=== PATIENT | female | born 1970 | race American Indian/Alaskan Native ===

== ENCOUNTER 2016-10-10 21:59 | Inpatient (IN) | payer MEDICAID, OTHER ==
[2016-10-10 22:00] VITALS: BMI 25.0
--- NOTE | 2016-10-10 23:23 | ED PDOC ---
Arrival/HPI - General Historian: Patient <Yamini Freire - Last Filed: 10/11/16 00:04> <Deepak Leary - Last Filed: 10/11/16 03:29> - General Chief Complaint: Psychiatric Evaluation Time Seen by Provider: 10/10/16 22:25 - History of Present Illness Narrative History of Present Illness (Text): 10/10/16 23:17 46-year-old female presents today with depression and intermittent thoughts of hurting himself. Patient states she's been under a lot of stress lately and is taking her medications but feels more depressed than ever. Patient states she's been feeling hopeless. Patient states intermittently she has thoughts of hurting herself but does not think that she will act on them. She denies chest pain or shortness of breath. No nausea or vomiting. Patient admits to using heroin yesterday. Patient states she was clean and recently relapsed. Patient also admits to drinking alcohol in the past few days. No other complaints (Yamini Freire) Past Medical History - Provider Review Nursing Documentation Reviewed: Yes - Travel History Have you recently traveled outside [place] w/in the past 3 mons?: No - Infectious Disease Hx of Infectious Diseases: None - Tetanus Immunization Tetanus Immunization: Unknown - Cardiac Hx Cardiac Disorders: No Hx Hypertension: Yes - Pulmonary Hx Respiratory Disorders: No Hx Tuberculosis: No - Neurological Hx Neurological Disorder: No HX Cerebrovascular Accident: No Hx Seizures: No - HEENT Hx HEENT Disorder: No - Renal Hx Renal Disorder: No - Endocrine/Metabolic Hx Endocrine Disorders: No - Hematological/Oncological Hx Anemia: Yes Hx Cancer: No - Integumentary Hx Dermatological Disorder: No - Musculoskeletal/Rheumatological Hx Musculoskeletal Disorders: No - Gastrointestinal Hx Gastrointestinal Disorders: No - Genitourinary/Gynecological Hx Genitourinary Disorders: No Hx Sexually Transmitted Diseases: No - Psychiatric Hx Anxiety: Yes Hx Bipolar Disorder: Yes Hx Depression: Yes Hx Schizophrenia: Yes Hx Substance Use: Yes - Past Surgical History Past Surgical History: No Previous - Surgical History Hx Cholecystectomy: Yes Other/Comment: Ectopic preg - Anesthesia Hx Anesthesia: Yes Hx Anesthesia Reactions: No Hx Malignant Hyperthermia: No - Suicidal Assessment Feels Threatened In Home Enviroment: No <Yamini Freire - Last Filed: 10/11/16 00:04> Family/Social History - Physician Review Nursing Documentation Reviewed: Yes Family/Social History: Unknown Family HX Smoking Status: Light Smoker < 10 Cigarettes Daily Hx Alcohol Use: No Hx Substance Use: Yes Substance used: last used on wednesday; October 072016 Hx Substance Use Treatment: Yes <MounaYamini T - Last Filed: 10/11/16 00:04> Allergies/Home Meds <JadachaddYamini T - Last Filed: 10/11/16 00:04> <Deepak Leary - Last Filed: 10/11/16 03:29> Allergies/Adverse Reactions: Allergies Penicillins Adverse Reaction (Verified 11/05/15 23:52) RASH Home Medications: Home Meds Medication Instructions Recorded Confirmed QUEtiapine [SEROquel] 300 mg PO BID 12/20/14 12/20/14 Zolpidem Tartrate [Ambien] 10 mg PO HS 12/20/14 12/20/14 Escitalopram [Lexapro] 10 mg PO DAILY 11/05/15 11/05/15 clonazePAM [clonAZEPAM] 1 mg PO TID 11/05/15 11/05/15 traZODone [Desyrel] 100 mg PO BID 11/05/15 11/05/15 Review of Systems - Review of Systems Constitutional: absent: Fatigue, Fevers Respiratory: absent: SOB, Cough Cardiovascular: absent: Chest Pain, Palpitations Gastrointestinal: absent: Abdominal Pain, Constipation, Diarrhea, Nausea, Vomiting Skin: absent: Pruritis Neurological: absent: Headache Psychiatric: Depression, Suicidal Ideation. absent: Anxiety <Yamini Freire - Last Filed: 10/11/16 00:04> Physical Exam Vital Signs Reviewed: Yes Temperature: Afebrile Blood Pressure: Normal Pulse: Regular Respiratory Rate: Normal Appearance: Positive for: Well-Appearing, Non-Toxic, Comfortable Pain Distress: None Mental Status: Positive for: Alert and Oriented X 3 Finger Stick Blood Glucose: 105 - Systems Exam Head: Present: Atraumatic Mouth: Present: Moist Mucous Membranes Respiratory/Chest: Present: Clear to Auscultation, Good Air Exchange. No: Respiratory Distress, Accessory Muscle Use Cardiovascular: Present: Regular Rate and Rhythm, Normal S1, S2. No: Murmurs Abdomen: No: Tenderness, Distention, Normal Bowel Sounds, Peritoneal Signs, Rebound, Guarding Upper Extremity: Present: Normal ROM Lower Extremity: Present: Normal ROM Neurological: Present: GCS=15 Skin: Present: Warm, Dry, Normal Color. No: Rashes Psychiatric: Present: Alert, Oriented x 3, Depressed Mood <Yamini Freire - Last Filed: 10/11/16 00:04> Vital Signs Temp Pulse Resp BP Pulse Ox 10/11/16 02:41 72 16 98 10/10/16 22:19 98.7 F 90 18 128/82 100 Medical Decision Making <Yamini Freire - Last Filed: 10/11/16 00:04> <Deepak Leary - Last Filed: 10/11/16 03:29> ED Course and Treatment: 10/10/16 23:23 Patient is nontoxic well-appearing in no distress vital signs are stable. pt c/ o depression. CBC WNL CMP WNL Tylenol WNL Salicylate WNL Alcohol level WNL Urine drug screen + cocaine, + opiates UA; small leukocytes, + epithealials; contaminated sample; no URinary symptoms. cxr: wnl ekg NSR at 80b/m no st elevations, normal axis. pt is medically cleared for PES evaluation (Yamini Freire) 10/11/16 03:08 Pt seen and evaluated by PES screener Minnie. Pt to be admitted to [facility] for depression and suicidal ideation under Dr. Gamboa's service. Pt agreeable with plan. (Deepak Leary) - Lab Interpretations Lab Results: 10/10/16 22:40 10/10/16 22:40 Lab Results 10/10/16 23:15: Urine Color Yellow, Urine Appearance Clear, Urine pH 6.0, Ur Specific [place] 1.025, Urine Protein Negative, Urine Glucose (UA) Negative, Urine Ketones Negative, Urine Blood Negative, Urine Nitrate Negative, Urine Bilirubin Negative, Urine Urobilinogen 0.2, Ur Leukocyte Esterase Small H, Urine RBC TEST NOT PERFORMED, Urine WBC 10 - 15, Ur Epithelial Cells 10 - 12, Urine HCG, Qual Negative, Urine Opiates Screen Positive H, Urine Methadone Screen Negative, Ur Barbiturates Screen Negative, Ur Phencyclidine Scrn Negative , Ur Amphetamines Screen Negative, U Benzodiazepines Scrn Negative, U Oth Cocaine Metabols Positive H, U Cannabinoids Screen Negative 10/10/16 22:40: WBC 8.3, RBC 4.33, Hgb 13.2, Hct 38.7, MCV 89.4, MCH 30.5, MCHC 34.1, RDW 15.5 H, Plt Count 236, MPV 10.8, Gran % 44.4 L, Lymph % (Auto) 45.8 H , [place] % (Auto) 7.3 H, Eos % (Auto) 2.4, Baso % (Auto) 0.1, Gran # 3.67, Lymph # 3.8 H, [place] # 0.6, Eos # 0.2, Baso # 0.01, Sodium 139, Potassium 4.1, Chloride 103, Carbon Dioxide 27, Anion Gap 13, BUN 10, Creatinine 0.7, Est GFR ( Amer) > 60, Est GFR (Non-Af Amer) > 60, Random Glucose 96, Calcium 9.0, Total Bilirubin 0.5, AST 35, ALT 41, Alkaline Phosphatase 93, Total Protein 8.1 , Albumin 4.2, Globulin 3.8, Albumin/Globulin Ratio 1.1, Salicylates < 1 L, Acetaminophen < 10.0 L, Alcohol, Quantitative < 10 - RAD Interpretation Radiology Orders: 10/10/16 22:26 CHEST PORTABLE [RAD] Stat - PA / CONCRETE FENCE BUILDER / Resident Statement KEVEN has reviewed & agrees with the documentation as recorded. KEVEN has examined the patient and agrees with the treatment plan. <Deepak Leary - Last Filed: 10/11/16 03:29> Disposition/Present on Arrival - Present on Arrival Any Indicators Present on Arrival: No History of DVT/PE: No History of Uncontrolled Diabetes: No Urinary Catheter: No History of Decub. Ulcer: No History Surgical Site Infection Following: None <Yamini Freire - Last Filed: 10/11/16 00:04> - Present on Arrival Any Indicators Present on Arrival: No History of DVT/PE: No History of Uncontrolled Diabetes: No Urinary Catheter: No History of Decub. Ulcer: No History Surgical Site Infection Following: None - Disposition Have Diagnosis and Disposition been Completed?: Yes Disposition Time: 03:29 Patient Plan: Admission <Deepak Leary - Last Filed: 10/11/16 03:29> - Disposition Diagnosis: Depression Disposition: HOSPITALIZED Condition: STABLE Referrals: PCP,NO [Primary Care Provider] - Follow up with primary
[2016-10-10 23:30] LABS: ADD MANUAL DIFF? NO
[2016-10-10 23:35] LABS: URINE BILIRUBIN NEGATIVE (NEGATIVE); URINE BLOOD NEGATIVE (NEGATIVE); URINE GLUCOSE (UA) NEGATIVE (NEGATIVE); URINE KETONE NEGATIVE (NEGATIVE); URINE LEUKOCYTE ESTERASE SMALL Leu/uL (NEGATIVE); URINE PROTEIN NEGATIVE mg/dL (<30 mg/dL); URINE UROBILINOGEN 0.2 E.U./dL (<1 E.U./dL)
[2016-10-10 23:36] LABS: BASO # 0.01 K/mm3 (0.0-2.0); BASO % 0.1 % (0.0-3.0); EOS # 0.2 (0.0-0.7); EOS % 2.4 % (1.5-5.0); GRAN # 3.67 (1.4-6.5); GRAN % 44.4 % (50.0-68.0); HEMATOCRIT 38.7 % (36.0-48.0); LYMPH # 3.8 (1.2-3.4); LYMPH % 45.8 % (22.0-35.0); MEAN CELL VOLUME 89.4 fL (80.0-105.0); MEAN CORPUSCULAR HEMOGLOBIN 30.5 pg (25.0-35.0); MEAN CORPUSCULAR HGB CONC 34.1 g/dl (31.0-37.0); MEAN PLATELET VOLUME 10.8 fl (7.0-11.0); MONO # 0.6 (0.1-0.6); MONO % 7.3 % (1.0-6.0); PLATELET COUNT 236 10^3/uL (120.0-450.0); RED CELL DISTRIBUTION WIDTH 15.5 % (11.5-14.5); WHITE BLOOD COUNT 8.3 10^3/ul (4.5-11.0)
[2016-10-10 23:39] LABS: URINE APPEARANCE CLEAR (CLEAR); URINE COLOR YELLOW (YELLOW)
[2016-10-10 23:43] LABS: ALB/GLOB RATIO 1.1 (1.1-1.8); ALKALINE PHOSPHATASE 93 U/L (38-133); ALT/SGPT 41 U/L (7-56); AST/SGOT 35 U/L (15-39); BILIRUBIN,TOTAL 0.5 mg/dL (0.2-1.3); BLOOD UREA NITROGEN 10 mg/dL (7-21); CARBON DIOXIDE 27 mmol/L (21-33); CHLORIDE 103 mmol/L (98-107); GFR AFRICAN-AMERICAN > 60; GLUCOSE,RANDOM 96 mg/dL (70-110); POTASSIUM 4.1 mmol/L (3.6-5.0); SODIUM 139 mmol/L (132-148); TOTAL PROTEIN 8.1 g/dL (5.8-8.3)
--- NOTE | 2016-10-11 08:45 | RAD ---
HISTORY: pes eval COMPARISON: 10/03/2015 FINDINGS: LUNGS: No active pulmonary disease. PLEURA: No significant pleural effusion identified, no pneumothorax apparent. CARDIOVASCULAR: Normal. OSSEOUS STRUCTURES: No significant abnormalities. VISUALIZED UPPER ABDOMEN: Normal. OTHER FINDINGS: None. IMPRESSION: No active disease.
[2016-10-11] MEDS ORDERED: Magnesium Hydroxide Susp 30 ml UD PO PRN (10:54)
[2016-10-11] MEDS ORDERED: Alum-Mag Hydrox-Simethicone Susp (30 mL) PO PRN (10:54)
--- NOTE | 2016-10-11 12:15 | CARD ---
APPROVED REPORT EKG Measurement Heart [id number] <Conclusion> Normal sinus rhythm Normal ECG
[2016-10-11] MEDS ORDERED: Albuterol-Ipratrop 3 mg / 0.5 (3 ml) UD IH PRN (14:29)
--- NOTE | 2016-10-11 14:34 | CP.PCM.CON ---
History of Present Illness - History of Present Illness History of Present Illness: Routine medical evaluation. Patient is a 46-year-old female admitted to the psychiatric floor for depression nad severe insomnia. Patient seen and examined in psychiatric floor. Patient is alert, awake and oriented. Currently denies any chest pain, shortness of breath. Denies any cough or wheezing. Denies any fevers, chills. Denies any urinary symptoms. Denies any nausea, vomiting. Tolerating diet well and denies any abdominal pain. ambulating without difficulty. Past medical history; Depression Schizoaffective disorder Asthma Insomnia Multiple drug abuse heroin/cocaine Medications at home; Inhaler Klonopin Seroquel Ambien Allergies; Penicillin Social history; Smokes 6 cigeretts per day more than 20 years Denies history of alcohol abuse history of heroin abuse anorting 2 days ago Currently denies IVDA Smokes heroin and cocaine. Patient lives in [place]. Review of Systems - Constitutional Constitutional: absent: Chills - EENT Eyes: absent: Blurred Vision Nose/Mouth/Throat: absent: Nasal Congestion - Cardiovascular Cardiovascular: absent: Chest Pain, Chest Pain at Rest - Respiratory Respiratory: absent: Cough, Dyspnea, Dyspnea on Exertion - Gastrointestinal Gastrointestinal: absent: Abdominal Pain, Vomiting - Musculoskeletal Musculoskeletal: absent: Abnormal Gait - Neurological Neurological: absent: Abnormal Gait, Abnormal Movements, Headaches Additional comments: insomnia - Psychiatric Psychiatric: Depression - Hematologic/Lymphatic Hematologic: absent: Easy Bleeding, Easy Bruising Past Patient History - Infectious Disease Hx of Infectious Diseases: None - Tetanus Immunizations Tetanus Immunization: Unknown - Past Social History Smoking Status: Light Smoker < 10 Cigarettes Daily Alcohol: < 2 Drinks/Day Drugs: Cocaine, Opiates - CARDIAC Hx Cardiac Disorders: Yes Hx Hypertension: Yes - PULMONARY Hx Respiratory Disorders: No Hx Tuberculosis: No - NEUROLOGICAL Hx Neurological Disorder: No Hx Alzheimer's Disease: No HX Cerebrovascular Accident: No Hx Seizures: No - HEENT Hx HEENT Problems: No - RENAL Hx Chronic Kidney Disease: No - ENDOCRINE/METABOLIC Hx Endocrine Disorders: No - HEMATOLOGICAL/ONCOLOGICAL Hx Anemia: Yes Hx Cancer: No - INTEGUMENTARY Hx Dermatological Problems: No - MUSCULOSKELETAL/RHEUMATOLOGICAL Hx Musculoskeletal Disorders: No - GASTROINTESTINAL Hx Gastrointestinal Disorders: No - GENITOURINARY/GYNECOLOGICAL Hx Genitourinary Disorders: No Hx Sexually Transmitted Disorders: No - PSYCHIATRIC Hx Anxiety: Yes Hx Depression: Yes Hx Emotional Abuse: No Hx Physical Abuse: No Hx Schizophrenia: No Hx Sexual Abuse: No Hx Substance Use: Yes (heroin) - SURGICAL HISTORY Hx Surgeries: Yes Hx Cholecystectomy: Yes Other/Comment: Ectopic preg - ANESTHESIA Hx Anesthesia: Yes Hx Anesthesia Reactions: No Hx Malignant Hyperthermia: No Meds Allergies/Adverse Reactions: Allergies Allergy/AdvReac Type Severity Reaction Status Date / Time Penicillins AdvReac RASH Verified 11/05/15 23:52 - Medications Medications: Current Medications Acetaminophen (Tylenol 325mg Tab) 650 mg PO Q6H PRN PRN Reason: Pain, Mild (1-3) Al Hydrox/Mg Hydrox/Simethicone (Maalox Plus 30 Ml) 30 ml PO DAILY PRN PRN Reason: Upset Stomach Clonazepam (Klonopin) 1 mg PO AMHS ANTONIO PRN Reason: Protocol Clonidine HCl (Catapres) 0.1 mg PO Q12H PRN PRN Reason: withdrawal Escitalopram Oxalate (Lexapro) 10 mg PO DAILY [facility] Last Admin: 10/11/16 13:03 Dose: 10 mg Magnesium Hydroxide (Milk Of Magnesia) 30 ml PO DAILY PRN PRN Reason: Constipation Quetiapine Fumarate (Seroquel) 100 mg PO HS ANTONIO PRN Reason: Protocol Trazodone HCl (Desyrel) 50 mg PO HS ANTONIO Zolpidem Tartrate (Ambien) 5 mg PO HS PRN; Protocol PRN Reason: Insomnia Physical Exam - Constitutional Appears: Well, Non-toxic - Head Exam Head Exam: NORMAL INSPECTION - Eye Exam Eye Exam: Normal appearance - ENT Exam ENT Exam: Mucous Membranes Moist - Respiratory Exam Respiratory Exam: Clear to Auscultation Bilateral - Cardiovascular Exam Cardiovascular Exam: REGULAR RHYTHM - GI/Abdominal Exam GI & Abdominal Exam: Normal Bowel Sounds, Soft. absent: Rebound, Rigid, Tenderness - Extremities Exam Extremities exam: Negative for: pedal edema - Back Exam Back exam: absent: CVA tenderness (L), CVA tenderness (R) - Neurological Exam Neurological exam: Alert, Oriented x3 - Psychiatric Exam Psychiatric exam: Depressed - Skin Skin Exam: Normal Color Results - Vital Signs Recent Vital Signs: Last Vital Signs Temp 98 F 10/11/16 10:31 Pulse 66 10/11/16 10:31 Resp 17 10/11/16 10:40 BP 98/65 L 10/11/16 10:31 Pulse Ox 100 10/11/16 10:31 - Labs Result Diagrams: 10/10/16 22:40 10/10/16 22:40 Assessment & Plan - Assessment and Plan (Free Text) Assessment: 1. Patient is a 46-year-old female admitted to the psychiatric floor for depression. Patient is currently on Lexapro, Seroquel and clonazepam. Follow-up with psychiatrist closely. 2. History of asthma; duonebs when necessary ordered. Currently with stable respiratory status. 3. Active smoking; smoking cessation is strongly advised. started on NicoDerm patch. 4. Insomnia:continue Ambien and trazodone. 5. History of heroin abuse; urine drug screen is positive for opiates and cocaine . Drug abuse cessation is strongly advised. Needs outpatient drug rehabilitation evaluation. 6. GI prophylaxis with Pepcid. 7.positive UA; no urinary symptoms. Urine culture sent from the ER. Follow up results. Labs reviewed. Upon discharge patient will follow up with PMD . Patient needs close outpatient psychiatric follow-up. patient is medically stable. Thank you for the courtesy of this consultation. Please reconsult as needed.
[2016-10-12 07:34] LABS: CHOLESTEROL 171 mg/dL (130-200); GLUCOSE,FASTING 106 mg/dL (65-110)
[2016-10-12 07:40] LABS: FREE T4 0.86 ng/dL (0.78-2.19)
[2016-10-12 07:54] LABS: THYROID STIMULATING HORMONE 0.13 mIU/mL (0.46-4.68)
--- NOTE | 2016-10-12 15:33 | PCM.PSYCH ---
Initial Psychiatric Evaluation - Initial Psychiatric Evaluation Type of Admission: Voluntary Legal Status: Capacity (patient has capacity to sign consent for treatment) Chief Complaint (in patient's own words): "I was depressed for the past two months..." Patient's Reaction to Hospitalization: pt was admitted for evaluation and stabilization of depressive symptoms, inability to function, suicidal ideation, no plan. History of Present Illness and Precipitating Events: Shortly pt is 46yo AAF with self reported h/o schizoaffective disorder, h/o heroin abuse and dependence, multiple admissions in the past, most recent was last year October to this facility, pt reported being noncompliant with medications, was relapsed on drugs for the past three days, was admitted for worsening of depression, suicidal ideation, no plan, pt needs further evaluation and stabilization and constant observation. Pt was seen and examined at the the treatment team, pt presented with poor personal hygiene, was disheveled, strong body odor, fair ADLs. Pt said that she was using drugs, pt said that she staid sober for eight months but she relapsed on Heroin three days prior to come to the hospital. Pt said that she was feeling depressed and hopeless and that is why she relapsed on drugs, pt said she had poor appetite and sleep. Pt said that she did not have any hallucinations, reported no symptoms of paranoia, pt has h/o auditory hallucinations, command type, but not now. Pt also reported worsening of her anxiety symptoms. past psych h/o: multiple admissions in the past, "about 10", h/o suicidal attempts. Medical h/o: ? COPD or asthma Social h/o: pt is on ssi, not working Pt reported smoking 6 pack a day Smoking Cessation Counseling: The patient was counseled as to the multiple risks to his/her health from continued use of tobacco products. 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 He/she states he/she understands these risks, and also understands the options and resources available to him/her to help him/her stop smoking. Nicotine replacement therapy, local hotlines, and local resources were discussed as viable options for helping him/her stop his/her tobacco use. The total time spent counseling the patient regarding tobacco cessation was 3 minutes Pt's pharmacy was called: by RN, reviewed. family h/o: denied 10/10/16 22:40 10/10/16 22:40 Lab Results 10/12/16 06:30: Fasting Glucose 106, Triglycerides 122, Cholesterol 171, LDL Cholesterol Direct 38, HDL Cholesterol 74 H, Free T4 0.86, TSH 3rd Generation 0.13 L 10/10/16 23:15: Urine Color Yellow, Urine Appearance Clear, Urine pH 6.0, Ur Specific [place] 1.025, Urine Protein Negative, Urine Glucose (UA) Negative, Urine Ketones Negative, Urine Blood Negative, Urine Nitrate Negative, Urine Bilirubin Negative, Urine Urobilinogen 0.2, Ur Leukocyte Esterase Small H, Urine RBC TEST NOT PERFORMED, Urine WBC 10 - 15, Ur Epithelial Cells 10 - 12, Urine HCG, Qual Negative, Urine Opiates Screen Positive H, Urine Methadone Screen Negative, Ur Barbiturates Screen Negative, Ur Phencyclidine Scrn Negative , Ur Amphetamines Screen Negative, U Benzodiazepines Scrn Negative, U Oth Cocaine Metabols Positive H, U Cannabinoids Screen Negative 10/10/16 22:40: WBC 8.3, RBC 4.33, Hgb 13.2, Hct 38.7, MCV 89.4, MCH 30.5, MCHC 34.1, RDW 15.5 H, Plt Count 236, MPV 10.8, Gran % 44.4 L, Lymph % (Auto) 45.8 H , [place] % (Auto) 7.3 H, Eos % (Auto) 2.4, Baso % (Auto) 0.1, Gran # 3.67, Lymph # 3.8 H, [place] # 0.6, Eos # 0.2, Baso # 0.01, Sodium 139, Potassium 4.1, Chloride 103, Carbon Dioxide 27, Anion Gap 13, BUN 10, Creatinine 0.7, Est GFR ( Amer) > 60, Est GFR (Non-Af Amer) > 60, Random Glucose 96, Calcium 9.0, Total Bilirubin 0.5, AST 35, ALT 41, Alkaline Phosphatase 93, Total Protein 8.1 , Albumin 4.2, Globulin 3.8, Albumin/Globulin Ratio 1.1, Salicylates < 1 L, Acetaminophen < 10.0 L, Alcohol, Quantitative < 10 Vital Signs Temp Pulse Resp BP Pulse Ox 10/12/16 07:00 98.8 F 62 20 105/64 10/11/16 10:40 17 10/11/16 10:31 98 F 66 16 98/65 L 100 10/11/16 09:00 68 16 92/54 L 99 10/11/16 07:13 62 16 99 10/11/16 05:47 97/56 L 10/11/16 05:20 69 16 97 10/11/16 02:41 72 16 98 10/10/16 22:19 98.7 F 90 18 128/82 100 Current Medications: Active Medications Generic Name Dose Route Start Last Admin Trade Name Freq PRN Reason Stop Dose Admin Acetaminophen 650 mg 10/11/16 10:54 Tylenol 325mg Tab PO Q6H PRN Pain, Mild (1-3) Al Hydrox/Mg Hydrox/Simethicone 30 ml 10/11/16 10:54 Maalox Plus 30 Ml PO DAILY PRN Upset Stomach Albuterol/Ipratropium 3 ml 10/11/16 14:29 Duoneb 3 Mg/0.5 Mg (3 Ml) Ud IH [id number] PRN Shortness of Breath Clonazepam 1 mg 10/11/16 22:00 10/12/16 09:07 Klonopin PO 1 mg AMHS ANTONIO Administration Protocol Clonidine HCl 0.1 mg 10/11/16 12:30 Catapres PO Q12H PRN withdrawal Escitalopram Oxalate 10 mg 10/11/16 12:30 10/12/16 09:07 Lexapro PO 10 mg DAILY ANTONIO Administration Famotidine 40 mg 10/11/16 22:00 10/11/16 21:55 Pepcid PO 40 mg HS ANTONIO Administration Magnesium Hydroxide 30 ml 10/11/16 10:54 Milk Of Magnesia PO DAILY PRN Constipation Nicotine 1 patch 10/11/16 14:30 10/12/16 09:09 Nicoderm Cq TD Not Given DAILY ANTONIO Quetiapine Fumarate 100 mg 10/11/16 22:00 10/11/16 21:55 Seroquel PO 100 mg HS ANTONIO Administration Protocol Trazodone HCl 50 mg 10/11/16 22:00 10/11/16 21:55 Desyrel PO 50 mg HS ANTONIO Administration Zolpidem Tartrate 5 mg 10/11/16 12:30 Ambien PO HS PRN Insomnia Protocol patient was educated about the risk, benefits, mental sciences all of the meds Past Psychiatric History - Past Psychiatric History Previous Treatment History: Inpatient Prior Professional Help: see HPI Prior Psychiatric Treatment: see HPI At what hospital: see HPI Duration: see HPI Nature of Treatment: see HPI Explanation of prior treatment: see HPI History of Abuse: see HPI, denied History of ETOH/Drug Use: see HPI cocaine and opioids History of Family Illness: see HPI Pertinent Medical Hx (Current Medical&Sleep Prob, Allergies): Allergies Allergy/AdvReac Type Severity Reaction Status Date / Time Penicillins AdvReac RASH Verified 11/05/15 23:52 QUEtiapine [SEROquel] 300 mg PO BID 12/20/14 Zolpidem Tartrate [Ambien] 10 mg PO HS 12/20/14 Escitalopram [Lexapro] 10 mg PO DAILY #0 tab 12/24/14 QUEtiapine [Seroquel] 100 mg PO DAILY #0 tab 12/24/14 QUEtiapine [Seroquel] 300 mg PO HS #0 tab 12/24/14 traZODone [Desyrel] 100 mg PO HS #0 tab 12/24/14 QUEtiapine [Seroquel] 100 mg PO HS #30 tab 10/07/15 Escitalopram [Lexapro] 10 mg PO DAILY 11/05/15 clonazePAM [clonAZEPAM] 1 mg PO TID 11/05/15 traZODone [Desyrel] 100 mg PO BID 11/05/15 Docusate [Colace] 100 mg PO BID PRN #20 cap 11/06/15 Polyethylene Glycol 3350 [Miralax] 17 gm PO DAILY PRN #1 bottle 11/06/15 Review of Systems - Review of Systems Systems not reviewed;Unavailable: Acuity of Condition - EENT Eyes: As Per HPI Ears: As Per HPI Nose/Mouth/Throat: As Per HPI - Breasts Breasts: As Per HPI - Cardiovascular Cardiovascular: As Per HPI - Respiratory Respiratory: As Per HPI - Gastrointestinal Gastrointestinal: As Per HPI - Genitourinary Genitourinary: As Per HPI - Reproductive: Female Reproductive:Female: As Per HPI - Menstruation Menstruation: As Per HPI - Musculoskeletal Musculoskeletal: As Par HPI - Integumentary Integumentary: As Per HPI - Neurological Neurological: As Per HPI - Psychiatric Psychiatric: As Per HPI - Endocrine Endocrine: As Per HPI - Hematologic/Lymphatic Hematologic: As Per HPI Mental Status Examination - Personal Presentation Personal Presentation: Looks older than stated age - Affect Affect: Flat - Motor Activity Motor Activity: Psychomotor Retardation - Reliability in Providing Information Reliability in Providing Information: Fair - Speech Speech: Organized - Mood Mood: Depressed - Formal Thought Process Formal Thought Process: No Impairment - Obsessions/Compulsions Obsessions: None Compulsions: None - Cognitive Functions Orientation: Person, Place, Situation, Time Sensorium: Alert Attention/Concentration: Easily distracted Abstract Thinking: [place] Estimate of Intelligence: Average Judgement: Intact, as evidence by: Insight regarding need for hospitalization - Risk Risk: Suicidal, Withdrawal, Self-mutilation, Diminished functioning - Strength & Assets Inventory Strength & Assets Inventory: Family support, Skills, Cooperative - Limitations Limitations: Other (chronic noncompliance with meds and using drugs.) DSM 5 DX - DSM 5 DSM 5 Diagnosis: schizoaffective d/o as per h/o cocaine abuse opioid addiction - Recommended/Plan of Treatment Treatment Recommendations and Plan of Treatment: milieu/structure/supportive therapy SEROquel was resumed 100mg hs as a mood stabilizer trazodone 50mg hs for insomnia and depression Ambien 5mg PO HS for insomnia Lexapro 10 mg PO DAILY for depression and anxiety clonAZEPAM 1 mg PO amhs for anxiety pt was seen by medical team, consult appreciated SW evaluation will f/u on labs will monitor closely Projected ELOS: 7days Prognosis: guarded Discharge Plan and Discharge Criteria: Pt will be not depressed or manic, will be more hopeful, will be not psychotic or anxious, will be not having thoughts of harming self or others, will be tolerating medications well, will not have major side effects, will be able to function, will not pose threat to self or others. - Smoking Cessation Smoking Cessation Initiated: Yes
--- NOTE | 2016-10-13 16:28 | PCM.PYCHPN ---
Psychiatric Progress Note - Psychiatric Progress Note Patient seen today, length of contact: 30 min Patient Chief Complaint: "are you kidding me, why you want to give me such small doses of medications?" Problems Identified/Issues Discussed: Suicide/ homicide prevention, past psychiatric h/o, current psychiatric symptoms , medical problems, risk/benefits and alternatives of medications, medications compliance, coping strategies, substance abuse h/o, relapse prevention, importance of follow up with psychiatrist and therapist, discharge plan. Medical Problems: h/o COPD, asthma Diagnostic Results: 10/10/16 22:40 10/10/16 22:40 Lab Results 10/12/16 06:30: Fasting Glucose 106, Triglycerides 122, Cholesterol 171, LDL Cholesterol Direct 38, HDL Cholesterol 74 H, Free T4 0.86, TSH 3rd Generation 0.13 L, RPR Nonreactive 10/10/16 23:15: Urine Color Yellow, Urine Appearance Clear, Urine pH 6.0, Ur Specific [place] 1.025, Urine Protein Negative, Urine Glucose (UA) Negative, Urine Ketones Negative, Urine Blood Negative, Urine Nitrate Negative, Urine Bilirubin Negative, Urine Urobilinogen 0.2, Ur Leukocyte Esterase Small H, Urine RBC TEST NOT PERFORMED, Urine WBC 10 - 15, Ur Epithelial Cells 10 - 12, Urine HCG, Qual Negative, Urine Opiates Screen Positive H, Urine Methadone Screen Negative, Ur Barbiturates Screen Negative, Ur Phencyclidine Scrn Negative , Ur Amphetamines Screen Negative, U Benzodiazepines Scrn Negative, U Oth Cocaine Metabols Positive H, U Cannabinoids Screen Negative 10/10/16 22:44: POC Glucose (mg/dL) 105 10/10/16 22:40: WBC 8.3, RBC 4.33, Hgb 13.2, Hct 38.7, MCV 89.4, MCH 30.5, MCHC 34.1, RDW 15.5 H, Plt Count 236, MPV 10.8, Gran % 44.4 L, Lymph % (Auto) 45.8 H , [place] % (Auto) 7.3 H, Eos % (Auto) 2.4, Baso % (Auto) 0.1, Gran # 3.67, Lymph # 3.8 H, [place] # 0.6, Eos # 0.2, Baso # 0.01, Sodium 139, Potassium 4.1, Chloride 103, Carbon Dioxide 27, Anion Gap 13, BUN 10, Creatinine 0.7, Est GFR ( Amer) > 60, Est GFR (Non-Af Amer) > 60, Random Glucose 96, Calcium 9.0, Total Bilirubin 0.5, AST 35, ALT 41, Alkaline Phosphatase 93, Total Protein 8.1 , Albumin 4.2, Globulin 3.8, Albumin/Globulin Ratio 1.1, Salicylates < 1 L, Acetaminophen < 10.0 L, Alcohol, Quantitative < 10 Vital Signs Temp Pulse Resp BP Pulse Ox 10/13/16 08:30 98.8 F 56 L 18 121/69 10/12/16 18:21 55 L 151/88 H 10/12/16 17:54 55 L 151/88 H 10/12/16 16:57 97.5 F L 10/12/16 07:00 98.8 F 62 20 105/64 10/11/16 10:40 17 10/11/16 10:31 98 F 66 16 98/65 L 100 10/11/16 09:00 68 16 92/54 L 99 10/11/16 07:13 62 16 99 10/11/16 05:47 97/56 L 10/11/16 05:20 69 16 97 10/11/16 02:41 72 16 98 10/10/16 22:19 98.7 F 90 18 128/82 100 DSM 5 Symptoms Update: Shortly pt is 46yo AAF with self reported h/o schizoaffective disorder, h/o heroin abuse and dependence, multiple admissions in the past, most recent was last year October to this facility, pt reported being noncompliant with medications, was relapsed on drugs for the past three days, was admitted for worsening of depression, suicidal ideation, no plan, pt needs further evaluation and stabilization and constant observation. Pt was seen and examined in her room, pt presented with poor personal hygiene, was disheveled, strong body odor, fair ADLs, pt is irritable and angry, said that she needs to have higher doses of meds, pt was educated that it would be not safe to initiate higher doses if pt was noncompliant with meds for the past few months, pt verbalized understanding. pt said that she feels depressed and "on edge", pt was in agreement to increase klonopn and seroquel. pt reported to feel depressed and irritable. Pt said that she did not have any hallucinations, reported no symptoms of paranoia, pt has h/o auditory hallucinations, command type, but not now. Pt also reported worsening of her anxiety symptoms. as per staff pt is withdrawn, irritable, not participating in groups, poor hygiene, not agitation, compliance with meds. Impression: bipolar disorder as per h/o polysubstance abuse and dependence r/o substance induced mood disorder Medication Change: Yes (seroquel increased, tramadol prn, trazodone increasede) Medical Record Reviewed: Yes Consults ordered or reviewed: medical consult appreciated. Mental Status Examination - Cognitive Function Orientation: Person, Place, Situation, Time Memory: Intact Attention: Poor Concentration: Poor Association: WNL Fund of Knowledge: WNL - Mood Mood: Depressed - Affect Affect: Flat - Speech Speech: Appropriate (underproductive, low volume) - Formal Thought Process Formal Thought Process: No Impairment - Suicidal Ideation Suicidal Ideation: No - Homicidal Ideation Homicidal Ideation: No Goal/Treatment Plan - Goal/Treatment Plan Need for Continued Stay: Remain at risks for inpatient hospitalization, Severe depression anxiety, Discharge may exacerbated symptoms, Severe functional impairment Progress Toward Problem(s) and Goals/Treatment Plan: milieu/structure/supportive therapy SEROquel will be increased to 200mg amhs as a mood stabilizer increased 10/13/16 trazodone will be increased 150mg hs for insomnia and depression increased Ambien 5mg PO HS for insomnia Lexapro 10 mg PO DAILY for depression and anxiety clonAZEPAM 1 mg PO tid for anxiety increased 10/13/16 tramadol 50mg po tid for pain pt was seen by medical team, consult appreciated evaluation will f/u on labs will monitor closely Estimated Date of D/C: 10/19/16 (will monitor closely)
--- NOTE | 2016-10-14 11:52 | PCM.PYCHPN ---
Psychiatric Progress Note - Psychiatric Progress Note Patient seen today, length of contact: 25 min Patient Chief Complaint: "alright" Problems Identified/Issues Discussed: I reviewed recent notes and met with patient at bedside. Patient appears a little unkempt however she's fairly calm and cooperative. Oriented x3. Reports that she is feeling "alright" and feels a little improved since admission. She is still not sleeping well thus can feel restless and de anda during the day. Patient denies having any wishes or suicidal thoughts. She denies having any thoughts of harming others. Her thought process is generally coherent and responses are relevant to questioning. Affect is constricted and nursing notes indicate that she can be labile and irritable on the unit. There were no behavioral issues overnight. Diagnostic Results: Bipolar disorder as per h/o polysubstance abuse and dependence r/o substance induced mood disorder Medication Change: No (seroquel increased, ambien increased) Medical Record Reviewed: Yes (notes, reports, labs, vitals) Mental Status Examination - Cognitive Function Orientation: Person, Place, Situation, Time Memory: Intact Attention: WNL Concentration: Poor Association: WNL Fund of Knowledge: WNL - Mood Mood: Depressed ("alright, de anda") - Affect Affect: Flat, Other (labile, irritable at times, but in control) - Speech Speech: Appropriate (underproductive, low volume) - Formal Thought Process Formal Thought Process: No Impairment - Suicidal Ideation Suicidal Ideation: No - Homicidal Ideation Homicidal Ideation: No Goal/Treatment Plan - Goal/Treatment Plan Need for Continued Stay: Remain at risks for inpatient hospitalization, Severe depression anxiety, Discharge may exacerbated symptoms, Severe functional impairment Progress Toward Problem(s) and Goals/Treatment Plan: * c/w current tx and plan * Increase Seroquel from 200mg amhs to 200 mg AM + 250 mg HS as a mood stabilizer * c/w trazodone, increased 10/13/16 to 150mg hs for insomnia and depression * Increase Ambien 5mg PO HS to 10 mg po HS prn for insomnia * c/w Lexapro 10 mg PO DAILY for depression and anxiety * c/w klonopin, increased 10/13/16 to 1 mg PO tid for anxiety * c/w tramadol 50mg po tid for pain * Vitals reviewed and noted below: Selected Entries 10/14/16 06:27 Temperature 98.7 F Pulse Rate 64 Respiratory 18 Rate Blood Pressure 108/67 * No new labs overnight Estimated Date of D/C: 10/19/16 (will monitor closely)
[2016-10-15 07:35] LABS: FREE T4 0.63 ng/dL (0.78-2.19)
[2016-10-15 07:49] LABS: THYROID STIMULATING HORMONE 0.48 mIU/mL (0.46-4.68)
--- NOTE | 2016-10-15 10:26 | PCM.PYCHPN ---
Psychiatric Progress Note - Psychiatric Progress Note Patient seen today, length of contact: 25 min Patient Chief Complaint: "okay" Problems Identified/Issues Discussed: I reviewed recent notes and met with patient at bedside. Patient still appears a little unkempt however she is fairly calm and cooperative during our interview. Oriented x3. Reports that she is "okay" and feels that she is improving a little since admission though she still feels anxious on the unit. Patient requests switch to Xanax and she is not argumentative when this provider informs her that Xanax will not be prescribed due to associated risks of dependency and withdrawal. Sleep is still restless and patient requests an increase in trazodone. Patient denies having any wishes or suicidal thoughts. She denies having any thoughts of harming others. Her thought process is generally coherent and responses are relevant to questioning. Affect is constricted and tired. I agree with nursing notes indicating that she can be labile and irritable on the unit. There were no behavioral issues overnight. Diagnostic Results: Bipolar disorder as per h/o polysubstance abuse and dependence r/o substance induced mood disorder Medication Change: Yes (seroquel increased, ambien increased 10/14, trazodone increased 10/15) Medical Record Reviewed: Yes (notes, reports, labs, vitals) Mental Status Examination - Cognitive Function Orientation: Person, Place, Situation, Time Memory: Intact Attention: WNL Concentration: Poor Association: WNL Fund of Knowledge: WNL - Mood Mood: Depressed ("okay, anxious") - Affect Affect: Other (labile, irritable at times, but in control) - Speech Speech: Appropriate (underproductive, low volume) - Formal Thought Process Formal Thought Process: No Impairment - Suicidal Ideation Suicidal Ideation: No - Homicidal Ideation Homicidal Ideation: No Goal/Treatment Plan - Goal/Treatment Plan Need for Continued Stay: Remain at risks for inpatient hospitalization, Severe depression anxiety, Discharge may exacerbated symptoms, Severe functional impairment Progress Toward Problem(s) and Goals/Treatment Plan: * c/w current tx and plan * Increased Seroquel from 200mg amhs to 200 mg AM + 250 mg HS on 10/14/16 as a mood stabilizer * c/w trazodone, increased 10/13/16 to 150mg hs and then again on 10/15/16 to 200 mg HS for insomnia and depression * Increased Ambien 5mg PO HS to 10 mg po HS prn on 10/14/16 for insomnia * c/w Lexapro 10 mg PO DAILY for depression and anxiety * c/w klonopin, increased 10/13/16 to 1 mg PO tid for anxiety * c/w tramadol 50mg po tid for pain * Vitals reviewed and noted below: Selected Entries 10/15/16 06:24 Temperature 98.5 F Pulse Rate 63 Respiratory 18 Rate Blood Pressure 113/65 * New labs overnight 10/15/16 06:00 Free T4 0.63 L TSH 3rd Generation 0.48 Estimated Date of D/C: 10/19/16 (will monitor closely)
--- NOTE | 2016-10-16 11:03 | PCM.PYCHPN ---
Psychiatric Progress Note - Psychiatric Progress Note Patient seen today, length of contact: 25 min Patient Chief Complaint: "okay" Problems Identified/Issues Discussed: I reviewed recent notes and met with patient at bedside. Patient still appears a little unkempt however she is fairly calm and cooperative during our interview. Affect remains is flat but a little more reactive. She is also a little more communicative and engaged. Oriented x3. Reports that she feels "okay" and continues to improve on the unit though she still reports having a lot of anxiety. Patient had trouble falling asleep last night but quality of sleep is improved. Patient denies having any wishes or suicidal thoughts. She denies having any thoughts of harming others. Her thought process is generally coherent and responses are relevant to questioning. I agree with nursing notes indicating that she can be a little guarded on the unit. Nonetheless patient has been more visible and attending groups. There were no behavioral issues overnight. Diagnostic Results: Bipolar disorder as per h/o polysubstance abuse and dependence r/o substance induced mood disorder Medication Change: Yes (seroquel increased, ambien increased 10/14, trazodone increased 10/15) Medical Record Reviewed: Yes (notes, reports, labs, vitals) Mental Status Examination - Cognitive Function Orientation: Person, Place, Situation, Time Memory: Intact Attention: WNL Concentration: Poor Association: WNL Fund of Knowledge: WNL - Mood Mood: Depressed ("okay, anxious") - Affect Affect: Other (labile, irritable at times, but in control) - Speech Speech: Appropriate (underproductive, low volume) - Formal Thought Process Formal Thought Process: No Impairment - Suicidal Ideation Suicidal Ideation: No - Homicidal Ideation Homicidal Ideation: No Goal/Treatment Plan - Goal/Treatment Plan Need for Continued Stay: Remain at risks for inpatient hospitalization, Severe depression anxiety, Discharge may exacerbated symptoms, Severe functional impairment Progress Toward Problem(s) and Goals/Treatment Plan: * c/w current tx and plan * Increased Seroquel from 200mg amhs to 200 mg AM + 250 mg HS on 10/14/16 as a mood stabilizer * c/w trazodone, increased 10/13/16 to 150mg hs and then again on 10/15/16 to 200 mg HS for insomnia and depression * Increased Ambien 5mg PO HS to 10 mg po HS prn on 10/14/16 for insomnia * c/w Lexapro 10 mg PO DAILY for depression and anxiety * c/w klonopin, increased 10/13/16 to 1 mg PO tid for anxiety * c/w tramadol 50mg po tid for pain * Vitals reviewed and noted below: Selected Entries 10/16/16 08:28 Temperature 98.2 F Pulse Rate 78 Respiratory 18 Rate Blood Pressure 112/71 * Prior floor labs noted below: 10/15/16 06:00 Free T4 0.63 L TSH 3rd Generation 0.48 Estimated Date of D/C: 10/19/16 (will monitor closely)
--- NOTE | 2016-10-17 09:18 | PCM.PYCHPN ---
Psychiatric Progress Note - Psychiatric Progress Note Patient seen today, length of contact: 25 min Patient Chief Complaint: "okay" Problems Identified/Issues Discussed: I reviewed recent notes and met with patient at bedside. Patient still appears a little unkempt however she is fairly calm and cooperative during our interview. Affect remains is flat but a little more reactive. She is also a little more communicative and engaged during our interaction today. Oriented x3. Reports that she feels "okay" and continues to improve on the unit though she still reports having a lot of anxiety. Complains again that we aren't providing her with Xanax. Indicates that she slept very well last night. Patient denies having any wishes or suicidal thoughts. She denies having any thoughts of harming others. Her thought process is generally coherent and responses are relevant to questioning. I agree with nursing notes indicating that she can be a little guarded on the unit but she is improving slowly. She is aware that benzos must be tapered prior to rehab and she is agreeable. Patient has been more visible and attending groups. There were no behavioral issues overnight. Diagnostic Results: Bipolar disorder as per h/o polysubstance abuse and dependence r/o substance induced mood disorder Medication Change: Yes (seroquel increased, ambien increased 10/14, trazodone increased 10/15) Medical Record Reviewed: Yes (notes, reports, labs, vitals) Mental Status Examination - Cognitive Function Orientation: Person, Place, Situation, Time Memory: Intact Attention: WNL Concentration: Poor Association: WNL Fund of Knowledge: WNL - Mood Mood: Depressed ("okay, anxious") - Affect Affect: Other (labile, irritable at times, but in control) - Speech Speech: Appropriate (underproductive, low volume) - Formal Thought Process Formal Thought Process: No Impairment - Suicidal Ideation Suicidal Ideation: No - Homicidal Ideation Homicidal Ideation: No Goal/Treatment Plan - Goal/Treatment Plan Need for Continued Stay: Remain at risks for inpatient hospitalization, Severe depression anxiety, Discharge may exacerbated symptoms, Severe functional impairment Progress Toward Problem(s) and Goals/Treatment Plan: * c/w current tx and plan * Increased Seroquel from 200mg amhs to 200 mg AM + 250 mg HS on 10/14/16 as a mood stabilizer * c/w trazodone, increased 10/13/16 to 150mg hs and then again on 10/15/16 to 200 mg HS for insomnia and depression * Increased Ambien 5mg PO HS to 10 mg po HS prn on 10/14/16 for insomnia * c/w Lexapro 10 mg PO DAILY for depression and anxiety * c/w klonopin, increased 10/13/16 to 1 mg PO tid for anxiety * c/w tramadol 50mg po tid for pain * Vitals reviewed and noted below: Selected Entries 10/16/16 10/16/16 08:28 16:22 Temperature 98.2 F Pulse Rate 78 86 Respiratory 18 Rate Blood Pressure 112/71 105/69 * Prior floor labs noted below: 10/15/16 06:00 Free T4 0.63 L TSH 3rd Generation 0.48 Estimated Date of D/C: 10/19/16 (will monitor closely)
--- NOTE | 2016-10-18 08:53 | PCM.PYCHPN ---
Psychiatric Progress Note - Psychiatric Progress Note Patient seen today, length of contact: 25 min Patient Chief Complaint: "okay" Problems Identified/Issues Discussed: I reviewed recent notes and met with patient at bedside. Patient still appears a little unkempt however she is fairly calm and cooperative during our interview. Affect remains is flat but a little more reactive. She is also a little more communicative and engaged during our interaction today. Oriented x3. Reports that she feels "okay" and continues to improve on the unit though she still reports having a lot of anxiety. Complains again that we aren't providing her with Xanax. Indicates that she slept very well last night. Patient denies having any wishes or suicidal thoughts. She denies having any thoughts of harming others. Her thought process is generally coherent and responses are relevant to questioning. I agree with nursing notes indicating that she can be a little guarded on the unit but she is improving slowly. She is aware that benzos must be tapered prior to rehab and she is agreeable. Patient has been more visible and attending groups. There were no behavioral issues overnight. Diagnostic Results: Bipolar disorder as per h/o polysubstance abuse and dependence r/o substance induced mood disorder Medication Change: Yes ( klonopin decreased & seroquel increased on 10/18/16) Medical Record Reviewed: Yes (notes, reports, labs, vitals) Mental Status Examination - Cognitive Function Orientation: Person, Place, Situation, Time Memory: Intact Attention: WNL Concentration: Poor Association: WNL Fund of Knowledge: WNL - Mood Mood: Depressed ("okay, anxious") - Affect Affect: Other (labile, irritable at times, but in control) - Speech Speech: Appropriate (underproductive, low volume) - Formal Thought Process Formal Thought Process: No Impairment - Suicidal Ideation Suicidal Ideation: No - Homicidal Ideation Homicidal Ideation: No Goal/Treatment Plan - Goal/Treatment Plan Need for Continued Stay: Remain at risks for inpatient hospitalization, Severe depression anxiety, Discharge may exacerbated symptoms, Severe functional impairment Progress Toward Problem(s) and Goals/Treatment Plan: * c/w current tx and plan * Increased Seroquel from 200mg amhs to 200 mg AM + 250 mg HS on 10/14/16 as a mood stabilizer. This was further increased to 225 mg AM +250 mg HS to mitigate possible withdrawal lability associated with taper of klonopin this week * c/w trazodone, increased 10/13/16 to 150mg hs and then again on 10/15/16 to 200 mg HS for insomnia and depression * Increased Ambien 5mg PO HS to 10 mg po HS prn on 10/14/16 for insomnia * c/w Lexapro 10 mg PO DAILY for depression and anxiety * c/w klonopin, increased 10/13/16 to 1 mg PO tid for anxiety. Decreased to 1 mg AMHS on 10/18/16 to prepare for rehab later this week. Continue taper daily. * c/w tramadol 50mg po tid for pain * Vitals reviewed and noted below: Selected Entries 10/17/16 10/17/16 06:39 16:15 Temperature 98.8 F Pulse Rate 85 75 Respiratory 20 Rate Blood Pressure 100/59 L 103/65 * Prior floor labs noted below: 10/15/16 06:00 Free T4 0.63 L TSH 3rd Generation 0.48 Estimated Date of D/C: 10/19/16 (will monitor closely)
[2016-10-19 06:48] VITALS: O2SAT 99
--- NOTE | 2016-10-19 10:54 | PCM.PYCHPN ---
Psychiatric Progress Note - Psychiatric Progress Note Patient seen today, length of contact: 25 min Patient Chief Complaint: "okay" Problems Identified/Issues Discussed: I reviewed recent notes and met with patient at bedside and during treatment team building. Patient still appears a little unkempt however she is fairly calm and cooperative during our interview. Affect remains flat but more reactive since admission. She is becoming more communicative and engaged. Oriented x3. Reports that she feels "okay" and continues to steadily improve on the unit. Tolerating klonopin taper so far and continues to sleep relatively well. Patient denies having any wishes or suicidal thoughts. She denies having any thoughts of harming others. Her thought process is generally coherent and responses are relevant to questioning. I agree with nursing notes indicating that she can be a little guarded on the unit but she is improving. She has been been visible on the unit. Attending and participating in groups. There were no behavioral issues overnight. Diagnostic Results: Bipolar disorder as per h/o polysubstance abuse and dependence r/o substance induced mood disorder Medication Change: Yes ( klonopin decreased & seroquel increased on 10/18/16) Medical Record Reviewed: Yes (notes, reports, labs, vitals) Mental Status Examination - Cognitive Function Orientation: Person, Place, Situation, Time Memory: Intact Attention: WNL Concentration: Poor Association: WNL Fund of Knowledge: WNL - Mood Mood: Depressed ("okay, anxious") - Affect Affect: Other (labile, irritable at times, but in control) - Speech Speech: Appropriate (underproductive, low volume) - Formal Thought Process Formal Thought Process: No Impairment - Suicidal Ideation Suicidal Ideation: No - Homicidal Ideation Homicidal Ideation: No Goal/Treatment Plan - Goal/Treatment Plan Need for Continued Stay: Remain at risks for inpatient hospitalization, Severe depression anxiety, Discharge may exacerbated symptoms, Severe functional impairment Progress Toward Problem(s) and Goals/Treatment Plan: * c/w current tx and plan * Medicine contacted for complaints of patient's constipation today, she reports not having a BM for over a week. * Increased Seroquel from 200mg amhs to 200 mg AM + 250 mg HS on 10/14/16 as a mood stabilizer. This was further increased to 225 mg AM +250 mg HS to mitigate possible withdrawal lability associated with taper of klonopin this week * c/w trazodone, increased 10/13/16 to 150mg hs and then again on 10/15/16 to 200 mg HS for insomnia and depression * Increased Ambien 5mg PO HS to 10 mg po HS prn on 10/14/16 for insomnia * c/w Lexapro 10 mg PO DAILY for depression and anxiety * c/w klonopin, increased 10/13/16 to 1 mg PO tid for anxiety. Decreased to 1 mg AMHS on 10/18/16 to prepare for rehab later this week. Continue taper daily. * c/w tramadol 50mg po tid for pain * Vitals reviewed and noted below: Selected Entries 10/18/16 10/18/16 06:34 16:00 Temperature 99.1 F Pulse Rate 82 73 Respiratory 18 Rate Blood Pressure 102/64 111/66 * Prior floor labs noted below: 10/15/16 06:00 Free T4 0.63 L TSH 3rd Generation 0.48 Estimated Date of D/C: 10/19/16 (will monitor closely)
[2016-10-19] MEDS: POLYETHYLENE GLYCOL 3350 17 GM/Dose PACKET PO SCH ×2 (14:49→19:35)
[2016-10-19] MEDS ORDERED: Magnesium Citrate Oral SOL (300 ml) PO ONE (16:50)
[2016-10-20 06:34] VITALS: RESP 19
[2016-10-20] MEDS: POLYETHYLENE GLYCOL 3350 17 GM/Dose PACKET PO SCH ×2 (09:38→17:47)
--- NOTE | 2016-10-20 10:14 | PCM.PYCHPN ---
Psychiatric Progress Note - Psychiatric Progress Note Patient seen today, length of contact: 25 min Patient Chief Complaint: "okay" Problems Identified/Issues Discussed: I reviewed recent notes and met with patient at bedside. Patient still appears a little unkempt however she is fairly calm and cooperative during our interview. Affect remains flat but more reactive daily since admission. She still has bouts of irritability nonetheless she is more communicative and engaged than last week. Oriented x3. Reports that she feels "okay" and continues to steadily improve on the unit though complains about having stress about her discharge plans. She is tolerating klonopin taper and seroquel titration relatively well so far and continues to sleep well. Patient denies having any wishes or suicidal thoughts. She denies having any thoughts of harming others. Her thought process is generally coherent and responses are relevant to questioning. I agree with nursing notes indicating that she can be a little guarded on the unit but she is improving. She has been been visible on the unit. Attending and participating in groups. There were no behavioral issues overnight. Diagnostic Results: Bipolar disorder as per h/o polysubstance abuse and dependence r/o substance induced mood disorder Medication Change: Yes ( klonopin decreased & seroquel increased on 10/18 & 10/20) Medical Record Reviewed: Yes (notes, reports, labs, vitals) Mental Status Examination - Cognitive Function Orientation: Person, Place, Situation, Time Memory: Intact Attention: WNL Concentration: Poor Association: WNL Fund of Knowledge: WNL - Mood Mood: Depressed ("okay, anxious") - Affect Affect: Other (labile, irritable at times, but in control) - Speech Speech: Appropriate (underproductive, low volume) - Formal Thought Process Formal Thought Process: No Impairment - Suicidal Ideation Suicidal Ideation: No - Homicidal Ideation Homicidal Ideation: No Goal/Treatment Plan - Goal/Treatment Plan Need for Continued Stay: Remain at risks for inpatient hospitalization, Severe depression anxiety, Discharge may exacerbated symptoms, Severe functional impairment Progress Toward Problem(s) and Goals/Treatment Plan: * c/w current tx and plan * Medicine contacted for complaints of patient's constipation today, she reports not having a BM for over a week. * Increased Seroquel from 200mg amhs to 200 mg AM + 250 mg HS on 10/14/16 as a mood stabilizer. This was further increased to 250 mg AM +250 mg HS to mitigate possible withdrawal lability associated with taper of klonopin this week * c/w trazodone, increased 10/13/16 to 150mg hs and then again on 10/15/16 to 200 mg HS for insomnia and depression * Increased Ambien 5mg PO HS to 10 mg po HS prn on 10/14/16 for insomnia * c/w Lexapro 10 mg PO DAILY for depression and anxiety * c/w klonopin, increased 10/13/16 to 1 mg PO tid for anxiety. Decreased to 1 mg AMHS on 10/18/16 and then 0.5 mg AM and 1 mg HS on 10/20/16 to prepare for transfer to rehab this Wednesday. Continue taper daily. * c/w tramadol 50mg po tid for pain * Vitals reviewed and noted below: Selected Entries 10/19/16 10/19/16 06:48 15:32 Temperature 98.2 F Pulse Rate 72 85 Respiratory 18 Rate Blood Pressure 97/59 L 99/52 L * Prior floor labs noted below: 10/15/16 06:00 Free T4 0.63 L TSH 3rd Generation 0.48 Estimated Date of D/C: 10/19/16 (will monitor closely)
[2016-10-21] MEDS: POLYETHYLENE GLYCOL 3350 17 GM/Dose PACKET PO SCH ×2 (09:11→17:40)
--- NOTE | 2016-10-21 10:25 | PCM.PYCHPN ---
Psychiatric Progress Note - Psychiatric Progress Note Patient seen today, length of contact: 25 min Patient Chief Complaint: "okay" Problems Identified/Issues Discussed: I reviewed recent notes and met with patient at bedside. Patient still appears a little unkempt however she is fairly calm and cooperative during our interview. Affect remains flat but more reactive daily since admission. She still has bouts of irritability nonetheless she is more communicative and engaged than last week. Oriented x3. Reports that she feels "okay" and continues to steadily improve on the unit though complains being stressed about discharge plans. She is tolerating klonopin taper and seroquel titration relatively well so far and continues to sleep well. Patient denies having any wishes or suicidal thoughts. She denies having any thoughts of harming others. Her thought process is generally coherent and responses are relevant to questioning. I agree with nursing notes indicating that she can be a little de anda and guarded on the unit but she is improving. Has been visible and socializing with select peers. She is also attending and passively participating in groups. There were no behavioral issues overnight. Diagnostic Results: Bipolar disorder as per h/o polysubstance abuse and dependence r/o substance induced mood disorder Medication Change: Yes ( klonopin decreased & seroquel increased on 10/18 & 10/20) Medical Record Reviewed: Yes (notes, reports, labs, vitals) Mental Status Examination - Cognitive Function Orientation: Person, Place, Situation, Time Memory: Intact Attention: WNL Concentration: Poor Association: WNL Fund of Knowledge: WNL - Mood Mood: Depressed (better) - Affect Affect: Constricted (improved and more reactive and related) - Speech Speech: Appropriate (underproductive, low volume) - Formal Thought Process Formal Thought Process: No Impairment - Suicidal Ideation Suicidal Ideation: No - Homicidal Ideation Homicidal Ideation: No Goal/Treatment Plan - Goal/Treatment Plan Need for Continued Stay: Remain at risks for inpatient hospitalization, Severe depression anxiety, Discharge may exacerbated symptoms, Severe functional impairment Progress Toward Problem(s) and Goals/Treatment Plan: * c/w current tx and plan * Of note: medicine contacted for constipation x2 days ago, patient with BM yesterday. * Increased Seroquel from 200mg amhs to 200 mg AM + 250 mg HS on 10/14/16 as a mood stabilizer. This was further increased to 250 mg AM +250 mg HS to mitigate possible withdrawal lability associated with taper of klonopin this week * c/w trazodone, increased 10/13/16 to 150mg hs and then again on 10/15/16 to 200 mg HS for insomnia and depression * Increased Ambien 5mg PO HS to 10 mg po HS prn on 10/14/16 for insomnia * c/w Lexapro 10 mg PO DAILY for depression and anxiety * c/w klonopin, decreased to 0.5 mg AMHS on 10/21/16 * c/w tramadol 50mg po tid for pain * Vitals reviewed and noted below: Selected Entries 10/20/16 10/20/16 06:33 16:42 Temperature 98.4 F Pulse Rate 75 83 Respiratory 19 Rate Blood Pressure 106/66 109/66 * Prior floor labs noted below: 10/15/16 06:00 Free T4 0.63 L TSH 3rd Generation 0.48 * OF NOTE: PATIENT SIGNED A 48 HOUR LETTER ON 10/21/16 Estimated Date of D/C: 10/19/16 (will monitor closely)
[2016-10-22 06:49] VITALS: BP 100/61; PULSE 72; TEMP 98.3
[2016-10-22] MEDS: POLYETHYLENE GLYCOL 3350 17 GM/Dose PACKET PO SCH (08:29)
--- NOTE | 2016-10-22 10:31 | PCM.PYCHDC ---
Mental Status Examination - Mental Status Examination Orientation: Person, Place, Situation Memory: Intact Mood: Neutral Affect: Broad Speech: Appropriate Attention: WNL Concentration: WNL Association: WNL Fund of Knowledge: WNL Formal Thought Process: No Impairment Description of patient's judgement and insight: Improved and Fair I/J, much improved IC Psychotic Thoughts and Behaviors: No AVH, No PI. No delusions elicited. Suicidal Ideation: No Current Homicidal Ideation?: No Discharge Summary - Discharge Note Reason for Hospitalization: Pt is 46yo AAF with self reported h/o schizoaffective disorder, h/o heroin abuse and dependence, multiple admissions in the past, most recent was last year October to this facility, pt reported being noncompliant with medications, was relapsed on drugs for the past three days, was admitted for worsening of depression, suicidal ideation, no plan, pt needs further evaluation and stabilization and constant observation. Psychiatric History (includes Medical, Family, Personal Hx): see HPI Laboratory Data: Laboratory Tests 10/10/16 10/10/16 10/10/16 22:40 22:44 23:15 WBC 8.3 RBC 4.33 Hgb 13.2 Hct 38.7 MCV 89.4 MCH 30.5 MCHC 34.1 RDW 15.5 H Plt Count 236 MPV 10.8 Gran % 44.4 L Lymph % (Auto) 45.8 H Clinch % (Auto) 7.3 H Eos % (Auto) 2.4 Baso % (Auto) 0.1 Gran # 3.67 Lymph # 3.8 H Clinch # 0.6 Eos # 0.2 Baso # 0.01 Sodium 139 Potassium 4.1 Chloride 103 Carbon Dioxide 27 Anion Gap 13 BUN 10 Creatinine 0.7 Est GFR ( Amer) > 60 Est GFR (Non-Af Amer) > 60 POC Glucose (mg/dL) 105 Random Glucose 96 Fasting Glucose Calcium 9.0 Total Bilirubin 0.5 AST 35 ALT 41 Alkaline Phosphatase 93 Total Protein 8.1 Albumin 4.2 Globulin 3.8 Albumin/Globulin Ratio 1.1 Triglycerides Cholesterol LDL Cholesterol Direct HDL Cholesterol Free T4 TSH 3rd Generation Urine Color Yellow Urine Appearance Clear Urine pH 6.0 Ur Specific [place] 1.025 Urine Protein Negative Urine Glucose (UA) Negative Urine Ketones Negative Urine Blood Negative Urine Nitrate Negative Urine Bilirubin Negative Urine Urobilinogen 0.2 Ur Leukocyte Esterase Small H Urine RBC TEST NOT PERFORMED Urine WBC 10 - 15 Ur Epithelial Cells 10 - 12 Urine HCG, Qual Negative Salicylates < 1 L Urine Opiates Screen Positive H Urine Methadone Screen Negative Acetaminophen < 10.0 L Ur Barbiturates Screen Negative Ur Phencyclidine Scrn Negative Ur Amphetamines Screen Negative U Benzodiazepines Scrn Negative U Oth Cocaine Metabols Positive H U Cannabinoids Screen Negative Alcohol, Quantitative < 10 RPR 10/12/16 10/15/16 06:30 06:00 WBC RBC Hgb Hct MCV MCH MCHC RDW Plt Count MPV Gran % Lymph % (Auto) Clinch % (Auto) Eos % (Auto) Baso % (Auto) Gran # Lymph # Clinch # Eos # Baso # Sodium Potassium Chloride Carbon Dioxide Anion Gap BUN Creatinine Est GFR ( Amer) Est GFR (Non-Af Amer) POC Glucose (mg/dL) Random Glucose Fasting Glucose 106 Calcium Total Bilirubin AST ALT Alkaline Phosphatase Total Protein Albumin Globulin Albumin/Globulin Ratio Triglycerides 122 Cholesterol 171 LDL Cholesterol Direct 38 HDL Cholesterol 74 H Free T4 0.86 0.63 L TSH 3rd Generation 0.13 L 0.48 Urine Color Urine Appearance Urine pH Ur Specific [place] Urine Protein Urine Glucose (UA) Urine Ketones Urine Blood Urine Nitrate Urine Bilirubin Urine Urobilinogen Ur Leukocyte Esterase Urine RBC Urine WBC Ur Epithelial Cells Urine HCG, Qual Salicylates Urine Opiates Screen Urine Methadone Screen Acetaminophen Ur Barbiturates Screen Ur Phencyclidine Scrn Ur Amphetamines Screen U Benzodiazepines Scrn U Oth Cocaine Metabols U Cannabinoids Screen Alcohol, Quantitative RPR Nonreactive Consultations:: List each consultation separately and include: 1. Reason for request. 2. Findings. 3. Follow-up Consultations: Patient seen by Dr. Georges on 10/11/16 who signed off on that day. Summary of Hospital Course include:: 1. Description of specific treatment plan utilized for patients during their course of treatmen. 2. Summarize the time- course for resolution of acute symptoms and/or regressed behaviors. 3. Describe issues identified and worked on during hospitalization. 4. Describe medication utilized. 5. Describe medical problems identified and treated. 6. Reassessment of suicide risk Summary of Hospital Course: Pt is 46yo AAF with self reported h/o schizoaffective disorder, h/o heroin abuse and dependence, multiple admissions in the past, most recent was last year October to this facility, pt reported being noncompliant with medications, was relapsed on drugs for the past three days, was admitted for worsening of depression, suicidal ideation, no plan, pt needs further evaluation and stabilization and constant observation. ~~~~~ Patient agreeable to nicotine patch for smoking cessation at admission however deferred on a prescription upon discharge. Patient scheduled for discharge today and this provider meets with her to ensure stability for discharge on her 48 hour letter. Patient reports improvement since his admission and denies having any new concerns. Indicates mood is improved and that she is more hopeful. Denies having any wishes, suicidal thoughts or thoughts to harm others. Patient also denies having any perceptual disturbance and she is not responding internal stimuli. Delusions were not elicited during today's interview. Focus and eye contact are good. Patient is related and affect demonstrates moderate range with appropriate reactivity. Overall she feels very comfortable with today's discharge date and after care plans. - Final Diagnosis (DSM 5) Condition upon Discharge: STABLE DSM 5: Bipolar disorder as per h/o polysubstance abuse and dependence r/o substance induced mood disorder Disposition: HOME/ ROUTINE Follow-up Treatment Plan: per NOTE: 10/21/16 15:08 - by Veronica Hernandez Patient signed [address] Del Cid, pt to be d/c on 10/22/16. Pt reports she will follow up with outpatient treatment at [facility] in [place] and live in their 3/4 house program. 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 THE FOLLOWING MEDICATIONS WERE CALLED INTO [facility], [address] [facility], , 2 WEEKS + 1RF * Seroquel 250 mg AM +250 mg HS for mood control * trazodone 200 mg HS for insomnia and depression * Ambien 10 mg po HS prn for insomnia * Lexapro 10 mg PO DAILY for depression and anxiety - Smoking Cessation Smoking Cessation Medication prescribed: No Reason for not providing: Patient deferred - Antipsychotic Medications Pt discharged on 2 or more routine antipsychotic medications: No
== END 2016-10-22 10:07 | disposition home or self-care (01) | DRG 430 ==
LOC: ED 21:59 → ERH 10-11 03:26 → PSYC 10-11 10:42
PROVIDERS: ADMIT Psychiatry & Neurology Psychiatry; ATTEND Psychiatry & Neurology Psychiatry
DX: F31.9 Bipolar disorder, unspecified (principal); F11.20 Opioid dependence, uncomplicated; F14.20 Cocaine dependence, uncomplicated; J45.909 Unspecified asthma, uncomplicated; G47.00 Insomnia, unspecified; F17.210 Nicotine dependence, cigarettes, uncomplicated; Z88.0 Allergy status to penicillin

== ENCOUNTER 2016-12-25 01:25 | Inpatient (IN) | payer MEDICAID ==
[2016-12-25 01:26] VITALS: BMI 25.0
--- NOTE | 2016-12-25 02:01 | ED PDOC ---
Arrival/HPI - General Chief Complaint: Psychiatric Evaluation Time Seen by Provider: 12/25/16 01:44 Historian: Patient - History of Present Illness Narrative History of Present Illness (Text): 12/25/16 01:44 Linda Iraheta is a 46 year old female, whose past medical history includes schizoaffective disorder and heroin abuse and dependence, who presents to the emergency department complaining of depression for a few months. Patient confirms that she wants to hurt herself and has plans to jump but location was not planned. Denies HI. Patient confirms that she experiences auditory and visual hallucinations. Patient endorses that she took Heroin 3 days ago. Denies any other complaint at this time. Time/Duration: > month Symptom Onset: Gradual Symptom Course: Unchanged Severity Level: Moderate Activities at Onset: Rest Context: Home Past Medical History - Provider Review Nursing Documentation Reviewed: Yes - Infectious Disease Hx of Infectious Diseases: None - Tetanus Immunization Tetanus Immunization: Unknown - Cardiac Hx Cardiac Disorders: Yes Hx Hypertension: Yes - Pulmonary Hx Respiratory Disorders: No Hx Tuberculosis: No - Neurological Hx Neurological Disorder: No Hx Alzheimer's Disease: No HX Cerebrovascular Accident: No Hx Seizures: No - HEENT Hx HEENT Disorder: No - Renal Hx Renal Disorder: No - Endocrine/Metabolic Hx Endocrine Disorders: No - Hematological/Oncological Hx Anemia: Yes Hx Cancer: No - Integumentary Hx Dermatological Disorder: No - Musculoskeletal/Rheumatological Hx Musculoskeletal Disorders: No - Gastrointestinal Hx Gastrointestinal Disorders: No - Genitourinary/Gynecological Hx Genitourinary Disorders: No Hx Sexually Transmitted Diseases: No - Psychiatric Hx Anxiety: Yes Hx Depression: Yes Hx Emotional Abuse: No Hx Physical Abuse: No Hx Schizophrenia: No Hx Sexual Abuse: No Hx Substance Use: Yes (heroine) - Past Surgical History Past Surgical History: No Previous - Surgical History Hx Cholecystectomy: Yes Other/Comment: Ectopic preg - Anesthesia Hx Anesthesia: Yes Hx Anesthesia Reactions: No Hx Malignant Hyperthermia: No - Suicidal Assessment Feels Threatened In Home Enviroment: No Family/Social History - Physician Review Nursing Documentation Reviewed: Yes Family/Social History: No Known Family HX Smoking Status: Light Smoker < 10 Cigarettes Daily Hx Alcohol Use: Yes Frequency of alcohol use: Socially Hx Substance Use: Yes (heroine) Substance used: last used on wednesday; October 072016 Hx Substance Use Treatment: Yes Allergies/Home Meds Allergies/Adverse Reactions: Allergies Penicillins Adverse Reaction (Verified 10/15/16 07:49) RASH Home Medications: Home Meds Medication Instructions Recorded Confirmed QUEtiapine [SEROquel] 300 mg PO BID 12/20/14 12/20/14 Zolpidem Tartrate [Ambien] 10 mg PO HS 12/20/14 12/20/14 Escitalopram [Lexapro] 10 mg PO DAILY 11/05/15 11/05/15 clonazePAM [clonAZEPAM] 1 mg PO TID 11/05/15 11/05/15 traZODone [Desyrel] 100 mg PO BID 11/05/15 11/05/15 Physical Exam - Physical Exam Narrative Physical Exam (Text): - Review of Systems Constitutional: Normal. absent: Fatigue, Weight Change, Fevers Eyes: Normal ENT: Normal Respiratory: Normal absent: SOB, Cough, Sputum Cardiovascular: Normal absent: Chest pain, Palpitations, Syncope Gastrointestinal: Normal absent: Abdominal pain, Diarrhea, Nausea, Vomiting Genitourinary: Normal. absent: Dysuria, Frequency, Hematuria Musculoskeletal: Normal. absent: Arthralgias, Back Pain, Neck Pain Skin: Normal Neurological: Normal absent: Focal Weakness Endocrine: Normal Hemo/Lymphatic: Normal Psychiatric: Depression, Suicidal Ideation. No: Homicidal Ideation - Physical exam Patient appears age appropriate, speaking full sentences without difficulty. - Systems Exam Head: Present: Atraumatic, Normocephalic Pupils: Present: PERRL Extraocular Muscles: Present: EOMI Conjunctiva: Present: Normal Mouth: Present: Moist Mucous Membranes Neck: Present: Normal Range of Motion. No: MIDLINE TENDERNESS, Paraspinal Tenderness Respiratory/Chest: Present: Clear to Auscultation, Good Air Exchange. No: Respiratory Distress, Accessory Muscle Use, Tachypneic Cardiovascular: Present: Regular Rate and Rhythm, Normal S1, S2, Peripheral Pulses Present. No: Murmurs Abdomen: Present: Normal Bowel Sounds, No: Tenderness, Peritoneal Signs, Rebound, Guarding, Distention Back: Present: Normal Inspection. No: Midline Tenderness, Paraspinal Tenderness Upper Extremity: Present: Normal Inspection. No: Cyanosis, Edema Lower Extremity: Present: Normal Inspection. No: Edema Neurological: Present: GCS=15, Speech Normal, cranial nerves II through XII fully intact with no cerebellar abnormality, neuro-sensory fully intact. No focal neurological deficits. Skin: Present: Warm, Dry, Normal Color. No: Rashes Lymphatic: Present: OX3, NI, NC Psychiatric: Present: Alert, Oriented x 3, Normal Insight, Normal Concentration. Vital Signs Reviewed: Yes Vital Signs Temp Pulse Resp BP Pulse Ox 12/25/16 04:36 130/82 12/25/16 04:33 53 L 18 98 12/25/16 01:38 99.0 F 88 18 124/76 98 Temperature: Afebrile Blood Pressure: Normal Pulse: Regular Respiratory Rate: Normal Pain Distress: None Mental Status: Positive for: Alert and Oriented X 3 Medical Decision Making ED Course and Treatment: 12/25/16 01:44 Impression: 46 year old female complaining of depression with SI for a few months. Denies HI. Plan: -- Reassess and disposition Prior Visits: Notes and results from previous visits were reviewed. Patient last seen in ED on 10/22/16 after being teated for worsening depression and SI. Progress Notes: EKG shows NSR at [address]-segment elevations, normal intervals. with no prior for comparison. Interpreted by me. 12/25/16 05:42 seen by PES, accepted to behavioral health to Dr. Gamboa's service pt aware of and agrees with plan - Lab Interpretations Lab Results: 12/25/16 02:30 12/25/16 02:30 Lab Results 12/25/16 03:00: Urine Opiates Screen Positive H, Urine Methadone Screen Negative , Ur Barbiturates Screen Negative, Ur Phencyclidine Scrn Negative, Ur Amphetamines Screen Negative, U Benzodiazepines Scrn Negative, U Oth Cocaine Metabols Negative, U Cannabinoids Screen Negative 12/25/16 03:00: Urine Color Yellow, Urine Appearance Clear, Urine pH 6.0, Ur Specific [place] >= 1.030, Urine Protein Trace H, Urine Glucose (UA) Negative, Urine Ketones Negative, Urine Blood Trace-lysed H, Urine Nitrate Negative, Urine Bilirubin Negative, Urine Urobilinogen 0.2, Ur Leukocyte Esterase Negative , Urine RBC 1 - 3, Urine WBC 0 - 2, Ur Epithelial Cells 0 - 2, Urine Bacteria Few 12/25/16 02:30: Alcohol, Quantitative < 10 12/25/16 02:30: Salicylates < 1 L, Acetaminophen < 10.0 L 12/25/16 02:30: Sodium 138, Potassium 4.0, Chloride 104, Carbon Dioxide 24, Anion Gap 14, BUN 13, Creatinine 0.7, Est GFR ( Amer) > 60, Est GFR (Non- Af Amer) > 60, Random Glucose 95, Calcium 9.4, Total Bilirubin 0.7, AST 29, ALT 33, Alkaline Phosphatase 104, Total Creatine Kinase 252 H, CK-MB (CK-2) 2.8, CK- MB (CK-2) % Cancelled, Total Protein 8.2, Albumin 4.5, Globulin 3.7, Albumin/ Globulin Ratio 1.2 12/25/16 02:30: WBC 8.8, RBC 4.33, Hgb 13.2, Hct 38.7, MCV 89.4, MCH 30.5, MCHC 34.1, RDW 15.1 H, Plt Count 207, MPV 11.4 H, Gran % 44.5 L, Lymph % (Auto) 43.9 H, [place] % (Auto) 8.8 H, Eos % (Auto) 2.7, Baso % (Auto) 0.1, Gran # 3.93, Lymph # 3.9 H, [place] # 0.8 H, Eos # 0.2, Baso # 0.01 - Scribe Statement The provider has reviewed the documentation as recorded by the Idalmis Umaña Provider Scribe Attestation: All medical record entries made by the Scribe were at my direction and personally dictated by me. I have reviewed the chart and agree that the record accurately reflects my personal performance of the history, physical exam, medical decision making, and the department course for this patient. I have also personally directed, reviewed, and agree with the discharge instructions and disposition. Disposition/Present on Arrival - Present on Arrival Any Indicators Present on Arrival: No History of DVT/PE: No History of Uncontrolled Diabetes: No Urinary Catheter: No History of Decub. Ulcer: No History Surgical Site Infection Following: None - Disposition Have Diagnosis and Disposition been Completed?: Yes Diagnosis: Schizoaffective disorder Disposition: HOSPITALIZED Disposition Time: 05:43 Patient Plan: Admission Patient Problems: Current Active Problems Problem Status Onset Schizoaffective disorder Acute Condition: FAIR
[2016-12-25 02:40] LABS: ADD MANUAL DIFF? NO
[2016-12-25 02:52] LABS: ALB/GLOB RATIO 1.2 (1.1-1.8); ALKALINE PHOSPHATASE 104 U/L (38-133); ALT/SGPT 33 U/L (7-56); AST/SGOT 29 U/L (15-39); BILIRUBIN,TOTAL 0.7 mg/dL (0.2-1.3); BLOOD UREA NITROGEN 13 mg/dL (7-21); CALCIUM 9.4 mg/dL (8.4-10.5); CARBON DIOXIDE 24 mmol/L (21-33); CHLORIDE 104 mmol/L (98-107); GFR AFRICAN-AMERICAN > 60; GLUCOSE,RANDOM 95 mg/dL (70-110); SODIUM 138 mmol/L (132-148); TOTAL PROTEIN 8.2 g/dL (5.8-8.3)
[2016-12-25 03:20] LABS: URINE BILIRUBIN NEGATIVE (NEGATIVE); URINE BLOOD TRACE-LYSED (NEGATIVE); URINE GLUCOSE (UA) NEGATIVE (NEGATIVE); URINE KETONE NEGATIVE (NEGATIVE); URINE LEUKOCYTE ESTERASE NEGATIVE Leu/uL (NEGATIVE); URINE PROTEIN TRACE mg/dL (<30 mg/dL); URINE UROBILINOGEN 0.2 E.U./dL (<1 E.U./dL)
[2016-12-25 03:25] LABS: URINE APPEARANCE CLEAR (CLEAR); URINE COLOR YELLOW (YELLOW)
[2016-12-25 03:30] LABS: BASO # 0.01 K/mm3 (0.0-2.0); BASO % 0.1 % (0.0-3.0); EOS # 0.2 (0.0-0.7); EOS % 2.7 % (1.5-5.0); GRAN # 3.93 (1.4-6.5); GRAN % 44.5 % (50.0-68.0); HEMATOCRIT 38.7 % (36.0-48.0); LYMPH # 3.9 (1.2-3.4); LYMPH % 43.9 % (22.0-35.0); MEAN CELL VOLUME 89.4 fL (80.0-105.0); MEAN CORPUSCULAR HEMOGLOBIN 30.5 pg (25.0-35.0); MEAN CORPUSCULAR HGB CONC 34.1 g/dl (31.0-37.0); MEAN PLATELET VOLUME 11.4 fl (7.0-11.0); MONO # 0.8 (0.1-0.6); MONO % 8.8 % (1.0-6.0); PLATELET COUNT 207 10^3/uL (120.0-450.0); RED CELL DISTRIBUTION WIDTH 15.1 % (11.5-14.5); WHITE BLOOD COUNT 8.8 10^3/ul (4.5-11.0)
[2016-12-25 03:41] LABS: URINE EPITHELIAL CELLS 0 - 2 /hpf (0-5); URINE WBC 0 - 2 /hpf (0-6)
[2016-12-25 03:42] LABS: URINE BACTERIA FEW (NEG)
[2016-12-25 06:18] VITALS: O2SAT 99
--- NOTE | 2016-12-25 08:42 | PCM.BM ---
<Mony Mcdonald - Last Filed: 12/25/16 08:38> Treatment Plan Problems - Problems identified on initial assessmt depression Date Initiated: 12/25/16 Time Initiated: 08:40 Assessment reference: NA Status: Active Priority: 1 substance use Date Initiated: 12/25/16 Time Initiated: 08:43 Assessment reference: NA Status: Active Priority: 2 Comment: positive for opiates Treatment team patient informa Patient Assests: adapts well, ADL independent, negotiates basic needs, good interpersonal skills Patient Liabilities: relationship conflicts, substance abuse - Milieu Protocol Maintain good personal hygiene: daily Encourage regular showers, every shift Remind patient to perform daily oral care, every shift Assist patient to perform ADL's Conduct patient checks and document Observation sheet: Q15 minutes Maintain personal safety: every shift Educate patient to report safety concerns to staff, every shift Monitor environment for contraband/sharps Medication safety: Monitor for expected outcome, potential side effects: every shift, Assess barriers to learning: every shift, Assess readiness for medication education: every shift Discharge/Continuing Care - Education Needs Education Needs: Patient Medication, Patient Diagnosis/Disease Process, Patient Coping Skills, Patient Activities of Daily Living, Patient Personal Hygiene/ Grooming, Patient Aftercare Safety Plan - Discharge Discharge Criteria: Free of Suicidal thoughts, Normal sleep pattern, Ability to care for self <Carly Gamboa - Last Filed: 12/25/16 09:46> DSM5-Treatment Plan - Diagnosis (1) Schizoaffective disorder Status: Acute Interventions: 12/25/16 09:47 * Assess/adjust medications daily and /or as needed * See patient on an individual basis 7x/week to assess status of hallucinations and depressive/manic symptoms * Discuss risks, benefits, side effects and alternatives of medications * compliance with meds and f/u appt * supportive therapy * psychoeducation about substance abuse and worsening of mental illness * suicide/homicide prevention (2) Heroin abuse Status: Acute Interventions: 12/25/16 09:48 * Assess 7x/week regarding severity of withdrawal * Educate regarding risks, benefits, side effects and alternatives of medications * relapse prevention * [facility]DER[facility] meeting * education about substance induced psychosis and worsening of mental illness * Inpatient rehab discussion * SW evaluation * coping strategies (3) Substance induced mood disorder Status: Acute (4) Suicidal ideation Status: Acute Interventions: 12/25/16 09:49 * Assess/adjust medications daily and /or as needed * See patient on an individual basis 7x/week to assess level of manic behaviors and stability * Discuss risks, benefits, side effects and alternatives of medications * safety plan * relapse prevention * coping strategies * suicide/homicide prevention * education about suicide hot lines <Veronica Hernandez - Last Filed: 12/25/16 15:06> Family Contact Family involvement: Famliy/SO not involved - Goals for Treatment Patient goals for treatment: To get better.
--- NOTE | 2016-12-25 15:04 | PCM.BM ---
Treatment Plan Problems - Problems identified on initial assessmt depression Date Initiated: 12/25/16 Time Initiated: 08:40 Assessment reference: NA Status: Active Priority: 1 substance use Date Initiated: 12/25/16 Time Initiated: 08:43 Assessment reference: NA Status: Active Priority: 2 Comment: positive for opiates Treatment team patient informa Patient Assests: adapts well, ADL independent, negotiates basic needs, good interpersonal skills Patient Liabilities: relationship conflicts, substance abuse - Milieu Protocol Maintain good personal hygiene: daily Encourage regular showers, every shift Remind patient to perform daily oral care, every shift Assist patient to perform ADL's Conduct patient checks and document Observation sheet: Q15 minutes Maintain personal safety: every shift Educate patient to report safety concerns to staff, every shift Monitor environment for contraband/sharps Medication safety: Monitor for expected outcome, potential side effects: every shift, Assess barriers to learning: every shift, Assess readiness for medication education: every shift Milieu Narrative: milieu/structure/supportive therapy SEROquel will be resumed 100mg hs as a mood stabilizer trazodone 50mg hs for insomnia and depression Ambien 5mg PO HS for insomnia Lexapro 10 mg PO DAILY for depression and anxiety clonAZEPAM 1 mg PO amhs for anxiety pt will be seen by medical team, consult appreciated SW evaluation will f/u on labs will monitor closely QUEtiapine [SEROquel] 300 mg PO BID 12/20/14 Zolpidem Tartrate [Ambien] 10 mg PO HS 12/20/14 Escitalopram [Lexapro] 10 mg PO DAILY #0 tab 12/24/14 QUEtiapine [Seroquel] 100 mg PO DAILY #0 tab 12/24/14 QUEtiapine [Seroquel] 300 mg PO HS #0 tab 12/24/14 traZODone [Desyrel] 100 mg PO HS #0 tab 12/24/14 QUEtiapine [Seroquel] 100 mg PO HS #30 tab 10/07/15 Escitalopram [Lexapro] 10 mg PO DAILY 11/05/15 clonazePAM [clonAZEPAM] 1 mg PO TID 11/05/15 traZODone [Desyrel] 100 mg PO BID 11/05/15 Docusate [Colace] 100 mg PO BID PRN #20 cap 11/06/15 Polyethylene Glycol 3350 [Miralax] 17 gm PO DAILY PRN #1 bottle 11/06/15 Family Contact Family involvement: Famliy/SO not involved - Goals for Treatment Patient goals for treatment: To get better. Discharge/Continuing Care - Education Needs Education Needs: Patient Medication, Patient Diagnosis/Disease Process, Patient Coping Skills, Patient Activities of Daily Living, Patient Personal Hygiene/ Grooming, Patient Aftercare Safety Plan - Discharge Discharge Criteria: Tolerates medication w/o severe side effects, Free of Suicidal thoughts, Normal sleep pattern, Ability to care for self, No longer exhibiting s/s of withdrawal, Reduction of target symptoms Discharge to:: Home - Additional Comments milieu/structure/supportive therapy SEROquel will be resumed 100mg hs as a mood stabilizer trazodone 50mg hs for insomnia and depression Ambien 5mg PO HS for insomnia Lexapro 10 mg PO DAILY for depression and anxiety clonAZEPAM 1 mg PO amhs for anxiety pt will be seen by medical team, consult appreciated SW evaluation will f/u on labs will monitor closely QUEtiapine [SEROquel] 300 mg PO BID 12/20/14 Zolpidem Tartrate [Ambien] 10 mg PO HS 12/20/14 Escitalopram [Lexapro] 10 mg PO DAILY #0 tab 12/24/14 QUEtiapine [Seroquel] 100 mg PO DAILY #0 tab 12/24/14 QUEtiapine [Seroquel] 300 mg PO HS #0 tab 12/24/14 traZODone [Desyrel] 100 mg PO HS #0 tab 12/24/14 QUEtiapine [Seroquel] 100 mg PO HS #30 tab 10/07/15 Escitalopram [Lexapro] 10 mg PO DAILY 11/05/15 clonazePAM [clonAZEPAM] 1 mg PO TID 11/05/15 traZODone [Desyrel] 100 mg PO BID 11/05/15 Docusate [Colace] 100 mg PO BID PRN #20 cap 11/06/15 Polyethylene Glycol 3350 [Miralax] 17 gm PO DAILY PRN #1 bottle 11/06/15 - Treatment Team Participation Patient/Family/SO Statement: milieu/structure/supportive therapy SEROquel will be resumed 100mg hs as a mood stabilizer trazodone 50mg hs for insomnia and depression Ambien 5mg PO HS for insomnia Lexapro 10 mg PO DAILY for depression and anxiety clonAZEPAM 1 mg PO amhs for anxiety pt will be seen by medical team, consult appreciated SW evaluation will f/u on labs will monitor closely QUEtiapine [SEROquel] 300 mg PO BID 12/20/14 Zolpidem Tartrate [Ambien] 10 mg PO HS 12/20/14 Escitalopram [Lexapro] 10 mg PO DAILY #0 tab 12/24/14 QUEtiapine [Seroquel] 100 mg PO DAILY #0 tab 12/24/14 QUEtiapine [Seroquel] 300 mg PO HS #0 tab 12/24/14 traZODone [Desyrel] 100 mg PO HS #0 tab 12/24/14 QUEtiapine [Seroquel] 100 mg PO HS #30 tab 10/07/15 Escitalopram [Lexapro] 10 mg PO DAILY 11/05/15 clonazePAM [clonAZEPAM] 1 mg PO TID 11/05/15 traZODone [Desyrel] 100 mg PO BID 11/05/15 Docusate [Colace] 100 mg PO BID PRN #20 cap 11/06/15 Polyethylene Glycol 3350 [Miralax] 17 gm PO DAILY PRN #1 bottle 11/06/15
--- NOTE | 2016-12-25 15:50 | PCM.PSYCH ---
Initial Psychiatric Evaluation - Initial Psychiatric Evaluation Type of Admission: Voluntary Legal Status: Capacity (pt has capacity to sign consent for treatment) Chief Complaint (in patient's own words): "I wanted to jump off the bridge, my father , I was depressed for a while..." Patient's Reaction to Hospitalization: pt was admitted for evaluation of worsening depression, anxiety, suicidal thoughts with the plan to jump off the bridge, hearing voices. History of Present Illness and Precipitating Events: Shortly pt is 46yo AAF with reported h/o schizoaffective disorder, h/o heroin abuse and dependence, multiple admissions in the past, most recent was October 2016 to this facility, pt has h/o noncompliance with meds and f/u appt, pt brought herself to the hospital looking for help for her depressive symptoms, suicidal ideation with the plan to jump off the bridge, pt's father three weeks ago and pt's depression got worse, pt relapsed on heroin, reported being compliant with medications, was relapsed on opioids three days ago "I was using two bags a day, snorting", pt also reported that she was hearing voices "I have to join my father...". Pt needs further evaluation and stabilization and meds adjustment. Pt was seen and examined at the the treatment team, pt presented with poor personal hygiene, was disheveled, strong body odor, fair ADLs. Pt stated that she was complian with medication, pt said that her father and since that time pt is feeling progressively worse, pt said that she relapsed on drugs, pt said she hears voices "come and join your father...", pt said she was feeling more anxious, was not able to sleep. pt said prior to come to the hospital she has plans to jump off the bridge. Pt contracted for safety, denied homicidal ideation. Pt said that she was using drugs, pt said that she staid sober for four months but she relapsed on Heroin three days prior to come to the hospital. Pt said that she was feeling depressed and hopeless and that is why she relapsed on drugs. Pt also reported worsening of her anxiety symptoms. past psych h/o: multiple admissions in the past, "about 10", h/o suicidal attempts. Medical h/o: ? COPD or asthma, arthritis Social h/o: pt is on ssi, not working Pt reported smoking 6 pack a day Smoking Cessation Counseling: The patient was counseled as to the multiple risks to his/her health from continued use of tobacco products. It was explained that continuing to smoke may lead to multiple short and news editor negative health consequences, including but not limited to mouth/esophageal /lung cancer, COPD, and heart disease. He/she states he/she understands these risks, and also understands the options and resources available to him/her to help him/her stop smoking. Nicotine replacement therapy, local hotlines, and local resources were discussed as viable options for helping him/her stop his/her tobacco use. The total time spent counseling the patient regarding tobacco cessation was 3 minutes Pt's pharmacy was called: by RN, reviewed. family h/o: denied 12/25/16 02:30 12/25/16 02:30 Lab Results 12/25/16 03:00: Urine Opiates Screen Positive H, Urine Methadone Screen Negative , Ur Barbiturates Screen Negative, Ur Phencyclidine Scrn Negative, Ur Amphetamines Screen Negative, U Benzodiazepines Scrn Negative, U Oth Cocaine Metabols Negative, U Cannabinoids Screen Negative 12/25/16 03:00: Urine Color Yellow, Urine Appearance Clear, Urine pH 6.0, Ur Specific [place] >= 1.030, Urine Protein Trace H, Urine Glucose (UA) Negative, Urine Ketones Negative, Urine Blood Trace-lysed H, Urine Nitrate Negative, Urine Bilirubin Negative, Urine Urobilinogen 0.2, Ur Leukocyte Esterase Negative , Urine RBC 1 - 3, Urine WBC 0 - 2, Ur Epithelial Cells 0 - 2, Urine Bacteria Few 12/25/16 02:30: Alcohol, Quantitative < 10 12/25/16 02:30: Salicylates < 1 L, Acetaminophen < 10.0 L 12/25/16 02:30: Sodium 138, Potassium 4.0, Chloride 104, Carbon Dioxide 24, Anion Gap 14, BUN 13, Creatinine 0.7, Est GFR ( Amer) > 60, Est GFR (Non- Af Amer) > 60, Random Glucose 95, Calcium 9.4, Total Bilirubin 0.7, AST 29, ALT 33, Alkaline Phosphatase 104, Total Creatine Kinase 252 H, CK-MB (CK-2) 2.8, CK- MB (CK-2) % Cancelled, Total Protein 8.2, Albumin 4.5, Globulin 3.7, Albumin/ Globulin Ratio 1.2 12/25/16 02:30: WBC 8.8, RBC 4.33, Hgb 13.2, Hct 38.7, MCV 89.4, MCH 30.5, MCHC 34.1, RDW 15.1 H, Plt Count 207, MPV 11.4 H, Gran % 44.5 L, Lymph % (Auto) 43.9 H, [place] % (Auto) 8.8 H, Eos % (Auto) 2.7, Baso % (Auto) 0.1, Gran # 3.93, Lymph # 3.9 H, [place] # 0.8 H, Eos # 0.2, Baso # 0.01 Vital Signs Temp Pulse Resp BP Pulse Ox 12/25/16 06:17 67 18 100/68 99 12/25/16 04:36 130/82 12/25/16 04:33 53 L 18 98 12/25/16 01:38 99.0 F 88 18 124/76 98 pt denied abuse contracted for safety, pt said that she did not want to jump of the bridge "I need to tell something to be admitted..." pt denied any plan to jump off the bridge... Current Medications: pt was noncompliant with meds and f/u appts Past Psychiatric History - Past Psychiatric History Previous Treatment History: Inpatient Prior Professional Help: see HPI Prior Psychiatric Treatment: see HPI At what hospital: see HPI Duration: see HPI Nature of Treatment: see HPI Explanation of prior treatment: see HPI History of Abuse: see HPI denied History of ETOH/Drug Use: see HPI History of Family Illness: see HPI Pertinent Medical Hx (Current Medical&Sleep Prob, Allergies): Allergies Allergy/AdvReac Type Severity Reaction Status Date / Time Penicillins AdvReac RASH Verified 10/15/16 07:49 QUEtiapine [SEROquel] 300 mg PO BID 12/20/14 Zolpidem Tartrate [Ambien] 10 mg PO HS 12/20/14 Escitalopram [Lexapro] 10 mg PO DAILY #0 tab 12/24/14 QUEtiapine [Seroquel] 100 mg PO DAILY #0 tab 12/24/14 QUEtiapine [Seroquel] 300 mg PO HS #0 tab 12/24/14 traZODone [Desyrel] 100 mg PO HS #0 tab 12/24/14 QUEtiapine [Seroquel] 100 mg PO HS #30 tab 10/07/15 Escitalopram [Lexapro] 10 mg PO DAILY 11/05/15 clonazePAM [clonAZEPAM] 1 mg PO TID 11/05/15 traZODone [Desyrel] 100 mg PO BID 11/05/15 Docusate [Colace] 100 mg PO BID PRN #20 cap 11/06/15 Polyethylene Glycol 3350 [Miralax] 17 gm PO DAILY PRN #1 bottle 11/06/15 Review of Systems - Review of Systems Systems not reviewed;Unavailable: Acuity of Condition - EENT Eyes: As Per HPI Ears: As Per HPI Nose/Mouth/Throat: As Per HPI - Breasts Breasts: As Per HPI - Cardiovascular Cardiovascular: As Per HPI - Respiratory Respiratory: As Per HPI - Gastrointestinal Gastrointestinal: As Per HPI - Genitourinary Genitourinary: As Per HPI - Reproductive: Female Reproductive:Female: As Per HPI - Menstruation Menstruation: As Per HPI - Musculoskeletal Musculoskeletal: As Par HPI - Integumentary Integumentary: As Per HPI - Neurological Neurological: As Per HPI - Psychiatric Psychiatric: As Per HPI - Endocrine Endocrine: As Per HPI - Hematologic/Lymphatic Hematologic: As Per HPI Mental Status Examination - Personal Presentation Personal Presentation: Looks older than stated age - Affect Affect: Flat - Motor Activity Motor Activity: Psychomotor Retardation - Reliability in Providing Information Reliability in Providing Information: Poor, due to alteration in thoughts, Poor , due to altered mood - Speech Speech: Disorganized, Tangential - Mood Mood: Depressed, Anxious - Formal Thought Process Formal Thought Process: Hallucinations, Delusions - Hallucinations/Delusions Hallucinations: Auditory Delusions: Persecution - Obsessions/Compulsions Obsessions: None Compulsions: None - Cognitive Functions Orientation: Person, Place, Situation Sensorium: Alert Attention/Concentration: Easily distracted Abstract Thinking: [place] Estimate of Intelligence: Average Judgement: Intact, as evidence by: Insight regarding need for hospitalization - Risk Risk: Suicidal, Withdrawal, Self-mutilation, Diminished functioning - Strength & Assets Inventory Strength & Assets Inventory: Skills, Cooperative - Limitations Limitations: Living alone, Other (recent of her father) DSM 5 DX - DSM 5 DSM 5 Diagnosis: schizoaffective d/o as per h/o cocaine abuse opioid addiction - Recommended/Plan of Treatment Treatment Recommendations and Plan of Treatment: milieu/structure/supportive therapy SEROquel will be increased to 300mg hs as a mood stabilizer (pt was on 200mg hs) trazodone will be continued 100mg hs for insomnia and depression Ambien 10mg PO HS for insomnia Lexapro will be d/c Prozac 10mg po dialy for depression and anxiety tramadol and Ibuprofen for pain will not give benzos, UDS negative for it pt will be seen by medical team, consult appreciated SW evaluation will f/u on labs will monitor closely pt is aware will be covering next week Projected ELOS: 7days Prognosis: guarded Discharge Plan and Discharge Criteria: Pt will be not depressed or manic, will be more hopeful, will be not psychotic or anxious, will be not having thoughts of harming self or others, will be tolerating medications well, will not have major side effects, will be able to function, will not pose threat to self or others. - Smoking Cessation Smoking Cessation Initiated: Yes
--- NOTE | 2016-12-25 18:03 | CARD ---
APPROVED REPORT EKG Measurement Heart [id number] <Conclusion> Normal sinus rhythm with sinus arrhythmia Possible Left atrial enlargement Borderline ECG
[2016-12-25] MEDS: QUEtiapine 300 mg XR Tab PO SCH (21:07)
--- NOTE | 2016-12-26 09:13 | PCM.PYCHPN ---
Psychiatric Progress Note - Psychiatric Progress Note Patient seen today, length of contact: 25 min Patient Chief Complaint: "all right" Problems Identified/Issues Discussed: I reviewed recent notes and met with patient at bedside. Patient still appears a little unkempt however she is fairly calm and cooperative during our interview. Oriented x3.She reports that her mood is "all right". Her affect is constricted and mildly irritable. Affect remains flat. The process is generally coherent and responses are relevant to questioning. Delusions were not elicited during this morning's interview. Patient is tolerating her medications well so far and denies new discomfort or pain. She reports that her sleep was restless last night and requests to initiate trazodone which has helped in the past for sleep. Staff notes indicate that patient has appeared poorly groomed and labile on the unit. She has not been very interactive or friendly. At times demanding. There were no behavioral issues overnight . Diagnostic Results: Schizoaffective d/o as per h/o cocaine abuse opioid addiction Medication Change: Yes (trazodone 100 mg daily changed to HS) Medical Record Reviewed: Yes (reports, labs, vitals, notes) Mental Status Examination - Cognitive Function Orientation: Person, Place, Situation - Mood Mood: Depressed ("all right"), Anxious - Affect Affect: Flat - Formal Thought Process Formal Thought Process: Hallucinations (denies), Delusions (none elicted) - Suicidal Ideation Suicidal Ideation: No - Homicidal Ideation Homicidal Ideation: No Goal/Treatment Plan - Goal/Treatment Plan Progress Toward Problem(s) and Goals/Treatment Plan: * c/w current tx and plan * No new weekend labs * Vitals reviewed and noted below: Selected Entries 12/25/16 12/25/16 12/25/16 04:33 04:36 06:17 Pulse Rate 53 L 67 Pulse Rate [ Radial] Respiratory 18 18 Rate Respiratory Depth Respiratory Effort Blood Pressure 130/82 100/68 O2 Sat by Pulse 98 99 Oximetry 12/25/16 12/25/16 07:34 16:16 Pulse Rate 57 L Pulse Rate [ 60 Radial] Respiratory Rate Respiratory Normal Depth Respiratory Normal Effort Blood Pressure 94/54 L O2 Sat by Pulse Oximetry
--- NOTE | 2016-12-26 10:40 | CP.PCM.CON ---
History of Present Illness - History of Present Illness History of Present Illness: hospitalist note; Patient seen and examined In room 516 for routine medical evaluation. Patient is a 46-year-old female admitted to the psychiatric floor for depression. Patient is alert, awake and oriented. Complaining of generalized weakness. Currently denies any chest pain, shortness of breath. Denies any cough or wheezing. Denies any fevers, chills. Denies any urinary symptoms. Denies any nausea, vomiting. Tolerating diet well and denies any abdominal pain. ambulating without difficulty. Patient was recently discharged from AA rehabilitation in [place]. She started drinking after discharge from AA rehab. She had about 5 drinks yesterday. Patient also snorting heroin yesterday. Patient is an active smoker. But refused NicoDerm patch. Past medical history; Depression Schizoaffective disorder Asthma Insomnia Multiple drug abuse heroin alcohol abuse Chronic smoking Medications at home; Inhaler prn Klonopin Seroquel Ambien Allergies; Penicillin Social history; Smokes 10 cigeretts per day more than 20 years alcohol abuse daily recentlyin AA rehab in [place] history of heroin abuse /snorting yesterday Currently denies IVDA Patient lives in [place] with her aunt. Review of Systems - Constitutional Constitutional: absent: Chills Additional comments: weakness - EENT Eyes: absent: Blurred Vision Nose/Mouth/Throat: absent: Nasal Congestion - Cardiovascular Cardiovascular: absent: Chest Pain, Chest Pain at Rest - Respiratory Respiratory: absent: Cough, Dyspnea, Dyspnea on Exertion - Gastrointestinal Gastrointestinal: absent: Abdominal Pain, Nausea, Vomiting - Musculoskeletal Musculoskeletal: absent: Back Pain - Neurological Neurological: Weakness. absent: Abnormal Gait, Confusion, Focal Weakness - Psychiatric Psychiatric: Anxiety, Depression - Hematologic/Lymphatic Hematologic: absent: Easy Bleeding, Easy Bruising Past Patient History - Infectious Disease Hx of Infectious Diseases: None - Tetanus Immunizations Tetanus Immunization: Unknown - Past Social History Smoking Status: Light Smoker < 10 Cigarettes Daily - CARDIAC Hx Cardiac Disorders: Yes Hx Hypertension: Yes - PULMONARY Hx Respiratory Disorders: No Hx Tuberculosis: No - NEUROLOGICAL Hx Neurological Disorder: No Hx Alzheimer's Disease: No HX Cerebrovascular Accident: No Hx Seizures: No - HEENT Hx HEENT Problems: No - RENAL Hx Chronic Kidney Disease: No - ENDOCRINE/METABOLIC Hx Endocrine Disorders: No - HEMATOLOGICAL/ONCOLOGICAL Hx Anemia: Yes Hx Cancer: No - INTEGUMENTARY Hx Dermatological Problems: No - MUSCULOSKELETAL/RHEUMATOLOGICAL Hx Musculoskeletal Disorders: No - GASTROINTESTINAL Hx Gastrointestinal Disorders: No - GENITOURINARY/GYNECOLOGICAL Hx Genitourinary Disorders: No Hx Sexually Transmitted Disorders: No - PSYCHIATRIC Hx Depression: Yes Hx Substance Use: Yes - SURGICAL HISTORY Hx Surgeries: Yes Hx Cholecystectomy: Yes Other/Comment: Ectopic preg - ANESTHESIA Hx Anesthesia: Yes Hx Anesthesia Reactions: No Hx Malignant Hyperthermia: No Meds Allergies/Adverse Reactions: Allergies Allergy/AdvReac Type Severity Reaction Status Date / Time Penicillins AdvReac RASH Verified 10/15/16 07:49 - Medications Medications: Current Medications Fluoxetine HCl (Prozac) 10 mg PO DAILY [facility] Last Admin: 12/26/16 10:17 Dose: 10 mg Ibuprofen (Motrin Tab) 800 mg PO TID PRN PRN Reason: moderate pain Quetiapine Fumarate (Seroquel Xr) 300 mg PO HS [facility] PRN Reason: Protocol Last Admin: 12/25/16 21:07 Dose: 300 mg Tramadol HCl (Ultram) 50 mg PO TID PRN PRN Reason: pain severe Trazodone HCl (Desyrel) 100 mg PO HS [facility] Zolpidem Tartrate (Ambien) 10 mg PO HS PRN; Protocol PRN Reason: Insomnia Last Admin: 12/25/16 21:06 Dose: 10 mg Physical Exam - Constitutional Appears: Non-toxic, Unkempt - Head Exam Head Exam: NORMAL INSPECTION - Eye Exam Eye Exam: Normal appearance - ENT Exam ENT Exam: Mucous Membranes Moist - Respiratory Exam Respiratory Exam: NORMAL BREATHING PATTERN - Cardiovascular Exam Cardiovascular Exam: REGULAR RHYTHM - GI/Abdominal Exam GI & Abdominal Exam: Normal Bowel Sounds, Soft. absent: Rebound, Rigid, Tenderness - Extremities Exam Extremities exam: Negative for: pedal edema - Back Exam Back exam: absent: CVA tenderness (L), CVA tenderness (R) - Neurological Exam Neurological exam: Alert, Oriented x3 - Psychiatric Exam Psychiatric exam: Flat Affect - Skin Skin Exam: Normal Color Results - Vital Signs Recent Vital Signs: Last Vital Signs Temp 99.0 F 12/25/16 01:38 Pulse 57 L 12/25/16 16:16 Resp 18 12/25/16 06:17 BP 94/54 L 12/25/16 16:16 Pulse Ox 99 12/25/16 06:17 - Labs Result Diagrams: 12/25/16 02:30 12/25/16 02:30 Assessment & Plan - Assessment and Plan (Free Text) Plan: 1. Patient is a 46-year-old female admitted to the psychiatric floor for depression/alcohol abuse. Patient is currently on trazodone, Prozac, Seroquel. Follow-up with psychiatrist closely. 2. History of asthma; duonebs when necessary ordered. Currently with stable respiratory status. 3. Active smoking; smoking cessation is strongly advised. refused NicoDerm patch. 4. Insomnia:continue on trazodone. 5. History of heroin abuse; urine drug screen is positive for opiates. Drug abuse cessation is strongly advised. Needs outpatient drug rehabilitation evaluation. 6. GI prophylaxis with Protonix. 7.active alcohol abuse; started on multivitamin, thiamine, folic acid. Librium when necessary ordered. Alcohol cessation is strongly advised. Patient was recently AA rehabilitation in [place]. Labs reviewed. Upon discharge patient will follow up with PMD . Patient needs close outpatient psychiatric follow-up. patient is medically stable. Thank you for the courtesy of this consultation. Please reconsult as needed.
[2016-12-26] MEDS: QUEtiapine 300 mg XR Tab PO SCH (21:19)
[2016-12-27] MEDS ORDERED: Pantoprazole 40 mg EC Tab PO SCH (06:00)
[2016-12-27] MEDS: Multivitamin With Minerals Tab PO SCH (08:34)
[2016-12-27] MEDS: Pantoprazole 40 mg EC Tab PO SCH (08:35)
--- NOTE | 2016-12-27 08:46 | PCM.PYCHPN ---
Psychiatric Progress Note - Psychiatric Progress Note Patient seen today, length of contact: 25 min Patient Chief Complaint: "all right, still depressed" Problems Identified/Issues Discussed: I reviewed recent notes and met with patient at bedside. Patient still appears a little unkempt however she remains fairly calm and cooperative during our interview. Oriented x3. She reports that her mood is "all right" though still depressed. Her affect remains constricted but less irritable than yesterday. Slept much better last night with trazodone. Her thought process is generally coherent and responses are relevant to questioning. Delusions were not elicited. Patient is tolerating her medications well so far and denies new discomfort or pain. There are no major behavioral issues over the weekend. Diagnostic Results: Schizoaffective d/o as per h/o cocaine abuse opioid addiction Medication Change: Yes (trazodone 100 mg daily changed to HS) Medical Record Reviewed: Yes (reports, labs, vitals, notes) Mental Status Examination - Cognitive Function Orientation: Person, Place, Situation Attention: WNL Concentration: Poor Association: Loose - Mood Mood: Depressed ("all right"), Anxious - Affect Affect: Constricted, Flat - Formal Thought Process Formal Thought Process: Hallucinations (denied all weekend), Delusions (none elicted all weekend) - Suicidal Ideation Suicidal Ideation: No - Homicidal Ideation Homicidal Ideation: No Goal/Treatment Plan - Goal/Treatment Plan Progress Toward Problem(s) and Goals/Treatment Plan: * c/w current tx and plan * Appreciate f/u by Dr. Georges on 12/26/16~ patient is medically stable, signed off. * No new weekend labs * Vitals reviewed and noted below: Selected Entries 12/25/16 12/25/16 12/26/16 06:17 16:16 17:01 Pulse Rate 67 57 L 69 Respiratory 18 Rate Blood Pressure 100/68 94/54 L 103/69 O2 Sat by Pulse 99 Oximetry
[2016-12-27 16:23] VITALS: BP 105/67; PULSE 70; RESP 20; TEMP 98.3
[2016-12-27] MEDS: QUEtiapine 300 mg XR Tab PO SCH (21:32)
[2016-12-28] MEDS: Multivitamin With Minerals Tab PO SCH (09:30)
[2016-12-28] MEDS: Pantoprazole 40 mg EC Tab PO SCH (09:30)
--- NOTE | 2016-12-29 01:21 | PN ---
DATE: 12/28/[address] Gamboa. Chart is reviewed and case discussed with nursing. The patient is a 46-year-old -[place] female with a history of schizoaffective disorder and h eroin abuse and dependence, who has multiple psychiatric admissions (most recently this past October at the [facility]). She has a history of noncompliance, both with medication and followup care. She presently was admitted with depressive symptoms and suicidal ideation, indicating she wanted to [facility] [place] a bridge. Her father 3 weeks prior to admission, leading to a worsening depression and relapse of h eroin. The patient's mood and affect improved and she had signed a 48-hour notice. She is not homicidal, suicidal, or psychotic at this time. She is being maintained on Ambien 10 mg at bedtime p.r.n., trazodone 100 mg at bedtime, folic acid 1 mg daily, Protonix 40 mg , Prozac 10 mg q. day, Seroquel 300 mg at bedtime, vitamin B1 100 mg q. day. Stevo Palacio MD, PhD cc: [id number] TT: 12/29/2016 01:20:37 Confirmation # [id number] Dictation # [id number] tn
== END 2016-12-28 16:00 | disposition left against medical advice (07) | DRG 430 ==
LOC: ED 01:25 → ERH 05:45 → PSYC 06:58
PROVIDERS: ADMIT Psychiatry & Neurology Psychiatry; ATTEND Psychiatry & Neurology Psychiatry
DX: F25.9 Schizoaffective disorder, unspecified (principal); F11.20 Opioid dependence, uncomplicated; R45.851 Suicidal ideations; F14.10 Cocaine abuse, uncomplicated; J44.9 Chronic obstructive pulmonary disease, unspecified; F32.9 Major depressive disorder, single episode, unspecified; F17.210 Nicotine dependence, cigarettes, uncomplicated; G47.00 Insomnia, unspecified; F10.10 Alcohol abuse, uncomplicated; Y90.0 Blood alcohol level of less than 20 mg/100 ml; Z91.14 Patient's other noncompliance with medication regimen

== ENCOUNTER 2017-01-11 00:54 | Inpatient (IN) | payer MEDICAID ==
[2017-01-11 00:54] VITALS: BMI 25.0
--- NOTE | 2017-01-11 01:21 | ED PDOC ---
Arrival/HPI - General Chief Complaint: Psychiatric Evaluation Time Seen by Provider: 01/11/17 01:15 Historian: Patient - History of Present Illness Narrative History of Present Illness (Text): 01/11/17 01:21 Linda Iraheta is a 46 year old female, whose past medical history includes depression, schizoaffective disorder, polysubstance abuse, and alcohol abuse, who presents to the Emergency department complaining of depression and suicidal ideation tonight. Patient denies any plan or homicidal ideation. Patient denies any fever, chills, chest pain, shortness of breath, nausea, vomiting, diarrhea, urinary symptoms, back pain, neck pain, headache, dizziness, or any other complaints. Symptom Onset: Gradual Symptom Course: Unchanged Activities at Onset: Light Context: Home Past Medical History - Provider Review Nursing Documentation Reviewed: Yes - Infectious Disease Hx of Infectious Diseases: None - Tetanus Immunization Tetanus Immunization: Unknown - Cardiac Hx Cardiac Disorders: Yes Hx Hypertension: Yes - Pulmonary Hx Respiratory Disorders: No Hx Tuberculosis: No - Neurological Hx Neurological Disorder: No Hx Alzheimer's Disease: No HX Cerebrovascular Accident: No Hx Seizures: No - HEENT Hx HEENT Disorder: No - Renal Hx Renal Disorder: No - Endocrine/Metabolic Hx Endocrine Disorders: No - Hematological/Oncological Hx Anemia: Yes Hx Cancer: No - Integumentary Hx Dermatological Disorder: No - Musculoskeletal/Rheumatological Hx Musculoskeletal Disorders: No - Gastrointestinal Hx Gastrointestinal Disorders: No - Genitourinary/Gynecological Hx Genitourinary Disorders: No Hx Sexually Transmitted Diseases: No - Psychiatric Hx Depression: Yes Hx Substance Use: Yes - Past Surgical History Past Surgical History: No Previous - Surgical History Hx Cholecystectomy: Yes Other/Comment: Ectopic preg - Anesthesia Hx Anesthesia: Yes Hx Anesthesia Reactions: No Hx Malignant Hyperthermia: No - Suicidal Assessment Feels Threatened In Home Enviroment: No Family/Social History - Physician Review Nursing Documentation Reviewed: Yes Family/Social History: Unknown Family HX Smoking Status: Light Smoker < 10 Cigarettes Daily Hx Alcohol Use: Yes Hx Substance Use: Yes Substance used: Heroin Hx Substance Use Treatment: Yes Allergies/Home Meds Allergies/Adverse Reactions: Allergies Penicillins Adverse Reaction (Verified 01/11/17 06:35) RASH Home Medications: Home Meds Medication Instructions Recorded Confirmed Zolpidem Tartrate [Ambien] 10 mg PO HS 12/20/14 01/11/17 Review of Systems - Physician Review All systems were reviewed & negative as marked: Yes - Review of Systems Constitutional: Normal. absent: Fevers Eyes: Normal ENT: Normal Respiratory: Normal. absent: SOB, Cough Cardiovascular: Normal. absent: Chest Pain Gastrointestinal: Normal. absent: Abdominal Pain, Diarrhea, Nausea, Vomiting Genitourinary Female: Normal. absent: Dysuria, Frequency, Hematuria, Urine Output Changes Musculoskeletal: Normal. absent: Neck Pain Skin: Normal. absent: Rash Neurological: Normal. absent: Headache, Dizziness Endocrine: Normal Hemo/Lymphatic: Normal Psychiatric: Suicidal Ideation Physical Exam Vital Signs Reviewed: Yes Vital Signs Temp Pulse Resp BP Pulse Ox 01/11/17 01:26 97.5 F L 84 16 98/71 L 100 Temperature: Afebrile Blood Pressure: Normal Pulse: Regular Respiratory Rate: Normal Appearance: Positive for: Well-Appearing, Non-Toxic, Comfortable Pain Distress: None Mental Status: Positive for: Alert and Oriented X 3 - Systems Exam Head: Present: Atraumatic, Normocephalic Pupils: Present: PERRL Extroacular Muscles: Present: EOMI Conjunctiva: Present: Normal Mouth: Present: Moist Mucous Membranes Neck: Present: Normal Range of Motion Respiratory/Chest: Present: Clear to Auscultation, Good Air Exchange. No: Respiratory Distress, Accessory Muscle Use Cardiovascular: Present: Regular Rate and Rhythm, Normal S1, S2. No: Murmurs Abdomen: Present: Normal Bowel Sounds. No: Tenderness, Distention, Peritoneal Signs Back: Present: Normal Inspection Upper Extremity: Present: Normal Inspection. No: Cyanosis, Edema Lower Extremity: Present: Normal Inspection. No: Edema Neurological: Present: GCS=15, CN II-XII Intact, Speech Normal Skin: Present: Warm, Dry, Normal Color. No: Rashes Psychiatric: Present: Alert, Oriented x 3, Normal Insight, Normal Concentration Medical Decision Making ED Course and Treatment: 01/11/17 01:21 Impression: 46 year old female c/o depression and suicidal ideation. Differential Diagnosis included but are not limited to: depression vs. substance-induced mood disorder vs. schizoaffective disorder vs. bipolar disorder Plan: -- EKG -- Chest X-ray -- Labs, alcohol level -- Urinalysis, urine drug screen -- Reassess and disposition Prior Visits: Notes and results from previous visits were reviewed. On 12/25/2016, pt was seen in the Emergency department for depression and suicidal ideation. Pt admitted for further psychiatric evaluation. Progress Notes: Reviewed EKG, NSR at 63 bpm. Non-specific T wave changes. 01/11/17 02:40 Reviewed labs, potassium: 3.0. K-dur ordered. Urine tox screen positive for opiates, cannabinoids, and cocaine. 01/11/17 03:07 Reviewed radiology, Chest X-ray shows no acute processes. Pt medically cleared for PES evaluation. 01/11/17 03:58 PES screener Tiffanie to Emergency department to evaluated pt. 01/11/17 05:21 Pt seen and evaluated by PES screensherry Moreno, who discussed case with psychiatrist soup person. Pt to be admitted to [facility] for bipolar disorder under Dr. Gamboa's service. - Lab Interpretations Lab Results: 01/11/17 01:50 01/11/17 01:50 Lab Results 01/11/17 02:10: Urine Color Yellow, Urine Appearance Sl cloudy, Urine pH 6.5, Ur Specific [place] 1.025, Urine Protein 30 H, Urine Glucose (UA) Negative, Urine Ketones Trace H, Urine Blood Negative, Urine Nitrate Negative, Urine Bilirubin Moderate H, Urine Urobilinogen 4.0 H, Ur Leukocyte Esterase Negative, Urine RBC 0 - 2, Urine WBC 0 - 2, Ur Epithelial Cells 3 - 4, Urine Bacteria Small, Urine HCG, Qual Negative 01/11/17 02:10: Urine Opiates Screen Positive H, Urine Methadone Screen Negative , Ur Barbiturates Screen Negative, Ur Phencyclidine Scrn Negative, Ur Amphetamines Screen Negative, U Benzodiazepines Scrn Negative, U Oth Cocaine Metabols Positive H, U Cannabinoids Screen Positive H 01/11/17 02:00: Hemoglobin A1c 5.8 01/11/17 02:00: Triglycerides 135, Cholesterol 114 L, LDL Cholesterol Direct < 30, HDL Cholesterol 62 H 01/11/17 01:50: Alcohol, Quantitative < 10 01/11/17 01:50: Salicylates < 1 L, Acetaminophen < 10.0 L 01/11/17 01:50: Sodium 139, Potassium 3.0 L, Chloride 103, Carbon Dioxide 28, Anion Gap 11, BUN 7, Creatinine 0.6, Est GFR ( Amer) > 60, Est GFR (Non- Af Amer) > 60, Random Glucose 148 H, Calcium 8.8, Total Bilirubin 0.3, AST 35, ALT 45, Alkaline Phosphatase 124, Total Protein 7.0, Albumin 3.8, Globulin 3.2, Albumin/Globulin Ratio 1.2 01/11/17 01:50: WBC 7.3, RBC 3.98, Hgb 11.9 L, Hct 36.4, MCV 91.5, MCH 29.9, MCHC 32.7, RDW 15.7 H, Plt Count 279, MPV 9.4, Gran % 50.8, Lymph % (Auto) 37.6 H, Wilkinson % (Auto) 7.7 H, Eos % (Auto) 3.6, Baso % (Auto) 0.3, Gran # 3.72, Lymph # 2.8, Wilkinson # 0.6, Eos # 0.3, Baso # 0.02 I have reviewed the lab results: Yes - RAD Interpretation Radiology Orders: 01/11/17 01:23 CHEST PORTABLE [RAD] Stat Creative Consultant: ED Physician - EKG Interpretation Interpreted by ED Physician: Yes Type: 12 lead EKG - Medication Orders Current Medication Orders: Acetaminophen (Tylenol 325mg Tab) 650 mg PO Q6 PRN PRN Reason: Pain, Mild (1-3) Bupropion HCl (Wellbutrin) 75 mg PO BID [facility] Last Admin: 01/11/17 18:02 Dose: 75 mg Clonidine HCl (Catapres) 0.1 mg PO BID PRN PRN Reason: opioid withdrawal symtpoms Ibuprofen (Motrin Tab) 600 mg PO Q6H PRN PRN Reason: Pain, moderate (4-7) Multivitamins (Thera Tab) 1 tab PO 0800 ANTONIO Quetiapine Fumarate (Seroquel) 100 mg PO HS [facility] PRN Reason: Protocol Last Admin: 01/11/17 21:53 Dose: 100 mg Re-Assess: Reassess Psych Meds Document 01/11/17 22:53 WP (Rec: 01/12/17 02:41 WP [id number]) Reassess Psych Med Effective Tramadol HCl (Ultram) 50 mg PO TID PRN PRN Reason: pain, moderate 10 Zolpidem Tartrate (Ambien) 5 mg PO HS PRN; Protocol PRN Reason: Insomnia Last Admin: 01/11/17 21:55 Dose: 5 mg Re-Assess: Reassess Psych Meds Document 01/11/17 22:55 WP (Rec: 01/12/17 02:41 WP [id number]) Reassess Psych Med Effective Discontinued Medications Escitalopram Oxalate (Lexapro) 10 mg PO DAILY [facility] Last Admin: 01/11/17 09:06 Dose: 10 mg Potassium Chloride (K-Dur 20 Meq Er Tab) 40 meq PO STAT STA Stop: 01/11/17 02:41 Last Admin: 01/11/17 03:07 Dose: 40 meq Potassium Chloride (K-Dur 20 Meq Er Tab) 20 meq PO ONCE ONE Stop: 01/11/17 09:42 - Scribe Statement The provider has reviewed the documentation as recorded by the Edgaribyonis Caicedo All medical record entries made by the Edgaribyonis were at my direction and personally dictated by me. I have reviewed the chart and agree that the record accurately reflects my personal performance of the history, physical exam, medical decision making, and the department course for this patient. I have also personally directed, reviewed, and agree with the discharge instructions and disposition. Disposition/Present on Arrival - Present on Arrival Any Indicators Present on Arrival: No History of DVT/PE: No History of Uncontrolled Diabetes: No Urinary Catheter: No History of Decub. Ulcer: No History Surgical Site Infection Following: None - Disposition Have Diagnosis and Disposition been Completed?: Yes Diagnosis: Depression Disposition: HOSPITALIZED Disposition Time: 05:30 Patient Problems: Current Active Problems Problem Status Onset Polysubstance abuse Acute Condition: GOOD
[2017-01-11 01:27] VITALS: O2SAT 100
[2017-01-11 02:05] LABS: BASO # 0.02 K/mm3 (0.0-2.0); BASO % 0.3 % (0.0-3.0); EOS # 0.3 (0.0-0.7); EOS % 3.6 % (1.5-5.0); GRAN # 3.72 (1.4-6.5); GRAN % 50.8 % (50.0-68.0); HEMOGLOBIN 11.9 gm/dL (12.0-16.0); LYMPH # 2.8 (1.2-3.4); LYMPH % 37.6 % (22.0-35.0); MEAN CELL VOLUME 91.5 fL (80.0-105.0); MEAN CORPUSCULAR HEMOGLOBIN 29.9 pg (25.0-35.0); MEAN CORPUSCULAR HGB CONC 32.7 g/dl (31.0-37.0); MEAN PLATELET VOLUME 9.4 fl (7.0-11.0); MONO # 0.6 (0.1-0.6); MONO % 7.7 % (1.0-6.0); PLATELET COUNT 279 10^3/uL (120.0-450.0); RBC 3.98 10^6/uL (3.5-6.1); RED CELL DISTRIBUTION WIDTH 15.7 % (11.5-14.5); WHITE BLOOD COUNT 7.3 10^3/ul (4.5-11.0)
[2017-01-11 02:15] LABS: ALB/GLOB RATIO 1.2 (1.1-1.8); ALBUMIN 3.8 g/dL (3.0-4.8); ALT/SGPT 45 U/L (7-56); AST/SGOT 35 U/L (15-39); BLOOD UREA NITROGEN 7 mg/dL (7-21); CALCIUM 8.8 mg/dL (8.4-10.5); GFR AFRICAN-AMERICAN > 60; GFR NON-AFRICAN AMERICAN > 60
[2017-01-11 02:21] LABS: SALICYLATE < 1 mg/dL (2.0-20.0)
[2017-01-11 02:25] LABS: PH,URINE 6.5 (4.7-8.0); URINE BILIRUBIN MODERATE (NEGATIVE); URINE BLOOD NEGATIVE (NEGATIVE); URINE GLUCOSE (UA) NEGATIVE (NEGATIVE); URINE LEUKOCYTE ESTERASE NEGATIVE Leu/uL (NEGATIVE); URINE NITRATE NEGATIVE (NEGATIVE); URINE PROTEIN 30 mg/dL (<30 mg/dL)
[2017-01-11 02:29] LABS: ACETAMINOPHEN < 10.0 ug/ml (10.0-20.0)
[2017-01-11 02:31] LABS: HCG,QUALITATIVE URINE NEGATIVE (NEGATIVE); URINE APPEARANCE SL CLOUDY (CLEAR); URINE COLOR YELLOW (YELLOW)
[2017-01-11 02:34] LABS: BARBITURATES, UR NEGATIVE (NEGATIVE); BENZODIAZEPINES, UR NEGATIVE (NEGATIVE); OPIATES, UR POSITIVE (NEGATIVE); PHENCYCLIDINE, UR NEGATIVE (NEGATIVE)
[2017-01-11] MEDS ORDERED: Potassium Chloride 20 mEq ER Tab PO STA (02:40)
[2017-01-11 02:49] LABS: URINE BACTERIA SMALL (NEG); URINE RBC 0 - 2 /hpf (0-2); URINE WBC 0 - 2 /hpf (0-6)
[2017-01-11 08:05] LABS: HDL CHOLESTEROL 62 mg/dL (29-60)
[2017-01-11 08:17] LABS: LDL CHOLESTEROL < 30 mg/dL (0-129)
--- NOTE | 2017-01-11 08:59 | PCM.BM ---
<Isaiah Rodriguez - Last Filed: 01/11/17 08:58> Treatment Plan Problems - Problems identified on initial assessmt depression Date Initiated: 12/25/16 Time Initiated: 08:40 Assessment reference: NA Status: Active Priority: 1 substance use Date Initiated: 12/25/16 Time Initiated: 08:43 Assessment reference: NA Status: Active Priority: 2 Treatment assets and liabiliti Patient Assests: adapts well, self-reliant, ADL independent, negotiates basic needs, cognitively intact, good interpersonal skills Patient Liabilities: financial problems, substance abuse - Milieu Protocol Maintain good personal hygiene: daily Encourage regular showers, daily Remind patient to perform daily oral care, daily Assist patient to perform ADL's Maintain personal safety: every shift Educate patient to report safety concerns to staff, every shift Monitor environment for contraband/sharps Medication safety: Monitor for expected outcome, potential side effects: every shift, Assess barriers to learning: every shift, Assess readiness for medication education: every shift Family Contact Family involvement: Famliy/SO not involved - Goals for Treatment Patient goals for treatment: To get better. Discharge/Continuing Care - Education Needs Education Needs: Patient Medication, Patient Diagnosis/Disease Process, Patient Coping Skills, Patient Activities of Daily Living, Patient Personal Hygiene/ Grooming, Patient Aftercare Safety Plan - Discharge Discharge Criteria: Tolerates medication w/o severe side effects, Free of Suicidal thoughts, Normal sleep pattern, Ability to care for self, No longer exhibiting s/s of withdrawal, Reduction of target symptoms Discharge to:: Home <Veronica Hernandez - Last Filed: 01/11/17 09:03> Family Contact Family involvement: Famliy/SO not involved Discharge/Continuing Care - Education Needs Education Needs: Patient Medication, Patient Diagnosis/Disease Process, Patient Coping Skills, Patient Community resources, Patient Aftercare Safety Plan <Carly Gamboa - Last Filed: 01/11/17 14:19> - Diagnosis (1) Polysubstance abuse Status: Acute Interventions: 01/11/17 14:19 Monitoring withdrawal symptoms Medical detoxification Pharmacotherapy for alcohol/benzos/opioid dependence Maintaining sobriety Relapse prevention Possible rehabilitation Motivational interviewing 12-step programs: AA meetings (2) Schizoaffective disorder Status: Acute Interventions: 01/11/17 14:20 Psychoeducation/psychotherapy Psychopharmacology/adjustment of medications as needed/ monitoring possible side effects Evaluate pt on daily basis Compliance with medications and follow up appointments Long acting medication if pt is noncompliant with pill form Suicide and homicide risk assessment and prevention, coping strategies, safety plan Relapse prevention Reduction of symptoms Improve functional status Possible assertive community treatment Cognitive behavioral therapy Family intervention Possible social skill training as outpatient <Millie Dawson - Last Filed: 01/12/17 09:22>
--- NOTE | 2017-01-11 09:16 | RAD ---
HISTORY: pes COMPARISON: 10/10/2016 FINDINGS: LUNGS: No active pulmonary disease. PLEURA: No significant pleural effusion identified, no pneumothorax apparent. CARDIOVASCULAR: Normal. OSSEOUS STRUCTURES: No significant abnormalities. VISUALIZED UPPER ABDOMEN: Normal. OTHER FINDINGS: None. IMPRESSION: No active disease.
[2017-01-11] MEDS ORDERED: Potassium Chloride 20 mEq ER Tab PO ONE (09:41)
--- NOTE | 2017-01-11 13:40 | RAD ---
PROCEDURE: Left Knee Radiographs. HISTORY: Pain. COMPARISON: None. FINDINGS: BONES: Normal. No fracture. JOINTS: Normal. No osteoarthritis. JOINT EFFUSION: There is a small joint effusion OTHER FINDINGS: None. IMPRESSION: No acute findings
--- NOTE | 2017-01-11 14:19 | PCM.PSYCH ---
Initial Psychiatric Evaluation - Initial Psychiatric Evaluation Type of Admission: Voluntary Legal Status: Capacity (Patient has capacity to sign consent for treatment) Chief Complaint (in patient's own words): "I was not feeling so well, after I left the hospital, I was not taking any medications, was feeling very depressed, down, hopeless I started to use again, was using heroine" Patient's Reaction to Hospitalization: patient was admitted for evaluation and stabilization of depressive symptoms, hopelessness, possible suicidal ideation, patient is willing to get treatment, sign consent for treatment. History of Present Illness and Precipitating Events: Shortly pt is 46yo AAF with reported h/o schizoaffective disorder, h/o heroin abuse and dependence, multiple admissions in the past, most recent was December 2016 to this facility, pt was discharged AMA, pt has h/o noncompliance with meds and f/u appt, pt brought herself to the hospital looking for help for her depressive symptoms, suicidal ideation with the plan to jump in front of the car or jump off the bridge, pt's father less than two months ago, pt relapsed on heroin was using about 5-6 bags, snorting, reported being noncompliant with medications and follow up appts, Pt needs further evaluation and stabilization and meds adjustment. Pt was seen and examined at the the treatment team, pt presented with poor personal hygiene, was disheveled, strong body odor, fair ADLs. pt said that she left this hospital in December AMA (this technical publications writer was on vacation), pt said that she was noncompliant with medications and f/u appt, pt said as a result pt relapsed on opioids, pt said she was snorting about 5-6 bags a day, pt said last dose was about two days ago. pt denied using other substances, but UDS was positive for cocaine/marijuana. pt said that she was feeling progressively worse, more depressed, pt said she was feeling more anxious, was not able to sleep. pt said prior to come to the hospital she has plans to jump off the bridge. Pt contracted for safety, denied homicidal ideation. Pt said that she was using drugs, pt said that she staid sober for four months before [facility]'s admission. Pt denied feeling anxious. past psych h/o: multiple admissions in the past, "about 10", h/o suicidal attempts, "I have two, about two years ago I tried to jump in front of the car, but was pulled back by bystander", the first one was about 10years ago, pt attempted to cut her wrist. Medical h/o: ? COPD or asthma, arthritis Social h/o: pt is on ssi, not working Pt reported smoking 6 cigarettes a day, does not want to have a nicotine patch. Smoking Cessation Counseling: The patient was counseled as to the multiple risks to his/her health from continued use of tobacco products. It was explained that continuing to smoke may lead to multiple short and long term care phlebotomist negative health consequences, including but not limited to mouth/esophageal /lung cancer, COPD, and heart disease. He/she states he/she understands these risks, and also understands the options and resources available to him/her to help him/her stop smoking. Nicotine replacement therapy, local hotlines, and local resources were discussed as viable options for helping him/her stop his/her tobacco use. The total time spent counseling the patient regarding tobacco cessation was 3 minutes family h/o: denied pt denied h/o abuse 01/11/17 01:50 01/11/17 13:45 Lab Results 01/11/17 13:45: Potassium 3.9 01/11/17 02:10: Urine Color Yellow, Urine Appearance Sl cloudy, Urine pH 6.5, Ur Specific [place] 1.025, Urine Protein 30 H, Urine Glucose (UA) Negative, Urine Ketones Trace H, Urine Blood Negative, Urine Nitrate Negative, Urine Bilirubin Moderate H, Urine Urobilinogen 4.0 H, Ur Leukocyte Esterase Negative, Urine RBC 0 - 2, Urine WBC 0 - 2, Ur Epithelial Cells 3 - 4, Urine Bacteria Small, Urine HCG, Qual Negative 01/11/17 02:10: Urine Opiates Screen Positive H, Urine Methadone Screen Negative , Ur Barbiturates Screen Negative, Ur Phencyclidine Scrn Negative, Ur Amphetamines Screen Negative, U Benzodiazepines Scrn Negative, U Oth Cocaine Metabols Positive H, U Cannabinoids Screen Positive H 01/11/17 02:00: Hemoglobin A1c 5.8 01/11/17 02:00: Triglycerides 135, Cholesterol 114 L, LDL Cholesterol Direct < 30, HDL Cholesterol 62 H 01/11/17 01:50: Alcohol, Quantitative < 10 01/11/17 01:50: Salicylates < 1 L, Acetaminophen < 10.0 L 01/11/17 01:50: Sodium 139, Potassium 3.0 L, Chloride 103, Carbon Dioxide 28, Anion Gap 11, BUN 7, Creatinine 0.6, Est GFR ( Amer) > 60, Est GFR (Non- Af Amer) > 60, Random Glucose 148 H, Calcium 8.8, Total Bilirubin 0.3, AST 35, ALT 45, Alkaline Phosphatase 124, Total Protein 7.0, Albumin 3.8, Globulin 3.2, Albumin/Globulin Ratio 1.2 01/11/17 01:50: WBC 7.3, RBC 3.98, Hgb 11.9 L, Hct 36.4, MCV 91.5, MCH 29.9, MCHC 32.7, RDW 15.7 H, Plt Count 279, MPV 9.4, Gran % 50.8, Lymph % (Auto) 37.6 H, [place] % (Auto) 7.7 H, Eos % (Auto) 3.6, Baso % (Auto) 0.3, Gran # 3.72, Lymph # 2.8, [place] # 0.6, Eos # 0.3, Baso # 0.02 Vital Signs Temp Pulse Resp BP Pulse Ox 01/11/17 01:26 97.5 F L 84 16 98/71 L 100 Current Medications: Active Medications Generic Name Dose Route Start Last Admin Trade Name Freq PRN Reason Stop Dose Admin Acetaminophen 650 mg 01/11/17 06:30 Tylenol 325mg Tab PO Q6 PRN Pain, Mild (1-3) Bupropion HCl 75 mg 01/11/17 16:00 Wellbutrin PO BID ANTONIO Clonidine HCl 0.1 mg 01/11/17 13:58 Catapres PO BID PRN opioid withdrawal symtpoms Ibuprofen 600 mg 01/11/17 12:49 Motrin Tab PO Q6H PRN Pain, moderate (4-7) Multivitamins 1 tab 01/12/17 08:00 Thera Tab PO 0800 ANTONIO Quetiapine Fumarate 100 mg 01/11/17 22:00 Seroquel PO HS ANTONIO Protocol Tramadol HCl 50 mg 01/11/17 13:56 Ultram PO TID PRN pain, moderate 7/10 Zolpidem Tartrate 5 mg 01/11/17 13:58 Ambien PO HS PRN Insomnia Protocol patient was not compliant with her medications Past Psychiatric History - Past Psychiatric History Previous Treatment History: Inpatient Prior Professional Help: see HPI Prior Psychiatric Treatment: see HPI At what hospital: see HPI Duration: see HPI Nature of Treatment: see HPI Explanation of prior treatment: see HPI History of Abuse: see HPI History of ETOH/Drug Use: see HPI History of Family Illness: see HPI Pertinent Medical Hx (Current Medical&Sleep Prob, Allergies): Allergies Allergy/AdvReac Type Severity Reaction Status Date / Time Penicillins AdvReac RASH Verified 01/11/17 06:35 Zolpidem Tartrate [Ambien] 10 mg PO HS 12/20/14 Escitalopram [Lexapro] 10 mg PO DAILY #0 tab 12/24/14 QUEtiapine [Seroquel] 300 mg PO HS #0 tab 12/24/14 traZODone [Desyrel] 100 mg PO HS #0 tab 12/24/14 Review of Systems - Review of Systems Systems not reviewed;Unavailable: Acuity of Condition - EENT Eyes: As Per HPI Ears: As Per HPI Nose/Mouth/Throat: As Per HPI - Breasts Breasts: As Per HPI - Cardiovascular Cardiovascular: As Per HPI - Respiratory Respiratory: As Per HPI - Gastrointestinal Gastrointestinal: As Per HPI - Genitourinary Genitourinary: As Per HPI - Reproductive: Female Reproductive:Female: As Per HPI - Menstruation Menstruation: As Per HPI - Musculoskeletal Musculoskeletal: As Par HPI - Integumentary Integumentary: As Per HPI - Neurological Neurological: As Per HPI - Psychiatric Psychiatric: As Per HPI - Endocrine Endocrine: As Per HPI - Hematologic/Lymphatic Hematologic: As Per HPI Mental Status Examination - Personal Presentation Personal Presentation: Looks older than stated age - Affect Affect: Constricted, Blunted, Flat - Motor Activity Motor Activity: Psychomotor Retardation - Reliability in Providing Information Reliability in Providing Information: Fair - Speech Speech: Organized - Mood Mood: Depressed - Formal Thought Process Formal Thought Process: No Impairment (pt denied) - Obsessions/Compulsions Obsessions: None Compulsions: None - Cognitive Functions Orientation: Person, Place, Situation Sensorium: Alert Attention/Concentration: Easily distracted Abstract Thinking: [place] Estimate of Intelligence: Average Judgement: Intact, as evidence by: Insight regarding need for hospitalization - Risk Risk: Suicidal, Withdrawal, Self-mutilation, Diminished functioning - Strength & Assets Inventory Strength & Assets Inventory: Skills, Life experience, Cooperative - Limitations Limitations: Other (chronic noncompliance with the medications and follow-up appointments, substance abuse history.) DSM 5 DX - DSM 5 DSM 5 Diagnosis: schizoaffective d/o as per h/o cocaine abuse opioid addiction rule out substance-induced mood disorder Rule out adjustment disorder with depressed and anxious mood(pt's father less than two months ago) - Recommended/Plan of Treatment Treatment Recommendations and Plan of Treatment: milieu/structure/supportive therapy SEROquel will be resumed 100mg hs as a mood stabilizer (pt was on 300mg hs) trazodone will be d/c Ambien 10mg PO HS for insomnia Lexapro will be d/c wellbutrin 75mg bid for mdd tramadol and Ibuprofen for pain will not give benzos, UDS negative for it pt will be seen by medical team, consult appreciated SW evaluation will f/u on labs will monitor closely Projected ELOS: 7days Prognosis: guarded Discharge Plan and Discharge Criteria: Pt will be not depressed or manic, will be more hopeful, will be not psychotic or anxious, will be not having thoughts of harming self or others, will be tolerating medications well, will not have major side effects, will be able to function, will not pose threat to self or others. - Smoking Cessation Smoking Cessation Initiated: Yes
--- NOTE | 2017-01-11 17:40 | CARD ---
APPROVED REPORT EKG Measurement Heart [id number] <Conclusion> Normal sinus rhythm Nonspecific T wave abnormality Abnormal ECG
--- NOTE | 2017-01-11 19:32 | CP.PCM.HP ---
<Yaw Francisco - Last Filed: 01/11/17 20:01> History of Present Illness - History of Present Illness History of Present Illness: Patient is a 46 year old female with a PMH of Anemia, medical non-compliance & Left Knee Arthritis; and a reported psych history of schizoaffective disorder, hx of heroin abuse and dependence. Patient has been admitted to the psych unit for evaluation of depressive symptoms, hopelessness, and possible suicidal ideation. PMH: Anemia, Arthritis PSH: Gall Bladder Removal Social Hx: 6 cigarettes daily, heroin abuse Allergies - Penicillin Hospitalizations: December 2016 for schizoaffective disorder (left AMA) Family Hx: Denies Present on Admission - Present on Admission Any Indicators Present on Admission: No Review of Systems - Review of Systems All systems: reviewed and no additional remarkable complaints except - Constitutional Constitutional: absent: Chills, Fever, Weakness - EENT Eyes: absent: Blurred Vision, Loss of Vision Ears: absent: Dizziness - Cardiovascular Cardiovascular: absent: Chest Pain with Activity, Irregular Heart Rhythm, Paroxysmal Nocturnal Dyspnea - Respiratory Respiratory: absent: Cough, Dyspnea - Gastrointestinal Gastrointestinal: absent: Change in Bowel Habits, Diarrhea, Nausea, Vomiting - Genitourinary Genitourinary: absent: Difficulty Urinating, Dysuria, Urinary Frequency, Urinary Urgency - Musculoskeletal Musculoskeletal: Joint Swelling. absent: Limited Range of Motion, Muscle Weakness, Numbness Additional comments: complains of Left knee pain - Neurological Neurological: absent: Dizziness, Numbness, Headaches, Syncope - Psychiatric Psychiatric: As Per HPI Past Patient History - Infectious Disease Hx of Infectious Diseases: None - Tetanus Immunizations Tetanus Immunization: Unknown - Past Social History Smoking Status: Light Smoker < 10 Cigarettes Daily - CARDIAC Hx Cardiac Disorders: Yes Hx Hypertension: Yes - PULMONARY Hx Respiratory Disorders: No Hx Tuberculosis: No - NEUROLOGICAL Hx Neurological Disorder: No Hx Alzheimer's Disease: No HX Cerebrovascular Accident: No Hx Seizures: No - HEENT Hx HEENT Problems: No - RENAL Hx Chronic Kidney Disease: No - ENDOCRINE/METABOLIC Hx Endocrine Disorders: No - HEMATOLOGICAL/ONCOLOGICAL Hx Anemia: Yes Hx Cancer: No - INTEGUMENTARY Hx Dermatological Problems: No - MUSCULOSKELETAL/RHEUMATOLOGICAL Hx Musculoskeletal Disorders: No - GASTROINTESTINAL Hx Gastrointestinal Disorders: No Hx Liver Failure: Yes - GENITOURINARY/GYNECOLOGICAL Hx Genitourinary Disorders: No Hx Sexually Transmitted Disorders: No - PSYCHIATRIC Hx Depression: Yes Hx Substance Use: Yes - SURGICAL HISTORY Hx Cholecystectomy: Yes Other/Comment: Ectopic preg - ANESTHESIA Hx Anesthesia: Yes Hx Anesthesia Reactions: No Hx Malignant Hyperthermia: No Meds Allergies/Adverse Reactions: Allergies Allergy/AdvReac Type Severity Reaction Status Date / Time Penicillins AdvReac RASH Verified 01/11/17 06:35 Physical Exam - Constitutional Appears: Non-toxic, No Acute Distress - Head Exam Head Exam: ATRAUMATIC, NORMOCEPHALIC - Neck Exam Neck exam: Negative for: Lymphadenopathy - Respiratory Exam Respiratory Exam: Clear to Auscultation Bilateral. absent: Rales, Rhonchi, Wheezes, Stridor - Cardiovascular Exam Cardiovascular Exam: JVD, RRR, +S1, +S2 - GI/Abdominal Exam GI & Abdominal Exam: Normal Bowel Sounds, Soft. absent: Tenderness - Extremities Exam Additional comments: Tenderness to palpation on lateral joint line knee + Varus stress test -[place] - Neurological Exam Neurological exam: Alert, Oriented x3 - Psychiatric Exam Psychiatric exam: Normal Affect, Normal Mood - Skin Skin Exam: Intact, Normal Color Results - Vital Signs Recent Vital Signs: Last Vital Signs Temp 97.5 F L 01/11/17 01:26 Pulse 55 L 01/11/17 15:47 Resp 16 01/11/17 01:26 BP 108/64 01/11/17 15:47 Pulse Ox 100 01/11/17 01:26 - Labs Result Diagrams: 01/11/17 01:50 01/11/17 13:45 Labs: Laboratory Results - last 24 hr 01/11/17 01/11/17 01/11/17 13:45 13:45 13:45 Potassium 3.9 TSH 3rd Generation 0.09 L HIV 1&2 Antibody Screen Negative Assessment & Plan - Assessment and Plan (Free Text) Assessment: This is a 46 year old female with a PMH of Anemia and Arthritis who was admitted to the hospital for depressive symptoms, hopelessness and possible suicidal Ideation Plan: 1. Left Knee Pain -X-Ray -Motrin 600mg prn 2.Hypokalemia -K 3.0 on admission. Now 3.8 post 60 total Meq of KCl 3.Depressive Symptoms -Check TSH - Date & Time Date: 01/11/17 Time: 10:10 <Jennifer Rogers - Last Filed: 01/12/17 17:46> Results - Vital Signs Recent Vital Signs: Last Vital Signs Temp 98.3 F 01/12/17 07:31 Pulse 56 L 01/12/17 16:00 Resp 20 01/12/17 07:31 BP 103/65 01/12/17 16:00 Pulse Ox 100 01/11/17 01:26 - Labs Result Diagrams: 01/11/17 01:50 01/11/17 13:45 Labs: Laboratory Results - last 24 hr 01/11/17 01/12/17 13:45 06:55 Free T4 0.86 HIV 1&2 Antibody Screen Negative Attending/Attestation - Attestation I have personally seen and examined this patient.: Yes I have fully participated in the care of the patient.: Yes I have reviewed all pertinent clinical information: Yes Notes (Text): I have seen and examined patient at bedside.Briefly this is 46 year old female with history of anemia, arthritis, cholecystectomy, tobacco use, polysubstance use who was admitted for evaluation of depression and possible suicidal ideation. Manage as per psychiatrist. She has left sided knee pain. Will order xray. She is able to walk. Will start motrin prn. Will f/u on labs. Dr Jennifer Rogers
[2017-01-12] MEDS: Multivitamin Therapeutic Tab PO SCH (08:50)
--- NOTE | 2017-01-12 13:44 | PCM.PYCHPN ---
Psychiatric Progress Note - Psychiatric Progress Note Patient seen today, length of contact: 30 minutes Patient Chief Complaint: "you know me, it will take a while for medication to start working" Problems Identified/Issues Discussed: Suicide/ homicide prevention, past psychiatric h/o, current psychiatric symptoms , medical problems, risk/benefits and alternatives of medications, medications compliance, coping strategies, substance abuse h/o, relapse prevention, importance of follow up with psychiatrist and therapist, discharge plan. Medical Problems: ? COPD or asthma, arthritis Diagnostic Results: 01/11/17 01:50 01/11/17 13:45 Lab Results 01/12/17 06:55: Free T4 0.86 01/11/17 13:45: HIV 1&2 Antibody Screen Negative 01/11/17 13:45: TSH 3rd Generation 0.09 L 01/11/17 13:45: Potassium 3.9 01/11/17 02:10: Urine Color Yellow, Urine Appearance Sl cloudy, Urine pH 6.5, Ur Specific [place] 1.025, Urine Protein 30 H, Urine Glucose (UA) Negative, Urine Ketones Trace H, Urine Blood Negative, Urine Nitrate Negative, Urine Bilirubin Moderate H, Urine Urobilinogen 4.0 H, Ur Leukocyte Esterase Negative, Urine RBC 0 - 2, Urine WBC 0 - 2, Ur Epithelial Cells 3 - 4, Urine Bacteria Small, Urine HCG, Qual Negative 01/11/17 02:10: Urine Opiates Screen Positive H, Urine Methadone Screen Negative , Ur Barbiturates Screen Negative, Ur Phencyclidine Scrn Negative, Ur Amphetamines Screen Negative, U Benzodiazepines Scrn Negative, U Oth Cocaine Metabols Positive H, U Cannabinoids Screen Positive H 01/11/17 02:00: Hemoglobin A1c 5.8 01/11/17 02:00: Triglycerides 135, Cholesterol 114 L, LDL Cholesterol Direct < 30, HDL Cholesterol 62 H 01/11/17 01:50: Alcohol, Quantitative < 10 01/11/17 01:50: Salicylates < 1 L, Acetaminophen < 10.0 L 01/11/17 01:50: Sodium 139, Potassium 3.0 L, Chloride 103, Carbon Dioxide 28, Anion Gap 11, BUN 7, Creatinine 0.6, Est GFR ( Amer) > 60, Est GFR (Non- Af Amer) > 60, Random Glucose 148 H, Calcium 8.8, Total Bilirubin 0.3, AST 35, ALT 45, Alkaline Phosphatase 124, Total Protein 7.0, Albumin 3.8, Globulin 3.2, Albumin/Globulin Ratio 1.2 01/11/17 01:50: WBC 7.3, RBC 3.98, Hgb 11.9 L, Hct 36.4, MCV 91.5, MCH 29.9, MCHC 32.7, RDW 15.7 H, Plt Count 279, MPV 9.4, Gran % 50.8, Lymph % (Auto) 37.6 H, [place] % (Auto) 7.7 H, Eos % (Auto) 3.6, Baso % (Auto) 0.3, Gran # 3.72, Lymph # 2.8, [place] # 0.6, Eos # 0.3, Baso # 0.02 Vital Signs Temp Pulse Resp BP Pulse Ox 01/12/17 07:31 98.3 F 55 L 20 96/55 L 01/11/17 15:47 55 L 108/64 01/11/17 01:26 97.5 F L 84 16 98/71 L 100 DSM 5 Symptoms Update: Shortly pt is 46yo AAF with reported h/o schizoaffective disorder, h/o heroin abuse and dependence, multiple admissions in the past, most recent was December 2016 to this facility, pt was discharged AMA, pt has h/o noncompliance with meds and f/u appt, pt brought herself to the hospital looking for help for her depressive symptoms, suicidal ideation with the plan to jump in front of the car or jump off the bridge, pt's father less than two months ago, pt relapsed on heroin was using about 5-6 bags, snorting, reported being noncompliant with medications and follow up appts, Pt needs further evaluation and stabilization and meds adjustment. Pt was seen and examined at the dining area, personal hygiene is improving, fair ADLs. patient reported that she slept better last night, patient denied any withdrawal symptoms from opioids, patient reported that she still feels depressed hopeless and helpless. Patient denied hearing voices denied seeing things. Denied anxiety. Patient tolerates current medications well, no side effects observed or reported , aims 0, no EPS. As per nursing report patient presented to be depressed, flat affect, at times sarcastic, preferred to be alone, no behavioral incidents, medications compliance is good. Dr. Koenig consultation appreciated. Impression: schizoaffective d/o as per h/o cocaine abuse opioid addiction rule out substance-induced mood disorder Rule out adjustment disorder with depressed and anxious mood(pt's father less than two months ago) Medication Change: Yes Medical Record Reviewed: Yes Consults ordered or reviewed: medical team consultation appreciated Mental Status Examination - Cognitive Function Orientation: Person, Place, Situation Memory: Intact Attention: Poor Concentration: Poor Association: WNL Fund of Knowledge: WNL - Mood Mood: Depressed - Affect Affect: Constricted, Blunted, Flat - Formal Thought Process Formal Thought Process: No Impairment (pt denied) - Suicidal Ideation Suicidal Ideation: No - Homicidal Ideation Homicidal Ideation: No Goal/Treatment Plan - Goal/Treatment Plan Need for Continued Stay: Remain at risks for inpatient hospitalization, Severe depression anxiety, Discharge may exacerbated symptoms, Severe functional impairment Progress Toward Problem(s) and Goals/Treatment Plan: milieu/structure/supportive therapy SEROquel 100mg hs as a mood stabilizer (pt was on 300mg hs) Ambien 10mg PO HS for insomnia wellbutrin 75mg bid for mdd tramadol and Ibuprofen for pain will not give benzos, UDS negative for it pt will be seen by medical team, consult appreciated SW evaluation will f/u on labs will monitor closely Estimated Date of D/C: 01/18/17 (we'll monitor closely)
--- NOTE | 2017-01-12 14:09 | CP.PCM.PN ---
<Yaw Francisco - Last Filed: 01/12/17 15:33> Subjective - Date & Time of Evaluation Date of Evaluation: 01/12/17 Time of Evaluation: 08:15 - Subjective Subjective: Patient has been seen and examined. She reports no overnight events. Patient denies Headache, dizziness, SOB, palpitations, chest pain, abdominal pain, change in bowel or urinary habits, or loss of appetite. Objective - Vital Signs/Intake and Output Vital Signs (last 24 hours): Temp Pulse Resp BP Pulse Ox 98.3 F 55 L 20 96/55 L 100 01/12/17 07:31 01/12/17 07:31 01/12/17 07:31 01/12/17 07:31 01/11/17 01:26 - Medications Medications: Current Medications Acetaminophen (Tylenol 325mg Tab) 650 mg PO Q6 PRN PRN Reason: Pain, Mild (1-3) Bupropion HCl (Wellbutrin) 75 mg PO BID [facility] Last Admin: 01/12/17 08:50 Dose: 75 mg Clonidine HCl (Catapres) 0.1 mg PO BID PRN PRN Reason: opioid withdrawal symtpoms Ibuprofen (Motrin Tab) 600 mg PO Q6H PRN PRN Reason: Pain, moderate (4-7) Multivitamins (Thera Tab) 1 tab PO 0800 [facility] Last Admin: 01/12/17 08:50 Dose: 1 tab Quetiapine Fumarate (Seroquel) 100 mg PO HS ANTONIO PRN Reason: Protocol Last Admin: 01/11/17 21:53 Dose: 100 mg Tramadol HCl (Ultram) 50 mg PO TID PRN PRN Reason: pain, moderate 7/10 Zolpidem Tartrate (Ambien) 5 mg PO HS PRN; Protocol PRN Reason: Insomnia Last Admin: 01/11/17 21:55 Dose: 5 mg - Labs Labs: 01/11/17 13:45 - Constitutional Appears: Well, No Acute Distress - Head Exam Head Exam: ATRAUMATIC, NORMOCEPHALIC - Eye Exam Eye Exam: EOMI - ENT Exam ENT Exam: Mucous Membranes Moist - Neck Exam Neck Exam: absent: Lymphadenopathy, Thyromegaly - Respiratory Exam Respiratory Exam: Clear to Ausculation Bilateral. absent: Rales, Rhonchi, Wheezes, Stridor - Cardiovascular Exam Cardiovascular Exam: +S1, +S2. absent: Murmur - GI/Abdominal Exam GI & Abdominal Exam: Soft, Normal Bowel Sounds. absent: Tenderness - Extremities Exam Extremities Exam: Joint Swelling Additional comments: Right knee joint swelling. - Psychiatric Exam Psychiatric exam: Normal Affect, Normal Mood Assessment and Plan - Assessment and Plan (Free Text) Assessment: This is a 46 year old female with a PMH of Anemia and Arthritis who was admitted to the hospital for depressive symptoms, hopelessness and possible suicidal Ideation. TSH showed 0.09. Free T4 was ordered and was normal at 0.86. Patient shows no clinical signs of Hypothyroidism. Plan: 1. Subclinical Hypothyroidism (stable) -Patient is asymptomatic - Monitor for hypothyroid symptoms - Repeat TSH as outpatient and F/U with PMD 2. Left Knee Pain -X-ray showed only small joint effusion -Motrin 600mg prn for pain - Cont. to F/U as outpatient. If inflammation consider ortho consult. 3. Hypokalemia (resolved) -last K was 3.9 (01/11/17) At this time no additional medical management needed. We will sign off on this patient for now. Please feel free to re-consult should the patients condition changes. Patient has been seen, discussed, and reviewed with Attending Yaw Francisco PGY-1 Pager <Jennifer Rogers - Last Filed: 01/12/17 17:51> Objective - Vital Signs/Intake and Output Vital Signs (last 24 hours): Temp Pulse Resp BP Pulse Ox 98.3 F 56 L 20 103/65 100 01/12/17 07:31 01/12/17 16:00 01/12/17 07:31 01/12/17 16:00 01/11/17 01:26 - Medications Medications: Current Medications Acetaminophen (Tylenol 325mg Tab) 650 mg PO Q6 PRN PRN Reason: Pain, Mild (1-3) Bupropion HCl (Wellbutrin) 75 mg PO BID [facility] Last Admin: 01/12/17 16:51 Dose: 75 mg Clonidine HCl (Catapres) 0.1 mg PO BID PRN PRN Reason: opioid withdrawal symtpoms Ibuprofen (Motrin Tab) 600 mg PO Q6H PRN PRN Reason: Pain, moderate (4-7) Multivitamins (Thera Tab) 1 tab PO 0800 [facility] Last Admin: 01/12/17 08:50 Dose: 1 tab Quetiapine Fumarate (Seroquel) 100 mg PO HS ANTONIO PRN Reason: Protocol Last Admin: 01/11/17 21:53 Dose: 100 mg Tramadol HCl (Ultram) 50 mg PO TID PRN PRN Reason: pain, moderate 01/11 Zolpidem Tartrate (Ambien) 5 mg PO HS PRN; Protocol PRN Reason: Insomnia Last Admin: 01/11/17 21:55 Dose: 5 mg - Labs Labs: 01/11/17 13:45 Attending/Attestation - Attestation I have personally seen and examined this patient.: Yes I have fully participated in the care of the patient.: Yes I have reviewed all pertinent clinical information, including history, physical exam and plan: Yes Notes (Text): I have seen and examined patient at bedside.Briefly this is 46 year old female with history of anemia, arthritis, cholecystectomy, tobacco use, polysubstance use who was admitted for evaluation of depression and possible suicidal ideation. Manage as per psychiatrist. She has left sided knee pain. Knee xray revealed mild effusion. Will continue motrin prn. She is able to walk. If pain persists or get worse, will recommend ortho consult for IA injection. She has subclinical hyperthyroidism. Advised patient to repeat TFT in 4 weeks. Counselling provided regarding tobacco and polysubstance abuse. Upon discharge patient will follow up with Dr San. Dr Jennifer Rogers
[2017-01-13] MEDS: Multivitamin Therapeutic Tab PO SCH (08:46)
--- NOTE | 2017-01-13 13:53 | PCM.PYCHPN ---
Psychiatric Progress Note - Psychiatric Progress Note Patient seen today, length of contact: 30 minutes Patient Chief Complaint: " I feel jumpy on wellbutrin". Problems Identified/Issues Discussed: Suicide/ homicide prevention, past psychiatric h/o, current psychiatric symptoms , medical problems, risk/benefits and alternatives of medications, medications compliance, coping strategies, substance abuse h/o, relapse prevention, importance of follow up with psychiatrist and therapist, discharge plan. Medical Problems: ? COPD or asthma, arthritis Diagnostic Results: 01/11/17 01:50 01/11/17 13:45 Lab Results 01/12/17 06:55: Free T4 0.86 01/11/17 13:45: HIV 1&2 Antibody Screen Negative 01/11/17 13:45: TSH 3rd Generation 0.09 L 01/11/17 13:45: Potassium 3.9 01/11/17 02:10: Urine Color Yellow, Urine Appearance Sl cloudy, Urine pH 6.5, Ur Specific [place] 1.025, Urine Protein 30 H, Urine Glucose (UA) Negative, Urine Ketones Trace H, Urine Blood Negative, Urine Nitrate Negative, Urine Bilirubin Moderate H, Urine Urobilinogen 4.0 H, Ur Leukocyte Esterase Negative, Urine RBC 0 - 2, Urine WBC 0 - 2, Ur Epithelial Cells 3 - 4, Urine Bacteria Small, Urine HCG, Qual Negative 01/11/17 02:10: Urine Opiates Screen Positive H, Urine Methadone Screen Negative , Ur Barbiturates Screen Negative, Ur Phencyclidine Scrn Negative, Ur Amphetamines Screen Negative, U Benzodiazepines Scrn Negative, U Oth Cocaine Metabols Positive H, U Cannabinoids Screen Positive H 01/11/17 02:00: Hemoglobin A1c 5.8 01/11/17 02:00: Triglycerides 135, Cholesterol 114 L, LDL Cholesterol Direct < 30, HDL Cholesterol 62 H 01/11/17 01:50: Alcohol, Quantitative < 10 01/11/17 01:50: Salicylates < 1 L, Acetaminophen < 10.0 L 01/11/17 01:50: Sodium 139, Potassium 3.0 L, Chloride 103, Carbon Dioxide 28, Anion Gap 11, BUN 7, Creatinine 0.6, Est GFR ( Amer) > 60, Est GFR (Non- Af Amer) > 60, Random Glucose 148 H, Calcium 8.8, Total Bilirubin 0.3, AST 35, ALT 45, Alkaline Phosphatase 124, Total Protein 7.0, Albumin 3.8, Globulin 3.2, Albumin/Globulin Ratio 1.2 01/11/17 01:50: WBC 7.3, RBC 3.98, Hgb 11.9 L, Hct 36.4, MCV 91.5, MCH 29.9, MCHC 32.7, RDW 15.7 H, Plt Count 279, MPV 9.4, Gran % 50.8, Lymph % (Auto) 37.6 H, [place] % (Auto) 7.7 H, Eos % (Auto) 3.6, Baso % (Auto) 0.3, Gran # 3.72, Lymph # 2.8, [place] # 0.6, Eos # 0.3, Baso # 0.02 Vital Signs Temp Pulse Resp BP Pulse Ox 01/12/17 07:31 98.3 F 55 L 20 96/55 L 01/11/17 15:47 55 L 108/64 01/11/17 01:26 97.5 F L 84 16 98/71 L 100 Temp Pulse Resp BP Pulse Ox 97.1 F L 72 17 111/64 100 01/13/17 07:00 01/13/17 07:00 01/13/17 07:00 01/13/17 07:00 01/11/17 01:26 DSM 5 Symptoms Update: Shortly pt is 46yo AAF with reported h/o schizoaffective disorder, h/o heroin abuse and dependence, multiple admissions in the past, most recent was December 2016 to this facility, pt was discharged AMA, pt has h/o noncompliance with meds and f/u appt, pt brought herself to the hospital looking for help for her depressive symptoms, suicidal ideation with the plan to jump in front of the car or jump off the bridge, pt's father less than two months ago, pt relapsed on heroin was using about 5-6 bags, snorting, reported being noncompliant with medications and follow up appts, Pt needs further evaluation and stabilization and meds adjustment. Pt was seen and examined at the dining area, personal hygiene is improving, fair ADLs. patient reported that she slept better last night, patient denied any withdrawal symptoms from opioids, patient reported that she still feels depressed hopeless and helpless. Patient denied hearing voices denied seeing things. Denied anxiety. pt said that she feels "jumpy on wellbutrin", wants to be resumed on Prozac. aims 0, no EPS. As per nursing report patient presented to be depressed, flat affect, at times sarcastic, preferred to be alone, no behavioral incidents, medications compliance is good. Dr. Koenig consultation appreciated. Impression: schizoaffective d/o as per h/o cocaine abuse opioid addiction rule out substance-induced mood disorder Rule out adjustment disorder with depressed and anxious mood(pt's father less than two months ago) Medication Change: Yes Medical Record Reviewed: Yes Consults ordered or reviewed: medical team consultation appreciated Mental Status Examination - Cognitive Function Orientation: Person, Place, Situation Memory: Intact Attention: Poor Concentration: Poor Association: WNL Fund of Knowledge: WNL - Mood Mood: Depressed - Affect Affect: Constricted, Blunted, Flat - Formal Thought Process Formal Thought Process: No Impairment (pt denied) - Suicidal Ideation Suicidal Ideation: No - Homicidal Ideation Homicidal Ideation: No Goal/Treatment Plan - Goal/Treatment Plan Need for Continued Stay: Remain at risks for inpatient hospitalization, Severe depression anxiety, Discharge may exacerbated symptoms, Severe functional impairment Progress Toward Problem(s) and Goals/Treatment Plan: milieu/structure/supportive therapy SEROquel 100mg hs as a mood stabilizer (pt was on 300mg hs) Ambien 10mg PO HS for insomnia wellbutrin d/c prozac started 20mg po daily for depression and anxiety tramadol and Ibuprofen for pain will not give benzos, UDS negative for it pt will be seen by medical team, consult appreciated SW evaluation will f/u on labs will monitor closely Estimated Date of D/C: 01/18/17 (we'll monitor closely)
[2017-01-13] MEDS ORDERED: Magnesium Hydroxide Susp 30 ml UD PO PRN (15:00)
[2017-01-14] MEDS: Multivitamin Therapeutic Tab PO SCH (08:26)
--- NOTE | 2017-01-14 13:23 | PCM.PYCHPN ---
Psychiatric Progress Note - Psychiatric Progress Note Patient seen today, length of contact: 30 minutes Patient Chief Complaint: "can you increase my seroquel?" Problems Identified/Issues Discussed: Suicide/ homicide prevention, past psychiatric h/o, current psychiatric symptoms , medical problems, risk/benefits and alternatives of medications, medications compliance, coping strategies, substance abuse h/o, relapse prevention, importance of follow up with psychiatrist and therapist, discharge plan. Medical Problems: ? COPD or asthma, arthritis Diagnostic Results: 01/11/17 01:50 01/11/17 13:45 Lab Results 01/12/17 06:55: Free T4 0.86 01/11/17 13:45: HIV 1&2 Antibody Screen Negative 01/11/17 13:45: TSH 3rd Generation 0.09 L 01/11/17 13:45: Potassium 3.9 01/11/17 02:10: Urine Color Yellow, Urine Appearance Sl cloudy, Urine pH 6.5, Ur Specific [place] 1.025, Urine Protein 30 H, Urine Glucose (UA) Negative, Urine Ketones Trace H, Urine Blood Negative, Urine Nitrate Negative, Urine Bilirubin Moderate H, Urine Urobilinogen 4.0 H, Ur Leukocyte Esterase Negative, Urine RBC 0 - 2, Urine WBC 0 - 2, Ur Epithelial Cells 3 - 4, Urine Bacteria Small, Urine HCG, Qual Negative 01/11/17 02:10: Urine Opiates Screen Positive H, Urine Methadone Screen Negative , Ur Barbiturates Screen Negative, Ur Phencyclidine Scrn Negative, Ur Amphetamines Screen Negative, U Benzodiazepines Scrn Negative, U Oth Cocaine Metabols Positive H, U Cannabinoids Screen Positive H 01/11/17 02:00: Hemoglobin A1c 5.8 01/11/17 02:00: Triglycerides 135, Cholesterol 114 L, LDL Cholesterol Direct < 30, HDL Cholesterol 62 H 01/11/17 01:50: Alcohol, Quantitative < 10 01/11/17 01:50: Salicylates < 1 L, Acetaminophen < 10.0 L 01/11/17 01:50: Sodium 139, Potassium 3.0 L, Chloride 103, Carbon Dioxide 28, Anion Gap 11, BUN 7, Creatinine 0.6, Est GFR ( Amer) > 60, Est GFR (Non- Af Amer) > 60, Random Glucose 148 H, Calcium 8.8, Total Bilirubin 0.3, AST 35, ALT 45, Alkaline Phosphatase 124, Total Protein 7.0, Albumin 3.8, Globulin 3.2, Albumin/Globulin Ratio 1.2 01/11/17 01:50: WBC 7.3, RBC 3.98, Hgb 11.9 L, Hct 36.4, MCV 91.5, MCH 29.9, MCHC 32.7, RDW 15.7 H, Plt Count 279, MPV 9.4, Gran % 50.8, Lymph % (Auto) 37.6 H, [place] % (Auto) 7.7 H, Eos % (Auto) 3.6, Baso % (Auto) 0.3, Gran # 3.72, Lymph # 2.8, [place] # 0.6, Eos # 0.3, Baso # 0.02 Vital Signs Temp Pulse Resp BP Pulse Ox 01/12/17 07:31 98.3 F 55 L 20 96/55 L 01/11/17 15:47 55 L 108/64 01/11/17 01:26 97.5 F L 84 16 98/71 L 100 Temp Pulse Resp BP Pulse Ox 97.1 F L 72 17 111/64 100 01/13/17 07:00 01/13/17 07:00 01/13/17 07:00 01/13/17 07:00 01/11/17 01:26 DSM 5 Symptoms Update: Shortly pt is 46yo AAF with reported h/o schizoaffective disorder, h/o heroin abuse and dependence, multiple admissions in the past, most recent was December 2016 to this facility, pt was discharged AMA, pt has h/o noncompliance with meds and f/u appt, pt brought herself to the hospital looking for help for her depressive symptoms, suicidal ideation with the plan to jump in front of the car or jump off the bridge, pt's father less than two months ago, pt relapsed on heroin was using about 5-6 bags, snorting, reported being noncompliant with medications and follow up appts, Pt needs further evaluation and stabilization and meds adjustment. Pt was seen and examined at the dining area, personal hygiene is improving, fair ADLs. patient reported that she slept better last night, asked seiroquel to be increased, "my mood is still up and down", patient denied any withdrawal symptoms from opioids, patient reported that she still feels depressed hopeless and helpless. pt tolerated prozac better to compare with wellbutrin. Patient denied hearing voices denied seeing things. aims 0, no EPS. As per nursing report patient presented to be depressed, flat affect, at times sarcastic, preferred to be alone, no behavioral incidents, medications compliance is good. Dr. Koenig consultation appreciated. Impression: schizoaffective d/o as per h/o cocaine abuse opioid addiction rule out substance-induced mood disorder Rule out adjustment disorder with depressed and anxious mood(pt's father less than two months ago) Medication Change: Yes (seroquel increased) Medical Record Reviewed: Yes Consults ordered or reviewed: medical team consultation appreciated Mental Status Examination - Cognitive Function Orientation: Person, Place, Situation Memory: Intact Attention: Poor Concentration: Poor Association: WNL Fund of Knowledge: WNL - Mood Mood: Depressed - Affect Affect: Constricted, Blunted, Flat - Formal Thought Process Formal Thought Process: No Impairment (pt denied) - Suicidal Ideation Suicidal Ideation: No - Homicidal Ideation Homicidal Ideation: No Goal/Treatment Plan - Goal/Treatment Plan Need for Continued Stay: Remain at risks for inpatient hospitalization, Severe depression anxiety, Discharge may exacerbated symptoms, Severe functional impairment Progress Toward Problem(s) and Goals/Treatment Plan: milieu/structure/supportive therapy SEROquel 200mg hs as a mood stabilizer (pt was on 300mg hs) Ambien 10mg PO HS for insomnia wellbutrin d/c prozac started 20mg po daily for depression and anxiety tramadol and Ibuprofen for pain will not give benzos, UDS negative for it pt will be seen by medical team, consult appreciated SW evaluation will f/u on labs will monitor closely Estimated Date of D/C: 01/18/17 (we'll monitor closely)
[2017-01-14] MEDS: Simethicone 40 mg/0.6 ml Liquid (30 ml) PO SCH ×2 (18:03→21:42)
[2017-01-15] MEDS: Multivitamin Therapeutic Tab PO SCH (07:54)
[2017-01-15] MEDS: Simethicone 40 mg/0.6 ml Liquid (30 ml) PO SCH ×4 (07:55→21:22)
--- NOTE | 2017-01-15 09:27 | CARD ---
APPROVED REPORT EKG Measurement Heart [id number] [place] [id number] <Conclusion> Sinus bradycardia Otherwise normal ECG
--- NOTE | 2017-01-15 09:45 | RAD ---
HISTORY: chest pain COMPARISON: 01/11/2017 FINDINGS: LUNGS: No active pulmonary disease. PLEURA: No significant pleural effusion identified, no pneumothorax apparent. CARDIOVASCULAR: Normal. OSSEOUS STRUCTURES: No significant abnormalities. VISUALIZED UPPER ABDOMEN: Normal. OTHER FINDINGS: None. IMPRESSION: No active disease.
--- NOTE | 2017-01-15 10:16 | PCM.PYCHPN ---
Psychiatric Progress Note - Psychiatric Progress Note Patient seen today, length of contact: 30 minutes Patient Chief Complaint: "I feel little better, but jittery..." (most likely due to a prozac and wellbutrin which was d/c) Problems Identified/Issues Discussed: Suicide/ homicide prevention, past psychiatric h/o, current psychiatric symptoms , medical problems, risk/benefits and alternatives of medications, medications compliance, coping strategies, substance abuse h/o, relapse prevention, importance of follow up with psychiatrist and therapist, discharge plan. Medical Problems: ? COPD or asthma, arthritis Diagnostic Results: 01/11/17 01:50 01/11/17 13:45 Lab Results 01/12/17 06:55: Free T4 0.86 01/11/17 13:45: HIV 1&2 Antibody Screen Negative 01/11/17 13:45: TSH 3rd Generation 0.09 L 01/11/17 13:45: Potassium 3.9 01/11/17 02:10: Urine Color Yellow, Urine Appearance Sl cloudy, Urine pH 6.5, Ur Specific [place] 1.025, Urine Protein 30 H, Urine Glucose (UA) Negative, Urine Ketones Trace H, Urine Blood Negative, Urine Nitrate Negative, Urine Bilirubin Moderate H, Urine Urobilinogen 4.0 H, Ur Leukocyte Esterase Negative, Urine RBC 0 - 2, Urine WBC 0 - 2, Ur Epithelial Cells 3 - 4, Urine Bacteria Small, Urine HCG, Qual Negative 01/11/17 02:10: Urine Opiates Screen Positive H, Urine Methadone Screen Negative , Ur Barbiturates Screen Negative, Ur Phencyclidine Scrn Negative, Ur Amphetamines Screen Negative, U Benzodiazepines Scrn Negative, U Oth Cocaine Metabols Positive H, U Cannabinoids Screen Positive H 01/11/17 02:00: Hemoglobin A1c 5.8 01/11/17 02:00: Triglycerides 135, Cholesterol 114 L, LDL Cholesterol Direct < 30, HDL Cholesterol 62 H 01/11/17 01:50: Alcohol, Quantitative < 10 01/11/17 01:50: Salicylates < 1 L, Acetaminophen < 10.0 L 01/11/17 01:50: Sodium 139, Potassium 3.0 L, Chloride 103, Carbon Dioxide 28, Anion Gap 11, BUN 7, Creatinine 0.6, Est GFR ( Amer) > 60, Est GFR (Non- Af Amer) > 60, Random Glucose 148 H, Calcium 8.8, Total Bilirubin 0.3, AST 35, ALT 45, Alkaline Phosphatase 124, Total Protein 7.0, Albumin 3.8, Globulin 3.2, Albumin/Globulin Ratio 1.2 01/11/17 01:50: WBC 7.3, RBC 3.98, Hgb 11.9 L, Hct 36.4, MCV 91.5, MCH 29.9, MCHC 32.7, RDW 15.7 H, Plt Count 279, MPV 9.4, Gran % 50.8, Lymph % (Auto) 37.6 H, [place] % (Auto) 7.7 H, Eos % (Auto) 3.6, Baso % (Auto) 0.3, Gran # 3.72, Lymph # 2.8, [place] # 0.6, Eos # 0.3, Baso # 0.02 Vital Signs Temp Pulse Resp BP Pulse Ox 01/12/17 07:31 98.3 F 55 L 20 96/55 L 01/11/17 15:47 55 L 108/64 01/11/17 01:26 97.5 F L 84 16 98/71 L 100 Temp Pulse Resp BP Pulse Ox 97.1 F L 72 17 111/64 100 01/13/17 07:00 01/13/17 07:00 01/13/17 07:00 01/13/17 07:00 01/11/17 01:26 CXR [id number] EKG bradycardia 01/14/17 Laboratory Results - last 24 hr 01/14/17 16:42 Troponin I < 0.01 D DSM 5 Symptoms Update: Shortly pt is 46yo AAF with reported h/o schizoaffective disorder, h/o heroin abuse and dependence, multiple admissions in the past, most recent was December 2016 to this facility, pt was discharged AMA, pt has h/o noncompliance with meds and f/u appt, pt brought herself to the hospital looking for help for her depressive symptoms, suicidal ideation with the plan to jump in front of the car or jump off the bridge, pt's father less than two months ago, pt relapsed on heroin was using about 5-6 bags, snorting, reported being noncompliant with medications and follow up appts, Pt needs further evaluation and stabilization and meds adjustment. Pt was seen and examined at the dining area, personal hygiene is improving, fair ADLs. patient reported that she slept better last night, pt was c/o chest pain yesterday, Troponin WNL, EKG bradycardia, CXR WNL. pt was educated about results. pt said her mood is improving, pt wants to go to inpatient rehab. aims 0, no EPS. As per nursing report patient presented better, no behavioral incidents, medications compliance is good. Dr. Koenig consultation appreciated. Impression: schizoaffective d/o as per h/o cocaine abuse opioid addiction rule out substance-induced mood disorder Rule out adjustment disorder with depressed and anxious mood(pt's father less than two months ago) Medication Change: No (increased yesterday) Medical Record Reviewed: Yes Consults ordered or reviewed: medical team consultation appreciated Mental Status Examination - Cognitive Function Orientation: Person, Place, Situation Memory: Intact Attention: Poor (some improvement) Concentration: Poor (some improvement) Association: WNL Fund of Knowledge: WNL - Mood Mood: Depressed ("I feel little better") - Affect Affect: Constricted (but mroe reactive) - Speech Speech: Appropriate - Formal Thought Process Formal Thought Process: No Impairment (pt denied) - Suicidal Ideation Suicidal Ideation: No - Homicidal Ideation Homicidal Ideation: No Goal/Treatment Plan - Goal/Treatment Plan Need for Continued Stay: Remain at risks for inpatient hospitalization, Severe depression anxiety, Discharge may exacerbated symptoms, Severe functional impairment Progress Toward Problem(s) and Goals/Treatment Plan: milieu/structure/supportive therapy SEROquel 200mg hs as a mood stabilizer (pt was on 300mg hs) Ambien 10mg PO HS for insomnia wellbutrin d/c prozac started 20mg po daily for depression and anxiety tramadol and Ibuprofen for pain will not give benzos, UDS negative for it pt will be seen by medical team, consult appreciated SW evaluation pt wants to go to the rehab will f/u on labs will monitor closely Estimated Date of D/C: 01/18/17 (we'll monitor closely)
[2017-01-16] MEDS: Simethicone 40 mg/0.6 ml Liquid (30 ml) PO SCH ×4 (09:00→17:16)
[2017-01-16] MEDS: Multivitamin Therapeutic Tab PO SCH (09:29)
--- NOTE | 2017-01-16 13:08 | PCM.PYCHPN ---
Psychiatric Progress Note - Psychiatric Progress Note Patient seen today, length of contact: 30 minutes Patient Chief Complaint: "I am very irritable and angry" Problems Identified/Issues Discussed: Suicide/ homicide prevention, past psychiatric h/o, current psychiatric symptoms , medical problems, risk/benefits and alternatives of medications, medications compliance, coping strategies, substance abuse h/o, relapse prevention, importance of follow up with psychiatrist and therapist, discharge plan. Medical Problems: ? COPD or asthma, arthritis Diagnostic Results: 01/11/17 01:50 01/11/17 13:45 Lab Results 01/12/17 06:55: Free T4 0.86 01/11/17 13:45: HIV 1&2 Antibody Screen Negative 01/11/17 13:45: TSH 3rd Generation 0.09 L 01/11/17 13:45: Potassium 3.9 01/11/17 02:10: Urine Color Yellow, Urine Appearance Sl cloudy, Urine pH 6.5, Ur Specific [place] 1.025, Urine Protein 30 H, Urine Glucose (UA) Negative, Urine Ketones Trace H, Urine Blood Negative, Urine Nitrate Negative, Urine Bilirubin Moderate H, Urine Urobilinogen 4.0 H, Ur Leukocyte Esterase Negative, Urine RBC 0 - 2, Urine WBC 0 - 2, Ur Epithelial Cells 3 - 4, Urine Bacteria Small, Urine HCG, Qual Negative 01/11/17 02:10: Urine Opiates Screen Positive H, Urine Methadone Screen Negative , Ur Barbiturates Screen Negative, Ur Phencyclidine Scrn Negative, Ur Amphetamines Screen Negative, U Benzodiazepines Scrn Negative, U Oth Cocaine Metabols Positive H, U Cannabinoids Screen Positive H 01/11/17 02:00: Hemoglobin A1c 5.8 01/11/17 02:00: Triglycerides 135, Cholesterol 114 L, LDL Cholesterol Direct < 30, HDL Cholesterol 62 H 01/11/17 01:50: Alcohol, Quantitative < 10 01/11/17 01:50: Salicylates < 1 L, Acetaminophen < 10.0 L 01/11/17 01:50: Sodium 139, Potassium 3.0 L, Chloride 103, Carbon Dioxide 28, Anion Gap 11, BUN 7, Creatinine 0.6, Est GFR ( Amer) > 60, Est GFR (Non- Af Amer) > 60, Random Glucose 148 H, Calcium 8.8, Total Bilirubin 0.3, AST 35, ALT 45, Alkaline Phosphatase 124, Total Protein 7.0, Albumin 3.8, Globulin 3.2, Albumin/Globulin Ratio 1.2 01/11/17 01:50: WBC 7.3, RBC 3.98, Hgb 11.9 L, Hct 36.4, MCV 91.5, MCH 29.9, MCHC 32.7, RDW 15.7 H, Plt Count 279, MPV 9.4, Gran % 50.8, Lymph % (Auto) 37.6 H, [place] % (Auto) 7.7 H, Eos % (Auto) 3.6, Baso % (Auto) 0.3, Gran # 3.72, Lymph # 2.8, [place] # 0.6, Eos # 0.3, Baso # 0.02 Vital Signs Temp Pulse Resp BP Pulse Ox 01/12/17 07:31 98.3 F 55 L 20 96/55 L 01/11/17 15:47 55 L 108/64 01/11/17 01:26 97.5 F L 84 16 98/71 L 100 Temp Pulse Resp BP Pulse Ox 97.1 F L 72 17 111/64 100 01/13/17 07:00 01/13/17 07:00 01/13/17 07:00 01/13/17 07:00 01/11/17 01:26 CXR WNL7 EKG bradycardia 01/14/17 Laboratory Results - last 24 hr 01/14/17 16:42 Troponin I < 0.01 D Temp Pulse Resp BP Pulse Ox 98.2 F 68 20 103/68 100 01/16/17 07:11 01/16/17 07:11 01/16/17 07:11 01/16/17 07:11 01/11/17 01:26 DSM 5 Symptoms Update: Shortly pt is 46yo AAF with reported h/o schizoaffective disorder, h/o heroin abuse and dependence, multiple admissions in the past, most recent was December 2016 to this facility, pt was discharged AMA, pt has h/o noncompliance with meds and f/u appt, pt brought herself to the hospital looking for help for her depressive symptoms, suicidal ideation with the plan to jump in front of the car or jump off the bridge, pt's father less than two months ago, pt relapsed on heroin was using about 5-6 bags, snorting, reported being noncompliant with medications and follow up appts, Pt needs further evaluation and stabilization and meds adjustment. Pt was seen and examined at the dining area, personal hygiene is improving, fair ADLs. patient reported that she feels "irritable and angry" because she didn't have a good night sleep today. Patient reported that she also feels anxious, asks some medication for anxiety, patient reported that "I don't want to snap on others, but I feel like I am going to..." pt was offered vistaril, ambien increased. He shouldn't tolerates medications well, no side effects observed or reported, aims 0, no EPS. As per nursing report patient presented better, no behavioral incidents, medications compliance is good. Dr. Koenig consultation appreciated. Impression: schizoaffective d/o as per h/o cocaine abuse opioid addiction rule out substance-induced mood disorder Rule out adjustment disorder with depressed and anxious mood(pt's father less than two months ago) Medication Change: Yes (ambien increased, Vistaril started) Medical Record Reviewed: Yes Consults ordered or reviewed: medical team consultation appreciated Mental Status Examination - Cognitive Function Orientation: Person, Place, Situation Memory: Intact Attention: Poor (some improvement) Concentration: Poor (some improvement) Association: WNL Fund of Knowledge: WNL - Mood Mood: Depressed ("I feel little better") - Affect Affect: Constricted (but mroe reactive) - Speech Speech: Appropriate - Formal Thought Process Formal Thought Process: No Impairment (pt denied) - Suicidal Ideation Suicidal Ideation: No - Homicidal Ideation Homicidal Ideation: No Goal/Treatment Plan - Goal/Treatment Plan Need for Continued Stay: Remain at risks for inpatient hospitalization, Severe depression anxiety, Discharge may exacerbated symptoms, Severe functional impairment Progress Toward Problem(s) and Goals/Treatment Plan: milieu/structure/supportive therapy SEROquel 200mg hs as a mood stabilizer (pt was on 300mg hs) Ambien 10mg PO HS for insomnia vistaril 50 mg Q8 hours as needed for anxiety wellbutrin d/c prozac 20mg po daily for depression and anxiety tramadol and Ibuprofen for pain will not give benzos, UDS negative for it pt will be seen by medical team, consult appreciated SW evaluation pt wants to go to the rehab will f/u on labs will monitor closely Estimated Date of D/C: 01/18/17 (we'll monitor closely)
[2017-01-16] MEDS: Simethicone 80 mg Chewtab PO PRN (17:54)
[2017-01-17] MEDS: QUEtiapine 200 mg XR Tab PO SCH (09:02)
[2017-01-17] MEDS: Multivitamin Therapeutic Tab PO SCH (09:02)
[2017-01-17] MEDS: Simethicone 40 mg/0.6 ml Liquid (30 ml) PO SCH ×5 (09:04→22:38)
--- NOTE | 2017-01-17 11:47 | PCM.PYCHPN ---
Psychiatric Progress Note - Psychiatric Progress Note Patient seen today, length of contact: 30 minutes Patient Chief Complaint: "I am very irritable and angry because I am not sleeping" Problems Identified/Issues Discussed: Suicide/ homicide prevention, past psychiatric h/o, current psychiatric symptoms , medical problems, risk/benefits and alternatives of medications, medications compliance, coping strategies, substance abuse h/o, relapse prevention, importance of follow up with psychiatrist and therapist, discharge plan. Medical Problems: ? COPD or asthma, arthritis Diagnostic Results: 01/11/17 01:50 01/11/17 13:45 Lab Results 01/12/17 06:55: Free T4 0.86 01/11/17 13:45: HIV 1&2 Antibody Screen Negative 01/11/17 13:45: TSH 3rd Generation 0.09 L 01/11/17 13:45: Potassium 3.9 01/11/17 02:10: Urine Color Yellow, Urine Appearance Sl cloudy, Urine pH 6.5, Ur Specific [place] 1.025, Urine Protein 30 H, Urine Glucose (UA) Negative, Urine Ketones Trace H, Urine Blood Negative, Urine Nitrate Negative, Urine Bilirubin Moderate H, Urine Urobilinogen 4.0 H, Ur Leukocyte Esterase Negative, Urine RBC 0 - 2, Urine WBC 0 - 2, Ur Epithelial Cells 3 - 4, Urine Bacteria Small, Urine HCG, Qual Negative 01/11/17 02:10: Urine Opiates Screen Positive H, Urine Methadone Screen Negative , Ur Barbiturates Screen Negative, Ur Phencyclidine Scrn Negative, Ur Amphetamines Screen Negative, U Benzodiazepines Scrn Negative, U Oth Cocaine Metabols Positive H, U Cannabinoids Screen Positive H 01/11/17 02:00: Hemoglobin A1c 5.8 01/11/17 02:00: Triglycerides 135, Cholesterol 114 L, LDL Cholesterol Direct < 30, HDL Cholesterol 62 H 01/11/17 01:50: Alcohol, Quantitative < 10 01/11/17 01:50: Salicylates < 1 L, Acetaminophen < 10.0 L 01/11/17 01:50: Sodium 139, Potassium 3.0 L, Chloride 103, Carbon Dioxide 28, Anion Gap 11, BUN 7, Creatinine 0.6, Est GFR ( Amer) > 60, Est GFR (Non- Af Amer) > 60, Random Glucose 148 H, Calcium 8.8, Total Bilirubin 0.3, AST 35, ALT 45, Alkaline Phosphatase 124, Total Protein 7.0, Albumin 3.8, Globulin 3.2, Albumin/Globulin Ratio 1.2 01/11/17 01:50: WBC 7.3, RBC 3.98, Hgb 11.9 L, Hct 36.4, MCV 91.5, MCH 29.9, MCHC 32.7, RDW 15.7 H, Plt Count 279, MPV 9.4, Gran % 50.8, Lymph % (Auto) 37.6 H, [place] % (Auto) 7.7 H, Eos % (Auto) 3.6, Baso % (Auto) 0.3, Gran # 3.72, Lymph # 2.8, [place] # 0.6, Eos # 0.3, Baso # 0.02 Vital Signs Temp Pulse Resp BP Pulse Ox 01/12/17 07:31 98.3 F 55 L 20 96/55 L 01/11/17 15:47 55 L 108/64 01/11/17 01:26 97.5 F L 84 16 98/71 L 100 Temp Pulse Resp BP Pulse Ox 97.1 F L 72 17 111/64 100 01/13/17 07:00 01/13/17 07:00 01/13/17 07:00 01/13/17 07:00 01/11/17 01:26 CXR [id number] EKG bradycardia 01/14/17 Laboratory Results - last 24 hr 01/14/17 16:42 Troponin I < 0.01 D Temp Pulse Resp BP Pulse Ox 98.2 F 68 20 103/68 100 01/16/17 07:11 01/16/17 07:11 01/16/17 07:11 01/16/17 07:11 01/11/17 01:26 Temp Pulse Resp BP Pulse Ox 97.6 F 62 20 91/51 L 100 01/17/17 07:39 01/17/17 07:39 01/17/17 07:39 01/17/17 07:39 01/11/17 01:26 DSM 5 Symptoms Update: Shortly pt is 46yo AAF with reported h/o schizoaffective disorder, h/o heroin abuse and dependence, multiple admissions in the past, most recent was December 2016 to this facility, pt was discharged AMA, pt has h/o noncompliance with meds and f/u appt, pt brought herself to the hospital looking for help for her depressive symptoms, suicidal ideation with the plan to jump in front of the car or jump off the bridge, pt's father less than two months ago, pt relapsed on heroin was using about 5-6 bags, snorting, reported being noncompliant with medications and follow up appts, Pt needs further evaluation and stabilization and meds adjustment. Pt was seen and examined at the dining area, personal hygiene is improving, fair ADLs. patient reported that she feels "irritable and angry, I am not sleeping that is why", this caption writer will adjust meds, will give seroquel at am and hs, trazodone hs. Patient reported that she also feels anxious, but she did not like vistaril, pt was educated About relaxation technique and breathing exercise. Pt tolerates medications well, no side effects observed or reported, aims 0, no EPS. As per nursing report patient presented better, no behavioral incidents, medications compliance is good. Dr. Koenig consultation appreciated. Impression: schizoaffective d/o as per h/o cocaine abuse opioid addiction rule out substance-induced mood disorder Rule out adjustment disorder with depressed and anxious mood(pt's father less than two months ago) Medication Change: Yes (seroquel incrased, trazodone resumed) Medical Record Reviewed: Yes Consults ordered or reviewed: medical team consultation appreciated Mental Status Examination - Cognitive Function Orientation: Person, Place, Situation Memory: Intact Attention: Poor (some improvement) Concentration: Poor (some improvement) Association: WNL Fund of Knowledge: WNL - Mood Mood: Depressed ("I feel little better") - Affect Affect: Constricted (but mroe reactive) - Speech Speech: Appropriate - Formal Thought Process Formal Thought Process: No Impairment (pt denied) - Suicidal Ideation Suicidal Ideation: No - Homicidal Ideation Homicidal Ideation: No Goal/Treatment Plan - Goal/Treatment Plan Need for Continued Stay: Remain at risks for inpatient hospitalization, Severe depression anxiety, Discharge may exacerbated symptoms, Severe functional impairment Progress Toward Problem(s) and Goals/Treatment Plan: milieu/structure/supportive therapy SEROquel 200mg am ER, 100mg hs as a mood stabilizer (pt was on 300mg hs) Ambien 10mg PO HS for insomnia trazodone 100mg hs for depression and insomnia vistaril 50 mg Q8 hours as needed for anxiety wellbutrin d/c prozac 20mg po daily for depression and anxiety tramadol and Ibuprofen for pain will not give benzos, UDS negative for it pt will be seen by medical team, consult appreciated SW evaluation pt wants to go to the rehab will f/u on labs will monitor closely Estimated Date of D/C: 01/18/17 (we'll monitor closely)
[2017-01-17] MEDS: Simethicone 80 mg Chewtab PO PRN (13:59)
[2017-01-18] MEDS: Multivitamin Therapeutic Tab PO SCH (09:15)
[2017-01-18] MEDS: QUEtiapine 200 mg XR Tab PO SCH (09:15)
[2017-01-18] MEDS: Simethicone 40 mg/0.6 ml Liquid (30 ml) PO SCH ×4 (09:28→21:42)
--- NOTE | 2017-01-18 10:56 | PCM.BM ---
<Aisha Myers - Last Filed: 01/18/17 10:54> Treatment Plan Problems - Problems identified on initial assessmt depression Date Initiated: 12/25/16 Time Initiated: 08:40 Date resolved: 01/18/17 Assessment reference: NA Status: Active Priority: 1 substance use Date Initiated: 12/25/16 Time Initiated: 08:43 Assessment reference: NA Status: Active Priority: 2 Treatment assets and liabiliti Patient Assests: adapts well, self-reliant, ADL independent, negotiates basic needs, cognitively intact, good interpersonal skills Patient Liabilities: financial problems, substance abuse - Milieu Protocol Maintain good personal hygiene: daily Encourage regular showers, daily Remind patient to perform daily oral care, daily Assist patient to perform ADL's Maintain personal safety: every shift Educate patient to report safety concerns to staff, every shift Monitor environment for contraband/sharps Medication safety: Monitor for expected outcome, potential side effects: every shift, Assess barriers to learning: every shift, Assess readiness for medication education: every shift Milieu Narrative: milieu/structure/supportive therapy SEROquel 200mg am ER, 100mg hs as a mood stabilizer (pt was on 300mg hs) Ambien 10mg PO HS for insomnia trazodone 100mg hs for depression and insomnia vistaril 50 mg Q8 hours as needed for anxiety wellbutrin d/c prozac 20mg po daily for depression and anxiety tramadol and Ibuprofen for pain will not give benzos, UDS negative for it pt will be seen by medical team, consult appreciated SW evaluation pt wants to go to the rehab will f/u on labs will monitor closely Family Contact Family involvement: Famliy/SO not involved - Goals for Treatment Patient goals for treatment: "To get myself organized." Discharge/Continuing Care - Education Needs Education Needs: Patient Medication, Patient Diagnosis/Disease Process, Patient Coping Skills, Patient Community resources, Patient Activities of Daily Living, Patient Personal Hygiene/Grooming, Patient Aftercare Safety Plan - Discharge Discharge Criteria: Tolerates medication w/o severe side effects, Free of Suicidal thoughts, Normal sleep pattern, Ability to care for self, No longer exhibiting s/s of withdrawal, Reduction of target symptoms Discharge to:: Home - Additional Comments milieu/structure/supportive therapy SEROquel 200mg am ER, 100mg hs as a mood stabilizer (pt was on 300mg hs) Ambien 10mg PO HS for insomnia trazodone 100mg hs for depression and insomnia vistaril 50 mg Q8 hours as needed for anxiety wellbutrin d/c prozac 20mg po daily for depression and anxiety tramadol and Ibuprofen for pain will not give benzos, UDS negative for it pt will be seen by medical team, consult appreciated SW evaluation pt wants to go to the rehab will f/u on labs will monitor closely - Treatment Team Participation Patient/Family/SO Statement: milieu/structure/supportive therapy SEROquel 200mg am ER, 100mg hs as a mood stabilizer (pt was on 300mg hs) Ambien 10mg PO HS for insomnia trazodone 100mg hs for depression and insomnia vistaril 50 mg Q8 hours as needed for anxiety wellbutrin d/c prozac 20mg po daily for depression and anxiety tramadol and Ibuprofen for pain will not give benzos, UDS negative for it pt will be seen by medical team, consult appreciated SW evaluation pt wants to go to the rehab will f/u on labs will monitor closely <Carly Gamboa - Last Filed: 01/18/17 12:40> - Diagnosis (1) Polysubstance abuse Status: Acute Interventions: 01/18/17 12:40 pt does not have any withdrawals wants to go to Rehab med compliance is good pt wants to stay sober (2) Schizoaffective disorder Status: Acute Interventions: 01/18/17 12:41 pt is improving, mood is better, no psychosis <Veronica Hernandez - Last Filed: 01/18/17 15:31> Discharge/Continuing Care - Education Needs Education Needs: Patient Medication, Patient Diagnosis/Disease Process, Patient Coping Skills, Patient Community resources - Discharge Discharge Criteria: Tolerates medication w/o severe side effects, Free of Suicidal thoughts, Free of paranoid thoughts, Free of agitation, Normal sleep pattern, Reduction of target symptoms Discharge to:: Home <Millie Dawson - Last Filed: 01/18/17 16:11>
--- NOTE | 2017-01-18 13:50 | PCM.PYCHPN ---
Psychiatric Progress Note - Psychiatric Progress Note Patient seen today, length of contact: 30 minutes Patient Chief Complaint: "I Slept on and off this night' Problems Identified/Issues Discussed: Suicide/ homicide prevention, past psychiatric h/o, current psychiatric symptoms , medical problems, risk/benefits and alternatives of medications, medications compliance, coping strategies, substance abuse h/o, relapse prevention, importance of follow up with psychiatrist and therapist, discharge plan. Medical Problems: ? COPD or asthma, arthritis Diagnostic Results: 01/11/17 01:50 01/11/17 13:45 Lab Results 01/12/17 06:55: Free T4 0.86 01/11/17 13:45: HIV 1&2 Antibody Screen Negative 01/11/17 13:45: TSH 3rd Generation 0.09 L 01/11/17 13:45: Potassium 3.9 01/11/17 02:10: Urine Color Yellow, Urine Appearance Sl cloudy, Urine pH 6.5, Ur Specific [place] 1.025, Urine Protein 30 H, Urine Glucose (UA) Negative, Urine Ketones Trace H, Urine Blood Negative, Urine Nitrate Negative, Urine Bilirubin Moderate H, Urine Urobilinogen 4.0 H, Ur Leukocyte Esterase Negative, Urine RBC 0 - 2, Urine WBC 0 - 2, Ur Epithelial Cells 3 - 4, Urine Bacteria Small, Urine HCG, Qual Negative 01/11/17 02:10: Urine Opiates Screen Positive H, Urine Methadone Screen Negative , Ur Barbiturates Screen Negative, Ur Phencyclidine Scrn Negative, Ur Amphetamines Screen Negative, U Benzodiazepines Scrn Negative, U Oth Cocaine Metabols Positive H, U Cannabinoids Screen Positive H 01/11/17 02:00: Hemoglobin A1c 5.8 01/11/17 02:00: Triglycerides 135, Cholesterol 114 L, LDL Cholesterol Direct < 30, HDL Cholesterol 62 H 01/11/17 01:50: Alcohol, Quantitative < 10 01/11/17 01:50: Salicylates < 1 L, Acetaminophen < 10.0 L 01/11/17 01:50: Sodium 139, Potassium 3.0 L, Chloride 103, Carbon Dioxide 28, Anion Gap 11, BUN 7, Creatinine 0.6, Est GFR ( Amer) > 60, Est GFR (Non- Af Amer) > 60, Random Glucose 148 H, Calcium 8.8, Total Bilirubin 0.3, AST 35, ALT 45, Alkaline Phosphatase 124, Total Protein 7.0, Albumin 3.8, Globulin 3.2, Albumin/Globulin Ratio 1.2 01/11/17 01:50: WBC 7.3, RBC 3.98, Hgb 11.9 L, Hct 36.4, MCV 91.5, MCH 29.9, MCHC 32.7, RDW 15.7 H, Plt Count 279, MPV 9.4, Gran % 50.8, Lymph % (Auto) 37.6 H, [place] % (Auto) 7.7 H, Eos % (Auto) 3.6, Baso % (Auto) 0.3, Gran # 3.72, Lymph # 2.8, [place] # 0.6, Eos # 0.3, Baso # 0.02 Vital Signs Temp Pulse Resp BP Pulse Ox 01/12/17 07:31 98.3 F 55 L 20 96/55 L 01/11/17 15:47 55 L 108/64 01/11/17 01:26 97.5 F L 84 16 98/71 L 100 Temp Pulse Resp BP Pulse Ox 97.1 F L 72 17 111/64 100 01/13/17 07:00 01/13/17 07:00 01/13/17 07:00 01/13/17 07:00 01/11/17 01:26 CXR [id number] EKG bradycardia 01/14/17 Laboratory Results - last 24 hr 01/14/17 16:42 Troponin I < 0.01 D Temp Pulse Resp BP Pulse Ox 98.2 F 68 20 103/68 100 01/16/17 07:11 01/16/17 07:11 01/16/17 07:11 01/16/17 07:11 01/11/17 01:26 Temp Pulse Resp BP Pulse Ox 97.6 F 62 20 91/51 L 100 01/17/17 07:39 01/17/17 07:39 01/17/17 07:39 01/17/17 07:39 01/11/17 01:26 Temp Pulse Resp BP Pulse Ox 9.3 F L 57 L 20 87/52 L 100 01/18/17 07:28 01/18/17 07:28 01/18/17 07:28 01/18/17 07:28 01/11/17 01:26 DSM 5 Symptoms Update: Shortly pt is 46yo AAF with reported h/o schizoaffective disorder, h/o heroin abuse and dependence, multiple admissions in the past, most recent was December 2016 to this facility, pt was discharged AMA, pt has h/o noncompliance with meds and f/u appt, pt brought herself to the hospital looking for help for her depressive symptoms, suicidal ideation with the plan to jump in front of the car or jump off the bridge, pt's father less than two months ago, pt relapsed on heroin was using about 5-6 bags, snorting, reported being noncompliant with medications and follow up appts, Pt needs further evaluation and stabilization and meds adjustment. Pt was seen and examined at the treatment team meeting, patient presented to be depressed, withdrawn, patient said that"I slept on and off last night, but it was better", patient reported that she started to call places for inpatient rehabs for her addiction problems, patient reported that she still feels depressed but she is more optimistic and looking forward to stay sober. Pt's meds were adjusted yesterday, pt currently is on seroquel at am and hs, trazodone hs. tolerated well. Pt tolerates medications well, no side effects observed or reported, aims 0, no EPS. As per nursing report patient presented better, no behavioral incidents, medications compliance is good. Dr. Koenig consultation appreciated. Impression: schizoaffective d/o as per h/o cocaine abuse opioid addiction rule out substance-induced mood disorder Rule out adjustment disorder with depressed and anxious mood(pt's father less than two months ago) Medication Change: No (Adjusted yesterday) Medical Record Reviewed: Yes Consults ordered or reviewed: medical team consultation appreciated Mental Status Examination - Cognitive Function Orientation: Person, Place, Situation Memory: Intact Attention: Poor (some improvement) Concentration: Poor (some improvement) Association: WNL Fund of Knowledge: WNL - Mood Mood: Depressed ("I feel little better") - Affect Affect: Constricted (but mroe reactive) - Speech Speech: Appropriate - Formal Thought Process Formal Thought Process: No Impairment (pt denied) - Suicidal Ideation Suicidal Ideation: No - Homicidal Ideation Homicidal Ideation: No Goal/Treatment Plan - Goal/Treatment Plan Need for Continued Stay: Remain at risks for inpatient hospitalization, Severe depression anxiety, Discharge may exacerbated symptoms, Severe functional impairment Progress Toward Problem(s) and Goals/Treatment Plan: milieu/structure/supportive therapy SEROquel 200mg am ER, 100mg hs as a mood stabilizer (pt was on 300mg hs) Ambien 10mg PO HS for insomnia trazodone 100mg hs for depression and insomnia vistaril 50 mg Q8 hours as needed for anxiety prozac 20mg po daily for depression and anxiety tramadol and Ibuprofen for pain will not give benzos, UDS negative for it pt will be seen by medical team, consult appreciated SW evaluation pt wants to go to the rehab will f/u on labs will monitor closely Estimated Date of D/C: 01/20/17 (we'll monitor closely)
[2017-01-19] MEDS: Simethicone 80 mg Chewtab PO PRN ×2 (04:35→18:53)
[2017-01-19] MEDS: QUEtiapine 200 mg XR Tab PO SCH (09:32)
[2017-01-19] MEDS: Multivitamin Therapeutic Tab PO SCH (09:33)
[2017-01-19] MEDS: Simethicone 40 mg/0.6 ml Liquid (30 ml) PO SCH ×4 (09:59→22:52)
--- NOTE | 2017-01-19 15:41 | PCM.PYCHPN ---
Psychiatric Progress Note - Psychiatric Progress Note Patient seen today, length of contact: 30 minutes Patient Chief Complaint: "I feel better, I have good chances to get into the inpatient rehabilitation" Problems Identified/Issues Discussed: Suicide/ homicide prevention, past psychiatric h/o, current psychiatric symptoms , medical problems, risk/benefits and alternatives of medications, medications compliance, coping strategies, substance abuse h/o, relapse prevention, importance of follow up with psychiatrist and therapist, discharge plan. Medical Problems: ? COPD or asthma, arthritis Diagnostic Results: 01/11/17 01:50 01/11/17 13:45 Lab Results 01/12/17 06:55: Free T4 0.86 01/11/17 13:45: HIV 1&2 Antibody Screen Negative 01/11/17 13:45: TSH 3rd Generation 0.09 L 01/11/17 13:45: Potassium 3.9 01/11/17 02:10: Urine Color Yellow, Urine Appearance Sl cloudy, Urine pH 6.5, Ur Specific [place] 1.025, Urine Protein 30 H, Urine Glucose (UA) Negative, Urine Ketones Trace H, Urine Blood Negative, Urine Nitrate Negative, Urine Bilirubin Moderate H, Urine Urobilinogen 4.0 H, Ur Leukocyte Esterase Negative, Urine RBC 0 - 2, Urine WBC 0 - 2, Ur Epithelial Cells 3 - 4, Urine Bacteria Small, Urine HCG, Qual Negative 01/11/17 02:10: Urine Opiates Screen Positive H, Urine Methadone Screen Negative , Ur Barbiturates Screen Negative, Ur Phencyclidine Scrn Negative, Ur Amphetamines Screen Negative, U Benzodiazepines Scrn Negative, U Oth Cocaine Metabols Positive H, U Cannabinoids Screen Positive H 01/11/17 02:00: Hemoglobin A1c 5.8 01/11/17 02:00: Triglycerides 135, Cholesterol 114 L, LDL Cholesterol Direct < 30, HDL Cholesterol 62 H 01/11/17 01:50: Alcohol, Quantitative < 10 01/11/17 01:50: Salicylates < 1 L, Acetaminophen < 10.0 L 01/11/17 01:50: Sodium 139, Potassium 3.0 L, Chloride 103, Carbon Dioxide 28, Anion Gap 11, BUN 7, Creatinine 0.6, Est GFR ( Amer) > 60, Est GFR (Non- Af Amer) > 60, Random Glucose 148 H, Calcium 8.8, Total Bilirubin 0.3, AST 35, ALT 45, Alkaline Phosphatase 124, Total Protein 7.0, Albumin 3.8, Globulin 3.2, Albumin/Globulin Ratio 1.2 01/11/17 01:50: WBC 7.3, RBC 3.98, Hgb 11.9 L, Hct 36.4, MCV 91.5, MCH 29.9, MCHC 32.7, RDW 15.7 H, Plt Count 279, MPV 9.4, Gran % 50.8, Lymph % (Auto) 37.6 H, [place] % (Auto) 7.7 H, Eos % (Auto) 3.6, Baso % (Auto) 0.3, Gran # 3.72, Lymph # 2.8, [place] # 0.6, Eos # 0.3, Baso # 0.02 Vital Signs Temp Pulse Resp BP Pulse Ox 01/12/17 07:31 98.3 F 55 L 20 96/55 L 01/11/17 15:47 55 L 108/64 01/11/17 01:26 97.5 F L 84 16 98/71 L 100 Temp Pulse Resp BP Pulse Ox 97.1 F L 72 17 111/64 100 01/13/17 07:00 01/13/17 07:00 01/13/17 07:00 01/13/17 07:00 01/11/17 01:26 CXR WNL7 EKG bradycardia 01/14/17 Laboratory Results - last 24 hr 01/14/17 16:42 Troponin I < 0.01 D Temp Pulse Resp BP Pulse Ox 98.2 F 68 20 103/68 100 01/16/17 07:11 01/16/17 07:11 01/16/17 07:11 01/16/17 07:11 01/11/17 01:26 Temp Pulse Resp BP Pulse Ox 97.6 F 62 20 91/51 L 100 01/17/17 07:39 01/17/17 07:39 01/17/17 07:39 01/17/17 07:39 01/11/17 01:26 Temp Pulse Resp BP Pulse Ox 9.3 F L 57 L 20 87/52 L 100 01/18/17 07:28 01/18/17 07:28 01/18/17 07:28 01/18/17 07:28 01/11/17 01:26 Temp Pulse Resp BP Pulse Ox 98.5 F 63 18 92/53 L 100 01/19/17 06:48 01/19/17 06:48 01/19/17 06:48 01/19/17 06:48 01/19/17 06:48 DSM 5 Symptoms Update: Shortly pt is 46yo AAF with reported h/o schizoaffective disorder, h/o heroin abuse and dependence, multiple admissions in the past, most recent was December 2016 to this facility, pt was discharged AMA, pt has h/o noncompliance with meds and f/u appt, pt brought herself to the hospital looking for help for her depressive symptoms, suicidal ideation with the plan to jump in front of the car or jump off the bridge, pt's father less than two months ago, pt relapsed on heroin was using about 5-6 bags, snorting, reported being noncompliant with medications and follow up appts, Pt needs further evaluation and stabilization and meds adjustment. Pt was seen and examined next 2to the nursing station, patient presented to be lless depressed, more optimistic about her discharge plan, patient reported "I have good chances to get into the inpatient rehabilitation, I feel good about that". Patient reports that her sleep is improving. Patient denied thoughts of harming herself or others. Pt tolerates medications well, no side effects observed or reported, aims 0, no EPS. As per nursing report patient presented better, no behavioral incidents, medications compliance is good. Dr. Koenig consultation appreciated. Impression: schizoaffective d/o as per h/o cocaine abuse opioid addiction rule out substance-induced mood disorder Rule out adjustment disorder with depressed and anxious mood(pt's father less than two months ago) Medication Change: No Medical Record Reviewed: Yes Consults ordered or reviewed: medical team consultation appreciated Mental Status Examination - Cognitive Function Orientation: Person, Place, Situation Memory: Intact Attention: Poor (improvement) Concentration: Poor (improvement) Association: WNL Fund of Knowledge: WNL - Mood Mood: Depressed ("I feel little better") - Affect Affect: Constricted (but mroe reactive) - Speech Speech: Appropriate - Formal Thought Process Formal Thought Process: No Impairment (pt denied) - Suicidal Ideation Suicidal Ideation: No - Homicidal Ideation Homicidal Ideation: No Goal/Treatment Plan - Goal/Treatment Plan Need for Continued Stay: Remain at risks for inpatient hospitalization, Severe depression anxiety, Discharge may exacerbated symptoms, Severe functional impairment Progress Toward Problem(s) and Goals/Treatment Plan: milieu/structure/supportive therapy SEROquel 200mg am ER, 100mg hs as a mood stabilizer (pt was on 300mg hs) Ambien 10mg PO HS for insomnia trazodone 100mg hs for depression and insomnia vistaril 50 mg Q8 hours as needed for anxiety prozac 20mg po daily for depression and anxiety tramadol and Ibuprofen for pain will not give benzos, UDS negative for it pt will be seen by medical team, consult appreciated SW evaluation pt wants to go to the rehab will f/u on labs will monitor closely Estimated Date of D/C: 01/20/17 (we'll monitor closely)
[2017-01-19] MEDS ORDERED: Alum-Mag Hydrox-Simethicone Susp (30 mL) PO PRN (19:38)
[2017-01-20 07:22] VITALS: BP 95/61; PULSE 72; RESP 20; TEMP 97.9
[2017-01-20] MEDS: QUEtiapine 200 mg XR Tab PO SCH (08:15)
[2017-01-20] MEDS: Multivitamin Therapeutic Tab PO SCH (08:15)
[2017-01-20] MEDS: Simethicone 40 mg/0.6 ml Liquid (30 ml) PO SCH (08:20)
--- NOTE | 2017-01-20 14:22 | PCM.PYCHDC ---
Mental Status Examination - Mental Status Examination Orientation: Person, Place, Situation, Time Memory: Intact Mood: Neutral Affect: Broad (and mood congruent) Speech: Appropriate Attention: WNL Concentration: WNL Association: WNL Fund of Knowledge: WNL Formal Thought Process: No Impairment Description of patient's judgement and insight: Pt has improved insight into mental and medical illness, pt was compliant with medications and unit rules and regulations, pt was going to groups, was calm, cooperative, socially appropriate, no behavioral incidents, no agitation, no aggression. Psychotic Thoughts and Behaviors: Pt denied v/a/t hallucinations, denied paranoid ideations, pt does not appear to be psychotic, and thought process is goal directed. Suicidal Ideation: No Current Homicidal Ideation?: No Plan: pt adamantly denied thoughts of harming self or others denied intent or plan. Discharge Summary - Discharge Note Reason for Hospitalization: patient was admitted for evaluation and stabilization of depressive symptoms, hopelessness, possible suicidal ideation. Psychiatric History (includes Medical, Family, Personal Hx): see HPI Laboratory Data: 01/11/17 01:50 01/11/17 13:45 Lab Results 01/14/17 16:42: Troponin I < 0.01 D 01/12/17 06:55: Free T4 0.86 01/11/17 13:45: HIV 1&2 Antibody Screen Negative 01/11/17 13:45: TSH 3rd Generation 0.09 L 01/11/17 13:45: Potassium 3.9 01/11/17 02:10: Urine Color Yellow, Urine Appearance Sl cloudy, Urine pH 6.5, Ur Specific [place] 1.025, Urine Protein 30 H, Urine Glucose (UA) Negative, Urine Ketones Trace H, Urine Blood Negative, Urine Nitrate Negative, Urine Bilirubin Moderate H, Urine Urobilinogen 4.0 H, Ur Leukocyte Esterase Negative, Urine RBC 0 - 2, Urine WBC 0 - 2, Ur Epithelial Cells 3 - 4, Urine Bacteria Small, Urine HCG, Qual Negative 01/11/17 02:10: Urine Opiates Screen Positive H, Urine Methadone Screen Negative , Ur Barbiturates Screen Negative, Ur Phencyclidine Scrn Negative, Ur Amphetamines Screen Negative, U Benzodiazepines Scrn Negative, U Oth Cocaine Metabols Positive H, U Cannabinoids Screen Positive H 01/11/17 02:00: Hemoglobin A1c 5.8 01/11/17 02:00: Triglycerides 135, Cholesterol 114 L, LDL Cholesterol Direct < 30, HDL Cholesterol 62 H 01/11/17 01:50: Alcohol, Quantitative < 10 01/11/17 01:50: Salicylates < 1 L, Acetaminophen < 10.0 L 01/11/17 01:50: Sodium 139, Potassium 3.0 L, Chloride 103, Carbon Dioxide 28, Anion Gap 11, BUN 7, Creatinine 0.6, Est GFR ( Amer) > 60, Est GFR (Non- Af Amer) > 60, Random Glucose 148 H, Calcium 8.8, Total Bilirubin 0.3, AST 35, ALT 45, Alkaline Phosphatase 124, Total Protein 7.0, Albumin 3.8, Globulin 3.2, Albumin/Globulin Ratio 1.2 01/11/17 01:50: WBC 7.3, RBC 3.98, Hgb 11.9 L, Hct 36.4, MCV 91.5, MCH 29.9, MCHC 32.7, RDW 15.7 H, Plt Count 279, MPV 9.4, Gran % 50.8, Lymph % (Auto) 37.6 H, [place] % (Auto) 7.7 H, Eos % (Auto) 3.6, Baso % (Auto) 0.3, Gran # 3.72, Lymph # 2.8, [place] # 0.6, Eos # 0.3, Baso # 0.02 Vital Signs Temp Pulse Resp BP Pulse Ox 01/20/17 07:21 97.9 F 72 20 95/61 L 01/19/17 16:00 69 99/59 L 01/19/17 06:48 98.5 F 63 18 92/53 L 100 01/18/17 16:00 73 95/66 L 01/18/17 07:28 9.3 F L 57 L 20 87/52 L 01/17/17 16:37 62 112/70 01/17/17 07:39 97.6 F 62 20 91/51 L 01/16/17 16:33 70 105/69 01/16/17 07:11 98.2 F 68 20 103/68 01/15/17 16:00 63 112/74 01/15/17 07:50 98.5 F 70 20 124/99 H 01/14/17 15:00 64 118/74 01/14/17 13:38 97.2 F L 01/14/17 07:33 97.7 F 55 L 20 94/42 L 01/13/17 16:00 61 108/73 01/13/17 07:00 97.1 F L 72 17 111/64 01/13/17 06:59 97.8 F 68 20 95/68 L 01/12/17 16:00 56 L 103/65 01/12/17 07:31 98.3 F 55 L 20 96/55 L 01/11/17 15:47 55 L 108/64 01/11/17 01:26 97.5 F L 84 16 98/71 L 100 Consultations:: List each consultation separately and include: 1. Reason for request. 2. Findings. 3. Follow-up Consultations: medical team consultation appreciated see notes for more detailed information Summary of Hospital Course include:: 1. Description of specific treatment plan utilized for patients during their course of treatmen. 2. Summarize the time- course for resolution of acute symptoms and/or regressed behaviors. 3. Describe issues identified and worked on during hospitalization. 4. Describe medication utilized. 5. Describe medical problems identified and treated. 6. Reassessment of suicide risk Summary of Hospital Course: Shortly pt is 46yo AAF with reported h/o schizoaffective disorder, h/o heroin abuse and dependence, multiple admissions in the past, most recent was December 2016 to this facility, pt was discharged AMA, pt has h/o noncompliance with meds and f/u appt, pt brought herself to the hospital looking for help for her depressive symptoms, suicidal ideation with the plan to jump in front of the car or jump off the bridge, pt's father less than two months ago, pt relapsed on heroin was using about 5-6 bags, snorting, reported being noncompliant with medications and follow up appts, Pt needs further evaluation and stabilization and meds adjustment. initially Pt was seen and examined at the the treatment team, pt presented with poor personal hygiene, was disheveled, strong body odor, fair ADLs. pt said that she left this hospital in December AMA (this race and sports book writer was on vacation), pt said that she was noncompliant with medications and f/u appt, pt said as a result pt relapsed on opioids, pt said she was snorting about 5-6 bags a day, pt said last dose was about two days ago. pt denied using other substances, but UDS was positive for cocaine/marijuana. pt said that she was feeling progressively worse, more depressed, pt said she was feeling more anxious, was not able to sleep. pt said prior to come to the hospital she has plans to jump off the bridge. Pt contracted for safety, denied homicidal ideation. Pt said that she was using drugs, pt said that she staid sober for four months before [facility] admission. Pt denied feeling anxious. past psych h/o: multiple admissions in the past, "about 10", h/o suicidal attempts, "I have two, about two years ago I tried to jump in front of the car, but was pulled back by bystander", the first one was about 10years ago, pt attempted to cut her wrist. Medical h/o: ? COPD or asthma, arthritis Social h/o: pt is on ssi, not working Pt reported smoking 6 cigarettes a day, does not want to have a nicotine patch. Smoking Cessation Counseling: The patient was counseled as to the multiple risks to his/her health from continued use of tobacco products. It was explained that continuing to smoke may lead to multiple short and parts counterman negative health consequences, including but not limited to mouth/esophageal /lung cancer, COPD, and heart disease. He/she states he/she understands these risks, and also understands the options and resources available to him/her to help him/her stop smoking. Nicotine replacement therapy, local hotlines, and local resources were discussed as viable options for helping him/her stop his/her tobacco use. The total time spent counseling the patient regarding tobacco cessation was 3 minutes family h/o: denied pt denied h/o abuse 01/11/17 01:50 01/11/17 13:45 Lab Results 01/11/17 13:45: Potassium 3.9 01/11/17 02:10: Urine Color Yellow, Urine Appearance Sl cloudy, Urine pH 6.5, Ur Specific [place] 1.025, Urine Protein 30 H, Urine Glucose (UA) Negative, Urine Ketones Trace H, Urine Blood Negative, Urine Nitrate Negative, Urine Bilirubin Moderate H, Urine Urobilinogen 4.0 H, Ur Leukocyte Esterase Negative, Urine RBC 0 - 2, Urine WBC 0 - 2, Ur Epithelial Cells 3 - 4, Urine Bacteria Small, Urine HCG, Qual Negative 01/11/17 02:10: Urine Opiates Screen Positive H, Urine Methadone Screen Negative , Ur Barbiturates Screen Negative, Ur Phencyclidine Scrn Negative, Ur Amphetamines Screen Negative, U Benzodiazepines Scrn Negative, U Oth Cocaine Metabols Positive H, U Cannabinoids Screen Positive H 01/11/17 02:00: Hemoglobin A1c 5.8 01/11/17 02:00: Triglycerides 135, Cholesterol 114 L, LDL Cholesterol Direct < 30, HDL Cholesterol 62 H 01/11/17 01:50: Alcohol, Quantitative < 10 01/11/17 01:50: Salicylates < 1 L, Acetaminophen < 10.0 L 01/11/17 01:50: Sodium 139, Potassium 3.0 L, Chloride 103, Carbon Dioxide 28, Anion Gap 11, BUN 7, Creatinine 0.6, Est GFR ( Amer) > 60, Est GFR (Non- Af Amer) > 60, Random Glucose 148 H, Calcium 8.8, Total Bilirubin 0.3, AST 35, ALT 45, Alkaline Phosphatase 124, Total Protein 7.0, Albumin 3.8, Globulin 3.2, Albumin/Globulin Ratio 1.2 01/11/17 01:50: WBC 7.3, RBC 3.98, Hgb 11.9 L, Hct 36.4, MCV 91.5, MCH 29.9, MCHC 32.7, RDW 15.7 H, Plt Count 279, MPV 9.4, Gran % 50.8, Lymph % (Auto) 37.6 H, [place] % (Auto) 7.7 H, Eos % (Auto) 3.6, Baso % (Auto) 0.3, Gran # 3.72, Lymph # 2.8, [place] # 0.6, Eos # 0.3, Baso # 0.02 Vital Signs Temp Pulse Resp BP Pulse Ox 01/11/17 01:26 97.5 F L 84 16 98/71 L 100 over the course of this hospitalization patient was started on the following medications: Seroquel was titrated to 200 mg at the morning time in 100 mg at the nighttime for mood stabilization Wellbutrin was started but patient was feeling shaky on that medication and it was discontinued Prozac was resumed, titrated to 20 mg daily for depressive and anxiety symptoms Patient was resumed on trazodone which was titrated to 100 mg at the nighttime for insomnia as well as for depressive symptoms Patient also was on Ambien which was slowly titrated to 10 mg at the nighttime for insomnia Patient was seen by medical team, please see reports for more detailed information Patient tolerated medications well, no side effects observed or reported, aims 0 , no EPS. Over the course of this hospitalization pt was attending groups, pt also had medication management, had therapeutic milieu. Overall pt improved significantly, pt's affect became brighter, pt was less depressed, has realistic future oriented plans, pt also does not appear to be psychotic, or anxious, pt was socially appropriate, no behavioral issues, pts insight improved as well and soon pt deemed to be ready for discharge. At the time of the discharge pt denied been depressed, denied thoughts of harming self or others, denied psychotic symptoms, and pt does not appeared to be psychotic, denied been anxious, was considered to pose no threat to self or others, will be following up at [facility], information about follow up appointment, time and address provided to the pt, it is patient responsibility to follow up with outpatient clinic, PMD as well as specialists (see note for more detailed information). In case pt will need to obtain results of studies pending at discharge pt was provided with contact information of Psychiatric Inpatient unit [phone] as well as Medical Record Department [phone]. Nicotine patch was offered, pt refused Counseling about smoking and opioid cessation provided AA meetings as well as [facility] smoking cessation treatment program information was provided by the this wrier offered naltrexone to the pt, pt refused to take it pt was provided with prescriptions for all of medications (please see medication reconciliation form) Pt was educated about safety plan in case of worsening of symptoms or in case of suicidal or homicidal ideation call 911 or go to the nearest ER, also was educated to take meds as prescribed and stay away from drugs, pt verbalized understanding. - Diagnosis (1) Polysubstance abuse Current Visit: Yes Status: Chronic (2) Schizoaffective disorder Current Visit: No Status: Chronic - Final Diagnosis (DSM 5) Condition upon Discharge: GOOD Disposition: HOME/ ROUTINE Follow-up Treatment Plan: At the time of the discharge pt denied been depressed, denied thoughts of harming self or others, denied psychotic symptoms, and pt does not appeared to be psychotic, denied been anxious, was considered to pose no threat to self or others, will be following up at [facility], information about follow up appointment, time and address provided to the pt, it is patient responsibility to follow up with outpatient clinic, PMD as well as specialists (see note for more detailed information). In case pt will need to obtain results of studies pending at discharge pt was provided with contact information of Psychiatric Inpatient unit [phone] as well as Medical Record Department [phone]. Nicotine patch was offered, pt refused Counseling about smoking and opioid cessation provided AA meetings as well as [facility] smoking cessation treatment program information was provided by the this wrier offered naltrexone to the pt, pt refused to take it pt was provided with prescriptions for all of medications (please see medication reconciliation form) Pt was educated about safety plan in case of worsening of symptoms or in case of suicidal or homicidal ideation call 911 or go to the nearest ER, also was educated to take meds as prescribed and stay away from drugs, pt verbalized understanding. Prescriptions/Medication Reconciliation: Docusate [Colace] 100 mg PO BID #30 cap FLUoxetine [Prozac] 20 mg PO DAILY #14 cap Multivitamin Therapeutic Tab [Thera Tab] 1 tab PO 0800 #14 tab QUEtiapine [Seroquel] 100 mg PO HS #14 tab QUEtiapine [Seroquel XR] 200 mg PO DAILY #14 ter Simethicone [Mylicon Chew Tab] 80 mg PO PCHS PRN #14 PRN Reason: Gi Distress traZODone [Desyrel] 100 mg PO HS #14 tab Zolpidem [Ambien] 10 mg PO HS PRN #14 tab PRN Reason: Insomnia - Smoking Cessation Smoking Cessation Medication prescribed: Yes - Antipsychotic Medications Pt discharged on 2 or more routine antipsychotic medications: No
== END 2017-01-20 15:18 | disposition home or self-care (01) | DRG 430 ==
LOC: ED 00:54 → ERH 05:21 → PSYC 06:24
PROVIDERS: ADMIT Psychiatry & Neurology Psychiatry; ATTEND Psychiatry & Neurology Psychiatry
DX: F25.9 Schizoaffective disorder, unspecified (principal); F11.20 Opioid dependence, uncomplicated; F14.10 Cocaine abuse, uncomplicated; E87.6 Hypokalemia; J44.9 Chronic obstructive pulmonary disease, unspecified; F17.210 Nicotine dependence, cigarettes, uncomplicated; M17.12 Unilateral primary osteoarthritis, left knee; D64.9 Anemia, unspecified; E02 Subclinical iodine-deficiency hypothyroidism; M25.462 Effusion, left knee; Z91.19 Patient's noncompliance with other medical treatment and regimen; Z91.14 Patient's other noncompliance with medication regimen; Z88.0 Allergy status to penicillin

== ENCOUNTER 2017-05-23 06:44 | Inpatient (IN) | payer MEDICAID ==
[2017-05-23 06:59] VITALS: BMI 23.5
--- NOTE | 2017-05-23 07:08 | ED PDOC ---
Arrival/HPI - General Chief Complaint: Psychiatric Evaluation Time Seen by Provider: 05/23/17 07:05 Historian: Patient - History of Present Illness Time/Duration: Prior to Arrival Symptom Onset: Gradual Symptom Course: Unchanged Severity Level: Moderate Associated Symptoms (Text): 05/23/17 07:06 Patient presents to the emergency department from home complaining of depression. She denies suicidal or homicidal ideation. She was last admitted to the psychiatric floor in January. She reports she has been taking her medications. She reports she was last in detox in August of this year. She reports that she has been on an alcohol heroin and cocaine binge for the last few days. She last used at midnight. She spoke with her psychiatrist who directed her to the emergency department. PMD: Dr. San Past Medical History - Provider Review Nursing Documentation Reviewed: Yes - Infectious Disease Hx of Infectious Diseases: None - Tetanus Immunization Tetanus Immunization: Unknown - Cardiac Hx Cardiac Disorders: Yes Hx Hypertension: Yes - Pulmonary Hx Respiratory Disorders: No Hx Tuberculosis: No - Neurological Hx Neurological Disorder: No Hx Alzheimer's Disease: No HX Cerebrovascular Accident: No Hx Seizures: No - HEENT Hx HEENT Disorder: No - Renal Hx Renal Disorder: No - Endocrine/Metabolic Hx Endocrine Disorders: No - Hematological/Oncological Hx Anemia: Yes Hx Cancer: No - Integumentary Hx Dermatological Disorder: No - Musculoskeletal/Rheumatological Hx Musculoskeletal Disorders: No - Gastrointestinal Hx Gastrointestinal Disorders: No - Genitourinary/Gynecological Hx Genitourinary Disorders: No Hx Sexually Transmitted Diseases: No - Psychiatric Hx Depression: Yes Hx Substance Use: Yes (cocaine and heroin) - Past Surgical History Past Surgical History: No Previous - Surgical History Hx Cholecystectomy: Yes Other/Comment: Ectopic preg - Anesthesia Hx Anesthesia: Yes Hx Anesthesia Reactions: No Hx Malignant Hyperthermia: No - Suicidal Assessment Feels Threatened In Home Enviroment: No Family/Social History - Physician Review Nursing Documentation Reviewed: Yes Family/Social History: Unknown Family HX Smoking Status: Light Smoker < 10 Cigarettes Daily Hx Alcohol Use: Yes Frequency of alcohol use: Socially Hx Substance Use: Yes (cocaine and heroin) Substance used: Heroin Hx Substance Use Treatment: Yes Allergies/Home Meds Allergies/Adverse Reactions: Allergies Penicillins Adverse Reaction (Verified 01/11/17 06:35) RASH Review of Systems - Physician Review All systems were reviewed & negative as marked: Yes - Review of Systems Respiratory: Normal Cardiovascular: Normal Gastrointestinal: Normal Genitourinary Female: Normal Neurological: Normal Psychiatric: Depression. absent: Suicidal Ideation Physical Exam Vital Signs Reviewed: Yes Vital Signs Temp Pulse Resp BP Pulse Ox 05/23/17 07:17 97.8 F 75 18 103/54 L 100 Temperature: Afebrile Blood Pressure: Normal Pulse: Regular Respiratory Rate: Normal Appearance: Positive for: Well-Appearing, Non-Toxic, Comfortable Pain Distress: None Mental Status: Positive for: Alert and Oriented X 3 - Systems Exam Head: Present: Atraumatic, Normocephalic Pupils: Present: PERRL Extroacular Muscles: Present: EOMI Conjunctiva: Present: Normal Mouth: Present: Moist Mucous Membranes Respiratory/Chest: Present: Clear to Auscultation, Good Air Exchange. No: Respiratory Distress, Accessory Muscle Use Cardiovascular: Present: Regular Rate and Rhythm, Normal S1, S2. No: Murmurs Abdomen: Present: Normal Bowel Sounds. No: Tenderness, Distention, Peritoneal Signs Upper Extremity: Present: Normal Inspection. No: Cyanosis, Edema Lower Extremity: Present: Normal Inspection. No: Edema Neurological: Present: GCS=15, CN II-XII Intact, Speech Normal, Motor Func Grossly Intact Skin: Present: Warm, Dry, Normal Color. No: Rashes Psychiatric: Present: Alert, Oriented x 3, Normal Insight, Normal Concentration , Agitated, Depressed Mood. No: Normal Affect, Anxious, Suicidal Ideation, Homicidal Ideation, Delusional, Hallucinations, Intoxicated, Lethargic Medical Decision Making ED Course and Treatment: 05/23/17 07:15 EKG shows normal sinus rhythm rate approximately [address] or T-wave changes 05/23/17 09:45 Seen and evaluated by crisis who will admit to psychiatric floor. - Lab Interpretations Lab Results: 05/23/17 07:34 05/23/17 07:34 Lab Results 05/23/17 07:34: Alcohol, Quantitative 44 H 05/23/17 07:34: Salicylates < 1 L, Acetaminophen < 10.0 L 05/23/17 07:34: Sodium 140, Potassium 3.9, Chloride 103, Carbon Dioxide 22, Anion Gap 18, BUN 16, Creatinine 0.7, Est GFR ( Amer) > 60, Est GFR (Non- Af Amer) > 60, Random Glucose 57 L, Calcium 9.2, Total Bilirubin 0.7, AST 130 H , ALT 102 H, Alkaline Phosphatase 124, Total Creatine Kinase 291 H, CK-MB (CK-2 ) Pending, CK-MB (CK-2) % Pending, Total Protein 8.0, Albumin 4.6, Globulin 3.4 , Albumin/Globulin Ratio 1.3 05/23/17 07:34: WBC 10.8 D, RBC 4.48, Hgb 13.4, Hct 39.8, MCV 88.8, MCH 29.9, MCHC 33.7, RDW 15.4 H, Plt Count 184, MPV 10.7, Gran % 77.7 H, Lymph % (Auto) 17.3 L, Wells % (Auto) 4.3, Eos % (Auto) 0.5 L, Baso % (Auto) 0.2, Gran # 8.43 H , Lymph # 1.9, Wells # 0.5, Eos # 0.1, Baso # 0.02 05/23/17 07:23: Urine Opiates Screen Positive H, Urine Methadone Screen Negative , Ur Barbiturates Screen Negative, Ur Phencyclidine Scrn Negative, Ur Amphetamines Screen Negative, U Benzodiazepines Scrn Negative, U Oth Cocaine Metabols Positive H, U Cannabinoids Screen Negative 05/23/17 07:23: Urine Color Yellow, Urine Appearance Clear, Urine pH 6.0, Ur Specific [place] 1.025, Urine Protein Trace H, Urine Glucose (UA) Negative, Urine Ketones Trace H, Urine Blood Small H, Urine Nitrate Negative, Urine Bilirubin Negative, Urine Urobilinogen 0.2, Ur Leukocyte Esterase Small H, Urine RBC 1 - 3, Urine WBC 2 - 5, Ur Epithelial Cells 3 - 4, Urine Bacteria Small, Urine HCG, Qual Negative I have reviewed the lab results: Yes - RAD Interpretation Radiology Orders: 05/23/17 07:05 CHEST PORTABLE [RAD] Stat Chest one view shows no infiltrate effusion or cardiomegaly Paraprofessional Education Assistant: ED Physician - EKG Interpretation Interpreted by ED Physician: Yes Type: 12 lead EKG Disposition/Present on Arrival - Present on Arrival Any Indicators Present on Arrival: No History of DVT/PE: No History of Uncontrolled Diabetes: No Urinary Catheter: No History of Decub. Ulcer: No History Surgical Site Infection Following: None - Disposition Have Diagnosis and Disposition been Completed?: Yes Diagnosis: Polysubstance abuse, Depression, Schizoaffective disorder Disposition: HOSPITALIZED Disposition Time: 09:46 Patient Plan: Admission Condition: GOOD Referrals: Joshua San MD [Primary Care Provider] - Follow up with primary Forms: [employer] (Bangladeshi)
[2017-05-23 07:28] LABS: URINE BILIRUBIN NEGATIVE (NEGATIVE); URINE BLOOD SMALL (NEGATIVE); URINE GLUCOSE (UA) NEGATIVE (NEGATIVE); URINE KETONE TRACE mg/dL (NEGATIVE); URINE LEUKOCYTE ESTERASE SMALL Leu/uL (NEGATIVE); URINE PROTEIN TRACE mg/dL (<30 mg/dL); URINE UROBILINOGEN 0.2 E.U./dL (<1 E.U./dL)
[2017-05-23 07:29] LABS: URINE APPEARANCE CLEAR (CLEAR); URINE COLOR YELLOW (YELLOW)
[2017-05-23 07:44] LABS: URINE BACTERIA SMALL (NEG)
[2017-05-23 07:45] LABS: BASO # 0.02 K/mm3 (0.0-2.0); BASO % 0.2 % (0.0-3.0); EOS # 0.1 (0.0-0.7); EOS % 0.5 % (1.5-5.0); GRAN # 8.43 (1.4-6.5); GRAN % 77.7 % (50.0-68.0); HEMATOCRIT 39.8 % (36.0-48.0); LYMPH # 1.9 (1.2-3.4); LYMPH % 17.3 % (22.0-35.0); MEAN CELL VOLUME 88.8 fl (80.0-105.0); MEAN CORPUSCULAR HEMOGLOBIN 29.9 pg (25.0-35.0); MEAN CORPUSCULAR HGB CONC 33.7 g/dl (31.0-37.0); MEAN PLATELET VOLUME 10.7 fl (7.0-11.0); MONO # 0.5 (0.1-0.6); MONO % 4.3 % (1.0-6.0); RED CELL DISTRIBUTION WIDTH 15.4 % (11.5-14.5); WHITE BLOOD COUNT 10.8 10^3/ul (4.5-11.0)
[2017-05-23 07:55] LABS: ALB/GLOB RATIO 1.3 (1.1-1.8); ALKALINE PHOSPHATASE 124 U/L (38-126); ALT/SGPT 102 U/L (7-56); AST/SGOT 130 U/L (14-36); BILIRUBIN,TOTAL 0.7 mg/dL (0.2-1.3); BLOOD UREA NITROGEN 16 mg/dL (7-21); CALCIUM 9.2 mg/dL (8.4-10.5); CARBON DIOXIDE 22 mmol/L (21-33); CHLORIDE 103 mmol/L (98-107); GFR AFRICAN-AMERICAN > 60; GLUCOSE,RANDOM 57 mg/dL (70-110); POTASSIUM 3.9 mmol/L (3.6-5.0); SODIUM 140 mmol/L (132-148)
--- NOTE | 2017-05-23 08:43 | RAD ---
HISTORY: PES COMPARISON: 01/14/2017 FINDINGS: LUNGS: No active pulmonary disease. PLEURA: No significant pleural effusion identified, no pneumothorax apparent. CARDIOVASCULAR: Normal. OSSEOUS STRUCTURES: No significant abnormalities. VISUALIZED UPPER ABDOMEN: Normal. OTHER FINDINGS: None. IMPRESSION: No active disease.
[2017-05-23] MEDS ORDERED: Alum-Mag Hydrox-Simethicone Susp (30 mL) PO PRN (10:36)
[2017-05-23] MEDS ORDERED: Magnesium Hydroxide Susp 30 ml UD PO PRN (10:36)
[2017-05-23 11:06] LABS: CHOLESTEROL 136 mg/dL (130-200)
--- NOTE | 2017-05-23 11:13 | PCM.BM ---
<Isaiah Rodriguez - Last Filed: 05/23/17 11:12> Treatment Plan Problems - Problems identified on initial assessmt Hopelessness Date Initiated: 05/23/17 Time Initiated: 11:12 Assessment reference: NA Status: Active Priority: 1 Worthlessness Date Initiated: 05/23/17 Time Initiated: 11:12 Assessment reference: NA Status: Active Priority: 2 Ineffective Coping Date Initiated: 05/23/17 Time Initiated: 11:12 Assessment reference: NA Status: Active Priority: 3 Treatment assets and liabiliti Patient Assests: adapts well, cooperative, self-reliant, ADL independent, negotiates basic needs, cognitively intact, good interpersonal skills Patient Liabilities: financial problems, poor support system, substance abuse - Milieu Protocol Maintain good personal hygiene: daily Encourage regular showers, daily Remind patient to perform daily oral care, daily Assist patient to perform ADL's Conduct patient checks and document Observation sheet: Q15 minutes Maintain personal safety: every shift Educate patient to report safety concerns to staff, every shift Monitor environment for contraband/sharps Medication safety: Monitor for expected outcome, potential side effects: every shift, Assess barriers to learning: every shift, Assess readiness for medication education: every shift Discharge/Continuing Care - Education Needs Education Needs: Patient Medication, Patient Diagnosis/Disease Process, Patient Coping Skills - Discharge Discharge Criteria: Tolerates medication w/o severe side effects, Free of Suicidal thoughts, Normal sleep pattern, No longer exhibiting s/s of withdrawal , Reduction of target symptoms Discharge to:: Home <Carly Gamboa - Last Filed: 05/24/17 09:04> - Diagnosis (1) Polysubstance abuse Status: Chronic Interventions: 05/24/17 09:05 Monitoring withdrawal symptoms Medical detoxification Pharmacotherapy for alcohol/benzos/opioid dependence Maintaining sobriety Relapse prevention Possible rehabilitation Motivational interviewing 12-step programs: AA meetings (2) Schizoaffective disorder Status: Chronic Interventions: 05/24/17 09:05 Psychoeducation/psychotherapy Psychopharmacology/adjustment of medications as needed/ monitoring possible side effects Evaluate pt on daily basis Compliance with medications and follow up appointments Long acting medication if pt is noncompliant with pill form Suicide and homicide risk assessment and prevention, coping strategies, safety plan Relapse prevention Reduction of symptoms Improve functional status Possible assertive community treatment Cognitive behavioral therapy Family involvement Possible social skill training as outpatient <Millie Dawson - Last Filed: 05/24/17 14:30>
[2017-05-23 11:22] LABS: FREE T4 1.68 ng/dL (0.78-2.19)
[2017-05-23 11:36] LABS: THYROID STIMULATING HORMONE 0.39 mIU/mL (0.46-4.68)
--- NOTE | 2017-05-23 14:53 | CARD ---
APPROVED REPORT EKG Measurement Heart [id number] <Conclusion> Normal sinus rhythm Biatrial enlargement Abnormal ECG
[2017-05-24] MEDS: QUEtiapine 200 mg XR Tab PO SCH (09:36)
--- NOTE | 2017-05-24 12:57 | CP.PCM.CON ---
<Mukesh Gill - Last Filed: 05/24/17 15:43> History of Present Illness - History of Present Illness History of Present Illness: This is a 46 year old female with a past medical history of anemia, headaches and insomnia and depression who came into [facility] emergency department feeling depressed. The patient reports feeling depressed for the past couple of days. The patient currently denies homicidal ideation or suicidal ideation. The patient also denies auditory and visual hallucinations. The patient reports calling her Psychiatrist and explaining to her the presenting symptoms. Who then recommended she come into the emergency department for further help. The patient currently denies any chest pain, lightheadedness, dizziness, changes in vision, fevers, chills, syncopal episodes, or any other complaints. PMD: Dr. San PMH: Anemia, Arthritis PSH: Gall Bladder Removal Social Hx: 6 cigarettes daily, heroin abuse Allergies - Penicillin Hospitalizations: December 2016 for schizoaffective disorder (left AMA) Family Hx: Denies Review of Systems - Constitutional Constitutional: As Per HPI - EENT Eyes: As Per HPI Ears: As Per HPI Nose/Mouth/Throat: As Per HPI - Breasts Breasts: As Per HPI - Cardiovascular Cardiovascular: As Per HPI - Respiratory Respiratory: As Per HPI - Gastrointestinal Gastrointestinal: As Per HPI - Genitourinary Genitourinary: As Per HPI - Musculoskeletal Musculoskeletal: As Per HPI - Integumentary Integumentary: As Per HPI - Neurological Neurological: As Per HPI - Psychiatric Psychiatric: Depression. absent: Auditory Hallucinations, Homicidal Ideation, Hopelessness, Irritability, Memory Loss, Panic Attacks, Visual Hallucinations, Tactile Hallucinations - Endocrine Endocrine: As Per HPI - Hematologic/Lymphatic Hematologic: As Per HPI Past Patient History - Infectious Disease Hx of Infectious Diseases: None - Tetanus Immunizations Tetanus Immunization: Unknown - Past Social History Smoking Status: Light Smoker < 10 Cigarettes Daily - CARDIAC Hx Cardiac Disorders: Yes Hx Hypertension: Yes - PULMONARY Hx Respiratory Disorders: No Hx Tuberculosis: No - NEUROLOGICAL Hx Neurological Disorder: No Hx Alzheimer's Disease: No HX Cerebrovascular Accident: No Hx Seizures: No - HEENT Hx HEENT Problems: No - RENAL Hx Chronic Kidney Disease: No - ENDOCRINE/METABOLIC Hx Endocrine Disorders: No - HEMATOLOGICAL/ONCOLOGICAL Hx Anemia: Yes Hx Cancer: No - INTEGUMENTARY Hx Dermatological Problems: No - MUSCULOSKELETAL/RHEUMATOLOGICAL Hx Musculoskeletal Disorders: No - GASTROINTESTINAL Hx Gastrointestinal Disorders: No - GENITOURINARY/GYNECOLOGICAL Hx Genitourinary Disorders: No Hx Sexually Transmitted Disorders: No - PSYCHIATRIC Hx Anxiety: Yes Hx Depression: Yes Hx Substance Use: Yes - SURGICAL HISTORY Hx Cholecystectomy: Yes Other/Comment: Ectopic preg - ANESTHESIA Hx Anesthesia: Yes Hx Anesthesia Reactions: No Hx Malignant Hyperthermia: No Meds Allergies/Adverse Reactions: Allergies Allergy/AdvReac Type Severity Reaction Status Date / Time Penicillins AdvReac RASH Verified 01/11/17 06:35 - Medications Medications: Current Medications Acetaminophen (Tylenol 325mg Tab) 650 mg PO Q4 PRN PRN Reason: Pain, Mild (1-3) Al Hydrox/Mg Hydrox/Simethicone (Maalox Plus 30 Ml) 30 ml PO DAILY PRN PRN Reason: Upset Stomach Escitalopram Oxalate (Lexapro) 10 mg PO DAILY ANTONIO Folic Acid (Folic Acid) 1 mg PO DAILY ANTONIO Lorazepam (Ativan) 1 mg PO Q8 ANTONIO PRN Reason: Protocol Last Admin: 05/24/17 09:36 Dose: 1 mg Magnesium Hydroxide (Milk Of Magnesia) 30 ml PO DAILY PRN PRN Reason: Constipation Multivitamins (Thera Tab) 1 tab PO 0800 ANTONIO Quetiapine Fumarate (Seroquel Xr) 200 mg PO DAILY ANTONIO PRN Reason: Protocol Last Admin: 05/24/17 09:36 Dose: 200 mg Quetiapine Fumarate (Seroquel) 100 mg PO HS ANTONIO PRN Reason: Protocol Last Admin: 05/23/17 21:34 Dose: 100 mg Thiamine HCl (Vitamin B1 Tab) 100 mg PO DAILY ANTONIO Tramadol HCl (Ultram) 50 mg PO TID PRN PRN Reason: pain 7/10 Trazodone HCl (Desyrel) 50 mg PO HS [facility] Last Admin: 05/23/17 21:34 Dose: 50 mg Zolpidem Tartrate (Ambien) 5 mg PO HS PRN; Protocol PRN Reason: Insomnia Physical Exam - Head Exam Head Exam: ATRAUMATIC, NORMAL INSPECTION, NORMOCEPHALIC - Eye Exam Eye Exam: Normal appearance, Nystagmus, PERRL Pupil Exam: NORMAL ACCOMODATION, PERRL - ENT Exam ENT Exam: Mucous Membranes Moist, Normal Exam - Neck Exam Neck exam: Positive for: Normal Inspection - Respiratory Exam Respiratory Exam: Clear to Auscultation Bilateral, NORMAL BREATHING PATTERN. absent: Rales, Rhonchi - Cardiovascular Exam Cardiovascular Exam: REGULAR RHYTHM, +S1, +S2 - GI/Abdominal Exam GI & Abdominal Exam: Normal Bowel Sounds, Soft. absent: Hypoactive Bowel Sounds , Organomegaly - Extremities Exam Extremities exam: Positive for: normal inspection - Neurological Exam Neurological exam: Alert, CN II-XII Intact, Oriented x3 - Psychiatric Exam Psychiatric exam: Normal Affect, Normal Mood - Skin Skin Exam: Dry, Intact, Normal Color, Warm Results - Vital Signs Recent Vital Signs: Last Vital Signs Temp 98.2 F 05/24/17 07:26 Pulse 51 L 05/24/17 07:26 Resp 16 05/24/17 07:26 BP 110/64 05/24/17 07:26 Pulse Ox 98 05/23/17 10:37 - Labs Result Diagrams: 05/23/17 07:34 05/23/17 07:34 Assessment & Plan - Assessment and Plan (Free Text) Assessment: This is a 46 year old female with a PMH of insomnia and Arthritis who was admitted to the hospital for depressive symptoms, hopelessness and possible suicidal Ideation. Plan: 1.Transaminitis -AST 130 and ALT 102 upon admission. -Hep panel ordered. Will f/u with results. -Patient asymptomatic at this time. Will monitor. 2. History of insomnia -continue trazadone 3. Heroin abuse -Drug screen positive for opiates -Drug abuse cessation strongly advised. Needs referral for drug rehabilitation evaluation 4. Alcohol abuse -start multivitamin, thiamine, folic acid -Alcohol cessation strongly advised. 5. History of smoking -Smoking cessation strongly advised. -NicoDerm patch refused at this time. 6. h/o of depression -management per Psych. Patient is medically cleared. Feel free to re-consult as needed. <Jennifer Rogers - Last Filed: 05/25/17 08:39> Meds - Medications Medications: Current Medications Acetaminophen (Tylenol 325mg Tab) 650 mg PO Q4 PRN PRN Reason: Pain, Mild (1-3) Al Hydrox/Mg Hydrox/Simethicone (Maalox Plus 30 Ml) 30 ml PO DAILY PRN PRN Reason: Upset Stomach Folic Acid (Folic Acid) 1 mg PO DAILY ANTONIO Last Admin: 05/24/17 14:13 Dose: 1 mg Loperamide HCl (Imodium) 2 mg PO QID PRN PRN Reason: diarhea Lorazepam (Ativan) 1 mg PO Q8 ANTONIO PRN Reason: Protocol Last Admin: 05/25/17 06:12 Dose: 1 mg Magnesium Hydroxide (Milk Of Magnesia) 30 ml PO DAILY PRN PRN Reason: Constipation Multivitamins (Thera Tab) 1 tab PO 0800 [facility] Nicotine (Nicoderm Cq) 1 patch TD DAILY [facility] Nitrofurantoin Macrocrystals (Macrobid) 100 mg PO Q12 [facility] Stop: 05/31/17 23:59 Ondansetron HCl (Zofran Odt) 4 mg PO Q8H PRN PRN Reason: Nausea/Vomiting Quetiapine Fumarate (Seroquel Xr) 200 mg PO DAILY ANTONIO PRN Reason: Protocol Last Admin: 05/24/17 09:36 Dose: 200 mg Quetiapine Fumarate (Seroquel) 100 mg PO HS ANTONIO PRN Reason: Protocol Last Admin: 05/24/17 21:07 Dose: 100 mg Thiamine HCl (Vitamin B1 Tab) 100 mg PO DAILY [facility] Last Admin: 05/24/17 14:13 Dose: 100 mg Tramadol HCl (Ultram) 50 mg PO TID PRN PRN Reason: pain 7/10 Trazodone HCl (Desyrel) 50 mg PO HS ANTONIO Last Admin: 05/24/17 21:08 Dose: 50 mg Zolpidem Tartrate (Ambien) 5 mg PO HS PRN; Protocol PRN Reason: Insomnia Last Admin: 05/24/17 21:18 Dose: 5 mg Results - Vital Signs Recent Vital Signs: Last Vital Signs Temp 97.7 F 05/25/17 07:00 Pulse 60 05/25/17 07:00 Resp 18 05/25/17 07:00 BP 105/54 L 05/25/17 07:00 Pulse Ox 98 05/23/17 10:37 - Labs Result Diagrams: 05/23/17 07:34 05/23/17 07:34 Labs: Laboratory Results - last 24 hr 05/24/17 05/25/17 05/25/17 07:30 07:30 07:30 Phosphorus 3.6 Magnesium 2.0 TSH 3rd Generation 0.09 L Hepatitis A IgM Ab Negative Hep Bs Antigen Negative Hep B Core IgM Ab Negative Hepatitis C Antibody Negative Attending/Attestation - Attestation I have personally seen and examined this patient.: Yes I have fully participated in the care of the patient.: Yes I have reviewed all pertinent clinical information: Yes Notes (Text): I have seen and examined patient at bedside. Briefly this is 46 year old female with history of anemia, arthritis, cholecystectomy, tobacco use, polysubstance use who was admitted for evaluation of depression and possible suicidal ideation. Manage as per psychiatrist. She complains of dysuria however denies any vaginal discharge. Start macrobid. Urine culture ordered. She has left sided knee pain which is mild. Previously Knee xray revealed mild effusion. She is able to walk without any pain. I have recommended her to follow up with ortho as an outpatient. She has subclinical hyperthyroidism. Advised patient to repeat TFT in 4 weeks. Counselling provided regarding tobacco and polysubstance abuse. She has transaminitis most likely due to alcohol abuse. Hep panel negative. Recommend to have liver ultrasound as an outpatient. Upon discharge patient will follow up with Dr San or [facility] clinic. Dr Jennifer Rogers
--- NOTE | 2017-05-24 15:03 | PCM.PSYCH ---
Initial Psychiatric Evaluation - Initial Psychiatric Evaluation Type of Admission: Voluntary Legal Status: Capacity (patient has capacity to sign consent for treatment) Chief Complaint (in patient's own words): "I was just depressed, hopeless, no energy" Patient's Reaction to Hospitalization: pt was admitted for evaluation of depressive symptoms, inability to function History of Present Illness and Precipitating Events: Shortly pt is 46yo AAF with reported h/o schizoaffective disorder, h/o heroin abuse and dependence, cocaine abuse, multiple admissions in the past, most recent was December 2016 to this facility, pt was discharged AMA, pt has h/o noncompliance with meds and f/u appt, pt brought herself to the hospital looking for help for her depressive symptoms, inability to function, pt does not have support in the community, pt's father five months ago, pt relapsed on heroin was using about 2-3 bags, snorting, reported being compliant with medications and follow up appts (but as per pharmacy record pt was noncompliant with f/u meds) Pt needs further evaluation and stabilization and meds adjustment. Pt was seen and examined at the the treatment team, pt presented with poor personal hygiene, was disheveled, strong body odor, fair ADLs. pt said that she left this hospital in December AMA (this comic book writer was on vacation), pt said that she was noncompliant with medications and f/u appt, pt said as a result pt relapsed on opioids, pt said she was snorting about 2-3 bags a day, pt said last dose was about two days ago. pt denied using other substances, but UDS was positive for cocaine. pt said that she was feeling progressively worse, more depressed, pt said she was feeling more anxious, was not able to sleep. this time pt said she did not have thoughts of harming self. Pt denied feeling anxious. past psych h/o: multiple admissions in the past, "about 10", h/o suicidal attempts, "I have two, about two years ago I tried to jump in front of the car, but was pulled back by bystander", the first one was about 10years ago, pt attempted to cut her wrist. Medical h/o: ? COPD or asthma, arthritis, Gout?, pt c/o knee pain, pt has h/o being seen by orthopedist, will call him back again. Social h/o: pt is on ssi, not working Pt reported smoking 6 cigarettes a day, does not want to have a nicotine patch. Smoking Cessation Counseling: The patient was counseled as to the multiple risks to his/her health from continued use of tobacco products. It was explained that continuing to smoke may lead to multiple short and intermediate negative health consequences, including but not limited to mouth/esophageal /lung cancer, COPD, and heart disease. He/she states he/she understands these risks, and also understands the options and resources available to him/her to help him/her stop smoking. Nicotine replacement therapy, local hotlines, and local resources were discussed as viable options for helping him/her stop his/her tobacco use. The total time spent counseling the patient regarding tobacco cessation was 3 minutes family h/o: denied pt denied h/o abuse MSE: patient appears much older than her chronological age, poor personal hygiene, strong port body order, no eye contact, flat affect, mood described as depressed and hopeless, thought processes concrete thought content patient denied visual, auditory, tactile hallucinations, denied paranoid ideations insight and judgment are limited, impulses are unpredictable. Impression: schizoaffective d/o as per h/o cocaine abuse opioid addiction rule out substance-induced mood disorder Rule out adjustment disorder with depressed and anxious mood(pt's father less than two months ago) Treatment Recommendations and Plan of Treatment: milieu/structure/supportive therapy patient pharmacy was called phone number [phone] most recent medication was Naproxen 500 mg twice a day filled in 08/04/[address] Boyle. SEROquel will be resumed 200 milligrams at the morning time and 100mg hs as a mood stabilizer trazodone will be 50 mg at the nighttime Lexapro will be d/c tramadol and Ibuprofen for pain when necessary medications for opioid withdrawals will not give benzos, UDS negative for it pt will be seen by medical team, consult appreciated SW evaluation will f/u on labs will monitor closely Current Medications: Active Medications Generic Name Dose Route Start Last Admin Trade Name Freq PRN Reason Stop Dose Admin Acetaminophen 650 mg 05/23/17 10:36 Tylenol 325mg Tab PO Q4 PRN Pain, Mild (1-3) Al Hydrox/Mg Hydrox/Simethicone 30 ml 05/23/17 10:36 Maalox Plus 30 Ml PO DAILY PRN Upset Stomach Fluoxetine HCl 20 mg 05/23/17 14:45 05/23/17 15:00 Prozac PO 20 mg DAILY ANTONIO Administration Lorazepam 1 mg 05/23/17 22:00 05/23/17 21:33 Ativan PO 1 mg Q8 ANTONIO Administration Protocol Magnesium Hydroxide 30 ml 05/23/17 10:36 Milk Of Magnesia PO DAILY PRN Constipation Quetiapine Fumarate 200 mg 05/24/17 08:00 Seroquel Xr PO DAILY ANTONIO Protocol Quetiapine Fumarate 100 mg 05/23/17 22:00 05/23/17 21:34 Seroquel PO 100 mg HS ANTONIO Administration Protocol Trazodone HCl 50 mg 05/23/17 22:00 05/23/17 21:34 Desyrel PO 50 mg HS ANTONIO Administration Zolpidem Tartrate 5 mg 05/23/17 14:45 Ambien PO HS PRN Insomnia Protocol Past Psychiatric History - Past Psychiatric History Pertinent Medical Hx (Current Medical&Sleep Prob, Allergies): Allergies Allergy/AdvReac Type Severity Reaction Status Date / Time Penicillins AdvReac RASH Verified 01/11/17 06:35 QUEtiapine [Seroquel XR] 200 mg PO DAILY #14 ter 01/20/17 QUEtiapine [Seroquel] 100 mg PO HS #14 tab 01/20/17 Zolpidem [Ambien] 10 mg PO HS PRN #14 tab 01/20/17 traZODone [Desyrel] 100 mg PO HS #14 tab 01/20/17 DSM 5 DX - Recommended/Plan of Treatment Projected ELOS: 7days Prognosis: guarded Discharge Plan and Discharge Criteria: Pt will be not depressed or manic, will be more hopeful, will be not psychotic or anxious, will be not having thoughts of harming self or others, will be tolerating medications well, will not have major side effects, will be able to function, will not pose threat to self or others. - Smoking Cessation Smoking Cessation Initiated: Yes
[2017-05-25 08:03] LABS: PHOSPHOROUS 3.6 mg/dL (2.5-4.5)
[2017-05-25] MEDS: QUEtiapine 200 mg XR Tab PO SCH (09:48)
[2017-05-25] MEDS: Multivitamin Therapeutic Tab PO SCH (09:49)
--- NOTE | 2017-05-25 14:54 | PCM.PYCHPN ---
Psychiatric Progress Note - Psychiatric Progress Note Patient seen today, length of contact: 30min Patient Chief Complaint: "I am not well..." Medical Problems: see HPI saw pt pt c/o left knee pain and swelling pt wants to be seen by ortho pt was started on abx Diagnostic Results: 05/23/17 07:34 05/23/17 07:34 Lab Results 05/25/17 07:30: TSH 3rd Generation 0.09 L 05/25/17 07:30: Phosphorus 3.6, Magnesium 2.0 05/24/17 07:30: Hepatitis A IgM Ab Negative, Hep Bs Antigen Negative, Hep B Core IgM Ab Negative, Hepatitis C Antibody Negative 05/23/17 10:50: Free T4 1.68, TSH 3rd Generation 0.39 L 05/23/17 10:50: Triglycerides 92, Cholesterol 136, LDL Cholesterol Direct < 30, HDL Cholesterol 74 H 05/23/17 07:34: Alcohol, Quantitative 44 H 05/23/17 07:34: Salicylates < 1 L, Acetaminophen < 10.0 L 05/23/17 07:34: Sodium 140, Potassium 3.9, Chloride 103, Carbon Dioxide 22, Anion Gap 18, BUN 16, Creatinine 0.7, Est GFR ( Amer) > 60, Est GFR (Non- Af Amer) > 60, Random Glucose 57 L, Calcium 9.2, Total Bilirubin 0.7, AST 130 H , ALT 102 H, Alkaline Phosphatase 124, Total Creatine Kinase 291 H, CK-MB (CK-2 ) 2.8, CK-MB (CK-2) % Cancelled, Total Protein 8.0, Albumin 4.6, Globulin 3.4, Albumin/Globulin Ratio 1.3 05/23/17 07:34: WBC 10.8 D, RBC 4.48, Hgb 13.4, Hct 39.8, MCV 88.8, MCH 29.9, MCHC 33.7, RDW 15.4 H, Plt Count 184, MPV 10.7, Gran % 77.7 H, Lymph % (Auto) 17.3 L, [place] % (Auto) 4.3, Eos % (Auto) 0.5 L, Baso % (Auto) 0.2, Gran # 8.43 H , Lymph # 1.9, [place] # 0.5, Eos # 0.1, Baso # 0.02 05/23/17 07:23: Urine Opiates Screen Positive H, Urine Methadone Screen Negative , Ur Barbiturates Screen Negative, Ur Phencyclidine Scrn Negative, Ur Amphetamines Screen Negative, U Benzodiazepines Scrn Negative, U Oth Cocaine Metabols Positive H, U Cannabinoids Screen Negative 05/23/17 07:23: Urine Color Yellow, Urine Appearance Clear, Urine pH 6.0, Ur Specific [place] 1.025, Urine Protein Trace H, Urine Glucose (UA) Negative, Urine Ketones Trace H, Urine Blood Small H, Urine Nitrate Negative, Urine Bilirubin Negative, Urine Urobilinogen 0.2, Ur Leukocyte Esterase Small H, Urine RBC 1 - 3, Urine WBC 2 - 5, Ur Epithelial Cells 3 - 4, Urine Bacteria Small, Urine HCG, Qual Negative Vital Signs Temp Pulse Resp BP Pulse Ox 05/25/17 07:00 97.7 F 60 18 105/54 L 05/24/17 16:00 72 123/71 05/24/17 07:26 98.2 F 51 L 16 110/64 05/23/17 16:26 57 L 121/72 05/23/17 11:00 16 05/23/17 10:37 98.4 F 72 16 112/70 98 05/23/17 09:48 79 16 107/59 L 100 05/23/17 07:17 97.8 F 75 18 103/54 L 100 DSM 5 Symptoms Update: Shortly pt is 46yo AAF with reported h/o schizoaffective disorder, h/o heroin abuse and dependence, cocaine abuse, multiple admissions in the past, pt has h/ o noncompliance with meds and f/u appt, pt brought herself to the hospital looking for help for her depressive symptoms, inability to function, pt does not have support in the community, pt's father five months ago, pt relapsed on heroin was using about 2-3 bags, snorting, reported being compliant with medications and follow up appts (but as per pharmacy record pt was noncompliant with f/u meds) Pt needs further evaluation and stabilization and meds adjustment. Pt was seen and examined at her room, pt was irritable, angry, was giving this travel writer attitude, by the end of the conversation pt apologized, pt c/o left knee pain and swelling, pt requested to be seen by ortho, pt said she had h/o knee aspiration procedure before. pt said she feels hopeless. MSE: patient appears much older than her chronological age, poor personal hygiene, strong port body order, no eye contact, flat affect, mood described as depressed and hopeless, thought processes concrete thought content patient denied visual, auditory, tactile hallucinations, denied paranoid ideations insight and judgment are limited, impulses are unpredictable. Impression: schizoaffective d/o as per h/o cocaine abuse opioid addiction rule out substance-induced mood disorder Rule out adjustment disorder with depressed and anxious mood(pt's father less than two months ago) Treatment Recommendations and Plan of Treatment: milieu/structure/supportive therapy patient pharmacy was called phone number [phone] most recent medication was Naproxen 500 mg twice a day filled in 08/04/[address] Boyle. SEROquel was 200 milligrams at the morning time and 100mg hs as a mood stabilizer trazodone will be increased to 100mg mg at the nighttime Lexapro will be d/c tramadol and Ibuprofen for pain when necessary medications for opioid withdrawals will not give benzos, UDS negative for it pt will be seen by medical team, consult appreciated SW evaluation will f/u on labs will monitor closely Medication Change: Yes (trazodone increased) Medical Record Reviewed: Yes Consults ordered or reviewed: medical and ortho consult was called Goal/Treatment Plan - Goal/Treatment Plan Need for Continued Stay: Remain at risks for inpatient hospitalization, Severe depression anxiety, Discharge may exacerbated symptoms, Severe functional impairment Estimated Date of D/C: 05/31/17 (will monitor closely)
[2017-05-26] MEDS: QUEtiapine 200 mg XR Tab PO SCH (08:30)
[2017-05-26] MEDS: Multivitamin Therapeutic Tab PO SCH (08:38)
--- NOTE | 2017-05-26 09:21 | RAD ---
PROCEDURE: Left Knee Radiographs. HISTORY: Pain. COMPARISON: None. FINDINGS: BONES: Normal. No fracture. JOINTS: Normal. No osteoarthritis. JOINT EFFUSION: None. OTHER FINDINGS: None. IMPRESSION: No acute findings related to/accounting for the clinical presentation.
--- NOTE | 2017-05-26 11:09 | CON ---
ORTHOPEDIC CONSULTATION DATE: 05/25/2017 HISTORY OF PRESENT ILLNESS: The patient is a 46-year-old female seen for pain in her left knee. X ray shows mild osteoarthritis with no evidence of an effusion, mostly on the lateral side, aggravated by squatting and kneeling, but there is no reason for an injection today of cortisone. I will start with physical therapy as range of motion is good, mild patellofemoral crepitus, and some mild quadraceps atrophy, so I told the therapist to increase the strength of quadriceps and to do mobilization of the patella to help it glide better over the femur and told her if it gets swollen, then I would be able to aspirate her and give her injection of cortisone if that is possible, but right now, there is no effusion of the knee. FINAL DIAGNOSIS: Chronic mild chondromalacia of left knee, to be treated symptomatically with antiinflammatory medicines and aggressive physical therapy to strengthen the quadriceps muscle and increase the mobility of the patellofemoral joint. Santos Matthews DO SAMULE
--- NOTE | 2017-05-26 14:53 | PCM.PYCHPN ---
Psychiatric Progress Note - Psychiatric Progress Note Patient seen today, length of contact: 30min Patient Chief Complaint: "I am not well..." Medical Problems: see HPI saw pt pt c/o left knee pain and swelling pt wants to be seen by ortho pt was started on abx Diagnostic Results: 05/23/17 07:34 05/23/17 07:34 Lab Results 05/25/17 07:30: TSH 3rd Generation 0.09 L 05/25/17 07:30: Phosphorus 3.6, Magnesium 2.0 05/24/17 07:30: Hepatitis A IgM Ab Negative, Hep Bs Antigen Negative, Hep B Core IgM Ab Negative, Hepatitis C Antibody Negative 05/23/17 10:50: Free T4 1.68, TSH 3rd Generation 0.39 L 05/23/17 10:50: Triglycerides 92, Cholesterol 136, LDL Cholesterol Direct < 30, HDL Cholesterol 74 H 05/23/17 07:34: Alcohol, Quantitative 44 H 05/23/17 07:34: Salicylates < 1 L, Acetaminophen < 10.0 L 05/23/17 07:34: Sodium 140, Potassium 3.9, Chloride 103, Carbon Dioxide 22, Anion Gap 18, BUN 16, Creatinine 0.7, Est GFR ( Amer) > 60, Est GFR (Non- Af Amer) > 60, Random Glucose 57 L, Calcium 9.2, Total Bilirubin 0.7, AST 130 H , ALT 102 H, Alkaline Phosphatase 124, Total Creatine Kinase 291 H, CK-MB (CK-2 ) 2.8, CK-MB (CK-2) % Cancelled, Total Protein 8.0, Albumin 4.6, Globulin 3.4, Albumin/Globulin Ratio 1.3 05/23/17 07:34: WBC 10.8 D, RBC 4.48, Hgb 13.4, Hct 39.8, MCV 88.8, MCH 29.9, MCHC 33.7, RDW 15.4 H, Plt Count 184, MPV 10.7, Gran % 77.7 H, Lymph % (Auto) 17.3 L, [place] % (Auto) 4.3, Eos % (Auto) 0.5 L, Baso % (Auto) 0.2, Gran # 8.43 H , Lymph # 1.9, [place] # 0.5, Eos # 0.1, Baso # 0.02 05/23/17 07:23: Urine Opiates Screen Positive H, Urine Methadone Screen Negative , Ur Barbiturates Screen Negative, Ur Phencyclidine Scrn Negative, Ur Amphetamines Screen Negative, U Benzodiazepines Scrn Negative, U Oth Cocaine Metabols Positive H, U Cannabinoids Screen Negative 05/23/17 07:23: Urine Color Yellow, Urine Appearance Clear, Urine pH 6.0, Ur Specific [place] 1.025, Urine Protein Trace H, Urine Glucose (UA) Negative, Urine Ketones Trace H, Urine Blood Small H, Urine Nitrate Negative, Urine Bilirubin Negative, Urine Urobilinogen 0.2, Ur Leukocyte Esterase Small H, Urine RBC 1 - 3, Urine WBC 2 - 5, Ur Epithelial Cells 3 - 4, Urine Bacteria Small, Urine HCG, Qual Negative Vital Signs Temp Pulse Resp BP Pulse Ox 05/25/17 07:00 97.7 F 60 18 105/54 L 05/24/17 16:00 72 123/71 05/24/17 07:26 98.2 F 51 L 16 110/64 05/23/17 16:26 57 L 121/72 05/23/17 11:00 16 05/23/17 10:37 98.4 F 72 16 112/70 98 05/23/17 09:48 79 16 107/59 L 100 05/23/17 07:17 97.8 F 75 18 103/54 L 100 Temp Pulse Resp BP Pulse Ox 97.9 F 63 19 119/75 98 05/26/17 06:58 05/26/17 06:58 05/26/17 06:58 05/26/17 06:58 05/23/17 10:37 DSM 5 Symptoms Update: Shortly pt is 46yo AAF with reported h/o schizoaffective disorder, h/o heroin abuse and dependence, cocaine abuse, multiple admissions in the past, pt has h/ o noncompliance with meds and f/u appt, pt brought herself to the hospital looking for help for her depressive symptoms, inability to function, pt does not have support in the community, pt's father five months ago, pt relapsed on heroin was using about 2-3 bags, snorting, reported being compliant with medications and follow up appts (but as per pharmacy record pt was noncompliant with f/u meds) Pt needs further evaluation and stabilization and meds adjustment. Pt was seen and examined at her room, pt was irritable, angry, was giving this marketing underwriter attitude, pt is unhappy with the pain in her knee, pt was seen by Ortho, pt will be seen by PT and NSAID started srinivas. pt still c/o insomnia/depression/hopelessness as per staff pt self isolating, irritable, but no behavioral issues. MSE: patient appears much older than her chronological age, poor personal hygiene, strong port body order, no eye contact, flat affect, mood described as depressed and hopeless, thought processes concrete thought content patient denied visual, auditory, tactile hallucinations, denied paranoid ideations insight and judgment are limited, impulses are unpredictable. Impression: schizoaffective d/o as per h/o cocaine abuse opioid addiction rule out substance-induced mood disorder Rule out adjustment disorder with depressed and anxious mood(pt's father less than two months ago) Treatment Recommendations and Plan of Treatment: milieu/structure/supportive therapy patient pharmacy was called phone number [phone] most recent medication was Naproxen 500 mg twice a day filled in 08/04/[address] Boyle. SEROquel was 200 milligrams at the morning time and nigh as a mood stabilizer trazodone will be increased to 200mg mg at the nighttime tramadol and Ibuprofen for pain when necessary medications for opioid withdrawals will not give benzos, UDS negative for it pt will be seen by medical team, consult appreciated SW evaluation will f/u on labs will monitor closely Medication Change: Yes (trazodone increased, seroquel increased) Medical Record Reviewed: Yes Consults ordered or reviewed: medical and ortho consult was called please see notes for more detailed information ortho: mild chondromalacia, tx with NSAID and PT Goal/Treatment Plan - Goal/Treatment Plan Need for Continued Stay: Remain at risks for inpatient hospitalization, Severe depression anxiety, Discharge may exacerbated symptoms, Severe functional impairment Estimated Date of D/C: 05/31/17 (will monitor closely)
[2017-05-26 20:04] LABS: URINE APPEARANCE SL CLOUDY (CLEAR); URINE BILIRUBIN NEGATIVE (NEGATIVE); URINE BLOOD NEGATIVE (NEGATIVE); URINE COLOR YELLOW (YELLOW); URINE GLUCOSE (UA) NEGATIVE (NEGATIVE); URINE KETONE TRACE mg/dL (NEGATIVE); URINE LEUKOCYTE ESTERASE MODERATE Leu/uL (NEGATIVE); URINE PROTEIN NEGATIVE mg/dL (<30 mg/dL); URINE UROBILINOGEN 0.2 E.U./dL (<1 E.U./dL)
[2017-05-26 20:58] LABS: URINE RBC NEGATIVE /hpf (0-2)
[2017-05-26 20:59] LABS: URINE CALCIUM OXALATE CRYSTALS FEW /hpf
[2017-05-27] MEDS: QUEtiapine 200 mg XR Tab PO SCH (09:36)
[2017-05-27] MEDS: Multivitamin Therapeutic Tab PO SCH (09:37)
--- NOTE | 2017-05-27 14:38 | PCM.PYCHPN ---
Psychiatric Progress Note - Psychiatric Progress Note Patient seen today, length of contact: 30min Patient Chief Complaint: "I am doing little better.." Medical Problems: see HPI saw pt pt c/o left knee pain and swelling pt wants to be seen by ortho pt was started on abx UA showed leucocyte esterase positive and trichomonas +, Medical team was called Diagnostic Results: 05/23/17 07:34 05/23/17 07:34 Lab Results 05/25/17 07:30: TSH 3rd Generation 0.09 L 05/25/17 07:30: Phosphorus 3.6, Magnesium 2.0 05/24/17 07:30: Hepatitis A IgM Ab Negative, Hep Bs Antigen Negative, Hep B Core IgM Ab Negative, Hepatitis C Antibody Negative 05/23/17 10:50: Free T4 1.68, TSH 3rd Generation 0.39 L 05/23/17 10:50: Triglycerides 92, Cholesterol 136, LDL Cholesterol Direct < 30, HDL Cholesterol 74 H 05/23/17 07:34: Alcohol, Quantitative 44 H 05/23/17 07:34: Salicylates < 1 L, Acetaminophen < 10.0 L 05/23/17 07:34: Sodium 140, Potassium 3.9, Chloride 103, Carbon Dioxide 22, Anion Gap 18, BUN 16, Creatinine 0.7, Est GFR ( Amer) > 60, Est GFR (Non- Af Amer) > 60, Random Glucose 57 L, Calcium 9.2, Total Bilirubin 0.7, AST 130 H , ALT 102 H, Alkaline Phosphatase 124, Total Creatine Kinase 291 H, CK-MB (CK-2 ) 2.8, CK-MB (CK-2) % Cancelled, Total Protein 8.0, Albumin 4.6, Globulin 3.4, Albumin/Globulin Ratio 1.3 05/23/17 07:34: WBC 10.8 D, RBC 4.48, Hgb 13.4, Hct 39.8, MCV 88.8, MCH 29.9, MCHC 33.7, RDW 15.4 H, Plt Count 184, MPV 10.7, Gran % 77.7 H, Lymph % (Auto) 17.3 L, [place] % (Auto) 4.3, Eos % (Auto) 0.5 L, Baso % (Auto) 0.2, Gran # 8.43 H , Lymph # 1.9, [place] # 0.5, Eos # 0.1, Baso # 0.02 05/23/17 07:23: Urine Opiates Screen Positive H, Urine Methadone Screen Negative , Ur Barbiturates Screen Negative, Ur Phencyclidine Scrn Negative, Ur Amphetamines Screen Negative, U Benzodiazepines Scrn Negative, U Oth Cocaine Metabols Positive H, U Cannabinoids Screen Negative 05/23/17 07:23: Urine Color Yellow, Urine Appearance Clear, Urine pH 6.0, Ur Specific [place] 1.025, Urine Protein Trace H, Urine Glucose (UA) Negative, Urine Ketones Trace H, Urine Blood Small H, Urine Nitrate Negative, Urine Bilirubin Negative, Urine Urobilinogen 0.2, Ur Leukocyte Esterase Small H, Urine RBC 1 - 3, Urine WBC 2 - 5, Ur Epithelial Cells 3 - 4, Urine Bacteria Small, Urine HCG, Qual Negative Vital Signs Temp Pulse Resp BP Pulse Ox 05/25/17 07:00 97.7 F 60 18 105/54 L 05/24/17 16:00 72 123/71 05/24/17 07:26 98.2 F 51 L 16 110/64 05/23/17 16:26 57 L 121/72 05/23/17 11:00 16 05/23/17 10:37 98.4 F 72 16 112/70 98 05/23/17 09:48 79 16 107/59 L 100 05/23/17 07:17 97.8 F 75 18 103/54 L 100 Temp Pulse Resp BP Pulse Ox 97.9 F 63 19 119/75 98 05/26/17 06:58 05/26/17 06:58 05/26/17 06:58 05/26/17 06:58 05/23/17 10:37 Laboratory Results - last 24 hr 05/26/17 20:00 Urine Color Yellow Urine Appearance Sl cloudy Urine pH 6.0 Ur Specific [place] 1.015 Urine Protein Negative Urine Glucose (UA) Negative Urine Ketones Trace H Urine Blood Negative Urine Nitrate Negative Urine Bilirubin Negative Urine Urobilinogen 0.2 Ur Leukocyte Esterase Moderate H Urine RBC Negative Urine WBC 5 - 10 Ur Epithelial Cells 4 - 5 Calcium Oxalate Crystal Few Urine Other Trichomonas DSM 5 Symptoms Update: Shortly pt is 46yo AAF with reported h/o schizoaffective disorder, h/o heroin abuse and dependence, cocaine abuse, multiple admissions in the past, pt has h/ o noncompliance with meds and f/u appt, pt brought herself to the hospital looking for help for her depressive symptoms, inability to function, pt does not have support in the community, pt's father five months ago, pt relapsed on heroin was using about 2-3 bags, snorting, reported being compliant with medications and follow up appts (but as per pharmacy record pt was noncompliant with f/u meds) Pt needs further evaluation and stabilization and meds adjustment. Pt was seen and examined at her room, pt was less irritable, more pleasant, pt still c/o knee pain, pt still c/o insomnia/depression but pt is more hopeful as per staff pt self isolating, irritable, but no behavioral issues. MSE: patient appears much older than her chronological age, personal hygiene is improving, fair eye contact, affect more reactive, mood described as depressed and hopeless, thought processes concrete thought content patient denied visual, auditory, tactile hallucinations, denied paranoid ideations insight and judgment are limited, impulses are unpredictable. Impression: schizoaffective d/o as per h/o cocaine abuse opioid addiction rule out substance-induced mood disorder Rule out adjustment disorder with depressed and anxious mood(pt's father less than two months ago) Treatment Recommendations and Plan of Treatment: milieu/structure/supportive therapy patient pharmacy was called phone number [phone] most recent medication was Naproxen 500 mg twice a day filled in 08/04/[address] Boyle. SEROquel was 200 milligrams at the morning time and nigh as a mood stabilizer trazodone 200mg mg at the nighttime tramadol and Ibuprofen for pain when necessary medications for opioid withdrawals will not give benzos, UDS negative for it pt will be seen by medical team, consult appreciated SW evaluation will f/u on labs will monitor closely Medication Change: Yes (trazodone increased, seroquel increased) Medical Record Reviewed: Yes Consults ordered or reviewed: medical and ortho consult was called please see notes for more detailed information ortho: mild chondromalacia, tx with NSAID and PT Goal/Treatment Plan - Goal/Treatment Plan Need for Continued Stay: Remain at risks for inpatient hospitalization, Severe depression anxiety, Discharge may exacerbated symptoms, Severe functional impairment Estimated Date of D/C: 05/31/17 (will monitor closely)
[2017-05-27] MEDS ORDERED: cefTRIAXone (Rocephin) 250 mg Inj IM STA (14:52)
[2017-05-28] MEDS: Multivitamin Therapeutic Tab PO SCH (09:17)
[2017-05-28] MEDS: QUEtiapine 200 mg XR Tab PO SCH (09:17)
--- NOTE | 2017-05-28 14:15 | PCM.PYCHPN ---
Psychiatric Progress Note - Psychiatric Progress Note Patient seen today, length of contact: 30min Patient Chief Complaint: "I am doing little better.." Medical Problems: see HPI saw pt pt c/o left knee pain and swelling pt wants to be seen by ortho pt was started on abx UA showed leucocyte esterase positive and trichomonas +, Medical team was called Diagnostic Results: 05/23/17 07:34 05/23/17 07:34 Lab Results 05/25/17 07:30: TSH 3rd Generation 0.09 L 05/25/17 07:30: Phosphorus 3.6, Magnesium 2.0 05/24/17 07:30: Hepatitis A IgM Ab Negative, Hep Bs Antigen Negative, Hep B Core IgM Ab Negative, Hepatitis C Antibody Negative 05/23/17 10:50: Free T4 1.68, TSH 3rd Generation 0.39 L 05/23/17 10:50: Triglycerides 92, Cholesterol 136, LDL Cholesterol Direct < 30, HDL Cholesterol 74 H 05/23/17 07:34: Alcohol, Quantitative 44 H 05/23/17 07:34: Salicylates < 1 L, Acetaminophen < 10.0 L 05/23/17 07:34: Sodium 140, Potassium 3.9, Chloride 103, Carbon Dioxide 22, Anion Gap 18, BUN 16, Creatinine 0.7, Est GFR ( Amer) > 60, Est GFR (Non- Af Amer) > 60, Random Glucose 57 L, Calcium 9.2, Total Bilirubin 0.7, AST 130 H , ALT 102 H, Alkaline Phosphatase 124, Total Creatine Kinase 291 H, CK-MB (CK-2 ) 2.8, CK-MB (CK-2) % Cancelled, Total Protein 8.0, Albumin 4.6, Globulin 3.4, Albumin/Globulin Ratio 1.3 05/23/17 07:34: WBC 10.8 D, RBC 4.48, Hgb 13.4, Hct 39.8, MCV 88.8, MCH 29.9, MCHC 33.7, RDW 15.4 H, Plt Count 184, MPV 10.7, Gran % 77.7 H, Lymph % (Auto) 17.3 L, Bell % (Auto) 4.3, Eos % (Auto) 0.5 L, Baso % (Auto) 0.2, Gran # 8.43 H , Lymph # 1.9, Bell # 0.5, Eos # 0.1, Baso # 0.02 05/23/17 07:23: Urine Opiates Screen Positive H, Urine Methadone Screen Negative , Ur Barbiturates Screen Negative, Ur Phencyclidine Scrn Negative, Ur Amphetamines Screen Negative, U Benzodiazepines Scrn Negative, U Oth Cocaine Metabols Positive H, U Cannabinoids Screen Negative 05/23/17 07:23: Urine Color Yellow, Urine Appearance Clear, Urine pH 6.0, Ur Specific Granger 1.025, Urine Protein Trace H, Urine Glucose (UA) Negative, Urine Ketones Trace H, Urine Blood Small H, Urine Nitrate Negative, Urine Bilirubin Negative, Urine Urobilinogen 0.2, Ur Leukocyte Esterase Small H, Urine RBC 1 - 3, Urine WBC 2 - 5, Ur Epithelial Cells 3 - 4, Urine Bacteria Small, Urine HCG, Qual Negative Vital Signs Temp Pulse Resp BP Pulse Ox 05/25/17 07:00 97.7 F 60 18 105/54 L 05/24/17 16:00 72 123/71 05/24/17 07:26 98.2 F 51 L 16 110/64 05/23/17 16:26 57 L 121/72 05/23/17 11:00 16 05/23/17 10:37 98.4 F 72 16 112/70 98 05/23/17 09:48 79 16 107/59 L 100 05/23/17 07:17 97.8 F 75 18 103/54 L 100 Temp Pulse Resp BP Pulse Ox 97.9 F 63 19 119/75 98 05/26/17 06:58 05/26/17 06:58 05/26/17 06:58 05/26/17 06:58 05/23/17 10:37 Laboratory Results - last 24 hr 05/26/17 20:00 Urine Color Yellow Urine Appearance Sl cloudy Urine pH 6.0 Ur Specific Granger 1.015 Urine Protein Negative Urine Glucose (UA) Negative Urine Ketones Trace H Urine Blood Negative Urine Nitrate Negative Urine Bilirubin Negative Urine Urobilinogen 0.2 Ur Leukocyte Esterase Moderate H Urine RBC Negative Urine WBC 5 - 10 Ur Epithelial Cells 4 - 5 Calcium Oxalate Crystal Few Urine Other Trichomonas DSM 5 Symptoms Update: Shortly pt is 46yo AAF with reported h/o schizoaffective disorder, h/o heroin abuse and dependence, cocaine abuse, multiple admissions in the past, pt has h/ o noncompliance with meds and f/u appt, pt brought herself to the hospital looking for help for her depressive symptoms, inability to function, pt does not have support in the community, pt's father five months ago, pt relapsed on heroin was using about 2-3 bags, snorting, reported being compliant with medications and follow up appts (but as per pharmacy record pt was noncompliant with f/u meds) Pt needs further evaluation and stabilization and meds adjustment. Pt was seen and examined at the [facility] area, pt presented calmer, less irritable, pt said she has a headache from seroquel xr, asked to be on regular release of medication. pt was seen by medical team, abx for trichomonas started , pt was educated to speak to her sexual partner, pt also was educated that her partner have to be treaed, avoid sex for a week, use protection, pt verbalized understanding. as per staff pt is more visible, compliant with meds, no behavioral issues. MSE: patient appears much older than her chronological age, personal hygiene is improving, fair eye contact, affect more reactive, mood described as depressed and hopeless, thought processes concrete thought content patient denied visual, auditory, tactile hallucinations, denied paranoid ideations insight and judgment are limited, impulses are unpredictable. Impression: schizoaffective d/o as per h/o cocaine abuse opioid addiction rule out substance-induced mood disorder Rule out adjustment disorder with depressed and anxious mood(pt's father less than two months ago) Treatment Recommendations and Plan of Treatment: milieu/structure/supportive therapy patient pharmacy was called phone number [phone] most recent medication was Naproxen 500 mg twice a day filled in 08/04/[address] Boyle. tentative discharge on Wednesday-Wednesday SEROquel was 200 milligrams at the morning time and night as a mood stabilizer trazodone 200mg mg at the nighttime tramadol and Ibuprofen for pain when necessary medications for opioid withdrawals will not give benzos, UDS negative for it pt will be seen by medical team, consult appreciated SW evaluation will f/u on labs will monitor closely Medication Change: Yes (trazodone increased, seroquel increased) Medical Record Reviewed: Yes Consults ordered or reviewed: medical and ortho consult was called please see notes for more detailed information ortho: mild chondromalacia, tx with NSAID and PT Goal/Treatment Plan - Goal/Treatment Plan Need for Continued Stay: Remain at risks for inpatient hospitalization, Severe depression anxiety, Discharge may exacerbated symptoms, Severe functional impairment Estimated Date of D/C: 06/01/17 (will monitor closely)
--- NOTE | 2017-05-28 14:41 | CP.PCM.PN ---
<Mukesh Gill - Last Filed: 05/28/17 18:27> Subjective - Date & Time of Evaluation Date of Evaluation: 05/28/17 Time of Evaluation: 10:30 - Subjective Subjective: Patient seen and examined at bedside. Per nursing no acute events overnight. Patient denies any chest pain, shortness of breath, nausea, vomiting, abdominal pain, constipation, diarrhea, fevers, chills, or any other complaints. Objective - Vital Signs/Intake and Output Vital Signs (last 24 hours): Temp Pulse Resp BP Pulse Ox 98.2 F 69 19 94/53 L 98 05/28/17 06:56 05/28/17 06:56 05/28/17 06:56 05/28/17 06:56 05/23/17 10:37 - Medications Medications: Current Medications Acetaminophen (Tylenol 325mg Tab) 650 mg PO Q4 PRN PRN Reason: Pain, Mild (1-3) Al Hydrox/Mg Hydrox/Simethicone (Maalox Plus 30 Ml) 30 ml PO DAILY PRN PRN Reason: Upset Stomach Folic Acid (Folic Acid) 1 mg PO DAILY [facility] Last Admin: 05/28/17 09:17 Dose: 1 mg Ibuprofen (Motrin Tab) 400 mg PO Q6H PRN PRN Reason: Arthritis Ibuprofen (Motrin Tab) 600 mg PO QID [facility] Last Admin: 05/28/17 09:17 Dose: 600 mg Loperamide HCl (Imodium) 2 mg PO QID PRN PRN Reason: diarhea Lorazepam (Ativan) 1 mg PO Q8 PRN; Protocol PRN Reason: Anxiety Magnesium Hydroxide (Milk Of Magnesia) 30 ml PO DAILY PRN PRN Reason: Constipation Multivitamins (Thera Tab) 1 tab PO 0800 [facility] Last Admin: 05/28/17 09:17 Dose: 1 tab Nicotine (Nicoderm Cq) 1 patch TD DAILY [facility] Last Admin: 05/28/17 09:20 Dose: 1 patch Ondansetron HCl (Zofran Odt) 4 mg PO Q8H PRN PRN Reason: Nausea/Vomiting Quetiapine Fumarate (Seroquel) 200 mg PO HS [facility] PRN Reason: Protocol Last Admin: 05/27/17 21:10 Dose: 200 mg Quetiapine Fumarate (Seroquel) 200 mg PO DAILY ANTONIO PRN Reason: Protocol Thiamine HCl (Vitamin B1 Tab) 100 mg PO DAILY ANTONIO Last Admin: 05/28/17 09:20 Dose: 100 mg Tramadol HCl (Ultram) 50 mg PO TID PRN PRN Reason: pain 7/10 Last Admin: 05/28/17 11:03 Dose: 50 mg Trazodone HCl (Desyrel) 200 mg PO HS ANTONIO Last Admin: 05/27/17 21:12 Dose: 200 mg Zolpidem Tartrate (Ambien) 5 mg PO HS PRN; Protocol PRN Reason: Insomnia Last Admin: 05/27/17 21:09 Dose: 5 mg - Head Exam Head Exam: ATRAUMATIC, NORMAL INSPECTION, NORMOCEPHALIC - Eye Exam Eye Exam: EOMI, Normal appearance, PERRL. absent: Periorbital tenderness Pupil Exam: NORMAL ACCOMODATION, PERRL. absent: Irregular, Unequal - ENT Exam ENT Exam: Mucous Membranes Moist, Normal Exam - Respiratory Exam Respiratory Exam: Clear to Ausculation Bilateral, NORMAL BREATHING PATTERN. absent: Chest Wall Tenderness, Prolonged Expiratory Phase, Respiratory Distress - Cardiovascular Exam Cardiovascular Exam: REGULAR RHYTHM, RRR, +S1, +S2. absent: Gallop, Rubs - GI/Abdominal Exam GI & Abdominal Exam: Soft, Normal Bowel Sounds. absent: Tenderness, Hyperactive Bowel Sounds - Extremities Exam Extremities Exam: Full ROM, Normal Inspection. absent: Pedal Edema - Neurological Exam Neurological Exam: Alert, Awake - Psychiatric Exam Psychiatric exam: Normal Affect, Normal Mood - Skin Skin Exam: Dry, Intact, Normal Color Assessment and Plan - Assessment and Plan (Free Text) Assessment: This is a 46 year old female with a PMH of insomnia and Arthritis who was admitted to the hospital for depressive symptoms, hopelessness and possible suicidal Ideation. Plan: 1.Trichamonas -On U/A patient found to have Trichamonas infection. -Patient given 2 grams of Flagyl. -Patient empirically treated for GC. Given Zithromax 1 gram and Rocephin 250mg IM. -Advised patient to abstain from sex for 1 week and alerted her that her sexual partner should be treated as well. -Chlaymydia/GC sent off. Will f/u with lab results. 2. History of insomnia -continue trazadone 3. Heroin abuse -Drug screen positive for opiates -Drug abuse cessation strongly advised. Needs referral for drug rehabilitation evaluation 4. Alcohol abuse -start multivitamin, thiamine, folic acid -Alcohol cessation strongly advised. 5. History of smoking -Smoking cessation strongly advised. -NicoDerm patch refused at this time. 6. h/o of depression -management per Psych. Patient is medically cleared. Feel free to re-consult as needed. <Jennifer Rogers - Last Filed: 05/29/17 16:34> Objective - Vital Signs/Intake and Output Vital Signs (last 24 hours): Temp Pulse Resp BP Pulse Ox 98.7 F 60 16 95/60 L 100 05/29/17 06:50 05/29/17 06:50 05/29/17 06:50 05/29/17 06:50 05/29/17 06:50 - Medications Medications: Current Medications Acetaminophen (Tylenol 325mg Tab) 650 mg PO Q4 PRN PRN Reason: Pain, Mild (1-3) Al Hydrox/Mg Hydrox/Simethicone (Maalox Plus 30 Ml) 30 ml PO DAILY PRN PRN Reason: Upset Stomach Folic Acid (Folic Acid) 1 mg PO DAILY [facility] Last Admin: 05/29/17 08:55 Dose: 1 mg Ibuprofen (Motrin Tab) 400 mg PO Q6H PRN PRN Reason: Arthritis Ibuprofen (Motrin Tab) 600 mg PO QID [facility] Last Admin: 05/29/17 12:23 Dose: Not Given Loperamide HCl (Imodium) 2 mg PO QID PRN PRN Reason: diarhea Lorazepam (Ativan) 1 mg PO Q8 PRN; Protocol PRN Reason: Anxiety Magnesium Hydroxide (Milk Of Magnesia) 30 ml PO DAILY PRN PRN Reason: Constipation Multivitamins (Thera Tab) 1 tab PO 0800 [facility] Last Admin: 05/29/17 08:55 Dose: 1 tab Nicotine (Nicoderm Cq) 1 patch TD DAILY [facility] Last Admin: 05/29/17 08:56 Dose: Not Given Ondansetron HCl (Zofran Odt) 4 mg PO Q8H PRN PRN Reason: Nausea/Vomiting Quetiapine Fumarate (Seroquel) 200 mg PO HS [facility] PRN Reason: Protocol Last Admin: 05/28/17 21:11 Dose: 200 mg Quetiapine Fumarate (Seroquel) 200 mg PO DAILY ANTONIO PRN Reason: Protocol Last Admin: 05/29/17 08:54 Dose: 200 mg Thiamine HCl (Vitamin B1 Tab) 100 mg PO DAILY ANTONIO Last Admin: 05/29/17 08:55 Dose: 100 mg Tramadol HCl (Ultram) 50 mg PO TID PRN PRN Reason: pain 710 Last Admin: 05/29/17 11:34 Dose: 50 mg Trazodone HCl (Desyrel) 200 mg PO HS ANTONIO Last Admin: 05/28/17 21:11 Dose: 200 mg Zolpidem Tartrate (Ambien) 5 mg PO HS PRN; Protocol PRN Reason: Insomnia Last Admin: 05/28/17 21:10 Dose: 5 mg Attending/Attestation - Attestation I have personally seen and examined this patient.: Yes I have fully participated in the care of the patient.: Yes I have reviewed all pertinent clinical information, including history, physical exam and plan: Yes Notes (Text): I have seen and examined patient at bedside. Briefly this is 46 year old female with history of anemia, arthritis, cholecystectomy, tobacco use, polysubstance use who was admitted for evaluation of depression and possible suicidal ideation. Manage as per psychiatrist. She complains of dysuria however denies any vaginal discharge. Intially macrobid was started however it was stopped today. Urine revealed Trichomonas which was treated with flagyl. She was also given zithro and Rocephin for GC. Advised patient that she should abstain from sex for atleast 7 days and also advise her sexual partner to seek treatment. Urine culture negative. She has subclinical hyperthyroidism. Advised patient to repeat TFT in 4 weeks. Counselling provided regarding tobacco and polysubstance abuse. She has transaminitis most likely due to alcohol abuse. Hep panel negative. Recommend to have liver ultrasound as an outpatient. Upon discharge patient will follow up with Dr San or [facility] clinic. Dr Jennifer Rogers
[2017-05-29 06:51] VITALS: O2SAT 100
[2017-05-29] MEDS: Multivitamin Therapeutic Tab PO SCH (08:55)
--- NOTE | 2017-05-29 09:12 | PCM.PYCHPN ---
Psychiatric Progress Note - Psychiatric Progress Note Patient seen today, length of contact: 25 min Patient Chief Complaint: "fine, getting better" Problems Identified/Issues Discussed: I reviewed assessment and recent notes. I met with patient at bedside. She is known to me from multiple prior admissions on the unit. Patient appears a little unkempt however she's fairly calm and cooperative. Oriented x3. Reports that she is feeling "fine, getting better". Sleep was restless last night. Patient denies having any wishes or suicidal thoughts. She denies having any thoughts of harming others. Her thought process is generally coherent and responses are relevant to questioning. Affect is constricted during our interaction. Nursing notes indicate that patient has been more visible. She is still labile but less irritable on the unit. Appears brighter and participates in groups. There were no behavioral issues overnight. Diagnostic Results: Schizoaffective d/o as per h/o Cocaine abuse Opioid addiction Rule out substance-induced mood disorder Rule out adjustment disorder with depressed and anxious mood (pt's father less than two months ago) Medication Change: No ( ) Medical Record Reviewed: Yes Mental Status Examination - Cognitive Function Orientation: Person, Place, Situation Attention: WNL - Mood Mood: Depressed ("fine, getting better") - Affect Affect: Constricted, Other (labile) - Speech Speech: Appropriate - Formal Thought Process Formal Thought Process: No Impairment - Suicidal Ideation Suicidal Ideation: No - Homicidal Ideation Homicidal Ideation: No Goal/Treatment Plan - Goal/Treatment Plan Need for Continued Stay: Remain at risks for inpatient hospitalization, Severe depression anxiety, Discharge may exacerbated symptoms, Severe functional impairment Progress Toward Problem(s) and Goals/Treatment Plan: * c/w current tx and plan * Vitals reviewed and noted below: Selected Entries 05/27/17 05/27/17 05/27/17 09:35 13:31 15:59 Temperature 97.2 F L 97.3 F L Pulse Rate 77 Respiratory Rate Blood Pressure 99/67 L 05/28/17 05/28/17 06:56 16:20 Temperature 98.2 F 98.6 F Pulse Rate 69 75 Respiratory 19 Rate Blood Pressure 94/53 L 93/52 L Estimated Date of D/C: 06/01/17 (will monitor closely)
[2017-05-30 07:10] VITALS: RESP 20
[2017-05-30] MEDS: Multivitamin Therapeutic Tab PO SCH (08:31)
--- NOTE | 2017-05-30 09:03 | PCM.PYCHPN ---
Psychiatric Progress Note - Psychiatric Progress Note Patient seen today, length of contact: 25 min Patient Chief Complaint: "fine, getting better" Problems Identified/Issues Discussed: I reviewed recent notes and met with patient at bedside. Patient appears a little unkempt however she's fairly calm and cooperative. Oriented x3. Reports that she is feeling "fine, getting better" though still reports that she feels more hopeless than hopeful. Slept better last night. Patient denies having any wishes or suicidal thoughts. She denies having any thoughts of harming others. Her thought process is generally coherent and responses are relevant to questioning. Affect is constricted and nursing notes indicate that she has been more visible. She is still labile and irritable on the unit. She had an angry outbursts regarding her lunch yesterday. She is able to calm down and apologize when needs are met. There were no major behavioral issues over the weekend. Diagnostic Results: Schizoaffective d/o as per h/o Cocaine abuse Opioid addiction Rule out substance-induced mood disorder Rule out adjustment disorder with depressed and anxious mood (pt's father less than two months ago) Medication Change: No ( ) Medical Record Reviewed: Yes Mental Status Examination - Cognitive Function Orientation: Person, Place, Situation Attention: WNL - Mood Mood: Depressed ("fine, getting better") - Affect Affect: Constricted, Other (labile) - Speech Speech: Appropriate - Formal Thought Process Formal Thought Process: No Impairment - Suicidal Ideation Suicidal Ideation: No - Homicidal Ideation Homicidal Ideation: No Goal/Treatment Plan - Goal/Treatment Plan Need for Continued Stay: Remain at risks for inpatient hospitalization, Severe depression anxiety, Discharge may exacerbated symptoms, Severe functional impairment, Other Progress Toward Problem(s) and Goals/Treatment Plan: * c/w current tx and plan * No new weekend labs * Vitals reviewed and noted below: Selected Entries 05/28/17 05/28/17 05/29/17 06:56 16:20 06:50 Temperature 98.2 F 98.6 F 98.7 F Pulse Rate 69 75 60 Respiratory 19 16 Rate Blood Pressure 94/53 L 93/52 L 95/60 L 05/29/17 16:00 Temperature Pulse Rate 75 Respiratory Rate Blood Pressure 97/60 L Estimated Date of D/C: 06/01/17 (will monitor closely)
[2017-05-31] MEDS: Multivitamin Therapeutic Tab PO SCH (08:46)
--- NOTE | 2017-05-31 12:34 | PCM.BM ---
Treatment Plan Problems - Problems identified on initial assessmt Hopelessness Date Initiated: 05/23/17 ( is ) Time Initiated: : Date resolved: 05/31/17 Assessment reference: NA Status: Active Priority: 1 Comment: pt is hopeful to go home today Worthlessness Date Initiated: 05/23/17 Time Initiated: 11:12 Date resolved: 05/31/17 Assessment reference: NA Status: Active Priority: 2 Comment: mood and affect is brighter.denies s/h ideation Ineffective Coping Date Initiated: 05/23/17 Time Initiated: : Date resolved: 05/31/17 Assessment reference: NA Status: Active Priority: 3 Comment: PT WILL BE GOING BACK TO HER PROGRAM [facility] AFTER D/C Treatment assets and liabiliti Patient Assests: adapts well, cooperative, self-reliant, ADL independent, negotiates basic needs, cognitively intact, good interpersonal skills Patient Liabilities: financial problems, poor support system, substance abuse - Milieu Protocol Maintain good personal hygiene: daily Encourage regular showers, daily Remind patient to perform daily oral care, daily Assist patient to perform ADL's Conduct patient checks and document Observation sheet: Q15 minutes Maintain personal safety: every shift Educate patient to report safety concerns to staff, every shift Monitor environment for contraband/sharps Medication safety: Monitor for expected outcome, potential side effects: every shift, Assess barriers to learning: every shift, Assess readiness for medication education: every shift Milieu Narrative: * c/w current tx and plan * No new weekend labs * Vitals reviewed and noted below: Selected Entries 05/28/17 05/28/17 05/29/17 06:56 16:20 06:50 Temperature 98.2 F 98.6 F 98.7 F Pulse Rate 69 75 60 Respiratory 19 16 Rate Blood Pressure 94/53 L 93/52 L 95/60 L 05/29/17 16:00 Temperature Pulse Rate 75 Respiratory Rate Blood Pressure 97/60 L Family Contact Family involvement: Famliy/SO not involved - Goals for Treatment Patient goals for treatment: "To get my mind right and to get into a program." Discharge/Continuing Care - Education Needs Education Needs: Patient Medication, Patient Diagnosis/Disease Process, Patient Coping Skills - Discharge Discharge Criteria: Tolerates medication w/o severe side effects, Free of Suicidal thoughts, Normal sleep pattern, No longer exhibiting s/s of withdrawal , Reduction of target symptoms Discharge to:: Home - Treatment Team Participation Patient/Family/SO Statement: * c/w current tx and plan * No new weekend labs * Vitals reviewed and noted below: Selected Entries 05/28/17 05/28/17 05/29/17 06:56 16:20 06:50 Temperature 98.2 F 98.6 F 98.7 F Pulse Rate 69 75 60 Respiratory 19 16 Rate Blood Pressure 94/53 L 93/52 L 95/60 L 05/29/17 16:00 Temperature Pulse Rate 75 Respiratory Rate Blood Pressure 97/60 L Treatment Plan Review - Problem Hopelessness Time Initiated: 11:12 Worthlessness Time Initiated: :12 Ineffective Coping Time Initiated: 11:12
--- NOTE | 2017-05-31 13:53 | PCM.PYCHPN ---
Psychiatric Progress Note - Psychiatric Progress Note Patient seen today, length of contact: 25 min Patient Chief Complaint: "I am doing great" Problems Identified/Issues Discussed: Patient seen in treatment team. She had decided she was going to be discharged today, so was upset when I indicated that she was not. She is irritable and quick to flare, so needs to have continued stay. She denies any symptoms, insight and judgment are poor at this time. She was encouraged to take part in unit activities. Medication Change: No ( ) Medical Record Reviewed: Yes Mental Status Examination - Cognitive Function Orientation: Person, Place, Situation Attention: WNL - Mood Mood: Depressed ("fine, getting better") - Affect Affect: Constricted, Other (labile) - Speech Speech: Appropriate - Formal Thought Process Formal Thought Process: No Impairment - Suicidal Ideation Suicidal Ideation: No - Homicidal Ideation Homicidal Ideation: No Goal/Treatment Plan - Goal/Treatment Plan Need for Continued Stay: Remain at risks for inpatient hospitalization, Severe depression anxiety, Discharge may exacerbated symptoms, Severe functional impairment, Other Estimated Date of D/C: 06/01/17 (will monitor closely)
--- NOTE | 2017-05-31 14:03 | PCM.BM ---
<Sukh Wiggins - Last Filed: 05/31/17 14:02> Treatment Plan Problems - Problems identified on initial assessmt Hopelessness Date Initiated: 05/23/17 ( is ) Time Initiated: Date resolved: 05/31/17 Assessment reference: NA Status: Active Priority: 1 Comment: pt is hopeful to go home today Worthlessness Date Initiated: 05/23/17 Time Initiated: 11:12 Date resolved: 05/31/17 Assessment reference: NA Status: Active Priority: 2 Comment: mood and affect is brighter.denies s/h ideation Ineffective Coping Date Initiated: 05/23/17 Time Initiated: : Date resolved: 05/31/17 Assessment reference: NA Status: Active Priority: 3 Comment: PT WILL BE GOING BACK TO HER PROGRAM [facility] AFTER D/C Treatment assets and liabiliti Patient Assests: adapts well, cooperative, self-reliant, ADL independent, negotiates basic needs, cognitively intact, good interpersonal skills Patient Liabilities: financial problems, poor support system, substance abuse - Milieu Protocol Maintain good personal hygiene: daily Encourage regular showers, daily Remind patient to perform daily oral care, daily Assist patient to perform ADL's Conduct patient checks and document Observation sheet: Q15 minutes Maintain personal safety: daily Educate patient to report safety concerns to staff, daily Monitor environment for contraband/sharps, every shift Educate patient to report safety concerns to staff, every shift Monitor environment for contraband/sharps Medication safety: Monitor for expected outcome, potential side effects: every shift, daily, Assess barriers to learning: every shift, daily, Assess readiness for medication education: every shift, daily Milieu Narrative: * c/w current tx and plan * No new weekend labs * Vitals reviewed and noted below: Selected Entries 05/28/17 05/28/17 05/29/17 06:56 16:20 06:50 Temperature 98.2 F 98.6 F 98.7 F Pulse Rate 69 75 60 Respiratory 19 16 Rate Blood Pressure 94/53 L 93/52 L 95/60 L 05/29/17 16:00 Temperature Pulse Rate 75 Respiratory Rate Blood Pressure 97/60 L Family Contact Family involvement: Famliy/SO not involved - Goals for Treatment Patient goals for treatment: "To get my mind right and to get into a program." Discharge/Continuing Care - Education Needs Education Needs: Patient Medication, Patient Diagnosis/Disease Process, Patient Coping Skills, Patient Activities of Daily Living, Patient Health Practices/ Safety, Patient Personal Hygiene/Grooming, Patient Aftercare Safety Plan - Discharge Discharge Criteria: Tolerates medication w/o severe side effects, Free of Suicidal thoughts, Normal sleep pattern, No longer exhibiting s/s of withdrawal , Reduction of target symptoms Discharge to:: Home - Treatment Team Participation Patient/Family/SO Statement: * c/w current tx and plan * No new weekend labs * Vitals reviewed and noted below: Selected Entries 05/28/17 05/28/17 05/29/17 06:56 16:20 06:50 Temperature 98.2 F 98.6 F 98.7 F Pulse Rate 69 75 60 Respiratory 19 16 Rate Blood Pressure 94/53 L 93/52 L 95/60 L 05/29/17 16:00 Temperature Pulse Rate 75 Respiratory Rate Blood Pressure 97/60 L Treatment Plan Review - Problem Hopelessness Time Initiated: 11:12 Worthlessness Time Initiated: 11:12 Ineffective Coping Time Initiated: 11:12 <Carly Gamboa A - Last Filed: 06/01/17 16:11> - Diagnosis (1) Polysubstance abuse Status: Chronic Interventions: 06/01/17 16:09 pt's insight improved, pt wants to stay sober (2) Schizoaffective disorder Status: Chronic Interventions: 06/01/17 16:10 psychosis is better no agitation or aggression pt is compliant with medications and unit rules and regulations pt deems ready for d/c pt was in agreement to go to [facility] and AA meetings
[2017-06-01 07:26] VITALS: BP 96/62; PULSE 63; TEMP 98.2
[2017-06-01] MEDS: Multivitamin Therapeutic Tab PO SCH (08:41)
--- NOTE | 2017-06-01 16:25 | PCM.PYCHDC ---
Mental Status Examination - Mental Status Examination Orientation: Person, Place, Situation, Time Memory: Intact Mood: Neutral Affect: Broad (and mood congruent) Speech: Appropriate Attention: WNL Concentration: WNL Association: WNL Fund of Knowledge: WNL Formal Thought Process: No Impairment Description of patient's judgement and insight: Pt has improved insight into mental and medical illness, pt was compliant with medications and unit rules and regulations, pt was going to groups, was calm, cooperative, socially appropriate, no behavioral incidents, no agitation, no aggression. Psychotic Thoughts and Behaviors: Pt denied v/a/t hallucinations, denied paranoid ideations, pt does not appear to be psychotic, and thought process is goal directed. Suicidal Ideation: No Current Homicidal Ideation?: No Plan: pt adamantly denied thoughts of harming self or others denied intent or plan. Discharge Summary - Discharge Note Reason for Hospitalization: pt was admitted for evaluation of depressive symptoms, inability to function Psychiatric History (includes Medical, Family, Personal Hx): h/o schizoaffective , h/o substance abuse and dependence Laboratory Data: 05/23/17 07:34 05/23/17 07:34 Lab Results 05/28/17 07:00: C.trachomatis RNA (TMA) Not detected, N.gonorrhoeae RNA (TMA) Not detected 05/26/17 20:00: Urine Color Yellow, Urine Appearance Sl cloudy, Urine pH 6.0, Ur Specific Desmet 1.015, Urine Protein Negative, Urine Glucose (UA) Negative, Urine Ketones Trace H, Urine Blood Negative, Urine Nitrate Negative, Urine Bilirubin Negative, Urine Urobilinogen 0.2, Ur Leukocyte Esterase Moderate H, Urine RBC Negative, Urine WBC 5 - 10, Ur Epithelial Cells 4 - 5, Calcium Oxalate Crystal Few, Urine Other Trichomonas 05/25/17 07:30: TSH 3rd Generation 0.09 L 05/25/17 07:30: Phosphorus 3.6, Magnesium 2.0 05/24/17 07:30: Hepatitis A IgM Ab Negative, Hep Bs Antigen Negative, Hep B Core IgM Ab Negative, Hepatitis C Antibody Negative 05/23/17 10:50: Free T4 1.68, TSH 3rd Generation 0.39 L 05/23/17 10:50: Triglycerides 92, Cholesterol 136, LDL Cholesterol Direct < 30, HDL Cholesterol 74 H 05/23/17 07:34: Alcohol, Quantitative 44 H 05/23/17 07:34: Salicylates < 1 L, Acetaminophen < 10.0 L 05/23/17 07:34: Sodium 140, Potassium 3.9, Chloride 103, Carbon Dioxide 22, Anion Gap 18, BUN 16, Creatinine 0.7, Est GFR ( Amer) > 60, Est GFR (Non- Af Amer) > 60, Random Glucose 57 L, Calcium 9.2, Total Bilirubin 0.7, AST 130 H , ALT 102 H, Alkaline Phosphatase 124, Total Creatine Kinase 291 H, CK-MB (CK-2 ) 2.8, CK-MB (CK-2) % Cancelled, Total Protein 8.0, Albumin 4.6, Globulin 3.4, Albumin/Globulin Ratio 1.3 05/23/17 07:34: WBC 10.8 D, RBC 4.48, Hgb 13.4, Hct 39.8, MCV 88.8, MCH 29.9, MCHC 33.7, RDW 15.4 H, Plt Count 184, MPV 10.7, Gran % 77.7 H, Lymph % (Auto) 17.3 L, [place] % (Auto) 4.3, Eos % (Auto) 0.5 L, Baso % (Auto) 0.2, Gran # 8.43 H , Lymph # 1.9, [place] # 0.5, Eos # 0.1, Baso # 0.02 05/23/17 07:23: Urine Opiates Screen Positive H, Urine Methadone Screen Negative , Ur Barbiturates Screen Negative, Ur Phencyclidine Scrn Negative, Ur Amphetamines Screen Negative, U Benzodiazepines Scrn Negative, U Oth Cocaine Metabols Positive H, U Cannabinoids Screen Negative 05/23/17 07:23: Urine Color Yellow, Urine Appearance Clear, Urine pH 6.0, Ur Specific Desmet 1.025, Urine Protein Trace H, Urine Glucose (UA) Negative, Urine Ketones Trace H, Urine Blood Small H, Urine Nitrate Negative, Urine Bilirubin Negative, Urine Urobilinogen 0.2, Ur Leukocyte Esterase Small H, Urine RBC 1 - 3, Urine WBC 2 - 5, Ur Epithelial Cells 3 - 4, Urine Bacteria Small, Urine HCG, Qual Negative Vital Signs Temp Pulse Resp BP Pulse Ox 06/01/17 07:25 98.2 F 63 20 96/62 L 05/31/17 15:00 83 103/68 05/31/17 07:12 97.6 F 77 20 94/63 L 05/30/17 16:00 64 106/64 05/30/17 07:10 97.8 F 60 20 96/74 L 05/29/17 16:00 75 97/60 L 05/29/17 06:50 98.7 F 60 16 95/60 L 100 05/28/17 16:20 98.6 F 75 93/52 L 05/28/17 06:56 98.2 F 69 19 94/53 L 05/27/17 15:59 77 99/67 L 05/27/17 13:31 97.3 F L 05/27/17 09:35 97.2 F L 05/27/17 07:00 97.8 F 69 20 110/63 05/27/17 06:37 97.8 F 69 20 89/50 L 05/26/17 15:43 93 H 97/73 L 05/26/17 06:58 97.9 F 63 19 119/75 05/25/17 16:00 93 H 114/76 05/25/17 07:00 97.7 F 60 18 105/54 L 05/24/17 16:00 72 123/71 05/24/17 07:26 98.2 F 51 L 16 110/64 05/23/17 16:26 57 L 121/72 05/23/17 11:00 16 05/23/17 10:37 98.4 F 72 16 112/70 98 05/23/17 09:48 79 16 107/59 L 100 05/23/17 07:17 97.8 F 75 18 103/54 L 100 Consultations:: List each consultation separately and include: 1. Reason for request. 2. Findings. 3. Follow-up Consultations: medical and ortho consult was called please see notes for more detailed information ortho: mild chondromalacia, tx with NSAID and PT Summary of Hospital Course include:: 1. Description of specific treatment plan utilized for patients during their course of treatmen. 2. Summarize the time- course for resolution of acute symptoms and/or regressed behaviors. 3. Describe issues identified and worked on during hospitalization. 4. Describe medication utilized. 5. Describe medical problems identified and treated. 6. Reassessment of suicide risk Summary of Hospital Course: Shortly pt is 46yo AAF with reported h/o schizoaffective disorder, h/o heroin abuse and dependence, cocaine abuse, multiple admissions in the past, most recent was December 2016 to this facility, pt was discharged AMA, pt has h/o noncompliance with meds and f/u appt, pt brought herself to the hospital looking for help for her depressive symptoms, inability to function, pt does not have support in the community, pt's father five months ago, pt relapsed on heroin was using about 2-3 bags, snorting, reported being compliant with medications and follow up appts (but as per pharmacy record pt was noncompliant with f/u meds) Pt needs further evaluation and stabilization and meds adjustment. initially pt was seen at the treatment team meeting, pt presented with poor personal hygiene, was disheveled, strong body odor, fair ADLs. pt said that she left this hospital in December AMA (this chart writer was on vacation), pt said that she was noncompliant with medications and f/u appt, pt said as a result pt relapsed on opioids, pt said she was snorting about 2-3 bags a day, pt said last dose was about two days ago. pt denied using other substances, but UDS was positive for cocaine. pt said that she was feeling progressively worse, more depressed, pt said she was feeling more anxious, was not able to sleep. this time pt said she did not have thoughts of harming self. Pt denied feeling anxious. past psych h/o: multiple admissions in the past, "about 10", h/o suicidal attempts, "I have two, about two years ago I tried to jump in front of the car, but was pulled back by bystander", the first one was about 10years ago, pt attempted to cut her wrist. Medical h/o: ? COPD or asthma, arthritis, Gout?, pt c/o knee pain, pt has h/o being seen by orthopedist, will call him back again. Social h/o: pt is on ssi, not working Pt reported smoking 6 cigarettes a day, does not want to have a nicotine patch. Smoking Cessation Counseling: The patient was counseled as to the multiple risks to his/her health from continued use of tobacco products. It was explained that continuing to smoke may lead to multiple short and halfway negative health consequences, including but not limited to mouth/esophageal /lung cancer, COPD, and heart disease. He/she states he/she understands these risks, and also understands the options and resources available to him/her to help him/her stop smoking. Nicotine replacement therapy, local hotlines, and local resources were discussed as viable options for helping him/her stop his/her tobacco use. The total time spent counseling the patient regarding tobacco cessation was 3 minutes family h/o: denied pt denied h/o abuse pt was stabilized on the following meds, which were slowly titrated SEROquel 200 milligrams at the morning time and night as a mood stabilizer trazodone 200 mg at the nighttime for depression and insomnia ambien 5mg po hs for insomnia pt tolerated meds well, no side effects observed or reported, AIMS 0, no EPS. Over the course of this hospitalization pt was attending groups, pt also had medication management, had therapeutic milieu. Overall pt improved significantly, pt's affect became brighter, pt was less depressed, has realistic future oriented plans, pt also does not appear to be psychotic, or anxious, pt was socially appropriate, no behavioral issues, pts insight improved as well and soon pt deemed to be ready for discharge. At the time of the discharge pt denied been depressed, denied thoughts of harming self or others, denied psychotic symptoms, and pt does not appeared to be psychotic, denied been anxious, pt is not in imminent danger to self or others, will be following up at [facility], information about follow up appointment, time and address provided to the pt, it is patient responsibility to follow up with outpatient clinic, PMD as well as specialists (see note for more detailed information). In case pt will need to obtain results of studies pending at discharge pt was provided with contact information of Psychiatric Inpatient unit [phone] as well as Medical Record Department [phone]. Nicotine patch was offered, but pt refused to quit smoking Naltrexone treatment is not indicated this time pt's UDS was positive for opioids, pt needs to be off opioids for at least two weeks in order to initiate naltrexone Counseling about smoking and alcohol cessation provided AA meetings as well as smoking cessation treatment program information was provided by the pt was provided with prescriptions for all of medications (please see medication reconciliation form) Pt was educated about safety plan in case of worsening of symptoms or in case of suicidal or homicidal ideation call 911 or go to the nearest ER, also was educated to take meds as prescribed and stay away from drugs, pt verbalized understanding. - Diagnosis (1) Polysubstance abuse Current Visit: Yes Status: Chronic Priority: Medium (2) Schizoaffective disorder Current Visit: Yes Status: Chronic Priority: Medium - Final Diagnosis (DSM 5) Condition upon Discharge: GOOD Disposition: HOME/ ROUTINE Follow-up Treatment Plan: At the time of the discharge pt denied been depressed, denied thoughts of harming self or others, denied psychotic symptoms, and pt does not appeared to be psychotic, denied been anxious, pt is not in imminent danger to self or others, will be following up at [facility], information about follow up appointment, time and address provided to the pt, it is patient responsibility to follow up with outpatient clinic, PMD as well as specialists (see note for more detailed information). In case pt will need to obtain results of studies pending at discharge pt was provided with contact information of Psychiatric Inpatient unit [phone] as well as Medical Record Department [phone]. Nicotine patch was offered, but pt refused to quit smoking Naltrexone treatment is not indicated this time pt's UDS was positive for opioids, pt needs to be off opioids for at least two weeks in order to initiate naltrexone Counseling about smoking and alcohol cessation provided AA meetings as well as smoking cessation treatment program information was provided by the pt was provided with prescriptions for all of medications (please see medication reconciliation form) Pt was educated about safety plan in case of worsening of symptoms or in case of suicidal or homicidal ideation call 911 or go to the nearest ER, also was educated to take meds as prescribed and stay away from drugs, pt verbalized understanding. Prescriptions/Medication Reconciliation: RX: Ibuprofen [Motrin Tab] 600 mg PO QID #60 tab RX: Multivitamin Therapeutic Tab [Thera Tab] 1 tab PO 0800 #14 tab RX: QUEtiapine [Seroquel] 200 mg PO AMHS #30 tab RX: Thiamine [Vitamin B1 Tab] 100 mg PO DAILY #14 tab RX: traZODone [Desyrel] 200 mg PO HS #30 tab RX: Zolpidem [Ambien] 5 mg PO HS PRN #14 tab PRN Reason: Insomnia - Smoking Cessation Smoking Cessation Medication prescribed: No Reason for not providing: pt refused - Antipsychotic Medications Pt discharged on 2 or more routine antipsychotic medications: No
== END 2017-06-01 16:20 | disposition home or self-care (01) | DRG 430 ==
LOC: ED 06:44 → ERH 09:44 → PSYC 10:02
PROVIDERS: ADMIT Psychiatry & Neurology Psychiatry; ATTEND Psychiatry & Neurology Psychiatry
PROC: GZ3ZZZZ Medication Management (ICD-10-PCS; principal; 2017-05-23)
DX: F25.9 Schizoaffective disorder, unspecified (principal); F11.20 Opioid dependence, uncomplicated; F10.10 Alcohol abuse, uncomplicated; E05.90 Thyrotoxicosis, unspecified without thyrotoxic crisis or storm; D64.9 Anemia, unspecified; A59.09 Other urogenital trichomoniasis; F14.10 Cocaine abuse, uncomplicated; J44.9 Chronic obstructive pulmonary disease, unspecified; F17.210 Nicotine dependence, cigarettes, uncomplicated; R74.0 Nonspecific elevation of levels of transaminase and lactic acid dehydrogenase [LDH]; M10.9 Gout, unspecified; I10 Essential (primary) hypertension; M94.262 Chondromalacia, left knee; M17.12 Unilateral primary osteoarthritis, left knee; Z91.19 Patient's noncompliance with other medical treatment and regimen; Z91.14 Patient's other noncompliance with medication regimen; Z90.49 Acquired absence of other specified parts of digestive tract; Z88.0 Allergy status to penicillin

== ENCOUNTER 2017-07-21 23:47 | Emergency (ER) | payer MEDICAID ==
[2017-07-21 23:48] VITALS: BMI 23.5
[2017-07-22 00:18] VITALS: RESP 18
--- NOTE | 2017-07-22 00:22 | ED PDOC ---
Arrival/HPI - General Chief Complaint: Psychiatric Evaluation Time Seen by Provider: 07/22/17 00:00 Historian: Patient - History of Present Illness Narrative History of Present Illness (Text): 07/22/17 00:22 Linda Iraheta is a 47 year old female, whose past medical history includes depression, schizoaffective, and substance abuse, who presents to the Emergency department complaining of depression. Patient states she has been "in a funk" for the past few days and states she feels depressed. Patient reports she has not taken her psychiatric medication in 3 days. Patient denies any homicidal ideation, fever, chills, chest pain, shortness of breath, nausea, vomiting, diarrhea, urinary symptoms, back pain, neck pain, headache, dizziness, or any other complaints. Time/Duration: Other (few days) Symptom Onset: Gradual Symptom Course: Unchanged Activities at Onset: Light Context: Home Past Medical History - Provider Review Nursing Documentation Reviewed: Yes - Infectious Disease Hx of Infectious Diseases: None - Tetanus Immunization Tetanus Immunization: Unknown - Reproductive Menopause: Yes - Cardiac Hx Cardiac Disorders: Yes - Pulmonary Hx Respiratory Disorders: No Hx Tuberculosis: No - Neurological Hx Neurological Disorder: No Hx Alzheimer's Disease: No HX Cerebrovascular Accident: No Hx Seizures: No - HEENT Hx HEENT Disorder: No - Renal Hx Renal Disorder: No - Endocrine/Metabolic Hx Endocrine Disorders: No - Hematological/Oncological Hx Anemia: Yes Hx Cancer: No - Integumentary Hx Dermatological Disorder: No - Musculoskeletal/Rheumatological Hx Musculoskeletal Disorders: No - Gastrointestinal Hx Gastrointestinal Disorders: No - Genitourinary/Gynecological Hx Genitourinary Disorders: No Hx Sexually Transmitted Diseases: No - Psychiatric Hx Anxiety: Yes Hx Bipolar Disorder: Yes Hx Substance Use: Yes (off heroin/sniff x3 days) Other/Comment: schizo affective - Past Surgical History Past Surgical History: No Previous - Surgical History Hx Cholecystectomy: Yes Other/Comment: Ectopic preg - Anesthesia Hx Anesthesia: Yes Hx Anesthesia Reactions: No Hx Malignant Hyperthermia: No - Suicidal Assessment Feels Threatened In Home Enviroment: No Family/Social History - Physician Review Nursing Documentation Reviewed: Yes Family/Social History: Unknown Family HX Smoking Status: Light Smoker < 10 Cigarettes Daily Hx Alcohol Use: Yes Hx Substance Use: Yes (off heroin/sniff x3 days) Substance used: Heroin Hx Substance Use Treatment: Yes Allergies/Home Meds Allergies/Adverse Reactions: Allergies Penicillins Adverse Reaction (Verified 07/22/17 00:05) RASH Home Medications: Home Meds Medication Instructions Recorded Confirmed Unobtainable 07/22/17 07/22/17 Review of Systems - Physician Review All systems were reviewed & negative as marked: Yes - Review of Systems Constitutional: Normal. absent: Fevers Eyes: Normal ENT: Normal Respiratory: Normal. absent: SOB, Cough Cardiovascular: Normal. absent: Chest Pain Gastrointestinal: Normal. absent: Abdominal Pain, Diarrhea, Nausea, Vomiting Genitourinary Female: Normal. absent: Dysuria, Frequency, Hematuria, Urine Output Changes, Other Musculoskeletal: Normal. absent: Back Pain Skin: Normal. absent: Rash Neurological: Normal. absent: Headache, Dizziness Endocrine: Normal Hemo/Lymphatic: Normal Psychiatric: Depression Physical Exam Vital Signs Reviewed: Yes Vital Signs Temp Pulse Resp BP Pulse Ox 07/22/17 07:07 98.5 F 73 18 124/55 L 99 07/22/17 03:47 78 18 113/65 100 07/22/17 00:17 98.0 F 82 18 125/75 98 Temperature: Afebrile Blood Pressure: Normal Pulse: Regular Respiratory Rate: Normal Appearance: Positive for: Well-Appearing, Non-Toxic, Comfortable Pain Distress: None Mental Status: Positive for: Alert and Oriented X 3 - Systems Exam Head: Present: Atraumatic, Normocephalic Pupils: Present: PERRL Extroacular Muscles: Present: EOMI Conjunctiva: Present: Normal Mouth: Present: Moist Mucous Membranes Neck: Present: Normal Range of Motion Respiratory/Chest: Present: Clear to Auscultation, Good Air Exchange. No: Respiratory Distress, Accessory Muscle Use Cardiovascular: Present: Regular Rate and Rhythm, Normal S1, S2. No: Murmurs Abdomen: Present: Normal Bowel Sounds. No: Tenderness, Distention, Peritoneal Signs Back: Present: Normal Inspection Upper Extremity: Present: Normal Inspection. No: Cyanosis, Edema Lower Extremity: Present: Normal Inspection. No: Edema Neurological: Present: GCS=15, CN II-XII Intact, Speech Normal Skin: Present: Warm, Dry, Normal Color. No: Rashes Psychiatric: Present: Alert, Oriented x 3, Normal Insight, Normal Concentration Medical Decision Making ED Course and Treatment: 07/22/17 00:22 Impression: 47 year old female complaining of depression for the past few days. Plan: -- EKG -- Labs, alcohol level -- Urinalysis, urine drug screen -- Reassess and disposition Prior Visits: Notes and results from previous visits were reviewed. On 05/23/2017, pt was seen in the Emergency department for depression. Pt was admitted to the hospital for further psychiatric evaluation. Progress Notes: Reviewed EKG, NSR at [address]-segment elevations or depressions, no T-wave inversions, normal intervals. 07/22/17 03:26 Chest X-ray shows no acute processes. Pt medically cleared for psychiatric evaluation/admission. 07/22/17 05:43 Pt seen and evaluated by SAGRA De La Vega, who discussed case with psychiatrist bridge ironworker. No beds currently available in [facility]. Pt accepted on transfer to [facility] psych unit by psychiatrist, Dr. Calles. Pt agreeable with plan. - Lab Interpretations Lab Results: 07/22/17 00:40 07/22/17 00:40 Lab Results 07/22/17 01:14: Urine Opiates Screen Positive H, Urine Methadone Screen Negative , Ur Barbiturates Screen Negative, Ur Phencyclidine Scrn Negative, Ur Amphetamines Screen Negative, U Benzodiazepines Scrn Negative, U Oth Cocaine Metabols Positive H, U Cannabinoids Screen Negative 07/22/17 01:14: Urine Color Yellow, Urine Appearance Clear, Urine pH 6.0, Ur Specific [place] >= 1.030, Urine Protein Trace H, Urine Glucose (UA) Negative, Urine Ketones Negative, Urine Blood Small H, Urine Nitrate Negative, Urine Bilirubin Negative, Urine Urobilinogen 0.2, Ur Leukocyte Esterase Negative, Urine RBC 1 - 3, Urine WBC 0 - 2, Ur Epithelial Cells 3 - 4, Urine Bacteria Occ , Urine Other Mucus, Urine HCG, Qual Negative 07/22/17 00:40: Alcohol, Quantitative < 10 07/22/17 00:40: Salicylates < 1 L, Acetaminophen < 10.0 L 07/22/17 00:40: Sodium 140, Potassium 3.7, Chloride 106, Carbon Dioxide 23, Anion Gap 14, BUN 13, Creatinine 0.7, Est GFR ( Amer) > 60, Est GFR (Non- Af Amer) > 60, Random Glucose 96, Calcium 9.5, Total Bilirubin 0.2, AST 27, ALT 30, Alkaline Phosphatase 93, Total Protein 7.8, Albumin 4.4, Globulin 3.5, Albumin/Globulin Ratio 1.3 07/22/17 00:40: WBC 8.0 D, RBC 4.28, Hgb 13.1, Hct 38.8, MCV 90.7, MCH 30.6, MCHC 33.8, RDW 15.2 H, Plt Count 207, MPV 10.7, Gran % 37.0 L, Lymph % (Auto) 54.7 H, [place] % (Auto) 5.7, Eos % (Auto) 2.5, Baso % (Auto) 0.1, Gran # 2.94, Lymph # 4.4 H, [place] # 0.5, Eos # 0.2, Baso # 0.01 I have reviewed the lab results: Yes - RAD Interpretation Radiology Orders: 07/22/17 02:54 CHEST PORTABLE [RAD] Stat Netsuite Developer: ED Physician - EKG Interpretation Interpreted by ED Physician: Yes Type: 12 lead EKG - Scribe Statement The provider has reviewed the documentation as recorded by the Idalmis Caicedo Provider Scribe Attestation: All medical record entries made by the Scribe were at my direction and personally dictated by me. I have reviewed the chart and agree that the record accurately reflects my personal performance of the history, physical exam, medical decision making, and the department course for this patient. I have also personally directed, reviewed, and agree with the discharge instructions and disposition. Disposition/Present on Arrival - Present on Arrival Any Indicators Present on Arrival: No History of DVT/PE: No History of Uncontrolled Diabetes: No Urinary Catheter: No History of Decub. Ulcer: No History Surgical Site Infection Following: None - Disposition Have Diagnosis and Disposition been Completed?: Yes Diagnosis: Depression Disposition: Transfer [facility] Disposition Time: 05:43 Patient Problems: Current Active Problems Problem Status Onset Opioid use disorder, severe, dependence Acute Schizoaffective disorder Chronic Condition: GOOD Additional Instructions: chest x ray neg pt medically stable for transfer and admission to [facility] Forms: [employer] (Divehi)
[2017-07-22 01:33] LABS: ALB/GLOB RATIO 1.3 (1.1-1.8); ALBUMIN 4.4 g/dL (3.0-4.8); ALT/SGPT 30 U/L (7-56); AST/SGOT 27 U/L (14-36); BLOOD UREA NITROGEN 13 mg/dL (7-21); CALCIUM 9.5 mg/dL (8.4-10.5); GFR AFRICAN-AMERICAN > 60; GFR NON-AFRICAN AMERICAN > 60
[2017-07-22 01:45] LABS: URINE BILIRUBIN NEGATIVE (NEGATIVE); URINE BLOOD SMALL (NEGATIVE); URINE GLUCOSE (UA) NEGATIVE (NEGATIVE); URINE LEUKOCYTE ESTERASE NEGATIVE Leu/uL (NEGATIVE); URINE NITRATE NEGATIVE (NEGATIVE); URINE PROTEIN TRACE mg/dL (<30 mg/dL); URINE UROBILINOGEN 0.2 E.U./dL (<1 E.U./dL)
[2017-07-22 01:49] LABS: BASO # 0.01 K/mm3 (0.0-2.0); BASO % 0.1 % (0.0-3.0); EOS # 0.2 (0.0-0.7); EOS % 2.5 % (1.5-5.0); GRAN # 2.94 (1.4-6.5); HEMOGLOBIN 13.1 g/dL (12.0-16.0); LYMPH # 4.4 (1.2-3.4); LYMPH % 54.7 % (22.0-35.0); MEAN CELL VOLUME 90.7 fl (80.0-105.0); MEAN CORPUSCULAR HEMOGLOBIN 30.6 pg (25.0-35.0); MEAN CORPUSCULAR HGB CONC 33.8 g/dl (31.0-37.0); MEAN PLATELET VOLUME 10.7 fl (7.0-11.0); MONO # 0.5 (0.1-0.6); MONO % 5.7 % (1.0-6.0); RBC 4.28 10^6/uL (3.5-6.1); RED CELL DISTRIBUTION WIDTH 15.2 % (11.5-14.5)
[2017-07-22 01:49] LABS: URINE APPEARANCE CLEAR (CLEAR); URINE COLOR YELLOW (YELLOW)
[2017-07-22 01:51] LABS: HCG,QUALITATIVE URINE NEGATIVE (NEGATIVE)
[2017-07-22 01:55] LABS: URINE BACTERIA OCC (NEG); URINE WBC 0 - 2 /hpf (0-6)
[2017-07-22 01:56] LABS: BARBITURATES, UR NEGATIVE (NEGATIVE); BENZODIAZEPINES, UR NEGATIVE (NEGATIVE); PHENCYCLIDINE, UR NEGATIVE (NEGATIVE)
[2017-07-22 02:02] LABS: ACETAMINOPHEN < 10.0 ug/ml (10.0-20.0); SALICYLATE < 1 mg/dL (2.0-20.0)
[2017-07-22 02:34] LABS: OPIATES, UR POSITIVE (NEGATIVE)
[2017-07-22 07:08] VITALS: BP 124/55; PULSE 73; TEMP 98.5; O2SAT 99
--- NOTE | 2017-07-22 07:09 | ED PDOC ---
Physical Exam Vital Signs Reviewed: Yes Vital Signs Temp Pulse Resp BP Pulse Ox 07/22/17 07:07 98.5 F 73 18 124/55 L 99 07/22/17 03:47 78 18 113/65 100 07/22/17 00:17 98.0 F 82 18 125/75 98 Temperature: Afebrile Blood Pressure: Normal Pulse: Regular Respiratory Rate: Normal Medical Decision Making ED Course and Treatment: 07/22/17 07:09 Patient endorsed to me by Dr. Bobby at 07:00, pending psych transfer to [facility]. - Lab Interpretations Lab Results: 07/22/17 00:40 07/22/17 00:40 Lab Results 07/22/17 01:14: Urine Opiates Screen Positive H, Urine Methadone Screen Negative , Ur Barbiturates Screen Negative, Ur Phencyclidine Scrn Negative, Ur Amphetamines Screen Negative, U Benzodiazepines Scrn Negative, U Oth Cocaine Metabols Positive H, U Cannabinoids Screen Negative 07/22/17 01:14: Urine Color Yellow, Urine Appearance Clear, Urine pH 6.0, Ur Specific [place] >= 1.030, Urine Protein Trace H, Urine Glucose (UA) Negative, Urine Ketones Negative, Urine Blood Small H, Urine Nitrate Negative, Urine Bilirubin Negative, Urine Urobilinogen 0.2, Ur Leukocyte Esterase Negative, Urine RBC 1 - 3, Urine WBC 0 - 2, Ur Epithelial Cells 3 - 4, Urine Bacteria Occ , Urine Other Mucus, Urine HCG, Qual Negative 07/22/17 00:40: Alcohol, Quantitative < 10 07/22/17 00:40: Salicylates < 1 L, Acetaminophen < 10.0 L 07/22/17 00:40: Sodium 140, Potassium 3.7, Chloride 106, Carbon Dioxide 23, Anion Gap 14, BUN 13, Creatinine 0.7, Est GFR ( Amer) > 60, Est GFR (Non- Af Amer) > 60, Random Glucose 96, Calcium 9.5, Total Bilirubin 0.2, AST 27, ALT 30, Alkaline Phosphatase 93, Total Protein 7.8, Albumin 4.4, Globulin 3.5, Albumin/Globulin Ratio 1.3 07/22/17 00:40: WBC 8.0 D, RBC 4.28, Hgb 13.1, Hct 38.8, MCV 90.7, MCH 30.6, MCHC 33.8, RDW 15.2 H, Plt Count 207, MPV 10.7, Gran % 37.0 L, Lymph % (Auto) 54.7 H, [place] % (Auto) 5.7, Eos % (Auto) 2.5, Baso % (Auto) 0.1, Gran # 2.94, Lymph # 4.4 H, [place] # 0.5, Eos # 0.2, Baso # 0.01 - RAD Interpretation Radiology Orders: 07/22/17 02:54 CHEST PORTABLE [RAD] Stat Disposition/Present on Arrival - Present on Arrival History of DVT/PE: No History of Uncontrolled Diabetes: No Urinary Catheter: No History of Decub. Ulcer: No History Surgical Site Infection Following: None - Disposition Diagnosis: Depression Disposition: Transfer [facility] Patient Problems: Current Active Problems Problem Status Onset Depression Acute Additional Instructions: chest x ray neg pt medically stable for transfer and admission to [facility] Forms: [employer] (Belizean)
--- NOTE | 2017-07-22 08:49 | RAD ---
HISTORY: cp COMPARISON: 05/23/2017 FINDINGS: LUNGS: No active pulmonary disease. PLEURA: No significant pleural effusion identified, no pneumothorax apparent. CARDIOVASCULAR: Normal. OSSEOUS STRUCTURES: No significant abnormalities. VISUALIZED UPPER ABDOMEN: Normal. OTHER FINDINGS: None. IMPRESSION: No active disease.
--- NOTE | 2017-07-22 11:45 | CARD ---
APPROVED REPORT EKG Measurement Heart [id number] <Conclusion> Normal sinus rhythm Normal ECG
== END 2017-07-22 08:25 | disposition short-term general hospital (02) ==
LOC: ED 23:47
DX: F32.9 Major depressive disorder, single episode, unspecified (principal); F25.9 Schizoaffective disorder, unspecified

== ENCOUNTER 2017-08-14 17:32 | Inpatient (IN) | payer MEDICAID ==
[2017-08-14 17:32] VITALS: BMI 23.5
--- NOTE | 2017-08-14 18:37 | ED PDOC ---
Arrival/HPI - General Chief Complaint: Psychiatric Evaluation Time Seen by Provider: 08/14/17 18:25 Historian: Patient EM Caveat: Psychotic - History of Present Illness Narrative History of Present Illness (Text): 08/14/17 18:35 The patient is a 47 year old female, whose past medical history includes depression, schizoaffective, and substance abuse, who presents to the Emergency department complaining of depression and concern that she may harm herself or others. Patient states she got "off track" yesterday after taking recently prescribed Gabapentin 100mg BID and Naproxen together. Patient reports she has been taking her regular medication and was assessed today for a Rehabilitation Program recommended however was told that she would have to wait until she was stable. Patient endorses homicidal and suicidal ideation at this time. Denies fever, chills, chest pain, shortness of breath, nausea, vomiting, diarrhea, urinary symptoms, back pain, neck pain, headache, dizziness, or illicit substance, or any other complaints. Time/Duration: Prior to Arrival Symptom Onset: Gradual Symptom Course: Unchanged Severity Level: 3 Activities at Onset: Rest Context: Home Past Medical History - Provider Review Nursing Documentation Reviewed: Yes - Travel History Have you recently traveled outside [place] w/in the past 3 mons?: No - Infectious Disease Hx of Infectious Diseases: None - Tetanus Immunization Tetanus Immunization: Unknown - Cardiac Hx Cardiac Disorders: Yes - Pulmonary Hx Respiratory Disorders: No Hx Tuberculosis: No - Neurological Hx Neurological Disorder: No Hx Alzheimer's Disease: No HX Cerebrovascular Accident: No Hx Seizures: No - HEENT Hx HEENT Disorder: No - Renal Hx Renal Disorder: No - Endocrine/Metabolic Hx Endocrine Disorders: No - Hematological/Oncological Hx Anemia: Yes Hx Cancer: No - Integumentary Hx Dermatological Disorder: No - Musculoskeletal/Rheumatological Hx Musculoskeletal Disorders: No - Gastrointestinal Hx Gastrointestinal Disorders: No - Genitourinary/Gynecological Hx Genitourinary Disorders: No Hx Sexually Transmitted Diseases: No - Psychiatric Hx Substance Use: Yes - Past Surgical History Past Surgical History: No Previous - Surgical History Hx Cholecystectomy: Yes Other/Comment: Ectopic preg - Anesthesia Hx Anesthesia: Yes Hx Anesthesia Reactions: No Hx Malignant Hyperthermia: No - Suicidal Assessment Feels Threatened In Home Enviroment: No Family/Social History - Physician Review Nursing Documentation Reviewed: Yes Family/Social History: Unknown Family HX Smoking Status: Light Smoker < 10 Cigarettes Daily Hx Alcohol Use: Yes Hx Substance Use: Yes Substance used: Heroin Hx Substance Use Treatment: Yes Allergies/Home Meds Allergies/Adverse Reactions: Allergies Penicillins Adverse Reaction (Verified 08/15/17 20:47) RASH Review of Systems - Physician Review All systems were reviewed & negative as marked: Yes - Review of Systems Constitutional: Normal Eyes: Normal ENT: Normal Respiratory: Normal Cardiovascular: Normal Gastrointestinal: Constipation Genitourinary Female: Normal Musculoskeletal: Normal Skin: Normal Neurological: Normal Endocrine: Normal Hemo/Lymphatic: Normal Psychiatric: Depression, Suicidal Ideation, Other (homicidal ideation) Physical Exam - Physical Exam Physical Exam Limitations: Psychotic Vital Signs Reviewed: Yes Vital Signs Temp Pulse Resp BP Pulse Ox 08/15/17 07:00 98.7 F 70 16 103/70 99 08/15/17 05:00 98 F 70 16 97/53 L 100 08/15/17 03:00 98.6 F 70 16 139/71 100 08/15/17 01:00 98.6 F 72 16 103/70 100 08/14/17 23:00 98.6 F 70 16 105/70 100 08/14/17 21:00 98.6 F 80 16 101/71 100 08/14/17 19:32 98.6 F 80 16 100/62 100 08/14/17 19:00 9834 F H 85 18 107/64 99 Temperature: Afebrile Blood Pressure: Normal Pulse: Regular Respiratory Rate: Normal Appearance: Positive for: Well-Appearing, Non-Toxic, Comfortable Pain Distress: None Mental Status: Positive for: Alert and Oriented X 3 - Systems Exam Head: Present: Atraumatic, Normocephalic Pupils: Present: Sluggish, Pinpoint (bilateral) Extroacular Muscles: Present: EOMI Conjunctiva: Present: Normal Mouth: Present: Moist Mucous Membranes Neck: Present: Normal Range of Motion Respiratory/Chest: Present: Clear to Auscultation, Good Air Exchange. No: Respiratory Distress, Accessory Muscle Use Cardiovascular: Present: Regular Rate and Rhythm, Normal S1, S2. No: Murmurs Abdomen: Present: Normal Bowel Sounds. No: Tenderness, Distention, Peritoneal Signs Back: Present: Normal Inspection Upper Extremity: Present: Normal Inspection. No: Cyanosis, Edema Lower Extremity: Present: Normal Inspection. No: Edema Neurological: Present: GCS=15, CN II-XII Intact, Speech Normal Skin: Present: Warm, Dry, Normal Color. No: Rashes Psychiatric: Present: Alert, Oriented x 3, Depressed Mood, Suicidal Ideation, Homicidal Ideation, Other (altered mentation) Medical Decision Making ED Course and Treatment: 08/14/17 19:01 Impression The patient is a 47 year old female, whose past medical history includes depression, schizoaffective, and substance abuse, who presents to the Emergency department complaining of depression and concern that she may harm herself or others. On PE, pinpoint pupils, slow gaze, cooperative and responds well to questioning Plan UDS, EtOH levels, CXR, ECG, labs PES called for consult and admission Progress Note Case was discussed with PES Clinician, Naif; Psych attending was notified and advised to observe pt in the ED overnight and dc in the morning when stable Labs Positive for methadone, cocaine and opiates Pt resting in bed w/o issue 08/14/17 23:17 - Lab Interpretations Lab Results: 08/14/17 20:40 08/14/17 20:40 Lab Results 08/14/17 20:40: Alcohol, Quantitative < 10 08/14/17 20:40: Sodium 140, Potassium 4.3, Chloride 101, Carbon Dioxide 29, Anion Gap 14, BUN 11, Creatinine 0.6 L, Est GFR ( Amer) > 60, Est GFR ( Non-Af Amer) > 60, Random Glucose 80, Calcium 9.8, Total Bilirubin 0.4, AST 52 H D, ALT 57 H, Alkaline Phosphatase 96, Total Protein 7.2, Albumin 4.0, Globulin 3.2, Albumin/Globulin Ratio 1.3 08/14/17 20:40: WBC 8.8, RBC 4.07, Hgb 12.2, Hct 37.5, MCV 92.1, MCH 30.0, MCHC 32.5, RDW 16.0 H, Plt Count 177, MPV 11.2 H 08/14/17 19:00: Urine Opiates Screen Positive H, Urine Methadone Screen Positive H, Ur Barbiturates Screen Negative, Ur Phencyclidine Scrn Negative, Ur Amphetamines Screen Negative, U Benzodiazepines Scrn Negative, U Oth Cocaine Metabols Positive H, U Cannabinoids Screen Negative 08/14/17 19:00: Urine Color Yellow, Urine Appearance Clear, Urine pH 7.5, Ur Specific [place] 1.010, Urine Protein Negative, Urine Glucose (UA) Negative, Urine Ketones Negative, Urine Blood Negative, Urine Nitrate Negative, Urine Bilirubin Negative, Urine Urobilinogen 1.0 H, Ur Leukocyte Esterase Negative - RAD Interpretation Radiology Orders: 08/14/17 18:52 CHEST TWO VIEWS (PA/LAT) [RAD] Stat - EKG Interpretation Interpreted by ED Physician: Yes (NSR) - Medication Orders Current Medication Orders: Acetaminophen (Tylenol 325mg Tab) 650 mg PO Q4 PRN PRN Reason: Pain, Mild (1-3) Al Hydrox/Mg Hydrox/Simethicone (Maalox Plus 30 Ml) 30 ml PO DAILY PRN PRN Reason: Upset Stomach Docusate Sodium (Colace) 100 mg PO BID ANTONIO Gabapentin (Neurontin) 300 mg PO TID ANTONIO PRN Reason: Protocol Lactulose (Enulose) 20 gm PO HS PRN PRN Reason: Constipation Magnesium Hydroxide (Milk Of Magnesia) 30 ml PO DAILY PRN PRN Reason: Constipation Naproxen (Anaprox Ds) 550 mg PO BID PRN PRN Reason: severe knee pain Quetiapine Fumarate (Seroquel) 200 mg PO AMHS ANTONIO PRN Reason: Protocol Trazodone HCl (Desyrel) 100 mg PO HS ANTONIO Zolpidem Tartrate (Ambien) 5 mg PO HS PRN; Protocol PRN Reason: Insomnia Discontinued Medications Paroxetine HCl (Paxil) 20 mg PO HS ANTONIO Last Admin: 08/15/17 21:27 Dose: Not Given Non-Admin Reason: Patient Refused Quetiapine Fumarate (Seroquel) 100 mg PO STAT STA PRN Reason: Protocol Stop: 08/16/17 11:08 Zaleplon (Sonata) 5 mg PO HS PRN PRN Reason: Insomnia Last Admin: 08/15/17 21:37 Dose: 5 mg Disposition/Present on Arrival - Present on Arrival Any Indicators Present on Arrival: Yes History of DVT/PE: No History of Uncontrolled Diabetes: No Urinary Catheter: No History Surgical Site Infection Following: None - Disposition Have Diagnosis and Disposition been Completed?: Yes Diagnosis: Schizoaffective disorder, Substance abuse Disposition: HOSPITALIZED Disposition Time: 05:00 (08/15/17) Patient Plan: Admission Patient Problems: Current Active Problems Problem Status Onset Substance abuse Acute Schizoaffective disorder Chronic Condition: FAIR
[2017-08-14 21:23] LABS: HEMOGLOBIN 12.2 g/dL (12.0-16.0); MEAN CELL VOLUME 92.1 fl (80.0-105.0); MEAN CORPUSCULAR HGB CONC 32.5 g/dl (31.0-37.0); MEAN PLATELET VOLUME 11.2 fl (7.0-11.0); RBC 4.07 10^6/uL (3.5-6.1); WHITE BLOOD COUNT 8.8 10^3/ul (4.5-11.0)
[2017-08-14 21:29] LABS: PH,URINE 7.5 (4.7-8.0); URINE BILIRUBIN NEGATIVE (NEGATIVE); URINE BLOOD NEGATIVE (NEGATIVE); URINE GLUCOSE (UA) NEGATIVE (NEGATIVE); URINE LEUKOCYTE ESTERASE NEGATIVE Leu/uL (NEGATIVE); URINE NITRATE NEGATIVE (NEGATIVE); URINE PROTEIN NEGATIVE mg/dL (<30 mg/dL)
[2017-08-14 21:33] LABS: URINE APPEARANCE CLEAR (CLEAR); URINE COLOR YELLOW (YELLOW)
[2017-08-14 21:35] LABS: ALB/GLOB RATIO 1.3 (1.1-1.8); ALT/SGPT 57 U/L (7-56); AST/SGOT 52 U/L (14-36); BLOOD UREA NITROGEN 11 mg/dL (7-21); CALCIUM 9.8 mg/dL (8.4-10.5); GFR AFRICAN-AMERICAN > 60; GFR NON-AFRICAN AMERICAN > 60
[2017-08-14 21:41] LABS: BARBITURATES, UR NEGATIVE (NEGATIVE); BENZODIAZEPINES, UR NEGATIVE (NEGATIVE); PHENCYCLIDINE, UR NEGATIVE (NEGATIVE)
[2017-08-14 21:53] LABS: OPIATES, UR POSITIVE (NEGATIVE)
[2017-08-15 07:23] VITALS: O2SAT 99
--- NOTE | 2017-08-15 08:26 | ED PDOC ---
Physical Exam Vital Signs Reviewed: Yes Vital Signs Temp Pulse Resp BP Pulse Ox 08/15/17 07:00 98.7 F 70 16 103/70 99 08/15/17 05:00 98 F 70 16 97/53 L 100 08/15/17 03:00 98.6 F 70 16 139/71 100 08/15/17 01:00 98.6 F 72 16 103/70 100 08/14/17 23:00 98.6 F 70 16 105/70 100 08/14/17 21:00 98.6 F 80 16 101/71 100 08/14/17 19:32 98.6 F 80 16 100/62 100 08/14/17 19:00 9834 F H 85 18 107/64 99 Temperature: Afebrile Blood Pressure: Normal Pulse: Regular Respiratory Rate: Normal Appearance: Positive for: Well-Appearing, Non-Toxic, Comfortable Pain Distress: None Mental Status: Positive for: Alert and Oriented X 3 Medical Decision Making ED Course and Treatment: 08/15/17 08:27: Case endorsed to me by Dr. Lennon. Pending psychiatric evaluation by Dr. Pedraza, reassessment and disposition. 08/15/17 08:32: Dr. Pedraza evaluated patient. Will admit patient. 08/15/17 08:46: SAGAR evaluated patient. Will admit patient to Dr. Gamboa's service for schizophrenia and bipolar type. - Lab Interpretations Lab Results: 08/14/17 20:40 08/14/17 20:40 Lab Results 08/14/17 20:40: Alcohol, Quantitative < 10 08/14/17 20:40: Sodium 140, Potassium 4.3, Chloride 101, Carbon Dioxide 29, Anion Gap 14, BUN 11, Creatinine 0.6 L, Est GFR ( Amer) > 60, Est GFR ( Non-Af Amer) > 60, Random Glucose 80, Calcium 9.8, Total Bilirubin 0.4, AST 52 H D, ALT 57 H, Alkaline Phosphatase 96, Total Protein 7.2, Albumin 4.0, Globulin 3.2, Albumin/Globulin Ratio 1.3 08/14/17 20:40: WBC 8.8, RBC 4.07, Hgb 12.2, Hct 37.5, MCV 92.1, MCH 30.0, MCHC 32.5, RDW 16.0 H, Plt Count 177, MPV 11.2 H 08/14/17 19:00: Urine Opiates Screen Positive H, Urine Methadone Screen Positive H, Ur Barbiturates Screen Negative, Ur Phencyclidine Scrn Negative, Ur Amphetamines Screen Negative, U Benzodiazepines Scrn Negative, U Oth Cocaine Metabols Positive H, U Cannabinoids Screen Negative 08/14/17 19:00: Urine Color Yellow, Urine Appearance Clear, Urine pH 7.5, Ur Specific [place] 1.010, Urine Protein Negative, Urine Glucose (UA) Negative, Urine Ketones Negative, Urine Blood Negative, Urine Nitrate Negative, Urine Bilirubin Negative, Urine Urobilinogen 1.0 H, Ur Leukocyte Esterase Negative - RAD Interpretation Radiology Orders: 08/14/17 18:52 CHEST TWO VIEWS (PA/LAT) [RAD] Stat - Scribe Statement The provider has reviewed the documentation as recorded by the Scribe Alexsandra Brizuela Provider Scribe Attestation: All medical record entries made by the Scribe were at my direction and personally dictated by me. I have reviewed the chart and agree that the record accurately reflects my personal performance of the history, physical exam, medical decision making, and the department course for this patient. I have also personally directed, reviewed, and agree with the discharge instructions and disposition. Disposition/Present on Arrival - Present on Arrival Any Indicators Present on Arrival: No History of DVT/PE: No History of Uncontrolled Diabetes: No Urinary Catheter: No History of Decub. Ulcer: No History Surgical Site Infection Following: None - Disposition Have Diagnosis and Disposition been Completed?: Yes Diagnosis: Schizoaffective disorder Disposition: HOSPITALIZED Disposition Time: 09:08 Patient Plan: Admission Condition: FAIR
[2017-08-15] MEDS ORDERED: Alum-Mag Hydrox-Simethicone Susp (30 mL) PO PRN (09:38)
[2017-08-15] MEDS ORDERED: Magnesium Hydroxide Susp 30 ml UD PO PRN (09:38)
--- NOTE | 2017-08-15 10:33 | RAD ---
HISTORY: substance abuse COMPARISON: 07/22/2017 TECHNIQUE: Chest PA and lateral FINDINGS: LUNGS: No active pulmonary disease. PLEURA: No significant pleural effusion identified. No pneumothorax apparent. CARDIOVASCULAR: Normal. OSSEOUS STRUCTURES: No significant abnormalities. VISUALIZED UPPER ABDOMEN: Normal. OTHER FINDINGS: None. IMPRESSION: No active disease. No significant interval change compared to the prior examination(s).
--- NOTE | 2017-08-15 19:00 | PCM.BM ---
<Isaiah Rodriguez - Last Filed: 08/15/17 18:59> Treatment Plan Problems - Problems identified on initial assessmt Ineffective Coping Date Initiated: 08/15/17 Time Initiated: 18:59 Assessment reference: NA Status: Active Priority: 1 Hopelessness Date Initiated: 08/15/17 Time Initiated: 18:59 Assessment reference: NA Status: Active Priority: 2 Treatment assets and liabiliti Patient Assests: adapts well (Chronic, Anemia), cooperative, self-reliant, ADL independent, negotiates basic needs, cognitively intact, good interpersonal skills Discharge/Continuing Care - Education Needs Education Needs: Patient Medication, Patient Diagnosis/Disease Process - Discharge Discharge Criteria: Tolerates medication w/o severe side effects, Normal sleep pattern, Reduction of target symptoms Discharge to:: Home <Carly Gamboa - Last Filed: 08/16/17 08:45> - Diagnosis (1) Schizoaffective disorder Status: Chronic Interventions: 08/16/17 08:46 Psychoeducation/psychotherapy Psychopharmacology/adjustment of medications as needed/ monitoring possible side effects Evaluate pt on daily basis Compliance with medications and follow up appointments Long acting medication if pt is noncompliant with pill form Suicide and homicide risk assessment and prevention, coping strategies, safety plan Relapse prevention Reduction of symptoms Improve functional status Possible assertive community treatment Cognitive behavioral therapy Family involvement Possible social skill training as outpatient (2) Polysubstance abuse Status: Chronic Interventions: 08/16/17 08:46 Monitoring withdrawal symptoms Medical detoxification Pharmacotherapy for alcohol/benzos/opioid dependence Maintaining sobriety Relapse prevention Possible rehabilitation Motivational interviewing 12-step programs: AA meetings <Millie Dawson - Last Filed: 08/16/17 16:14>
--- NOTE | 2017-08-15 21:38 | CARD ---
APPROVED REPORT EKG Measurement Heart [id number] <Conclusion> Normal sinus rhythm Normal ECG
[2017-08-16 08:51] LABS: GLUCOSE,FASTING 100 mg/dL (65-110); HDL CHOLESTEROL 57 mg/dL (29-60)
[2017-08-16 09:02] LABS: LDL CHOLESTEROL 69 mg/dL (0-129)
[2017-08-16 09:12] LABS: FREE T4 0.7 ng/dL (0.78-2.19)
[2017-08-16] MEDS: Naproxen 550 mg Tab PO PRN ×2 (12:39→21:04)
--- NOTE | 2017-08-16 13:48 | PCM.PSYCH ---
Initial Psychiatric Evaluation - Initial Psychiatric Evaluation Type of Admission: Voluntary Legal Status: Capacity (pt has a capacity to sign concent for treatment) Chief Complaint (in patient's own words): "I need to straighten my psych medications..., I was not feeling well on medications I was discharged from [facility]" Patient's Reaction to Hospitalization: pt was admitted to the psych unit for evaluation of depressive symptoms, possible suicidal ideation and homicidal ideation (pt denied during today eval) which pt verbalized at the ED. History of Present Illness and Precipitating Events: Shortly pt is 47yo AAF with reported h/o schizoaffective disorder, h/o heroin abuse and dependence, cocaine abuse, alcohol abuse, multiple admissions in the past, most recent was July 2017 at [facility] and June 2017 to this facility, pt has h/o being noncompliance with medications and f/u appts, pt brought herself to the hospital looking for help for her depressive symptoms, inability to function, pt does not have support in the community, pt's father January 2017, since that time pt relapsing on drugs, frequent psych admissions. Pt needs further evaluation and stabilization and meds adjustment. Pt was seen and examined at the the treatment team, pt presented with acceptable personal hygiene, fair ADLs. This science writer is very familiar with this patient from multiple psych admissions. pt reported that she wants to be admitted to the [facility] in [place] and she was referred for psych admission because she did not feel emotionally stable. pt said she was discharged from [facility] program ( inpatient rehab recently) prior to that. Pt said she was discharged from [facility] last month and she was compliant with medications "But I don't think it was working', pt c/o vomiting, abdominal pain. Pt said she also relapsed on Heroin and cocaine once, denied daily using. pt reported that she was feeling depressed after discharge from [facility] , hopeless, helpless, pt reported to have passive wish to be , in the ED pt verbalized thoughts of harming others, but denied during initial assessment today. pt said after being depressed, she became manic, then "I crushed into depression again". pt denied hearing voices or seeing things, denied feeling paranoid. pt reported to have insomnia, poor appetite. Pt denied feeling anxious. past psych h/o: multiple admissions in the past, h/o 2x suicidal attempts in 2016 pt tried to overdose and tried to jump in front of the car, 2008pt attempted to cut her wrist. Medical h/o: ? COPD or asthma, arthritis, Gout?, pt c/o knee pain, pt has h/o being seen by orthopedist, will call him back again. Social h/o: pt is on ssi, not working Pt reported smoking 6 cigarettes a day, does not want to have a nicotine patch. Smoking Cessation Counseling: The patient was counseled as to the multiple risks to his/her health from continued use of tobacco products. It was explained that continuing to smoke may lead to multiple short and technician terminal and repeater negative health consequences, including but not limited to mouth/esophageal /lung cancer, COPD, and heart disease. He/she states he/she understands these risks, and also understands the options and resources available to him/her to help him/her stop smoking. Nicotine replacement therapy, local hotlines, and local resources were discussed as viable options for helping him/her stop his/her tobacco use. The total time spent counseling the patient regarding tobacco cessation was 3 minutes family h/o: denied pt denied h/o abuse As per Nathan Discharge note, pt was provided with the following prescriptions: meds were confirmed by pt's pharmacy as [id number] Gabapentin [Neurontin] 300 mg PO BID #60 cap PARoxetine [Paxil] 20 mg PO DAILY #30 tab QUEtiapine [SEROquel] 200 mg PO HS #30 tab traZODone [Desyrel] 100 mg PO HS #30 tab naproxen twice a day labs: 08/14/17 20:40: Alcohol, Quantitative < 10 08/14/17 20:40: Sodium 140, Potassium 4.3, Chloride 101, Carbon Dioxide 29, Anion Gap 14, BUN 11, Creatinine 0.6 L, Est GFR ( Amer) > 60, Est GFR ( Non-Af Amer) > 60, Random Glucose 80, Calcium 9.8, Total Bilirubin 0.4, AST 52 H D, ALT 57 H, Alkaline Phosphatase 96, Total Protein 7.2, Albumin 4.0, Globulin 3.2, Albumin/Globulin Ratio 1.3 08/14/17 20:40: WBC 8.8, RBC 4.07, Hgb 12.2, Hct 37.5, MCV 92.1, MCH 30.0, MCHC 32.5, RDW 16.0 H, Plt Count 177, MPV 11.2 H 08/14/17 19:00: Urine Opiates Screen Positive H, Urine Methadone Screen Positive H, Ur Barbiturates Screen Negative, Ur Phencyclidine Scrn Negative, Ur Amphetamines Screen Negative, U Benzodiazepines Scrn Negative, U Oth Cocaine Metabols Positive H, U Cannabinoids Screen Negative 08/14/17 19:00: Urine Color Yellow, Urine Appearance Clear, Urine pH 7.5, Ur Specific [place] 1.010, Urine Protein Negative, Urine Glucose (UA) Negative, Urine Ketones Negative, Urine Blood Negative, Urine Nitrate Negative, Urine Bilirubin Negative, Urine Urobilinogen 1.0 H, Ur Leukocyte Esterase Negative Current Medications: Active Medications Generic Name Dose Route Start Last Admin Trade Name Freq PRN Reason Stop Dose Admin Acetaminophen 650 mg 08/15/17 09:38 Tylenol 325mg Tab PO Q4 PRN Pain, Mild (1-3) Al Hydrox/Mg Hydrox/Simethicone 30 ml 08/15/17 09:38 Maalox Plus 30 Ml PO DAILY PRN Upset Stomach Magnesium Hydroxide 30 ml 08/15/17 09:38 Milk Of Magnesia PO DAILY PRN Constipation Paroxetine HCl 20 mg 08/15/17 22:00 08/15/17 21:27 Paxil PO Not Given HS ANTONIO Zaleplon 5 mg 08/15/17 09:44 08/15/17 21:37 Sonata PO 5 mg HS PRN Administration Insomnia Past Psychiatric History - Past Psychiatric History Previous Treatment History: Inpatient Prior Professional Help: see HPI Prior Psychiatric Treatment: see HPI At what hospital: see HPI Duration: see HPI Nature of Treatment: see HPI Explanation of prior treatment: see HPI History of Abuse: see HPI History of ETOH/Drug Use: see HPI History of Family Illness: see HPI Pertinent Medical Hx (Current Medical&Sleep Prob, Allergies): Allergies Allergy/AdvReac Type Severity Reaction Status Date / Time Penicillins AdvReac RASH Verified 08/15/17 20:47 Gabapentin [Neurontin] 300 mg PO BID #60 cap 07/26/17 PARoxetine [Paxil] 20 mg PO DAILY #30 tab 07/26/17 QUEtiapine [SEROquel] 200 mg PO HS #30 tab 07/26/17 traZODone [Desyrel] 100 mg PO HS #30 tab 07/26/17 Review of Systems - Review of Systems Systems not reviewed;Unavailable: Acuity of Condition - EENT Eyes: As Per HPI Ears: As Per HPI Nose/Mouth/Throat: As Per HPI - Breasts Breasts: As Per HPI - Cardiovascular Cardiovascular: As Per HPI - Respiratory Respiratory: As Per HPI - Gastrointestinal Gastrointestinal: As Per HPI - Genitourinary Genitourinary: As Per HPI - Reproductive: Female Reproductive:Female: As Per HPI - Menstruation Menstruation: As Per HPI - Musculoskeletal Musculoskeletal: As Par HPI - Integumentary Integumentary: As Per HPI - Neurological Neurological: As Per HPI - Psychiatric Psychiatric: As Per HPI - Endocrine Endocrine: As Per HPI - Hematologic/Lymphatic Hematologic: As Per HPI Mental Status Examination - Personal Presentation Personal Presentation: Looks older than stated age - Affect Affect: Flat - Motor Activity Motor Activity: Calm - Reliability in Providing Information Reliability in Providing Information: Fair - Speech Speech: Organized - Mood Mood: Depressed - Formal Thought Process Formal Thought Process: No Impairment - Obsessions/Compulsions Obsessions: No Compulsions: No - Cognitive Functions Orientation: Person, Place, Situation Sensorium: Alert Attention/Concentration: Easily distracted Abstract Thinking: [place] Estimate of Intelligence: Below average Judgement: Intact, as evidence by: Insight regarding need for hospitalization - Risk Risk: Self-mutilation, Diminished functioning - Strength & Assets Inventory Strength & Assets Inventory: Skills, Cooperative - Limitations Limitations: Other (substance abuse and chronic noncompliance with meds and f/u appt) DSM 5 DX - DSM 5 DSM 5 Diagnosis: schizoaffective d/o as per h/o cocaine abuse opioid addiction rule out substance-induced mood disorder - Recommended/Plan of Treatment Treatment Recommendations and Plan of Treatment: milieu/structure/supportive therapy patient pharmacy was called phone number [phone] most recent medication list: Naproxen 500 mg twice a day will be resumed SEROquel will be resumed 200 milligrams at the morning and night as a mood stabilizer trazodone will be resumed 100mg po hs for depression and insomnia paxil will be d/c, pt does not want to be on it, c/o upset stomach and vomiting ambien 5mg po hs prn for insomnia pt will be seen by medical team SW evaluation for possible inpatient rehab (pt wants to be admitted to [facility] in [place]) will f/u on labs will monitor closely Projected ELOS: 7days Prognosis: guarded Discharge Plan and Discharge Criteria: Pt will be not depressed or manic, will be more hopeful, will be not psychotic or anxious, will be not having thoughts of harming self or others, will be tolerating medications well, will not have major side effects, will be able to function, will not pose threat to self or others - Smoking Cessation Smoking Cessation Initiated: No Reason for not providing: pt refused
--- NOTE | 2017-08-16 18:06 | CP.PCM.CON ---
<Rei Lobo - Last Filed: 08/16/17 17:58> History of Present Illness - History of Present Illness History of Present Illness: MEDICINE CONSULT NOTE Ms. Iraheta is a 46 year old female with a past medical history significant for schizoaffective disorder, heroin abuse, insomnia, and depression who presents feeling depressed for several weeks after getting into an argument with her family. The patient currently denies homicidal ideation or suicidal ideation. She recently graduated from an [facility] program but reports that she used heroin the day she left. She denies that the methadone taper that she is on is helping her addiction. She endorses chronic left knee pain and reports that it becomes more swollen than her right knee. She denies trauma. This is patients only complaint at this time. She denies fever, chills, headache, chest pain, palpitations, SOB , cough, abdominal pain, N/V/D/C, urinary symptoms, skin changes, or any numbness/tingling of any extremity. PMD: Dr. San PMH: Schizoaffective disorder, heroin abuse, insomnia, and depression PSH: Gall Bladder Removal Family History: Denies Social History: Endorses 6 cigarettes daily, heroin abuse on methadone, and denies alcohol abuse Allergies: Penicillin Home Medications: As per MAR Review of Systems - Review of Systems Review of Systems: As per HPI, otherwise negative Past Patient History - Infectious Disease Hx of Infectious Diseases: None - Tetanus Immunizations Tetanus Immunization: Unknown - Past Social History Smoking Status: Light Smoker < 10 Cigarettes Daily - CARDIAC Hx Cardiac Disorders: Yes - PULMONARY Hx Respiratory Disorders: No Hx Tuberculosis: No - NEUROLOGICAL Hx Neurological Disorder: No Hx Alzheimer's Disease: No HX Cerebrovascular Accident: No Hx Seizures: No - HEENT Hx HEENT Problems: No - RENAL Hx Chronic Kidney Disease: No - ENDOCRINE/METABOLIC Hx Endocrine Disorders: No - HEMATOLOGICAL/ONCOLOGICAL Hx Anemia: Yes Hx Cancer: No - INTEGUMENTARY Hx Dermatological Problems: No - MUSCULOSKELETAL/RHEUMATOLOGICAL Hx Musculoskeletal Disorders: No - GASTROINTESTINAL Hx Gastrointestinal Disorders: No - GENITOURINARY/GYNECOLOGICAL Hx Genitourinary Disorders: No Hx Sexually Transmitted Disorders: No - PSYCHIATRIC Hx Substance Use: Yes - SURGICAL HISTORY Hx Cholecystectomy: Yes Other/Comment: Ectopic preg - ANESTHESIA Hx Anesthesia: Yes Hx Anesthesia Reactions: No Hx Malignant Hyperthermia: No Meds Allergies/Adverse Reactions: Allergies Allergy/AdvReac Type Severity Reaction Status Date / Time Penicillins AdvReac RASH Verified 08/15/17 20:47 - Medications Medications: Current Medications Acetaminophen (Tylenol 325mg Tab) 650 mg PO Q4 PRN PRN Reason: Pain, Mild (1-3) Al Hydrox/Mg Hydrox/Simethicone (Maalox Plus 30 Ml) 30 ml PO DAILY PRN PRN Reason: Upset Stomach Clonidine HCl (Catapres) 0.1 mg PO BID PRN PRN Reason: Opiate reversal Last Admin: 08/16/17 16:13 Dose: 0.1 mg Docusate Sodium (Colace) 100 mg PO BID ANTONIO Last Admin: 08/16/17 17:34 Dose: 100 mg Gabapentin (Neurontin) 300 mg PO TID [facility] PRN Reason: Protocol Last Admin: 08/16/17 17:34 Dose: 300 mg Lactulose (Enulose) 20 gm PO HS PRN PRN Reason: Constipation Loperamide HCl (Imodium) 2 mg PO QID PRN PRN Reason: diarrhea Magnesium Hydroxide (Milk Of Magnesia) 30 ml PO DAILY PRN PRN Reason: Constipation Naproxen (Anaprox Ds) 550 mg PO BID PRN PRN Reason: severe knee pain Last Admin: 08/16/17 12:39 Dose: 550 mg Quetiapine Fumarate (Seroquel) 200 mg PO AMHS [facility] PRN Reason: Protocol Trazodone HCl (Desyrel) 100 mg PO HS ANTONIO Zolpidem Tartrate (Ambien) 5 mg PO HS PRN; Protocol PRN Reason: Insomnia Physical Exam - Constitutional Appears: Well, Non-toxic, No Acute Distress - Head Exam Head Exam: ATRAUMATIC, NORMAL INSPECTION, NORMOCEPHALIC - Eye Exam Eye Exam: EOMI, Normal appearance, PERRL - ENT Exam ENT Exam: Mucous Membranes Moist, Normal Exam - Neck Exam Neck exam: Positive for: Full Rom, Normal Inspection. Negative for: Lymphadenopathy - Respiratory Exam Respiratory Exam: Clear to Auscultation Bilateral, NORMAL BREATHING PATTERN - Cardiovascular Exam Cardiovascular Exam: REGULAR RHYTHM, RRR - GI/Abdominal Exam GI & Abdominal Exam: Normal Bowel Sounds, Soft. absent: Tenderness - Extremities Exam Extremities exam: Positive for: full ROM, normal capillary refill, normal inspection, pedal pulses present. Negative for: calf tenderness, joint swelling , pedal edema, tenderness Additional comments: Full ROM not limited by pain; Denies tenderness to palpation of left knee and this joint currently not edematous, erythematous or showing signs of infection or inflammation - Back Exam Back exam: NORMAL INSPECTION - Neurological Exam Neurological exam: Alert, CN II-XII Intact, Normal Gait, Oriented x3, Reflexes Normal - Psychiatric Exam Psychiatric exam: Normal Affect, Normal Mood - Skin Skin Exam: Dry, Intact, Normal Color, Warm Results - Vital Signs Recent Vital Signs: Last Vital Signs Temp 97.8 F 08/16/17 07:21 Pulse 54 L 08/16/17 16:13 Resp 20 08/16/17 07:21 BP 104/64 08/16/17 16:13 Pulse Ox 99 08/15/17 09:08 - Labs Result Diagrams: 08/14/17 20:40 08/14/17 20:40 Labs: Laboratory Results - last 24 hr 08/16/17 08/16/17 08:20 08:20 Fasting Glucose 100 Triglycerides 106 Cholesterol 184 LDL Cholesterol Direct 69 HDL Cholesterol 57 Free T4 0.70 L TSH 3rd Generation 0.28 L Assessment & Plan - Assessment and Plan (Free Text) Assessment: 46 year old female with a past medical history significant for schizoaffective disorder, heroin abuse, insomnia, and depression who presents feeling depressed for several weeks after getting into an argument with her family. Patient endorses chronic left knee pain for which she is on Naproxen PRN. Plan: 1. Left Knee Pain -Multiple radiographs of left knee taken in past, most recently 05/21/17, that have revealed no abnormalities -Continue Naproxen PRN for pain control -Monitor for signs of clinical infection 2. Hypothyroidism -TSH and Free T4 both below normal limits -Suggest thyroid hormone supplementation -Will discuss with psychiatric treatment team Patient seen and case discussed with attending, Dr. Johnston. Will follow patient along with you while inpatient. - Date & Time Date: 08/16/17 Time: 12:00 <Conner Johnston - Last Filed: 08/16/17 22:52> Meds - Medications Medications: Current Medications Acetaminophen (Tylenol 325mg Tab) 650 mg PO Q4 PRN PRN Reason: Pain, Mild (1-3) Al Hydrox/Mg Hydrox/Simethicone (Maalox Plus 30 Ml) 30 ml PO DAILY PRN PRN Reason: Upset Stomach Clonidine HCl (Catapres) 0.1 mg PO BID PRN PRN Reason: Opiate reversal Last Admin: 08/16/17 16:13 Dose: 0.1 mg Docusate Sodium (Colace) 100 mg PO BID [facility] Last Admin: 08/16/17 17:34 Dose: 100 mg Gabapentin (Neurontin) 300 mg PO TID ANTONIO PRN Reason: Protocol Last Admin: 08/16/17 17:34 Dose: 300 mg Lactulose (Enulose) 20 gm PO HS PRN PRN Reason: Constipation Loperamide HCl (Imodium) 2 mg PO QID PRN PRN Reason: diarrhea Magnesium Hydroxide (Milk Of Magnesia) 30 ml PO DAILY PRN PRN Reason: Constipation Naproxen (Anaprox Ds) 550 mg PO BID PRN PRN Reason: severe knee pain Last Admin: 08/16/17 21:04 Dose: 550 mg Quetiapine Fumarate (Seroquel) 200 mg PO AMHS ANTONIO PRN Reason: Protocol Last Admin: 08/16/17 21:02 Dose: 200 mg Trazodone HCl (Desyrel) 100 mg PO HS [facility] Last Admin: 08/16/17 21:01 Dose: 100 mg Zolpidem Tartrate (Ambien) 5 mg PO HS PRN; Protocol PRN Reason: Insomnia Last Admin: 08/16/17 21:02 Dose: 5 mg Results - Vital Signs Recent Vital Signs: Last Vital Signs Temp 97.8 F 08/16/17 07:21 Pulse 54 L 08/16/17 16:13 Resp 20 08/16/17 07:21 BP 104/64 08/16/17 16:13 Pulse Ox 99 08/15/17 09:08 - Labs Result Diagrams: 08/14/17 20:40 08/14/17 20:40 Labs: Laboratory Results - last 24 hr 08/16/17 08/16/17 08:20 08:20 Fasting Glucose 100 Triglycerides 106 Cholesterol 184 LDL Cholesterol Direct 69 HDL Cholesterol 57 Free T4 0.70 L TSH 3rd Generation 0.28 L Attending/Attestation - Attestation I have personally seen and examined this patient.: Yes I have fully participated in the care of the patient.: Yes I have reviewed all pertinent clinical information: Yes Notes (Text): 08/16/17 22:47 46 year old female with past medical history of depression, schizoaffective disorder, and substance abuse who presented with complaint of depressed mood and suicidal ideation. Continue with management as per psychiatrist. She is currently on seroquel and trazodone. She was counselled on risks of continued substance abuse. Agree with naproxen prn for left knee pain. Labs reviewed including mild transaminitis. Recommended to monitor closely as outpatient. TSH was also low and low normal FT4. ?Euthyroid sick syndrome. Recommended to repeat TFTs in 4-6 weeks. Conner Johnston MD Hospitalist.
--- NOTE | 2017-08-17 14:00 | PCM.PYCHPN ---
Psychiatric Progress Note - Psychiatric Progress Note Patient seen today, length of contact: 30min Patient Chief Complaint: "I feel irritable, I don't want to snap on nobody, that is why I am staying in my room" Problems Identified/Issues Discussed: Suicide/ homicide prevention, past psychiatric h/o, current psychiatric symptoms , medical problems, risk/benefits and alternatives of medications, medications compliance, coping strategies, substance abuse h/o, relapse prevention, importance of follow up with psychiatrist and therapist, discharge plan. Medical Problems: COPD or asthma, arthritis, Gout?/vs OA Diagnostic Results: 08/14/17 20:40 08/14/17 20:40 Lab Results 08/16/17 08:20: Free T4 0.70 L, TSH 3rd Generation 0.28 L 08/16/17 08:20: Fasting Glucose 100, Triglycerides 106, Cholesterol 184, LDL Cholesterol Direct 69, HDL Cholesterol 57 08/14/17 20:40: Alcohol, Quantitative < 10 08/14/17 20:40: Sodium 140, Potassium 4.3, Chloride 101, Carbon Dioxide 29, Anion Gap 14, BUN 11, Creatinine 0.6 L, Est GFR ( Amer) > 60, Est GFR ( Non-Af Amer) > 60, Random Glucose 80, Calcium 9.8, Total Bilirubin 0.4, AST 52 H D, ALT 57 H, Alkaline Phosphatase 96, Total Protein 7.2, Albumin 4.0, Globulin 3.2, Albumin/Globulin Ratio 1.3 08/14/17 20:40: WBC 8.8, RBC 4.07, Hgb 12.2, Hct 37.5, MCV 92.1, MCH 30.0, MCHC 32.5, RDW 16.0 H, Plt Count 177, MPV 11.2 H 08/14/17 19:00: Urine Opiates Screen Positive H, Urine Methadone Screen Positive H, Ur Barbiturates Screen Negative, Ur Phencyclidine Scrn Negative, Ur Amphetamines Screen Negative, U Benzodiazepines Scrn Negative, U Oth Cocaine Metabols Positive H, U Cannabinoids Screen Negative 08/14/17 19:00: Urine Color Yellow, Urine Appearance Clear, Urine pH 7.5, Ur Specific [place] 1.010, Urine Protein Negative, Urine Glucose (UA) Negative, Urine Ketones Negative, Urine Blood Negative, Urine Nitrate Negative, Urine Bilirubin Negative, Urine Urobilinogen 1.0 H, Ur Leukocyte Esterase Negative Vital Signs Temp Pulse Resp BP Pulse Ox 08/17/17 07:07 98.4 F 56 L 20 120/80 08/16/17 16:13 54 L 104/64 08/16/17 16:00 87 115/67 08/16/17 07:21 97.8 F 52 L 20 122/81 08/15/17 22:06 59 L 109/64 08/15/17 09:40 98.2 F 67 20 104/60 08/15/17 09:35 20 08/15/17 09:08 72 16 105/63 99 08/15/17 07:00 98.7 F 70 16 103/70 99 08/15/17 05:00 98 F 70 16 97/53 L 100 08/15/17 03:00 98.6 F 70 16 139/71 100 08/15/17 01:00 98.6 F 72 16 103/70 100 08/14/17 23:00 98.6 F 70 16 105/70 100 08/14/17 21:00 98.6 F 80 16 101/71 100 08/14/17 19:32 98.6 F 80 16 100/62 100 08/14/17 19:00 9834 F H 85 18 107/64 99 DSM 5 Symptoms Update: Shortly pt is 47yo AAF with reported h/o schizoaffective disorder, h/o heroin abuse and dependence, cocaine abuse, alcohol abuse, multiple admissions in the past, most recent was July 2017 at [facility] and June 2017 to this facility, pt has h/o being noncompliance with medications and f/u appts, pt brought herself to the hospital looking for help for her depressive symptoms, inability to function, pt does not have support in the community, pt's father January 2017, since that time pt relapsing on drugs, frequent psych admissions. Pt needs further evaluation and stabilization and meds adjustment. Pt was seen and examined in her room, pt is self isolative, said she prefer to stay in her room because "I feel very irritable, I don't want to snap on nobody ". pt said she slept better, but mood is "still depressed and annoyed". pt denied thoughts of harming self or others. denied psychotic symptoms. pt asked meds for withdrawals but pt said at treatment team yesterday that she relapsed only once on cocaine and heroin. pt tolerated meds well, no side effects observed or reported, AIMS 0, no EPS. Impression: DSM 5 Diagnosis: schizoaffective d/o as per h/o cocaine abuse opioid addiction rule out substance-induced mood disorder Medication Change: Yes Medical Record Reviewed: Yes Consults ordered or reviewed: med consult appreciated Mental Status Examination - Cognitive Function Orientation: Person, Place, Situation Memory: Intact Attention: Poor Concentration: Poor Association: WNL Fund of Knowledge: WNL - Mood Mood: Depressed (and irritable) - Affect Affect: Flat - Speech Speech: Appropriate (but underproductive) - Formal Thought Process Formal Thought Process: No Impairment - Suicidal Ideation Suicidal Ideation: No - Homicidal Ideation Homicidal Ideation: No Goal/Treatment Plan - Goal/Treatment Plan Need for Continued Stay: Remain at risks for inpatient hospitalization, Severe depression anxiety, Discharge may exacerbated symptoms, Severe functional impairment Progress Toward Problem(s) and Goals/Treatment Plan: milieu/structure/supportive therapy patient pharmacy was called phone number [phone] most recent medication list: Naproxen 500 mg twice a day will be resumed SEROquel 200 milligrams at the morning and night as a mood stabilizer trazodone 100mg po hs for depression and insomnia prn meds clonidine for possible opioids withdrawals ambien 5mg po hs prn for insomnia pt will be seen by medical team SW evaluation for possible inpatient rehab (pt wants to be admitted to [facility] in [place]) will f/u on labs will monitor closely Estimated Date of D/C: 08/23/17
[2017-08-17] MEDS: Naproxen 550 mg Tab PO PRN (21:15)
--- NOTE | 2017-08-18 15:55 | PCM.PYCHPN ---
Psychiatric Progress Note - Psychiatric Progress Note Patient seen today, length of contact: 30min Patient Chief Complaint: "I need to be on mood stabilizer" Problems Identified/Issues Discussed: Suicide/ homicide prevention, past psychiatric h/o, current psychiatric symptoms , medical problems, risk/benefits and alternatives of medications, medications compliance, coping strategies, substance abuse h/o, relapse prevention, importance of follow up with psychiatrist and therapist, discharge plan. Medical Problems: COPD or asthma, arthritis, Gout?/vs OA Diagnostic Results: 08/14/17 20:40 08/14/17 20:40 Lab Results 08/16/17 08:20: Free T4 0.70 L, TSH 3rd Generation 0.28 L 08/16/17 08:20: Fasting Glucose 100, Triglycerides 106, Cholesterol 184, LDL Cholesterol Direct 69, HDL Cholesterol 57 08/14/17 20:40: Alcohol, Quantitative < 10 08/14/17 20:40: Sodium 140, Potassium 4.3, Chloride 101, Carbon Dioxide 29, Anion Gap 14, BUN 11, Creatinine 0.6 L, Est GFR ( Amer) > 60, Est GFR ( Non-Af Amer) > 60, Random Glucose 80, Calcium 9.8, Total Bilirubin 0.4, AST 52 H D, ALT 57 H, Alkaline Phosphatase 96, Total Protein 7.2, Albumin 4.0, Globulin 3.2, Albumin/Globulin Ratio 1.3 08/14/17 20:40: WBC 8.8, RBC 4.07, Hgb 12.2, Hct 37.5, MCV 92.1, MCH 30.0, MCHC 32.5, RDW 16.0 H, Plt Count 177, MPV 11.2 H 08/14/17 19:00: Urine Opiates Screen Positive H, Urine Methadone Screen Positive H, Ur Barbiturates Screen Negative, Ur Phencyclidine Scrn Negative, Ur Amphetamines Screen Negative, U Benzodiazepines Scrn Negative, U Oth Cocaine Metabols Positive H, U Cannabinoids Screen Negative 08/14/17 19:00: Urine Color Yellow, Urine Appearance Clear, Urine pH 7.5, Ur Specific [place] 1.010, Urine Protein Negative, Urine Glucose (UA) Negative, Urine Ketones Negative, Urine Blood Negative, Urine Nitrate Negative, Urine Bilirubin Negative, Urine Urobilinogen 1.0 H, Ur Leukocyte Esterase Negative Vital Signs Temp Pulse Resp BP Pulse Ox 08/17/17 07:07 98.4 F 56 L 20 120/80 08/16/17 16:13 54 L 104/64 08/16/17 16:00 87 115/67 08/16/17 07:21 97.8 F 52 L 20 122/81 08/15/17 22:06 59 L 109/64 08/15/17 09:40 98.2 F 67 20 104/60 08/15/17 09:35 20 08/15/17 09:08 72 16 105/63 99 08/15/17 07:00 98.7 F 70 16 103/70 99 08/15/17 05:00 98 F 70 16 97/53 L 100 08/15/17 03:00 98.6 F 70 16 139/71 100 08/15/17 01:00 98.6 F 72 16 103/70 100 08/14/17 23:00 98.6 F 70 16 105/70 100 08/14/17 21:00 98.6 F 80 16 101/71 100 08/14/17 19:32 98.6 F 80 16 100/62 100 08/14/17 19:00 9834 F H 85 18 107/64 99 DSM 5 Symptoms Update: Shortly pt is 47yo AAF with reported h/o schizoaffective disorder, h/o heroin abuse and dependence, cocaine abuse, alcohol abuse, multiple admissions in the past, most recent was July 2017 at [facility] and June 2017 to this facility, pt has h/o being noncompliance with medications and f/u appts, pt brought herself to the hospital looking for help for her depressive symptoms, inability to function, pt does not have support in the community, pt's father January 2017, since that time pt relapsing on drugs, frequent psych admissions. Pt needs further evaluation and stabilization and meds adjustment. Pt was seen and examined at the treatment team room, pt said that she feels irritable and she asked to be on mood stabilizer, pt was advised that she is on seroquel. pt said that she still feels depressed but more hopeful. pt denied thoughts of harming self or others. denied psychotic symptoms. pt tolerated meds well, no side effects observed or reported, AIMS 0, no EPS. as per staff urinated in her bed over night, no signs of UTI Impression: DSM 5 Diagnosis: schizoaffective d/o as per h/o cocaine abuse opioid addiction rule out substance-induced mood disorder Medication Change: Yes (seroquel increased) Medical Record Reviewed: Yes Mental Status Examination - Cognitive Function Orientation: Person, Place, Situation Memory: Intact Attention: Poor Concentration: Poor Association: WNL Fund of Knowledge: WNL - Mood Mood: Depressed (and irritable) - Affect Affect: Flat - Speech Speech: Appropriate (but underproductive) - Formal Thought Process Formal Thought Process: No Impairment - Suicidal Ideation Suicidal Ideation: No - Homicidal Ideation Homicidal Ideation: No Goal/Treatment Plan - Goal/Treatment Plan Need for Continued Stay: Remain at risks for inpatient hospitalization, Severe depression anxiety, Discharge may exacerbated symptoms, Severe functional impairment Progress Toward Problem(s) and Goals/Treatment Plan: milieu/structure/supportive therapy patient pharmacy was called phone number [phone] most recent medication list: Naproxen 500 mg twice a day will be resumed SEROquel 200 milligrams at the morning and 300mg night as a mood stabilizer trazodone 100mg po hs for depression and insomnia prn meds clonidine for possible opioids withdrawals ambien 5mg po hs prn for insomnia pt will be seen by medical team SW evaluation for possible inpatient rehab (pt wants to be admitted to [facility] in [place]) will f/u on labs will monitor closely Estimated Date of D/C: 08/23/17
[2017-08-18] MEDS: Naproxen 550 mg Tab PO PRN (20:59)
[2017-08-19] MEDS: Naproxen 550 mg Tab PO PRN (12:57)
--- NOTE | 2017-08-19 16:16 | PCM.PYCHPN ---
Psychiatric Progress Note - Psychiatric Progress Note Patient seen today, length of contact: 30min Patient Chief Complaint: "I feel very anxious, my mind is racing" Problems Identified/Issues Discussed: Suicide/ homicide prevention, past psychiatric h/o, current psychiatric symptoms , medical problems, risk/benefits and alternatives of medications, medications compliance, coping strategies, substance abuse h/o, relapse prevention, importance of follow up with psychiatrist and therapist, discharge plan. Medical Problems: COPD or asthma, arthritis, Gout?/vs OA Diagnostic Results: 08/14/17 20:40 08/14/17 20:40 Lab Results 08/16/17 08:20: Free T4 0.70 L, TSH 3rd Generation 0.28 L 08/16/17 08:20: Fasting Glucose 100, Triglycerides 106, Cholesterol 184, LDL Cholesterol Direct 69, HDL Cholesterol 57 08/14/17 20:40: Alcohol, Quantitative < 10 08/14/17 20:40: Sodium 140, Potassium 4.3, Chloride 101, Carbon Dioxide 29, Anion Gap 14, BUN 11, Creatinine 0.6 L, Est GFR ( Amer) > 60, Est GFR ( Non-Af Amer) > 60, Random Glucose 80, Calcium 9.8, Total Bilirubin 0.4, AST 52 H D, ALT 57 H, Alkaline Phosphatase 96, Total Protein 7.2, Albumin 4.0, Globulin 3.2, Albumin/Globulin Ratio 1.3 08/14/17 20:40: WBC 8.8, RBC 4.07, Hgb 12.2, Hct 37.5, MCV 92.1, MCH 30.0, MCHC 32.5, RDW 16.0 H, Plt Count 177, MPV 11.2 H 08/14/17 19:00: Urine Opiates Screen Positive H, Urine Methadone Screen Positive H, Ur Barbiturates Screen Negative, Ur Phencyclidine Scrn Negative, Ur Amphetamines Screen Negative, U Benzodiazepines Scrn Negative, U Oth Cocaine Metabols Positive H, U Cannabinoids Screen Negative 08/14/17 19:00: Urine Color Yellow, Urine Appearance Clear, Urine pH 7.5, Ur Specific [place] 1.010, Urine Protein Negative, Urine Glucose (UA) Negative, Urine Ketones Negative, Urine Blood Negative, Urine Nitrate Negative, Urine Bilirubin Negative, Urine Urobilinogen 1.0 H, Ur Leukocyte Esterase Negative Vital Signs Temp Pulse Resp BP Pulse Ox 08/17/17 07:07 98.4 F 56 L 20 120/80 08/16/17 16:13 54 L 104/64 08/16/17 16:00 87 115/67 08/16/17 07:21 97.8 F 52 L 20 122/81 08/15/17 22:06 59 L 109/64 08/15/17 09:40 98.2 F 67 20 104/60 08/15/17 09:35 20 08/15/17 09:08 72 16 105/63 99 08/15/17 07:00 98.7 F 70 16 103/70 99 08/15/17 05:00 98 F 70 16 97/53 L 100 08/15/17 03:00 98.6 F 70 16 139/71 100 08/15/17 01:00 98.6 F 72 16 103/70 100 08/14/17 23:00 98.6 F 70 16 105/70 100 08/14/17 21:00 98.6 F 80 16 101/71 100 08/14/17 19:32 98.6 F 80 16 100/62 100 08/14/17 19:00 9834 F H 85 18 107/64 99 DSM 5 Symptoms Update: Shortly pt is 47yo AAF with reported h/o schizoaffective disorder, h/o heroin abuse and dependence, cocaine abuse, alcohol abuse, multiple admissions in the past, most recent was July 2017 at [facility] and June 2017 to this facility, pt has h/o being noncompliance with medications and f/u appts, pt brought herself to the hospital looking for help for her depressive symptoms, inability to function, pt does not have support in the community, pt's father January 2017, since that time pt relapsing on drugs, frequent psych admissions. Pt needs further evaluation and stabilization and meds adjustment. Pt was seen and examined at the treatment team room, pt said that she feels very anxious and "my mind is racing", pt also c/o knee pain, Medical team was contacted, recommended PT and ortho evaluation, consults called. pt was offered to increase neurontin pt said that she still feels depressed but more hopeful. pt denied thoughts of harming self or others. denied psychotic symptoms. pt tolerated meds well, no side effects observed or reported, AIMS 0, no EPS. as per staff urinated in her bed again over night, no signs of UTI Impression: DSM 5 Diagnosis: schizoaffective d/o as per h/o cocaine abuse opioid addiction Medication Change: Yes (neurontin increased) Medical Record Reviewed: Yes Consults ordered or reviewed: med consult appreciated Mental Status Examination - Cognitive Function Orientation: Person, Place, Situation Memory: Intact Attention: Poor Concentration: Poor Association: WNL Fund of Knowledge: WNL - Mood Mood: Depressed (and irritable), Anxious (I feel very anxious) - Affect Affect: Flat - Speech Speech: Appropriate (but underproductive) - Formal Thought Process Formal Thought Process: No Impairment - Suicidal Ideation Suicidal Ideation: No - Homicidal Ideation Homicidal Ideation: No Goal/Treatment Plan - Goal/Treatment Plan Need for Continued Stay: Remain at risks for inpatient hospitalization, Severe depression anxiety, Discharge may exacerbated symptoms, Severe functional impairment Progress Toward Problem(s) and Goals/Treatment Plan: milieu/structure/supportive therapy patient pharmacy was called phone number [phone] most recent medication list: Naproxen 500 mg twice a day will be resumed SEROquel 200 milligrams at the morning and 300mg night as a mood stabilizer trazodone 100mg po hs for depression and insomnia prn meds clonidine for possible opioids withdrawals ambien 5mg po hs prn for insomnia neurontin 600mg po tid for mood stabilization / cravings/ anxiety pt will be seen by medical team SW evaluation for possible inpatient rehab (pt wants to be admitted to [facility] in [place]) will f/u on labs will monitor closely Estimated Date of D/C: 08/23/17
[2017-08-20] MEDS ORDERED: MethylPREDNISolone Depo 40 mg/ml Inj IM ONE (07:41)
[2017-08-20] MEDS ORDERED: Bupivacaine 0.5% Inj(30mL) IJ ONE (07:41)
--- NOTE | 2017-08-20 12:59 | MRI ---
PROCEDURE: MRI Left Knee HISTORY: Pain. COMPARISON: Left knee radiographs 05/25/2017. TECHNIQUE: Multiecho multiplanar sequences were performed through the left knee. FINDINGS: ANTERIOR CRUCIATE LIGAMENT:: Intact without acute tear. POSTERIOR CRUCIATE LIGAMENT:: Intact without acute tear. MEDIAL MENISCUS:: Degenerative intrameniscal signal changes are identified at the posterior horn extending to the posterior portion of the body but without articular tear evident. LATERAL MENISCUS:: A small flap-type tear seen at the inferior articular surface of the posterior horn lateral meniscus. MEDIAL COLLATERAL LIGAMENT:: Trace fluid is seen associated the proximal medial collateral ligament complex a pattern that may reflect sprain or partial tear. No complete tear identified. LATERAL COLLATERAL LIGAMENT COMPLEX:: Intact without acute tear appreciable. QUADRICEPS TENDON:: Intact. PATELLAR TENDON:: Intact. CARTILAGE:: Moderate medial and moderate to severe lateral femorotibial compartment chondromalacia is identified. Mild chondromalacia is seen at the patellofemoral articulation. JOINT FLUID:: No prominent effusion is seen at the medial lateral femorotibial compartments, however, a moderate suprapatellar bursa effusion is identified. OSSEOUS STRUCTURES:: There is no acute fracture or bone contusion identified throughout the left knee. Degenerative osteophytes are moderate in development in all 3 compartments. OTHER FINDINGS: Tiny medial popliteal cyst are identified. IMPRESSION: 1. Partial tear or sprain medial collateral ligament complex. 2. A small flap tear seen related to the posterior horn lateral meniscus. 3. Relatively advanced degenerative joint disease is seen in all 3 joint compartments, worst at the lateral femorotibial compartment. 4. Moderate suprapatellar bursa effusion.
--- NOTE | 2017-08-20 14:19 | CON ---
DATE: 08/20/2017 ORTHOPEDIC CONSULT HISTORY OF PRESENT ILLNESS: The patient is a 47-year-old female, came in to the hospital for psychiatric reasons and was complaining of left knee pain. She does have a past history of left knee pain with had 2 injections previously. X-ray of that left knee was done at this institution back on 05/25/2017 showing no significant osteoarthritis. There are mild degenerative changes though, but no effusion. Past history of effusion. She was told that it is not gout, not infection. Today, she has no effusion. She does have atrophy of the vastus medialis obliques muscle of the quadriceps with crepitus of the patellofemoral joint and around the patella itself and along with tenderness to the patellofemoral joint. With this information, we gave her an injection of Depo-Medrol and Marcaine to help the obvious inflammation and hopefully it will get better, so she does not develop an effusion. In the meantime, since she has been having this for several years, we will get an MRI while she is in the hospital to see if there is any significant bone marrow edema, which appeared to be associated with changes of early osteoarthritis. If that is the case, she may be able to be helped with a subchondral injection of calcium phosphatase, but in the meantime we will give her physical therapy to both the quadriceps muscles and see how the injection of Depo-Medrol and Marcaine do. I will follow her in the hospital. Hopefully, she will feel better with this regimen and not need any surgery, but we will see what the MRI says in a couple of days. Santos Matthews DO
--- NOTE | 2017-08-20 16:51 | PCM.PYCHPN ---
Psychiatric Progress Note - Psychiatric Progress Note Patient seen today, length of contact: 30min Patient Chief Complaint: "I am little better" Problems Identified/Issues Discussed: Suicide/ homicide prevention, past psychiatric h/o, current psychiatric symptoms , medical problems, risk/benefits and alternatives of medications, medications compliance, coping strategies, substance abuse h/o, relapse prevention, importance of follow up with psychiatrist and therapist, discharge plan. Medical Problems: COPD or asthma, arthritis, Gout?/vs OA Diagnostic Results: 08/14/17 20:40 08/14/17 20:40 Lab Results 08/16/17 08:20: Free T4 0.70 L, TSH 3rd Generation 0.28 L 08/16/17 08:20: Fasting Glucose 100, Triglycerides 106, Cholesterol 184, LDL Cholesterol Direct 69, HDL Cholesterol 57 08/14/17 20:40: Alcohol, Quantitative < 10 08/14/17 20:40: Sodium 140, Potassium 4.3, Chloride 101, Carbon Dioxide 29, Anion Gap 14, BUN 11, Creatinine 0.6 L, Est GFR ( Amer) > 60, Est GFR ( Non-Af Amer) > 60, Random Glucose 80, Calcium 9.8, Total Bilirubin 0.4, AST 52 H D, ALT 57 H, Alkaline Phosphatase 96, Total Protein 7.2, Albumin 4.0, Globulin 3.2, Albumin/Globulin Ratio 1.3 08/14/17 20:40: WBC 8.8, RBC 4.07, Hgb 12.2, Hct 37.5, MCV 92.1, MCH 30.0, MCHC 32.5, RDW 16.0 H, Plt Count 177, MPV 11.2 H 08/14/17 19:00: Urine Opiates Screen Positive H, Urine Methadone Screen Positive H, Ur Barbiturates Screen Negative, Ur Phencyclidine Scrn Negative, Ur Amphetamines Screen Negative, U Benzodiazepines Scrn Negative, U Oth Cocaine Metabols Positive H, U Cannabinoids Screen Negative 08/14/17 19:00: Urine Color Yellow, Urine Appearance Clear, Urine pH 7.5, Ur Specific [place] 1.010, Urine Protein Negative, Urine Glucose (UA) Negative, Urine Ketones Negative, Urine Blood Negative, Urine Nitrate Negative, Urine Bilirubin Negative, Urine Urobilinogen 1.0 H, Ur Leukocyte Esterase Negative Vital Signs Temp Pulse Resp BP Pulse Ox 08/17/17 07:07 98.4 F 56 L 20 120/80 08/16/17 16:13 54 L 104/64 08/16/17 16:00 87 115/67 08/16/17 07:21 97.8 F 52 L 20 122/81 08/15/17 22:06 59 L 109/64 08/15/17 09:40 98.2 F 67 20 104/60 08/15/17 09:35 20 08/15/17 09:08 72 16 105/63 99 08/15/17 07:00 98.7 F 70 16 103/70 99 08/15/17 05:00 98 F 70 16 97/53 L 100 08/15/17 03:00 98.6 F 70 16 139/71 100 08/15/17 01:00 98.6 F 72 16 103/70 100 08/14/17 23:00 98.6 F 70 16 105/70 100 08/14/17 21:00 98.6 F 80 16 101/71 100 08/14/17 19:32 98.6 F 80 16 100/62 100 08/14/17 19:00 9834 F H 85 18 107/64 99 Temp Pulse Resp BP Pulse Ox 97.8 F 63 20 109/66 99 08/20/17 07:26 08/20/17 07:26 08/20/17 07:26 08/20/17 07:26 08/15/17 09:08 DSM 5 Symptoms Update: Shortly pt is 47yo AAF with reported h/o schizoaffective disorder, h/o heroin abuse and dependence, cocaine abuse, alcohol abuse, multiple admissions in the past, most recent was July 2017 at [facility] and June 2017 to this facility, pt has h/o being noncompliance with medications and f/u appts, pt brought herself to the hospital looking for help for her depressive symptoms, inability to function, pt does not have support in the community, pt's father January 2017, since that time pt relapsing on drugs, frequent psych admissions. Pt needs further evaluation and stabilization and meds adjustment. Pt was seen and examined The nursing station, patient was evaluated by orthopedist, patient had cortisol shot in her knee, patient reported no relief of her symptoms but more hopeful. Patient reported that she still feels depressed, hopeless, but denied thoughts of harming herself. Patient reported that her sleep is slowly improving. denied psychotic symptoms. pt tolerated meds well, no side effects observed or reported, AIMS 0, no EPS. no episodes of urination while sleeping Impression: DSM 5 Diagnosis: schizoaffective d/o as per h/o cocaine abuse opioid addiction Medication Change: No (adjusted yesterday) Medical Record Reviewed: Yes Consults ordered or reviewed: med consult appreciated Ortho consult appreciated cortisole injection in left knee was done 08/20/17 Mental Status Examination - Cognitive Function Orientation: Person, Place, Situation Memory: Intact Attention: Poor (some improvement) Concentration: Poor (some improvement) Association: WNL Fund of Knowledge: WNL - Mood Mood: Depressed (and irritable), Anxious (I feel very anxious) - Affect Affect: Flat - Speech Speech: Appropriate (but underproductive) - Formal Thought Process Formal Thought Process: No Impairment - Suicidal Ideation Suicidal Ideation: No - Homicidal Ideation Homicidal Ideation: No Goal/Treatment Plan - Goal/Treatment Plan Need for Continued Stay: Remain at risks for inpatient hospitalization, Severe depression anxiety, Discharge may exacerbated symptoms, Severe functional impairment Progress Toward Problem(s) and Goals/Treatment Plan: milieu/structure/supportive therapy patient pharmacy was called phone number [phone] most recent medication list: Naproxen 500 mg twice a day will be resumed SEROquel 200 milligrams at the morning and 300mg night as a mood stabilizer trazodone 100mg po hs for depression and insomnia prn meds clonidine for possible opioids withdrawals ambien 5mg po hs prn for insomnia neurontin 600mg po tid for mood stabilization / cravings/ anxiety pt will be seen by medical team SW evaluation for possible inpatient rehab (pt wants to be admitted to [facility] in [place]) will f/u on labs will monitor closely Estimated Date of D/C: 08/23/17
--- NOTE | 2017-08-21 09:49 | PCM.PYCHPN ---
Psychiatric Progress Note - Psychiatric Progress Note Patient seen today, length of contact: 25 min Patient Chief Complaint: "getting better" Problems Identified/Issues Discussed: I reviewed assessment and recent notes. I met with patient at the nurses station. She is known to me from multiple prior admissions on the unit and I interviewed her in the ER last weekend prior to her admission to the unit. Patient appears a little unkempt however she's fairly calm and cooperative. Oriented x3. Hygiene is acceptable. Reports that she is feeling "getting better ". Sleep was still restless last night but getting better since admission. Patient denies having any wishes or suicidal thoughts. She denies having any thoughts of harming others. Her thought process is generally coherent and responses are relevant to questioning. Affect shows some range during our interaction. She still complains of anxiety which is a chronic complaint for her. Patient is tolerating her medications and reports that left knee pain has resolved since injection of steroid yesterday. Nursing notes indicate that patient has been calm, cooperative and pleasant. Appears brighter and participates in groups. Socialize appropriately. There were no behavioral issues overnight. Diagnostic Results: schizoaffective d/o as per h/o cocaine abuse opioid addiction Medication Change: No (adjusted yesterday) Medical Record Reviewed: Yes Mental Status Examination - Cognitive Function Orientation: Person, Place, Situation Memory: Intact Attention: Poor (some improvement) Concentration: Poor (some improvement) Association: WNL Fund of Knowledge: WNL - Mood Mood: Depressed ( "getting better"), Anxious (I feel very anxious) - Affect Affect: Constricted (some reactivity) - Speech Speech: Appropriate (but underproductive) - Formal Thought Process Formal Thought Process: No Impairment - Suicidal Ideation Suicidal Ideation: No - Homicidal Ideation Homicidal Ideation: No Goal/Treatment Plan - Goal/Treatment Plan Need for Continued Stay: Remain at risks for inpatient hospitalization, Severe depression anxiety, Discharge may exacerbated symptoms, Severe functional impairment Progress Toward Problem(s) and Goals/Treatment Plan: c/w current tx and plan No new weekend labs thus far Vitals reviewed and noted below: Selected Entries 08/21/17 07:47 Temperature 97.8 F Pulse Rate 66 Respiratory 20 Rate Blood Pressure 111/68 Estimated Date of D/C: 08/23/17
--- NOTE | 2017-08-21 10:28 | PN ---
DATE: 08/21/2017 LOCATION: Room 517, bed 1. The patient's knee feels better since the injection of Depo-Medrol into the left knee yesterday. MRI was done showing degenerative changes of the knee, mostly on the lateral side with a small meniscus tear, that is not reason for any arthroscopy. We will treat the patient conservatively. We will get standing x-rays to see if there is any decreased joint space of significance and if there is, she could consider Euflexxa or Hyalgan type of injection to get rid of that pain of arthritis. is to eliminate squatting and minimize the stairs and no deep knee bend. Santos Matthews DO MTDD
[2017-08-21] MEDS: Naproxen 550 mg Tab PO PRN ×2 (13:47→21:35)
--- NOTE | 2017-08-21 16:57 | RAD ---
PROCEDURE: Limited bilateral knee HISTORY: knee pain COMPARISON: Not available TECHNIQUE: Single weight-bearing AP radiograph of both knees FINDINGS: Mild narrowing of the medial and lateral compartment bilaterally. No articular erosions. No osseous fracture. IMPRESSION: Mild medial and lateral osteoarthritis bilaterally. Limited examination.
--- NOTE | 2017-08-22 11:57 | PCM.PYCHPN ---
Psychiatric Progress Note - Psychiatric Progress Note Patient seen today, length of contact: 25 min Patient Chief Complaint: "getting better" Problems Identified/Issues Discussed: I reviewed recent notes and met with patient in the dayroom. Patient still appears a little unkempt however she remains fairly calm and cooperative. Oriented x3. Hygiene is acceptable. Reports that she still feels anxious and sleep is restless. These are chronic complaints. Patient denies having any wishes or suicidal thoughts and feels her mood is improving in this respect. She denies having any thoughts of harming others. Her thought process is coherent and responses are relevant to questioning. Patient is tolerating her medications and reports that left knee pain remains resolved since injection of steroid on Wednesday. Nursing notes indicate that patient has been calm, cooperative and pleasant. Appears brighter and participates in groups. She socializes and can be seen smiling and laughing with peers sometimes. Teases staff appropriately. There were no behavioral issues over the weekend Diagnostic Results: schizoaffective d/o as per h/o cocaine abuse opioid addiction Medication Change: No (adjusted yesterday) Medical Record Reviewed: Yes Mental Status Examination - Cognitive Function Orientation: Person, Place, Situation Memory: Intact Attention: Poor (some improvement) Concentration: Poor (some improvement) Association: WNL Fund of Knowledge: WNL - Mood Mood: Depressed ( "getting better"), Anxious (I feel very anxious) - Affect Affect: Constricted (some reactivity) - Speech Speech: Appropriate (but underproductive) - Formal Thought Process Formal Thought Process: No Impairment - Suicidal Ideation Suicidal Ideation: No - Homicidal Ideation Homicidal Ideation: No Goal/Treatment Plan - Goal/Treatment Plan Need for Continued Stay: Remain at risks for inpatient hospitalization, Severe depression anxiety, Discharge may exacerbated symptoms, Severe functional impairment Progress Toward Problem(s) and Goals/Treatment Plan: * c/w current tx and plan * Appreciate f/u by Dr. Matthews on 08/21/17~plan to treat patient conservatively. Ordered xray to see if there is any decreased joint space and if there is should consider Euflexxa or Hyalgan type of injection. * No new weekend labs * Vitals reviewed and noted below: 08/22/17 07:23 Temperature 97.9 F Pulse Rate 69 Respiratory 18 Rate Blood Pressure 108/72 Estimated Date of D/C: 08/23/17
--- NOTE | 2017-08-23 16:18 | PCM.BM ---
<Veronica Hernandez - Last Filed: 08/23/17 16:18> Treatment Plan Problems - Problems identified on initial assessmt Ineffective Coping Date Initiated: 08/15/17 Time Initiated: 18:59 Assessment reference: NA Status: Active Priority: 1 Hopelessness Date Initiated: 08/15/17 Time Initiated: 18:59 Assessment reference: NA Status: Active Priority: 2 Treatment assets and liabiliti Patient Assests: adapts well (Chronic, Anemia), cooperative, self-reliant, ADL independent, negotiates basic needs, cognitively intact, good interpersonal skills - Milieu Protocol Milieu Narrative: * c/w current tx and plan * Appreciate f/u by Dr. Matthews on 08/21/17~plan to treat patient conservatively. Ordered xray to see if there is any decreased joint space and if there is should consider Euflexxa or Hyalgan type of injection. * No new weekend labs * Vitals reviewed and noted below: 08/22/17 07:23 Temperature 97.9 F Pulse Rate 69 Respiratory 18 Rate Blood Pressure 108/72 Family Contact Family involvement: Famliy/SO not involved - Goals for Treatment Patient goals for treatment: Seeking inpatient rehab. Discharge/Continuing Care - Education Needs Education Needs: Patient Medication, Patient Diagnosis/Disease Process - Discharge Discharge Criteria: Tolerates medication w/o severe side effects, Normal sleep pattern, Reduction of target symptoms Discharge to:: Home - Treatment Team Participation Patient/Family/SO Statement: * c/w current tx and plan * Appreciate f/u by Dr. Matthews on 08/21/17~plan to treat patient conservatively. Ordered xray to see if there is any decreased joint space and if there is should consider Euflexxa or Hyalgan type of injection. * No new weekend labs * Vitals reviewed and noted below: 08/22/17 07:23 Temperature 97.9 F Pulse Rate 69 Respiratory 18 Rate Blood Pressure 108/72 Treatment Plan Review - Problem Ineffective Coping Time Initiated: 18:59 Hopelessness Time Initiated: 18:59 <Carly Gamboa - Last Filed: 08/23/17 17:28> - Diagnosis (1) Schizoaffective disorder Status: Chronic Interventions: 08/23/17 17:26 pt was noncompliant with meds - meds resumed pt was stressed out abut her drugs - pt was accepted to inpatient rehab suicidal ideation -pt is less stressful, sleep and appetite improved pt was in pain for her knee -pt got cortisole shot by Orthopedic team, pain is under control. (2) Polysubstance abuse Status: Chronic Interventions: 08/23/17 17:28 pt wants to go to inpatient rehab
--- NOTE | 2017-08-23 17:34 | PCM.PYCHPN ---
Psychiatric Progress Note - Psychiatric Progress Note Patient seen today, length of contact: 30min Patient Chief Complaint: "I am less irritable" Problems Identified/Issues Discussed: Suicide/ homicide prevention, past psychiatric h/o, current psychiatric symptoms , medical problems, risk/benefits and alternatives of medications, medications compliance, coping strategies, substance abuse h/o, relapse prevention, importance of follow up with psychiatrist and therapist, discharge plan. Medical Problems: COPD or asthma, arthritis, Gout?/vs OA Diagnostic Results: 08/14/17 20:40 08/14/17 20:40 Lab Results 08/16/17 08:20: Free T4 0.70 L, TSH 3rd Generation 0.28 L 08/16/17 08:20: Fasting Glucose 100, Triglycerides 106, Cholesterol 184, LDL Cholesterol Direct 69, HDL Cholesterol 57 08/14/17 20:40: Alcohol, Quantitative < 10 08/14/17 20:40: Sodium 140, Potassium 4.3, Chloride 101, Carbon Dioxide 29, Anion Gap 14, BUN 11, Creatinine 0.6 L, Est GFR ( Amer) > 60, Est GFR ( Non-Af Amer) > 60, Random Glucose 80, Calcium 9.8, Total Bilirubin 0.4, AST 52 H D, ALT 57 H, Alkaline Phosphatase 96, Total Protein 7.2, Albumin 4.0, Globulin 3.2, Albumin/Globulin Ratio 1.3 08/14/17 20:40: WBC 8.8, RBC 4.07, Hgb 12.2, Hct 37.5, MCV 92.1, MCH 30.0, MCHC 32.5, RDW 16.0 H, Plt Count 177, MPV 11.2 H 08/14/17 19:00: Urine Opiates Screen Positive H, Urine Methadone Screen Positive H, Ur Barbiturates Screen Negative, Ur Phencyclidine Scrn Negative, Ur Amphetamines Screen Negative, U Benzodiazepines Scrn Negative, U Oth Cocaine Metabols Positive H, U Cannabinoids Screen Negative 08/14/17 19:00: Urine Color Yellow, Urine Appearance Clear, Urine pH 7.5, Ur Specific [place] 1.010, Urine Protein Negative, Urine Glucose (UA) Negative, Urine Ketones Negative, Urine Blood Negative, Urine Nitrate Negative, Urine Bilirubin Negative, Urine Urobilinogen 1.0 H, Ur Leukocyte Esterase Negative Vital Signs Temp Pulse Resp BP Pulse Ox 08/17/17 07:07 98.4 F 56 L 20 120/80 08/16/17 16:13 54 L 104/64 08/16/17 16:00 87 115/67 08/16/17 07:21 97.8 F 52 L 20 122/81 08/15/17 22:06 59 L 109/64 08/15/17 09:40 98.2 F 67 20 104/60 08/15/17 09:35 20 08/15/17 09:08 72 16 105/63 99 08/15/17 07:00 98.7 F 70 16 103/70 99 08/15/17 05:00 98 F 70 16 97/53 L 100 08/15/17 03:00 98.6 F 70 16 139/71 100 08/15/17 01:00 98.6 F 72 16 103/70 100 08/14/17 23:00 98.6 F 70 16 105/70 100 08/14/17 21:00 98.6 F 80 16 101/71 100 08/14/17 19:32 98.6 F 80 16 100/62 100 08/14/17 19:00 9834 F H 85 18 107/64 99 Temp Pulse Resp BP Pulse Ox 97.8 F 63 20 109/66 99 08/20/17 07:26 08/20/17 07:26 08/20/17 07:26 08/20/17 07:26 08/15/17 09:08 DSM 5 Symptoms Update: Shortly pt is 47yo AAF with reported h/o schizoaffective disorder, h/o heroin abuse and dependence, cocaine abuse, alcohol abuse, multiple admissions in the past, most recent was July 2017 at [facility] and June 2017 to this facility, pt has h/o being noncompliance with medications and f/u appts, pt brought herself to the hospital looking for help for her depressive symptoms, inability to function, pt does not have support in the community, pt's father January 2017, since that time pt relapsing on drugs, frequent psych admissions. Pt needs further evaluation and stabilization and meds adjustment. Pt was seen and examined at the treatment team meeting, patient obviously has some improvement with her mood, affect was more reactive, mood congruent, patient complained that she was not able to fall asleep and stay asleep, trazodone will be increased. As per report patient is compliant with the medications, visible in the unit, less irritable. patient reported knee pain is much better, patient has future oriented plans to go to inpatient rehabilitation in [place]. denied psychotic symptoms. pt tolerated meds well, no side effects observed or reported, AIMS 0, no EPS. Impression: DSM 5 Diagnosis: schizoaffective d/o as per h/o cocaine abuse opioid addiction Medication Change: Yes (trazodone increased) Medical Record Reviewed: Yes Mental Status Examination - Cognitive Function Orientation: Person, Place, Situation Memory: Intact Attention: Poor (some improvement) Concentration: Poor (some improvement) Association: WNL Fund of Knowledge: WNL - Mood Mood: Depressed ( "getting better"), Anxious (I feel very anxious) - Affect Affect: Constricted (some reactivity) - Speech Speech: Appropriate (but underproductive) - Formal Thought Process Formal Thought Process: No Impairment - Suicidal Ideation Suicidal Ideation: No - Homicidal Ideation Homicidal Ideation: No Goal/Treatment Plan - Goal/Treatment Plan Need for Continued Stay: Remain at risks for inpatient hospitalization, Severe depression anxiety, Discharge may exacerbated symptoms, Severe functional impairment Progress Toward Problem(s) and Goals/Treatment Plan: milieu/structure/supportive therapy patient pharmacy was called phone number [phone] most recent medication list: Naproxen 500 mg twice a day will be resumed SEROquel 300 milligrams at the morning and 300mg night as a mood stabilizer trazodone 150mg po hs for depression and insomnia prn meds clonidine for possible opioids withdrawals ambien 5mg po hs prn for insomnia neurontin 600mg po tid for mood stabilization / cravings/ anxiety Vistaril 50 mg 3 times a day as needed for anxiety pt will be seen by medical team SW evaluation for possible inpatient rehab (pt wants to be admitted to [facility] in [place]) will f/u on labs will monitor closely Estimated Date of D/C: 08/25/17
[2017-08-24] MEDS: Naproxen 550 mg Tab PO PRN (09:02)
--- NOTE | 2017-08-24 17:26 | PCM.PYCHPN ---
Psychiatric Progress Note - Psychiatric Progress Note Patient seen today, length of contact: 30min Patient Chief Complaint: "I slept little better" Problems Identified/Issues Discussed: Suicide/ homicide prevention, past psychiatric h/o, current psychiatric symptoms , medical problems, risk/benefits and alternatives of medications, medications compliance, coping strategies, substance abuse h/o, relapse prevention, importance of follow up with psychiatrist and therapist, discharge plan. Medical Problems: COPD or asthma, arthritis, Gout?/vs OA Diagnostic Results: 08/14/17 20:40 08/14/17 20:40 Lab Results 08/16/17 08:20: Free T4 0.70 L, TSH 3rd Generation 0.28 L 08/16/17 08:20: Fasting Glucose 100, Triglycerides 106, Cholesterol 184, LDL Cholesterol Direct 69, HDL Cholesterol 57 08/14/17 20:40: Alcohol, Quantitative < 10 08/14/17 20:40: Sodium 140, Potassium 4.3, Chloride 101, Carbon Dioxide 29, Anion Gap 14, BUN 11, Creatinine 0.6 L, Est GFR ( Amer) > 60, Est GFR ( Non-Af Amer) > 60, Random Glucose 80, Calcium 9.8, Total Bilirubin 0.4, AST 52 H D, ALT 57 H, Alkaline Phosphatase 96, Total Protein 7.2, Albumin 4.0, Globulin 3.2, Albumin/Globulin Ratio 1.3 08/14/17 20:40: WBC 8.8, RBC 4.07, Hgb 12.2, Hct 37.5, MCV 92.1, MCH 30.0, MCHC 32.5, RDW 16.0 H, Plt Count 177, MPV 11.2 H 08/14/17 19:00: Urine Opiates Screen Positive H, Urine Methadone Screen Positive H, Ur Barbiturates Screen Negative, Ur Phencyclidine Scrn Negative, Ur Amphetamines Screen Negative, U Benzodiazepines Scrn Negative, U Oth Cocaine Metabols Positive H, U Cannabinoids Screen Negative 08/14/17 19:00: Urine Color Yellow, Urine Appearance Clear, Urine pH 7.5, Ur Specific [place] 1.010, Urine Protein Negative, Urine Glucose (UA) Negative, Urine Ketones Negative, Urine Blood Negative, Urine Nitrate Negative, Urine Bilirubin Negative, Urine Urobilinogen 1.0 H, Ur Leukocyte Esterase Negative Vital Signs Temp Pulse Resp BP Pulse Ox 08/17/17 07:07 98.4 F 56 L 20 120/80 08/16/17 16:13 54 L 104/64 08/16/17 16:00 87 115/67 08/16/17 07:21 97.8 F 52 L 20 122/81 08/15/17 22:06 59 L 109/64 08/15/17 09:40 98.2 F 67 20 104/60 08/15/17 09:35 20 08/15/17 09:08 72 16 105/63 99 08/15/17 07:00 98.7 F 70 16 103/70 99 08/15/17 05:00 98 F 70 16 97/53 L 100 08/15/17 03:00 98.6 F 70 16 139/71 100 08/15/17 01:00 98.6 F 72 16 103/70 100 08/14/17 23:00 98.6 F 70 16 105/70 100 08/14/17 21:00 98.6 F 80 16 101/71 100 08/14/17 19:32 98.6 F 80 16 100/62 100 08/14/17 19:00 9834 F H 85 18 107/64 99 Temp Pulse Resp BP Pulse Ox 97.8 F 63 20 109/66 99 08/20/17 07:26 08/20/17 07:26 08/20/17 07:26 08/20/17 07:26 08/15/17 09:08 DSM 5 Symptoms Update: Shortly pt is 47yo AAF with reported h/o schizoaffective disorder, h/o heroin abuse and dependence, cocaine abuse, alcohol abuse, multiple admissions in the past, most recent was July 2017 at [facility] and June 2017 to this facility, pt has h/o being noncompliance with medications and f/u appts, pt brought herself to the hospital looking for help for her depressive symptoms, inability to function, pt does not have support in the community, pt's father January 2017, since that time pt relapsing on drugs, frequent psych admissions. Pt needs further evaluation and stabilization and meds adjustment. Pt was seen and examined next to the nursing station, patient obviously has some improvement with her mood, affect was more reactive, mood congruent, patient staid that he was able to fall asleep and stay asleep, after trazodone was increased. As per report patient is compliant with the medications, visible in the unit, less irritable. patient reported knee pain is much better, patient has future oriented plans to go to inpatient rehabilitation in [place]. denied psychotic symptoms. pt tolerated meds well, no side effects observed or reported, AIMS 0, no EPS. Impression: DSM 5 Diagnosis: schizoaffective d/o as per h/o cocaine abuse opioid addiction Medication Change: No (trazodone increased) Medical Record Reviewed: Yes Mental Status Examination - Cognitive Function Orientation: Person, Place, Situation Memory: Intact Attention: Poor (some improvement) Concentration: Poor (some improvement) Association: WNL Fund of Knowledge: WNL - Mood Mood: Depressed ( "getting better"), Anxious (I feel very anxious) - Affect Affect: Constricted (some reactivity) - Speech Speech: Appropriate (but underproductive) - Formal Thought Process Formal Thought Process: No Impairment - Suicidal Ideation Suicidal Ideation: No - Homicidal Ideation Homicidal Ideation: No Goal/Treatment Plan - Goal/Treatment Plan Need for Continued Stay: Remain at risks for inpatient hospitalization, Severe depression anxiety, Discharge may exacerbated symptoms, Severe functional impairment Progress Toward Problem(s) and Goals/Treatment Plan: milieu/structure/supportive therapy patient pharmacy was called phone number [phone] most recent medication list: Naproxen 500 mg twice a day will be resumed SEROquel 300 milligrams at the morning and 300mg night as a mood stabilizer trazodone 150mg po hs for depression and insomnia prn meds clonidine for possible opioids withdrawals ambien 5mg po hs prn for insomnia neurontin 600mg po tid for mood stabilization / cravings/ anxiety Vistaril 50 mg 3 times a day as needed for anxiety pt will be seen by medical team SW evaluation for possible inpatient rehab (pt wants to be admitted to [facility] in [place]) will f/u on labs will monitor closely Estimated Date of D/C: 08/25/17
--- NOTE | 2017-08-25 15:26 | PCM.PYCHPN ---
Psychiatric Progress Note - Psychiatric Progress Note Patient seen today, length of contact: 30min Patient Chief Complaint: "I slept little better" Problems Identified/Issues Discussed: Suicide/ homicide prevention, past psychiatric h/o, current psychiatric symptoms , medical problems, risk/benefits and alternatives of medications, medications compliance, coping strategies, substance abuse h/o, relapse prevention, importance of follow up with psychiatrist and therapist, discharge plan. Medical Problems: COPD or asthma, arthritis, Gout?/vs OA Diagnostic Results: 08/14/17 20:40 08/14/17 20:40 Lab Results 08/16/17 08:20: Free T4 0.70 L, TSH 3rd Generation 0.28 L 08/16/17 08:20: Fasting Glucose 100, Triglycerides 106, Cholesterol 184, LDL Cholesterol Direct 69, HDL Cholesterol 57 08/14/17 20:40: Alcohol, Quantitative < 10 08/14/17 20:40: Sodium 140, Potassium 4.3, Chloride 101, Carbon Dioxide 29, Anion Gap 14, BUN 11, Creatinine 0.6 L, Est GFR ( Amer) > 60, Est GFR ( Non-Af Amer) > 60, Random Glucose 80, Calcium 9.8, Total Bilirubin 0.4, AST 52 H D, ALT 57 H, Alkaline Phosphatase 96, Total Protein 7.2, Albumin 4.0, Globulin 3.2, Albumin/Globulin Ratio 1.3 08/14/17 20:40: WBC 8.8, RBC 4.07, Hgb 12.2, Hct 37.5, MCV 92.1, MCH 30.0, MCHC 32.5, RDW 16.0 H, Plt Count 177, MPV 11.2 H 08/14/17 19:00: Urine Opiates Screen Positive H, Urine Methadone Screen Positive H, Ur Barbiturates Screen Negative, Ur Phencyclidine Scrn Negative, Ur Amphetamines Screen Negative, U Benzodiazepines Scrn Negative, U Oth Cocaine Metabols Positive H, U Cannabinoids Screen Negative 08/14/17 19:00: Urine Color Yellow, Urine Appearance Clear, Urine pH 7.5, Ur Specific [place] 1.010, Urine Protein Negative, Urine Glucose (UA) Negative, Urine Ketones Negative, Urine Blood Negative, Urine Nitrate Negative, Urine Bilirubin Negative, Urine Urobilinogen 1.0 H, Ur Leukocyte Esterase Negative Vital Signs Temp Pulse Resp BP Pulse Ox 08/17/17 07:07 98.4 F 56 L 20 120/80 08/16/17 16:13 54 L 104/64 08/16/17 16:00 87 115/67 08/16/17 07:21 97.8 F 52 L 20 122/81 08/15/17 22:06 59 L 109/64 08/15/17 09:40 98.2 F 67 20 104/60 08/15/17 09:35 20 08/15/17 09:08 72 16 105/63 99 08/15/17 07:00 98.7 F 70 16 103/70 99 08/15/17 05:00 98 F 70 16 97/53 L 100 08/15/17 03:00 98.6 F 70 16 139/71 100 08/15/17 01:00 98.6 F 72 16 103/70 100 08/14/17 23:00 98.6 F 70 16 105/70 100 08/14/17 21:00 98.6 F 80 16 101/71 100 08/14/17 19:32 98.6 F 80 16 100/62 100 08/14/17 19:00 9834 F H 85 18 107/64 99 Temp Pulse Resp BP Pulse Ox 97.8 F 63 20 109/66 99 08/20/17 07:26 08/20/17 07:26 08/20/17 07:26 08/20/17 07:26 08/15/17 09:08 DSM 5 Symptoms Update: Shortly pt is 47yo AAF with reported h/o schizoaffective disorder, h/o heroin abuse and dependence, cocaine abuse, alcohol abuse, multiple admissions in the past, most recent was July 2017 at [facility] and June 2017 to this facility, pt has h/o being noncompliance with medications and f/u appts, pt brought herself to the hospital looking for help for her depressive symptoms, inability to function, pt does not have support in the community, pt's father January 2017, since that time pt relapsing on drugs, frequent psych admissions. Pt needs further evaluation and stabilization and meds adjustment. Pt was seen and examined at the tx team rrom. pt is anxious, said that she is scared to be dc because she has no money. pt was tearful, said she feels hopeless. as per staff pt was anxious appearing said she is "scared". denied psychotic symptoms. pt tolerated meds well, no side effects observed or reported, AIMS 0, no EPS. Impression: DSM 5 Diagnosis: schizoaffective d/o as per h/o cocaine abuse opioid addiction Medication Change: No (trazodone increased) Medical Record Reviewed: Yes Mental Status Examination - Cognitive Function Orientation: Person, Place, Situation Memory: Intact Attention: Poor (some improvement) Concentration: Poor (some improvement) Association: WNL Fund of Knowledge: WNL - Mood Mood: Depressed ("hopeless"), Anxious (I feel very anxious) - Affect Affect: Constricted (some reactivity) - Speech Speech: Appropriate (but underproductive) - Formal Thought Process Formal Thought Process: No Impairment - Suicidal Ideation Suicidal Ideation: No - Homicidal Ideation Homicidal Ideation: No Goal/Treatment Plan - Goal/Treatment Plan Need for Continued Stay: Remain at risks for inpatient hospitalization, Severe depression anxiety, Discharge may exacerbated symptoms, Severe functional impairment Progress Toward Problem(s) and Goals/Treatment Plan: milieu/structure/supportive therapy patient pharmacy was called phone number [phone] most recent medication list: Naproxen 500 mg twice a day will be resumed SEROquel 300 milligrams at the morning and 300mg night as a mood stabilizer trazodone 200mg po hs for depression and insomnia prn meds clonidine for possible opioids withdrawals ambien 5mg s.x neurontin 600mg po tid for mood stabilization / cravings/ anxiety Vistaril 50 mg 3 times a day as needed for anxiety pt will be seen by medical team SW evaluation for possible inpatient rehab (pt wants to be admitted to [facility] in [place]) will f/u on labs will monitor closely Estimated Date of D/C: 08/27/17
--- NOTE | 2017-08-26 18:07 | PCM.PYCHPN ---
Psychiatric Progress Note - Psychiatric Progress Note Patient seen today, length of contact: 30min Patient Chief Complaint: "I feel ready for discharge tomorrow" Problems Identified/Issues Discussed: Suicide/ homicide prevention, past psychiatric h/o, current psychiatric symptoms , medical problems, risk/benefits and alternatives of medications, medications compliance, coping strategies, substance abuse h/o, relapse prevention, importance of follow up with psychiatrist and therapist, discharge plan. Medical Problems: COPD or asthma, arthritis, Gout?/vs OA Diagnostic Results: 08/14/17 20:40 08/14/17 20:40 Lab Results 08/16/17 08:20: Free T4 0.70 L, TSH 3rd Generation 0.28 L 08/16/17 08:20: Fasting Glucose 100, Triglycerides 106, Cholesterol 184, LDL Cholesterol Direct 69, HDL Cholesterol 57 08/14/17 20:40: Alcohol, Quantitative < 10 08/14/17 20:40: Sodium 140, Potassium 4.3, Chloride 101, Carbon Dioxide 29, Anion Gap 14, BUN 11, Creatinine 0.6 L, Est GFR ( Amer) > 60, Est GFR ( Non-Af Amer) > 60, Random Glucose 80, Calcium 9.8, Total Bilirubin 0.4, AST 52 H D, ALT 57 H, Alkaline Phosphatase 96, Total Protein 7.2, Albumin 4.0, Globulin 3.2, Albumin/Globulin Ratio 1.3 08/14/17 20:40: WBC 8.8, RBC 4.07, Hgb 12.2, Hct 37.5, MCV 92.1, MCH 30.0, MCHC 32.5, RDW 16.0 H, Plt Count 177, MPV 11.2 H 08/14/17 19:00: Urine Opiates Screen Positive H, Urine Methadone Screen Positive H, Ur Barbiturates Screen Negative, Ur Phencyclidine Scrn Negative, Ur Amphetamines Screen Negative, U Benzodiazepines Scrn Negative, U Oth Cocaine Metabols Positive H, U Cannabinoids Screen Negative 08/14/17 19:00: Urine Color Yellow, Urine Appearance Clear, Urine pH 7.5, Ur Specific [place] 1.010, Urine Protein Negative, Urine Glucose (UA) Negative, Urine Ketones Negative, Urine Blood Negative, Urine Nitrate Negative, Urine Bilirubin Negative, Urine Urobilinogen 1.0 H, Ur Leukocyte Esterase Negative Vital Signs Temp Pulse Resp BP Pulse Ox 08/17/17 07:07 98.4 F 56 L 20 120/80 08/16/17 16:13 54 L 104/64 08/16/17 16:00 87 115/67 08/16/17 07:21 97.8 F 52 L 20 122/81 08/15/17 22:06 59 L 109/64 08/15/17 09:40 98.2 F 67 20 104/60 08/15/17 09:35 20 08/15/17 09:08 72 16 105/63 99 08/15/17 07:00 98.7 F 70 16 103/70 99 08/15/17 05:00 98 F 70 16 97/53 L 100 08/15/17 03:00 98.6 F 70 16 139/71 100 08/15/17 01:00 98.6 F 72 16 103/70 100 08/14/17 23:00 98.6 F 70 16 105/70 100 08/14/17 21:00 98.6 F 80 16 101/71 100 08/14/17 19:32 98.6 F 80 16 100/62 100 08/14/17 19:00 9834 F H 85 18 107/64 99 Temp Pulse Resp BP Pulse Ox 97.8 F 63 20 109/66 99 08/20/17 07:26 08/20/17 07:26 08/20/17 07:26 08/20/17 07:26 08/15/17 09:08 DSM 5 Symptoms Update: Shortly pt is 47yo AAF with reported h/o schizoaffective disorder, h/o heroin abuse and dependence, cocaine abuse, alcohol abuse, multiple admissions in the past, most recent was July 2017 at [facility] and June 2017 to this facility, pt has h/o being noncompliance with medications and f/u appts, pt brought herself to the hospital looking for help for her depressive symptoms, inability to function, pt does not have support in the community, pt's father January 2017, since that time pt relapsing on drugs, frequent psych admissions. Pt needs further evaluation and stabilization and meds adjustment. Pt was seen and examined next to the nursing station, pt said she feels more safe to be d/c tomorrow, pt said that she put her mind towards staying sober, wants to put her life back on track. pt denied being anxious denied psychotic symptoms. pt tolerated meds well, no side effects observed or reported, AIMS 0, no EPS. Impression: DSM 5 Diagnosis: schizoaffective d/o as per h/o cocaine abuse opioid addiction Medication Change: No (trazodone increased) Medical Record Reviewed: Yes Consults ordered or reviewed: med consult appreciated Ortho consult appreciated cortisole injection in left knee was done 08/20/17 Mental Status Examination - Cognitive Function Orientation: Person, Place, Situation Memory: Intact Attention: WNL Concentration: WNL Association: WNL Fund of Knowledge: WNL - Mood Mood: Depressed ("I feel more hopeful") - Affect Affect: Constricted (some reactivity) - Speech Speech: Appropriate (but underproductive) - Formal Thought Process Formal Thought Process: No Impairment - Suicidal Ideation Suicidal Ideation: No - Homicidal Ideation Homicidal Ideation: No Goal/Treatment Plan - Goal/Treatment Plan Need for Continued Stay: Remain at risks for inpatient hospitalization, Severe depression anxiety, Discharge may exacerbated symptoms, Severe functional impairment Progress Toward Problem(s) and Goals/Treatment Plan: milieu/structure/supportive therapy patient pharmacy was called phone number [phone] most recent medication list: Naproxen 500 mg twice a day will be resumed SEROquel 300 milligrams at the morning and 300mg night as a mood stabilizer trazodone 200mg po hs for depression and insomnia prn meds clonidine for possible opioids withdrawals ambien 5mg s.x neurontin 600mg po tid for mood stabilization / cravings/ anxiety Vistaril 50 mg 3 times a day as needed for anxiety pt will be seen by medical team SW evaluation for possible inpatient rehab (pt wants to be admitted to [facility] in [place]) will f/u on labs will monitor closely Estimated Date of D/C: 08/27/17
[2017-08-27 07:41] VITALS: BP 113/64; PULSE 73; RESP 20; TEMP 98.4
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
== END 2017-08-27 13:46 | disposition home or self-care (01) | DRG 430 ==
LOC: ED 17:32 → ERH 08-15 08:49 → PSYC 08-15 09:13
PROVIDERS: ADMIT Psychiatry & Neurology Psychiatry; ATTEND Psychiatry & Neurology Psychiatry
PROC: 3E0U33Z Introduction of Anti-inflammatory into Joints, Percutaneous Approach (ICD-10-PCS; principal; 2017-08-20)
PROC: 3E0U3BZ Introduction of Anesthetic Agent into Joints, Percutaneous Approach (ICD-10-PCS; 2017-08-20)
DX: F25.9 Schizoaffective disorder, unspecified (principal); F11.20 Opioid dependence, uncomplicated; F14.10 Cocaine abuse, uncomplicated; J44.9 Chronic obstructive pulmonary disease, unspecified; M17.12 Unilateral primary osteoarthritis, left knee; M23.301 Other meniscus derangements, unspecified lateral meniscus, left knee; F32.9 Major depressive disorder, single episode, unspecified; G47.00 Insomnia, unspecified; F17.210 Nicotine dependence, cigarettes, uncomplicated; M10.9 Gout, unspecified; F10.10 Alcohol abuse, uncomplicated; Z91.14 Patient's other noncompliance with medication regimen

== ENCOUNTER 2017-12-11 02:55 | Emergency (ER) | payer MEDICAID ==
[2017-12-11 03:04] VITALS: BMI 25.0
[2017-12-11 03:08] VITALS: TEMP 98.3
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
[2017-12-11 03:51] LABS: ALB/GLOB RATIO 1.3 (1.1-1.8); ALBUMIN 4.7 g/dL (3.0-4.8); ALT/SGPT 42 U/L (7-56); AST/SGOT 51 U/L (14-36); BASO # 0.02 K/mm3 (0.0-2.0); BASO % 0.3 % (0.0-3.0); BLOOD UREA NITROGEN 13 mg/dL (7-21); CALCIUM 9.4 mg/dL (8.4-10.5); EOS # 0.3 (0.0-0.7); GFR AFRICAN-AMERICAN > 60; GFR NON-AFRICAN AMERICAN > 60; GRAN # 2.89 (1.4-6.5); GRAN % 49.7 % (50.0-68.0); LYMPH # 2.1 (1.2-3.4); LYMPH % 35.4 % (22.0-35.0); MEAN CELL VOLUME 89.1 fl (80.0-105.0); MEAN CORPUSCULAR HEMOGLOBIN 30.2 pg (25.0-35.0); MEAN CORPUSCULAR HGB CONC 33.9 g/dl (31.0-37.0); MEAN PLATELET VOLUME 10.5 fl (7.0-11.0); MONO # 0.6 (0.1-0.6); MONO % 9.6 % (1.0-6.0); RBC 4.3 10^6/uL (3.5-6.1); RED CELL DISTRIBUTION WIDTH 15.7 % (11.5-14.5); WHITE BLOOD COUNT 5.8 10^3/ul (4.5-11.0)
[2017-12-11 04:01] LABS: TROPONIN I < 0.01 ng/mL
[2017-12-11 04:18] LABS: INR 0.97 (0.93-1.08); PROTHROMBIN TIME 11.1 SECONDS (9.4-12.5)
[2017-12-11 04:37] LABS: CK MB% 0.8 % (2.5-3.0); CK-MB 5.4 ng/mL (0.0-3.6)
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
[2017-12-11 05:02] VITALS: BP 113/63; PULSE 85; RESP 17; O2SAT 99
--- NOTE | 2017-12-11 10:04 | CARD ---
APPROVED REPORT EKG Measurement Heart [id number] <Conclusion> Normal sinus rhythm NSSTW changes and Prolonged QTc, new
--- NOTE | 2017-12-11 10:29 | RAD ---
PROCEDURE: Bilateral AP views of the knees HISTORY: fall COMPARISON: TECHNIQUE: AP views of both knees FINDINGS: No evidence of fracture. No degenerative changes. IMPRESSION: Negative study
== END 2017-12-11 05:30 | disposition home or self-care (01) ==
LOC: ED 02:55
DX: R55 Syncope and collapse (principal); F19.10 Other psychoactive substance abuse, uncomplicated; I10 Essential (primary) hypertension; F17.210 Nicotine dependence, cigarettes, uncomplicated

== ENCOUNTER 2018-02-17 21:44 | Inpatient (IN) | payer MEDICAID ==
[2018-02-17 21:45] VITALS: BMI 25.0
--- NOTE | 2018-02-17 23:24 | ED PDOC ---
Arrival/HPI - General Historian: Patient - History of Present Illness Time/Duration: Other (see hpi) Context: Home <Mikal Arcos - Last Filed: 02/19/18 14:21> <Jose Mcdaniel - Last Filed: 02/20/18 18:28> - General Chief Complaint: Psychiatric Evaluation Time Seen by Provider: 02/17/18 23:19 - History of Present Illness Narrative History of Present Illness (Text): 02/17/18 23:23 A 47 year old female, whose past medical history includes depression and substance abuse, presents to the emergency department for feeling depressed, and suicidal ideation x 7 days. Patient feels she wants to cute her arms. Patient noted her mother last week. Patient admits sniffing heroine, last time was 3 days ago. Denies hallucination, HI, or paranoia. (Mikal Arcos) Past Medical History - Provider Review Nursing Documentation Reviewed: Yes - Infectious Disease Hx of Infectious Diseases: None - Tetanus Immunization Tetanus Immunization: Unknown - Cardiac Hx Cardiac Disorders: Yes (HTN) Hx Hypotension: Yes - Pulmonary Hx Respiratory Disorders: Yes Hx Asthma: Yes - Neurological Hx Neurological Disorder: No - HEENT Hx HEENT Disorder: No - Renal Hx Renal Disorder: No - Endocrine/Metabolic Hx Endocrine Disorders: No - Hematological/Oncological Hx Blood Disorders: Yes Hx Anemia: Yes - Integumentary Hx Dermatological Disorder: No - Musculoskeletal/Rheumatological Hx Musculoskeletal Disorders: No - Gastrointestinal Hx Gastrointestinal Disorders: No Hx Crohn's Disease: No Hx Diverticulitis: No Hx Gall Bladder Disease: No Hx Gastritis: No Hx Pancreatitis: No - Genitourinary/Gynecological Hx Genitourinary Disorders: No - Psychiatric Hx Psychophysiologic Disorder: Yes Hx Anxiety: Yes Hx Bipolar Disorder: Yes Hx Depression: Yes Hx Schizophrenia: Yes Hx Substance Use: Yes Other/Comment: suicidal attempts - Past Surgical History Past Surgical History: No Previous - Surgical History Hx Cholecystectomy: Yes - Anesthesia Hx Anesthesia: Yes Hx Anesthesia Reactions: No Hx Malignant Hyperthermia: No - Suicidal Assessment Feels Threatened In Home Enviroment: No <Mikal Arcos P - Last Filed: 02/19/18 14:21> Family/Social History - Physician Review Nursing Documentation Reviewed: Yes Family/Social History: Other (noncontributory) Smoking Status: Light Smoker < 10 Cigarettes Daily Hx Alcohol Use: Yes Frequency of alcohol use: Few days per week Hx Substance Use: Yes Substance used: heroin, cocaine Hx Substance Use Treatment: Yes <Arcos,Nahim P - Last Filed: 02/19/18 14:21> Allergies/Home Meds <Arcos,Nahim P - Last Filed: 02/19/18 14:21> <BosompNick diazyl - Last Filed: 02/20/18 18:28> Allergies/Adverse Reactions: Allergies Penicillins Adverse Reaction (Verified 02/18/18 04:37) RASH Review of Systems - Review of Systems Constitutional: Normal. absent: Fatigue, Weight Change, Fevers, Night Sweats Eyes: Normal ENT: Normal Respiratory: Normal Cardiovascular: Normal Gastrointestinal: Normal Genitourinary Female: Normal Musculoskeletal: Normal Skin: Normal Neurological: Normal Endocrine: Normal Hemo/Lymphatic: Normal Psychiatric: Depression, Suicidal Ideation <Arcos,Nahim P - Last Filed: 02/19/18 14:21> Physical Exam Temperature: Afebrile Blood Pressure: Normal Pulse: Regular Respiratory Rate: Normal Appearance: Positive for: Well-Appearing, Non-Toxic, Comfortable Pain Distress: None Mental Status: Positive for: Alert and Oriented X 3 - Systems Exam Head: Present: Atraumatic, Normocephalic Pupils: Present: PERRL Extroacular Muscles: Present: EOMI Conjunctiva: Present: Normal Mouth: Present: Moist Mucous Membranes Neck: Present: Normal Range of Motion Respiratory/Chest: Present: Clear to Auscultation, Good Air Exchange. No: Respiratory Distress, Accessory Muscle Use Cardiovascular: Present: Regular Rate and Rhythm, Normal S1, S2. No: Murmurs Abdomen: No: Tenderness, Distention, Peritoneal Signs Back: Present: Normal Inspection Upper Extremity: Present: Normal Inspection. No: Cyanosis, Edema Lower Extremity: Present: Normal Inspection. No: Edema Neurological: Present: GCS=15, CN II-XII Intact, Speech Normal Skin: Present: Warm, Dry, Normal Color. No: Rashes Psychiatric: Present: Alert, Oriented x 3, Depressed Mood, Suicidal Ideation <Arcos,Nahim P - Last Filed: 02/19/18 14:21> Vital Signs Temp Pulse Resp BP Pulse Ox 02/18/18 01:15 72 16 132/71 98 02/17/18 22:46 98.2 F 68 17 142/86 99 Medical Decision Making Re-evaluation Time: 02:14 Reassessment Condition: Re-examined, Improving,but remains with symptoms <Mikal Arcos - Last Filed: 02/19/18 14:21> <Jose Mcdaniel - Last Filed: 02/20/18 18:28> ED Course and Treatment: 02/18/18 01:55 Patient is medical clear for Psychiatric evaluation or transfer if needed. 02/18/18 02:15 I spoke with SAGAR menon regarding patient c/o SI. He stated he spoke with Dr. Del Cid who agree with plan for admission for Schizoaffective disorder. (Mikal Arcos) - Lab Interpretations Lab Results: 02/18/18 00:10 02/18/18 00:10 Lab Results 02/18/18 00:10: Alcohol, Quantitative < 10 02/18/18 00:10: Salicylates < 1 L, Acetaminophen < 10.0 L 02/18/18 00:10: Urine Opiates Screen Positive H, Urine Methadone Screen Negative , Ur Barbiturates Screen Negative, Ur Phencyclidine Scrn Negative, Ur Amphetamines Screen Negative, U Benzodiazepines Scrn Negative, U Oth Cocaine Metabols Positive H, U Cannabinoids Screen Positive H 02/18/18 00:10: Sodium 142, Potassium 3.6, Chloride 104, Carbon Dioxide 27, Anion Gap 15, BUN 12, Creatinine 0.7, Est GFR ( Amer) > 60, Est GFR (Non- Af Amer) > 60, Random Glucose 107, Calcium 9.6, Magnesium 2.2, Total Bilirubin 0.4, AST 52 H, ALT 39, Alkaline Phosphatase 109, Total Protein 7.8, Albumin 4.4 , Globulin 3.4, Albumin/Globulin Ratio 1.3 02/18/18 00:10: Urine Color Yellow, Urine Appearance Sl cloudy, Urine pH 6.0, Ur Specific [place] >= 1.030, Urine Protein Trace H, Urine Glucose (UA) Negative , Urine Ketones 15 H, Urine Blood Trace-lysed H, Urine Nitrate Negative, Urine Bilirubin Small H, Urine Urobilinogen 1.0 H, Ur Leukocyte Esterase Negative, Urine RBC 0 - 2, Urine WBC 0 - 2, Ur Epithelial Cells Many, Urine Bacteria Mod, Urine HCG, Qual Negative 02/18/18 00:10: WBC 8.3 D, RBC 4.36, Hgb 13.0, Hct 39.0, MCV 89.4, MCH 29.8, MCHC 33.3, RDW 15.2 H, Plt Count 229, MPV 10.8, Gran % 59.4, Lymph % (Auto) 31.7 , [place] % (Auto) 6.6 H, Eos % (Auto) 1.9, Baso % (Auto) 0.4, Gran # 4.95, Lymph # (Auto) 2.6, [place] # (Auto) 0.6, Eos # (Auto) 0.2, Baso # (Auto) 0.03 - RAD Interpretation Radiology Orders: 02/17/18 23:20 CHEST PORTABLE [RAD] Stat - Medication Orders Current Medication Orders: Acetaminophen (Tylenol 325mg Tab) 650 mg PO Q6H PRN PRN Reason: Pain, Mild (1-3) Al Hydrox/Mg Hydrox/Simethicone (Maalox Plus 30 Ml) 30 ml PO DAILY PRN PRN Reason: Upset Stomach Gabapentin (Neurontin) 300 mg PO TID ANTONIO PRN Reason: Protocol Last Admin: 02/20/18 12:44 Dose: 300 mg Behavioural Document 02/20/18 12:44 SYDNEY (Rec: 02/20/18 12:44 SY[id number]) Maintenance Maintenance Dose Yes Re-Assess: Reassess Psych Meds Document 02/20/18 13:44 SYDNEY (Rec: 02/20/18 13:56 [facility] [id number]) Reassess Psych Med Effective Lorazepam (Ativan) 1 mg PO Q6 PRN; Protocol PRN Reason: Anxiety Last Admin: 02/20/18 10:52 Dose: 1 mg Behavioural Document 02/20/18 10:52 SYDNEY (Rec: 02/20/18 10:52 [facility] [id number]) Maintenance Maintenance Dose No Nonmedicinal Nonmedicinal Interventions See nurse's notes Behavior Behavior for Medication: Anxiety Re-Assess: Reassess Psych Meds Document 02/20/18 11:52 SYDNEY (Rec: 02/20/18 12:18 [facility] [id number]) Reassess Psych Med Effective Magnesium Hydroxide (Milk Of Magnesia) 30 ml PO DAILY PRN PRN Reason: Constipation Quetiapine Fumarate (Seroquel) 300 mg PO AMHS ANTONIO PRN Reason: Protocol Last Admin: 02/20/18 10:19 Dose: Behavioural Document 02/20/18 10:19 SYDNEY (Rec: 02/20/18 10:19 [id number]) Maintenance Maintenance Dose Yes Trazodone HCl (Desyrel) 100 mg PO HS [facility] Last Admin: 02/19/18 21:11 Dose: 100 mg Discontinued Medications Quetiapine Fumarate (Seroquel) 100 mg PO AMHS ANTONIO PRN Reason: Protocol Last Admin: 02/19/18 10:42 Dose: Quetiapine Fumarate (Seroquel) 200 mg PO AMHS ANTONIO PRN Reason: Protocol Last Admin: 02/20/18 09:02 Dose: 200 mg Behavioural Document 02/20/18 09:02 SYDNEY (Rec: 02/20/18 09:02 [id number]) Maintenance Maintenance Dose Yes Re-Assess: Reassess Psych Meds Document 02/20/18 10:02 SYDNEY (Rec: 02/20/18 10:14 [id number]) Reassess Psych Med Effective Quetiapine Fumarate (Seroquel) 100 mg PO STAT ONE PRN Reason: Protocol Stop: 02/20/18 10:22 Last Admin: 02/20/18 10:30 Dose: 100 mg Behavioural Document 02/20/18 10:30 SYDNEY (Rec: 02/20/18 10:30 SY[id number]) Maintenance Maintenance Dose Yes Re-Assess: Reassess Psych Meds Document 02/20/18 11:30 SYDNEY (Rec: 02/20/18 12:18 SYD[id number]) Reassess Psych Med Effective - PA / [employer] / Resident Statement KEVEN has reviewed & agrees with the documentation as recorded. KEVEN has examined the patient and agrees with the treatment plan. <Jose Mcdaniel - Last Filed: 02/20/18 18:28> Disposition/Present on Arrival - Present on Arrival Any Indicators Present on Arrival: No History of DVT/PE: No History of Uncontrolled Diabetes: No Urinary Catheter: No History of Decub. Ulcer: No History Surgical Site Infection Following: None - Disposition Have Diagnosis and Disposition been Completed?: Yes Disposition Time: 02:17 Patient Plan: Admission <Mikal Arcos - Last Filed: 02/19/18 14:21> <Jose Mcdaniel - Last Filed: 02/20/18 18:28> - Disposition Diagnosis: Schizoaffective disorder Disposition: HOSPITALIZED Patient Problems: Current Active Problems Problem Status Onset Schizoaffective disorder Chronic Condition: STABLE
[2018-02-18 00:32] LABS: BASO # 0.03 K/mm3 (0.0-2.0); BASO % 0.4 % (0.0-3.0); EOS # 0.2 (0.0-0.7); EOS % 1.9 % (1.5-5.0); GRAN # 4.95 (1.4-6.5); GRAN % 59.4 % (50.0-68.0); LYMPH # 2.6 (1.2-3.4); LYMPH % 31.7 % (22.0-35.0); MEAN CELL VOLUME 89.4 fl (80.0-105.0); MEAN CORPUSCULAR HEMOGLOBIN 29.8 pg (25.0-35.0); MEAN CORPUSCULAR HGB CONC 33.3 g/dl (31.0-37.0); MEAN PLATELET VOLUME 10.8 fl (7.0-11.0); MONO # 0.6 (0.1-0.6); MONO % 6.6 % (1.0-6.0); RBC 4.36 10^6/uL (3.5-6.1); RED CELL DISTRIBUTION WIDTH 15.2 % (11.5-14.5); WHITE BLOOD COUNT 8.3 10^3/ul (4.5-11.0)
[2018-02-18 00:33] LABS: URINE BILIRUBIN SMALL (NEGATIVE); URINE BLOOD TRACE-LYSED (NEGATIVE); URINE GLUCOSE (UA) NEGATIVE (NEGATIVE); URINE LEUKOCYTE ESTERASE NEGATIVE Leu/uL (NEGATIVE); URINE PROTEIN TRACE mg/dL (<30 mg/dL)
[2018-02-18 00:34] LABS: URINE APPEARANCE SL CLOUDY (CLEAR); URINE COLOR YELLOW (YELLOW)
[2018-02-18 00:38] LABS: ACETAMINOPHEN < 10.0 ug/ml (10.0-20.0); SALICYLATE < 1 mg/dL (2.0-20.0)
[2018-02-18 00:40] LABS: ALB/GLOB RATIO 1.3 (1.1-1.8); ALBUMIN 4.4 g/dL (3.0-4.8); ALT/SGPT 39 U/L (7-56); AST/SGOT 52 U/L (14-36); BLOOD UREA NITROGEN 12 mg/dL (7-21); CALCIUM 9.6 mg/dL (8.4-10.5); GFR AFRICAN-AMERICAN > 60; GFR NON-AFRICAN AMERICAN > 60
[2018-02-18 00:51] LABS: HCG,QUALITATIVE URINE NEGATIVE (NEGATIVE)
[2018-02-18 00:52] LABS: URINE EPITHELIAL CELLS MANY /hpf (0-5); URINE RBC 0 - 2 /hpf (0-2); URINE WBC 0 - 2 /hpf (0-6)
[2018-02-18 00:53] LABS: URINE BACTERIA MOD (NEG)
[2018-02-18 01:18] LABS: BARBITURATES, UR NEGATIVE (NEGATIVE); BENZODIAZEPINES, UR NEGATIVE (NEGATIVE); OPIATES, UR POSITIVE (NEGATIVE); PHENCYCLIDINE, UR NEGATIVE (NEGATIVE)
[2018-02-18 03:32] VITALS: O2SAT 100
[2018-02-18] MEDS ORDERED: Magnesium Hydroxide Susp 30 ml UD PO PRN (04:02)
[2018-02-18] MEDS ORDERED: Alum-Mag Hydrox-Simethicone Susp (30 mL) PO PRN (04:02)
--- NOTE | 2018-02-18 04:37 | PCM.BM ---
<John Riosfrank - Last Filed: 02/18/18 04:35> Treatment Plan Problems - Problems identified on initial assessmt Visual Hallucinations Date Initiated: 02/18/18 Time Initiated: 04:35 Assessment reference: NA Status: Active Ineffective Coping Date Initiated: 02/18/18 Time Initiated: 04:35 Assessment reference: NA Status: Active Hopelessness/Helplessness Date Initiated: 02/18/18 Time Initiated: 04:36 Assessment reference: NA Status: Active Feelings of Worthlessness Date Initiated: 02/18/18 Time Initiated: 04:36 Assessment reference: NA Status: Active Treatment assets and liabiliti Patient Assests: adapts well, cooperative, resourceful, self-reliant, ADL independent, physically healthy, negotiates basic needs, cognitively intact Patient Liabilities: live alone, financial problems, poor support system, substance abuse - Milieu Protocol Maintain good personal hygiene: daily Encourage regular showers, daily Remind patient to perform daily oral care, daily Assist patient to perform ADL's Conduct patient checks and document Observation sheet: Q15 minutes Maintain personal safety: every shift Educate patient to report safety concerns to staff, every shift Monitor environment for contraband/sharps Medication safety: Monitor for expected outcome, potential side effects: every shift, Assess barriers to learning: every shift, Assess readiness for medication education: every shift Discharge/Continuing Care - Education Needs Education Needs: Patient Medication, Patient Diagnosis/Disease Process, Patient Coping Skills, Patient Community resources, Patient Activities of Daily Living, Patient Nutrition, Patient Health Practices/Safety, Patient Personal Hygiene/ Grooming, Patient Aftercare Safety Plan - Discharge Discharge Criteria: Tolerates medication w/o severe side effects, Free of Suicidal thoughts, Free of Homicidal thoughts, Free of paranoid thoughts, Normal sleep pattern <Fahad Del Cid - Last Filed: 02/18/18 10:42> - Diagnosis (1) Schizoaffective disorder Status: Chronic Interventions: 02/18/18 10:43 group, milieu and supportive tx * Neurontin 300 mg po TID for mood and anxiety control * Seroquel 100 mg AMHS for mood control, titrate to prior dose of 300/350 * Trazodone 100 mg po HS, off label for insomnia (2) Polysubstance abuse Status: Chronic Interventions: 02/18/18 10:43 group, milieu and supportive tx * Neurontin 300 mg po TID for mood and anxiety control * Seroquel 100 mg AMHS for mood control, titrate to prior dose of 300/350 * Trazodone 100 mg po HS, off label for insomnia * consider naltrexone if patient agreeable (3) Substance induced mood disorder Status: Chronic Interventions: group, milieu and supportive tx * Neurontin 300 mg po TID for mood and anxiety control * Seroquel 100 mg AMHS for mood control, titrate to prior dose of 300/350 * Trazodone 100 mg po HS, off label for insomnia * consider naltrexone if patient agreeable 02/18/18 10:43 <Veronica Hernandez - Last Filed: 02/18/18 13:13> Family Contact Family involvement: Famliy/SO not involved
[2018-02-18 08:05] LABS: GLUCOSE,FASTING 95 mg/dL (65-110); HDL CHOLESTEROL 53 mg/dL (29-60)
[2018-02-18 08:30] LABS: LDL CHOLESTEROL 32 mg/dL (0-129)
--- NOTE | 2018-02-18 09:33 | CARD ---
APPROVED REPORT Date of service: 02/17/2018 EKG Measurement Heart [id number] <Conclusion> Sinus rhythm with sinus arrhythmia with short CO Otherwise normal ECG
--- NOTE | 2018-02-18 10:18 | RAD ---
Date of service: 02/18/2018 HISTORY: PES evaluation COMPARISON: 08/15/2017. FINDINGS: LUNGS: The lungs are well inflated and clear. PLEURA: No significant pleural effusion identified, no pneumothorax apparent. CARDIOVASCULAR: Normal. OSSEOUS STRUCTURES: No significant abnormalities. VISUALIZED UPPER ABDOMEN: Normal. OTHER FINDINGS: None. IMPRESSION: No active pulmonary disease.
--- NOTE | 2018-02-18 10:42 | PCM.PSYCH ---
Initial Psychiatric Evaluation - Initial Psychiatric Evaluation Type of Admission: Voluntary History of Present Illness and Precipitating Events: Patient is a 47 yo AA female with a history of Schizoaffective Disorder, heroin dependency, multiple admissions and poor aftercare (hospitalized within the [facility] system almost on a monthly basis in July, August, October, November, December and January 2018), who was admitted from the ER due to depression and suicidal thoughts to cut her arms. Stressors including chronic heroin dependency as well as a the recent of her mother on February 10. I interviewed patient at bedside this morning. She is generally withdrawn and superficial during my visits. Patient reports continued depression with low mood , energy and initiative. She also endorses lability and poor sleep. Patient denies SI at this time. Patient does appear preoccupied however denies perceptual disturbance and does not appear to be responding to internal stimuli. Delusions were not elicited however patient is not overly communicative. Patient admits to approximately using a bag of heroin prior to coming to the ER. She denies any other drug or alcohol use. Her UDS was positive for opiates, cocaine and cannabis. [place] records from last month also indicate patient admitted to alcohol use of 2-3 beers daily. PSYCHIATRIC HISTORY NUMEROUS PRIOR ADMISSIONS. 2018 [facility] ADMISSIONS INCLUDE: Jul 2017 [place] Aug 2017 [facility] October 2017 [place] November 2017 [place] December 2017 [place] January 2018 [place] Most recently discharged from [place] with diagnosis of SIMD, SIPD, Cocaine abuse, Opiate abuse, Alcohol abuse. She was discharged on Neurontin 300 mg PO TID Seroquel 300 mg PO AM and 350 mg PO HS trazodone 100 mg PO HS She feels that Seroquel has been especially beneficial. Patient has a reported history of suicide attempts however indicates during my interview 02/2018 that these occurred many years ago (by alleged cutting, and jumping off the 3rd floor building) Patient denies any regular psychiatric f/u at this time. Indicates she has not complied with discharge medications from her recent admission to [facility]. SOCIAL HISTORY Patient resides with a roommate. She is unemployed and gets SSI. She reports using a bag heroin almost daily and denies alcohol use. [place] records from last month indicate patient admitted to alcohol use of 2-3 beers daily. Multiple drug rehab treatments. Patient reports that she smokes tobacco but will not quantify use stating "you always ask me if I want a patch and I always say no". Current Medications: Active Medications Generic Name Dose Route Start Last Admin Trade Name Freq PRN Reason Stop Dose Admin Acetaminophen 650 mg 02/18/18 04:02 Tylenol 325mg Tab PO Q6H PRN Pain, Mild (1-3) Al Hydrox/Mg Hydrox/Simethicone 30 ml 02/18/18 04:02 Maalox Plus 30 Ml PO DAILY PRN Upset Stomach Lorazepam 1 mg 02/18/18 04:00 Ativan PO Q6 PRN Anxiety Protocol Magnesium Hydroxide 30 ml 02/18/18 04:02 Milk Of Magnesia PO DAILY PRN Constipation Past Psychiatric History - Past Psychiatric History Pertinent Medical Hx (Current Medical&Sleep Prob, Allergies): Allergies Allergy/AdvReac Type Severity Reaction Status Date / Time Penicillins AdvReac RASH Verified 02/18/18 04:37 Docusate [Colace] 100 mg PO BID #60 cap 01/10/18 Famotidine [Pepcid] 20 mg PO DAILY #30 tab 01/10/18 Gabapentin [Neurontin] 300 mg PO TID #90 cap 01/10/18 Multimineral/Multivitamin [Therapeutic-M Tab] 1 tab PO DAILY tab 01/10/18 QUEtiapine [SEROquel] 300 mg PO AMHS #60 tab 01/10/18 Quetiapine Fumarate [Seroquel] 50 mg PO HS #30 tablet 01/10/18 traZODone [Desyrel] 100 mg PO HS #30 tab 01/10/18 Mental Status Examination - Personal Presentation Personal Presentation: Looks stated age - Affect Affect: Constricted - Motor Activity Motor Activity: Calm - Reliability in Providing Information Reliability in Providing Information: Poor, due to alteration in thoughts - Speech Speech: Organized - Mood Mood: Depressed, Anxious - Formal Thought Process Formal Thought Process: No Impairment - Obsessions/Compulsions Obsessions: No Compulsions: No - Cognitive Functions Orientation: Person, Place, Situation Sensorium: Drowsy Attention/Concentration: Easily distracted Estimate of Intelligence: Average Judgement: Imparied, as evidence by: Poor judgement, Imparied, as evidence by: Lack of insight into illness - Risk Risk: Suicidal, Diminished functioning DSM 5 DX - DSM 5 DSM 5 Diagnosis: Schizoaffective disorder by history SIMD Opiate Use Disorder, Severe Cocaine abuse MJA abuse - Recommended/Plan of Treatment Treatment Recommendations and Plan of Treatment: * group, milieu and supportive tx * Neurontin 300 mg po TID for mood and anxiety control * Seroquel 100 mg AMHS for mood control, titrate to prior dose of 300/350 * Trazodone 100 mg po HS, off label for insomnia * Consider naltrexone to help with future abstinence, if patient appears motivated * Vitals reviewed and noted below: Selected Entries 02/18/18 03:31 Temperature 98.6 F Pulse Rate 67 Respiratory 18 Rate Blood Pressure 128/87 O2 Sat by Pulse 100 Oximetry * Admission labs noted below: Laboratory Tests 02/18/18 02/18/18 02/18/18 00:10 00:10 00:10 WBC 8.3 D RBC 4.36 Hgb 13.0 Hct 39.0 MCV 89.4 MCH 29.8 MCHC 33.3 RDW 15.2 H Plt Count 229 MPV 10.8 Gran % 59.4 Lymph % (Auto) 31.7 [place] % (Auto) 6.6 H Eos % (Auto) 1.9 Baso % (Auto) 0.4 Gran # 4.95 Lymph # (Auto) 2.6 [place] # (Auto) 0.6 Eos # (Auto) 0.2 Baso # (Auto) 0.03 Sodium 142 Potassium 3.6 Chloride 104 Carbon Dioxide 27 Anion Gap 15 BUN 12 Creatinine 0.7 Est GFR ( Amer) > 60 Est GFR (Non-Af Amer) > 60 Random Glucose 107 Fasting Glucose Calcium 9.6 Magnesium 2.2 Total Bilirubin 0.4 AST 52 H ALT 39 Alkaline Phosphatase 109 Total Protein 7.8 Albumin 4.4 Globulin 3.4 Albumin/Globulin Ratio 1.3 Triglycerides Cholesterol LDL Cholesterol Direct HDL Cholesterol TSH 3rd Generation Urine Color Yellow Urine Appearance Sl cloudy Urine pH 6.0 Ur Specific [place] >= 1.030 Urine Protein Trace H Urine Glucose (UA) Negative Urine Ketones 15 H Urine Blood Trace-lysed H Urine Nitrate Negative Urine Bilirubin Small H Urine Urobilinogen 1.0 H Ur Leukocyte Esterase Negative Urine RBC 0 - 2 Urine WBC 0 - 2 Ur Epithelial Cells Many Urine Bacteria Mod Urine HCG, Qual Negative Salicylates Urine Opiates Screen Urine Methadone Screen Acetaminophen Ur Barbiturates Screen Ur Phencyclidine Scrn Ur Amphetamines Screen U Benzodiazepines Scrn U Oth Cocaine Metabols U Cannabinoids Screen Alcohol, Quantitative 02/18/18 02/18/18 02/18/18 00:10 00:10 00:10 WBC RBC Hgb Hct MCV MCH MCHC RDW Plt Count MPV Gran % Lymph % (Auto) [place] % (Auto) Eos % (Auto) Baso % (Auto) Gran # Lymph # (Auto) [place] # (Auto) Eos # (Auto) Baso # (Auto) Sodium Potassium Chloride Carbon Dioxide Anion Gap BUN Creatinine Est GFR ( Amer) Est GFR (Non-Af Amer) Random Glucose Fasting Glucose Calcium Magnesium Total Bilirubin AST ALT Alkaline Phosphatase Total Protein Albumin Globulin Albumin/Globulin Ratio Triglycerides Cholesterol LDL Cholesterol Direct HDL Cholesterol TSH 3rd Generation Urine Color Urine Appearance Urine pH Ur Specific [place] Urine Protein Urine Glucose (UA) Urine Ketones Urine Blood Urine Nitrate Urine Bilirubin Urine Urobilinogen Ur Leukocyte Esterase Urine RBC Urine WBC Ur Epithelial Cells Urine Bacteria Urine HCG, Qual Salicylates < 1 L Urine Opiates Screen Positive H Urine Methadone Screen Negative Acetaminophen < 10.0 L Ur Barbiturates Screen Negative Ur Phencyclidine Scrn Negative Ur Amphetamines Screen Negative U Benzodiazepines Scrn Negative U Oth Cocaine Metabols Positive H U Cannabinoids Screen Positive H Alcohol, Quantitative < 10 02/18/18 02/18/18 07:30 07:30 WBC RBC Hgb Hct MCV MCH MCHC RDW Plt Count MPV Gran % Lymph % (Auto) [place] % (Auto) Eos % (Auto) Baso % (Auto) Gran # Lymph # (Auto) [place] # (Auto) Eos # (Auto) Baso # (Auto) Sodium Potassium Chloride Carbon Dioxide Anion Gap BUN Creatinine Est GFR ( Amer) Est GFR (Non-Af Amer) Random Glucose Fasting Glucose 95 Calcium Magnesium Total Bilirubin AST ALT Alkaline Phosphatase Total Protein Albumin Globulin Albumin/Globulin Ratio Triglycerides 106 Cholesterol 149 LDL Cholesterol Direct 32 HDL Cholesterol 53 TSH 3rd Generation 0.38 L Urine Color Urine Appearance Urine pH Ur Specific [place] Urine Protein Urine Glucose (UA) Urine Ketones Urine Blood Urine Nitrate Urine Bilirubin Urine Urobilinogen Ur Leukocyte Esterase Urine RBC Urine WBC Ur Epithelial Cells Urine Bacteria Urine HCG, Qual Salicylates Urine Opiates Screen Urine Methadone Screen Acetaminophen Ur Barbiturates Screen Ur Phencyclidine Scrn Ur Amphetamines Screen U Benzodiazepines Scrn U Oth Cocaine Metabols U Cannabinoids Screen Alcohol, Quantitative - Smoking Cessation Smoking Cessation Initiated: Yes Reason for not providing: Patient defers
--- NOTE | 2018-02-19 10:15 | PCM.PYCHPN ---
Psychiatric Progress Note - Psychiatric Progress Note Patient seen today, length of contact: 30 min Problems Identified/Issues Discussed: History of Present Illness and Precipitating Events: Patient is a 47 yo AA female with a history of Schizoaffective Disorder, heroin dependency, multiple admissions and poor aftercare ([facility] basis in July, August, October, November, December and January 2018), who was admitted from the ER due to depression and suicidal thoughts to cut her arms. Stressors including chronic heroin dependency as well as a the recent of her mother on February 10. I interviewed patient at bedside this morning. She is generally withdrawn and superficial during my visits. Patient reports continued depression with low mood , energy and initiative. She also endorses lability and poor sleep. Patient denies SI at this time. Patient does appear preoccupied however denies perceptual disturbance and does not appear to be responding to internal stimuli. Delusions were not elicited however patient is not overly communicative. Patient admits to approximately using a bag of heroin prior to coming to the ER. She denies any other drug or alcohol use. Her UDS was positive for opiates, cocaine and cannabis. [place] records from last month also indicate patient admitted to alcohol use of 2-3 beers daily. PSYCHIATRIC HISTORY NUMEROUS PRIOR ADMISSIONS. 2018 [facility] ADMISSIONS INCLUDE: Jul 2017 [place] Aug 2017 [facility] October 2017 [place] November 2017 [place] December 2017 [place] January 2018 [place] Most recently discharged from [place] with diagnosis of SIMD, SIPD, Cocaine abuse, Opiate abuse, Alcohol abuse. She was discharged on Neurontin 300 mg PO TID Seroquel 300 mg PO AM and 350 mg PO HS trazodone 100 mg PO HS She feels that Seroquel has been especially beneficial. Patient has a reported history of suicide attempts however indicates during my interview 02/2018 that these occurred many years ago (by alleged cutting, and jumping off the 3rd floor building) Patient denies any regular psychiatric f/u at this time. Indicates she has not complied with discharge medications from her recent admission to [facility]. SOCIAL HISTORY Patient resides with a roommate. She is unemployed and gets SSI. She reports using a bag heroin almost daily and denies alcohol use. [place] records from last month indicate patient admitted to alcohol use of 2-3 beers daily. Multiple drug rehab treatments. Patient reports that she smokes tobacco but will not quantify use stating "you always ask me if I want a patch and I always say no". PROGRESS NOTE I reviewed recent notes and met with patient at bedside. Patient appears a little unkempt however she's fairly calm and cooperative. Oriented x3. Reports that she is feeling "fine, getting better". Sleep was restless last night. Patient denies having any wishes or suicidal thoughts. She denies having any thoughts of harming others. Her thought process is generally coherent and responses are relevant to questioning. Affect is constricted during our interaction. Patient reports that she is hallucinating "shadows", it is unclear if this is a true hallucination. She denies AH. Nursing notes indicate that patient has been withdrawn and isolative. She was able to a attend a group yesterday. Still appears labile and mildly irritable however there have been no major behavioral issues on the unit. Diagnostic Results: Schizoaffective disorder by history SIMD Opiate Use Disorder, Severe Cocaine abuse MJA abuse Mental Status Examination - Cognitive Function Orientation: Person, Place, Situation - Mood Mood: Depressed, Anxious - Affect Affect: Constricted - Formal Thought Process Formal Thought Process: No Impairment - Homicidal Ideation Homicidal Ideation: No Goal/Treatment Plan - Goal/Treatment Plan Progress Toward Problem(s) and Goals/Treatment Plan: * group, milieu and supportive tx * Neurontin 300 mg po TID for mood and anxiety control * Seroquel increased to 200 mg AMHS for mood control, titrate to prior dose of 300/350 * Trazodone 100 mg po HS, off label for insomnia * Consider naltrexone to help with future abstinence, if patient appears motivated * Vitals reviewed and noted below: Selected Entries 02/18/18 03:31 Temperature 98.6 F Pulse Rate 67 Respiratory 18 Rate Blood Pressure 128/87 O2 Sat by Pulse 100 Oximetry * Admission labs noted below: Laboratory Tests 02/18/18 02/18/18 02/18/18 00:10 00:10 00:10 WBC 8.3 D RBC 4.36 Hgb 13.0 Hct 39.0 MCV 89.4 MCH 29.8 MCHC 33.3 RDW 15.2 H Plt Count 229 MPV 10.8 Gran % 59.4 Lymph % (Auto) 31.7 Cross % (Auto) 6.6 H Eos % (Auto) 1.9 Baso % (Auto) 0.4 Gran # 4.95 Lymph # (Auto) 2.6 [place] # (Auto) 0.6 Eos # (Auto) 0.2 Baso # (Auto) 0.03 Sodium 142 Potassium 3.6 Chloride 104 Carbon Dioxide 27 Anion Gap 15 BUN 12 Creatinine 0.7 Est GFR ( Amer) > 60 Est GFR (Non-Af Amer) > 60 Random Glucose 107 Fasting Glucose Calcium 9.6 Magnesium 2.2 Total Bilirubin 0.4 AST 52 H ALT 39 Alkaline Phosphatase 109 Total Protein 7.8 Albumin 4.4 Globulin 3.4 Albumin/Globulin Ratio 1.3 Triglycerides Cholesterol LDL Cholesterol Direct HDL Cholesterol TSH 3rd Generation Urine Color Yellow Urine Appearance Sl cloudy Urine pH 6.0 Ur Specific [place] >= 1.030 Urine Protein Trace H Urine Glucose (UA) Negative Urine Ketones 15 H Urine Blood Trace-lysed H Urine Nitrate Negative Urine Bilirubin Small H Urine Urobilinogen 1.0 H Ur Leukocyte Esterase Negative Urine RBC 0 - 2 Urine WBC 0 - 2 Ur Epithelial Cells Many Urine Bacteria Mod Urine HCG, Qual Negative Salicylates Urine Opiates Screen Urine Methadone Screen Acetaminophen Ur Barbiturates Screen Ur Phencyclidine Scrn Ur Amphetamines Screen U Benzodiazepines Scrn U Oth Cocaine Metabols U Cannabinoids Screen Alcohol, Quantitative 02/18/18 02/18/18 02/18/18 00:10 00:10 00:10 WBC RBC Hgb Hct MCV MCH MCHC RDW Plt Count MPV Gran % Lymph % (Auto) [place] % (Auto) Eos % (Auto) Baso % (Auto) Gran # Lymph # (Auto) [place] # (Auto) Eos # (Auto) Baso # (Auto) Sodium Potassium Chloride Carbon Dioxide Anion Gap BUN Creatinine Est GFR ( Amer) Est GFR (Non-Af Amer) Random Glucose Fasting Glucose Calcium Magnesium Total Bilirubin AST ALT Alkaline Phosphatase Total Protein Albumin Globulin Albumin/Globulin Ratio Triglycerides Cholesterol LDL Cholesterol Direct HDL Cholesterol TSH 3rd Generation Urine Color Urine Appearance Urine pH Ur Specific [place] Urine Protein Urine Glucose (UA) Urine Ketones Urine Blood Urine Nitrate Urine Bilirubin Urine Urobilinogen Ur Leukocyte Esterase Urine RBC Urine WBC Ur Epithelial Cells Urine Bacteria Urine HCG, Qual Salicylates < 1 L Urine Opiates Screen Positive H Urine Methadone Screen Negative Acetaminophen < 10.0 L Ur Barbiturates Screen Negative Ur Phencyclidine Scrn Negative Ur Amphetamines Screen Negative U Benzodiazepines Scrn Negative U Oth Cocaine Metabols Positive H U Cannabinoids Screen Positive H Alcohol, Quantitative < 10 02/18/18 02/18/18 07:30 07:30 WBC RBC Hgb Hct MCV MCH MCHC RDW Plt Count MPV Gran % Lymph % (Auto) [place] % (Auto) Eos % (Auto) Baso % (Auto) Gran # Lymph # (Auto) [place] # (Auto) Eos # (Auto) Baso # (Auto) Sodium Potassium Chloride Carbon Dioxide Anion Gap BUN Creatinine Est GFR ( Amer) Est GFR (Non-Af Amer) Random Glucose Fasting Glucose 95 Calcium Magnesium Total Bilirubin AST ALT Alkaline Phosphatase Total Protein Albumin Globulin Albumin/Globulin Ratio Triglycerides 106 Cholesterol 149 LDL Cholesterol Direct 32 HDL Cholesterol 53 TSH 3rd Generation 0.38 L Urine Color Urine Appearance Urine pH Ur Specific [place] Urine Protein Urine Glucose (UA) Urine Ketones Urine Blood Urine Nitrate Urine Bilirubin Urine Urobilinogen Ur Leukocyte Esterase Urine RBC Urine WBC Ur Epithelial Cells Urine Bacteria Urine HCG, Qual Salicylates Urine Opiates Screen Urine Methadone Screen Acetaminophen Ur Barbiturates Screen Ur Phencyclidine Scrn Ur Amphetamines Screen U Benzodiazepines Scrn U Oth Cocaine Metabols U Cannabinoids Screen Alcohol, Quantitative
--- NOTE | 2018-02-20 09:59 | PCM.PYCHPN ---
Psychiatric Progress Note - Psychiatric Progress Note Patient seen today, length of contact: 30 min Patient Chief Complaint: depressed Problems Identified/Issues Discussed: History of Present Illness and Precipitating Events: Patient is a 47 yo AA female with a history of Schizoaffective Disorder, heroin dependency, multiple admissions and poor aftercare (hospitalized within the [facility] system almost on a monthly basis in July, August, October, November, December and January 2018), who was admitted from the ER due to depression and suicidal thoughts to cut her arms. Stressors including chronic heroin dependency as well as a the recent of her mother on February 10. I interviewed patient at bedside this morning. She is generally withdrawn and superficial during my visits. Patient reports continued depression with low mood , energy and initiative. She also endorses lability and poor sleep. Patient denies SI at this time. Patient does appear preoccupied however denies perceptual disturbance and does not appear to be responding to internal stimuli. Delusions were not elicited however patient is not overly communicative. Patient admits to approximately using a bag of heroin prior to coming to the ER. She denies any other drug or alcohol use. Her UDS was positive for opiates, cocaine and cannabis. [place] records from last month also indicate patient admitted to alcohol use of 2-3 beers daily. PSYCHIATRIC HISTORY NUMEROUS PRIOR ADMISSIONS. 2018 [facility] ADMISSIONS INCLUDE: Jul 2017 [place] Aug 2017 [facility] October 2017 [place] November 2017 [place] December 2017 [place] January 2018 [place] Most recently discharged from [place] with diagnosis of SIMD, SIPD, Cocaine abuse, Opiate abuse, Alcohol abuse. She was discharged on Neurontin 300 mg PO TID Seroquel 300 mg PO AM and 350 mg PO HS trazodone 100 mg PO HS She feels that Seroquel has been especially beneficial. Patient has a reported history of suicide attempts however indicates during my interview 02/2018 that these occurred many years ago (by alleged cutting, and jumping off the 3rd floor building) Patient denies any regular psychiatric f/u at this time. Indicates she has not complied with discharge medications from her recent admission to [facility]. SOCIAL HISTORY Patient resides with a roommate. She is unemployed and gets SSI. She reports using a bag heroin almost daily and denies alcohol use. [place] records from last month indicate patient admitted to alcohol use of 2-3 beers daily. Multiple drug rehab treatments. Patient reports that she smokes tobacco but will not quantify use stating "you always ask me if I want a patch and I always say no". PROGRESS NOTE I reviewed recent notes and met with patient at bedside again today. Her appearance is still unkempt however she is more cooperative with me during these initial interviews than she has been during initial interviews from past admissions. She is oriented x3, calm and tired. Reports that she remains depressed with low energy and motivation. Sleep was less restless last night with the increase in Seroquel. She denies any side effects from her medications thus far. Patient denies having any wishes or suicidal thoughts. She denies having any thoughts of harming others. Her thought process is generally coherent and responses are relevant to questioning. During the first two days of patient's admission she reported seeing "shadows", it is unclear if these were true hallucinations. She denies any VH or AH today. Nursing notes indicate that patient has been withdrawn and isolative. She was able to a attend groups but she doesn't appear interested or engaged yesterday. Patient has been labile and mildly irritable however there have been no major behavioral issues on the unit thus far. Diagnostic Results: Schizoaffective disorder by history SIMD Opiate Use Disorder, Severe Cocaine abuse MJA abuse Mental Status Examination - Cognitive Function Orientation: Person, Place, Situation - Mood Mood: Depressed, Anxious - Affect Affect: Constricted - Formal Thought Process Formal Thought Process: No Impairment - Homicidal Ideation Homicidal Ideation: No Goal/Treatment Plan - Goal/Treatment Plan Progress Toward Problem(s) and Goals/Treatment Plan: * group, milieu and supportive tx * Neurontin 300 mg po TID for mood and anxiety control * Seroquel increased to 300 mg AMHS for mood control on 02/20/18, titrate to prior dose of 300/350 * Trazodone 100 mg po HS, off label for insomnia * Consider naltrexone to help with future abstinence, if patient appears motivated * Vitals reviewed and noted below: Selected Entries 02/19/18 02/19/18 07:05 15:00 Temperature 98.8 F Pulse Rate 60 52 L Respiratory 20 18 Rate Blood Pressure 106/65 110/73 * Admission labs noted below: Laboratory Tests 02/18/18 02/18/18 02/18/18 00:10 00:10 00:10 WBC 8.3 D RBC 4.36 Hgb 13.0 Hct 39.0 MCV 89.4 MCH 29.8 MCHC 33.3 RDW 15.2 H Plt Count 229 MPV 10.8 Gran % 59.4 Lymph % (Auto) 31.7 [place] % (Auto) 6.6 H Eos % (Auto) 1.9 Baso % (Auto) 0.4 Gran # 4.95 Lymph # (Auto) 2.6 [place] # (Auto) 0.6 Eos # (Auto) 0.2 Baso # (Auto) 0.03 Sodium 142 Potassium 3.6 Chloride 104 Carbon Dioxide 27 Anion Gap 15 BUN 12 Creatinine 0.7 Est GFR ( Amer) > 60 Est GFR (Non-Af Amer) > 60 Random Glucose 107 Fasting Glucose Calcium 9.6 Magnesium 2.2 Total Bilirubin 0.4 AST 52 H ALT 39 Alkaline Phosphatase 109 Total Protein 7.8 Albumin 4.4 Globulin 3.4 Albumin/Globulin Ratio 1.3 Triglycerides Cholesterol LDL Cholesterol Direct HDL Cholesterol TSH 3rd Generation Urine Color Yellow Urine Appearance Sl cloudy Urine pH 6.0 Ur Specific [place] >= 1.030 Urine Protein Trace H Urine Glucose (UA) Negative Urine Ketones 15 H Urine Blood Trace-lysed H Urine Nitrate Negative Urine Bilirubin Small H Urine Urobilinogen 1.0 H Ur Leukocyte Esterase Negative Urine RBC 0 - 2 Urine WBC 0 - 2 Ur Epithelial Cells Many Urine Bacteria Mod Urine HCG, Qual Negative Salicylates Urine Opiates Screen Urine Methadone Screen Acetaminophen Ur Barbiturates Screen Ur Phencyclidine Scrn Ur Amphetamines Screen U Benzodiazepines Scrn U Oth Cocaine Metabols U Cannabinoids Screen Alcohol, Quantitative 02/18/18 02/18/18 02/18/18 00:10 00:10 00:10 WBC RBC Hgb Hct MCV MCH MCHC RDW Plt Count MPV Gran % Lymph % (Auto) [place] % (Auto) Eos % (Auto) Baso % (Auto) Gran # Lymph # (Auto) [place] # (Auto) Eos # (Auto) Baso # (Auto) Sodium Potassium Chloride Carbon Dioxide Anion Gap BUN Creatinine Est GFR ( Amer) Est GFR (Non-Af Amer) Random Glucose Fasting Glucose Calcium Magnesium Total Bilirubin AST ALT Alkaline Phosphatase Total Protein Albumin Globulin Albumin/Globulin Ratio Triglycerides Cholesterol LDL Cholesterol Direct HDL Cholesterol TSH 3rd Generation Urine Color Urine Appearance Urine pH Ur Specific [place] Urine Protein Urine Glucose (UA) Urine Ketones Urine Blood Urine Nitrate Urine Bilirubin Urine Urobilinogen Ur Leukocyte Esterase Urine RBC Urine WBC Ur Epithelial Cells Urine Bacteria Urine HCG, Qual Salicylates < 1 L Urine Opiates Screen Positive H Urine Methadone Screen Negative Acetaminophen < 10.0 L Ur Barbiturates Screen Negative Ur Phencyclidine Scrn Negative Ur Amphetamines Screen Negative U Benzodiazepines Scrn Negative U Oth Cocaine Metabols Positive H U Cannabinoids Screen Positive H Alcohol, Quantitative < 10 02/18/18 02/18/18 07:30 07:30 WBC RBC Hgb Hct MCV MCH MCHC RDW Plt Count MPV Gran % Lymph % (Auto) [place] % (Auto) Eos % (Auto) Baso % (Auto) Gran # Lymph # (Auto) [place] # (Auto) Eos # (Auto) Baso # (Auto) Sodium Potassium Chloride Carbon Dioxide Anion Gap BUN Creatinine Est GFR ( Amer) Est GFR (Non-Af Amer) Random Glucose Fasting Glucose 95 Calcium Magnesium Total Bilirubin AST ALT Alkaline Phosphatase Total Protein Albumin Globulin Albumin/Globulin Ratio Triglycerides 106 Cholesterol 149 LDL Cholesterol Direct 32 HDL Cholesterol 53 TSH 3rd Generation 0.38 L Urine Color Urine Appearance Urine pH Ur Specific [place] Urine Protein Urine Glucose (UA) Urine Ketones Urine Blood Urine Nitrate Urine Bilirubin Urine Urobilinogen Ur Leukocyte Esterase Urine RBC Urine WBC Ur Epithelial Cells Urine Bacteria Urine HCG, Qual Salicylates Urine Opiates Screen Urine Methadone Screen Acetaminophen Ur Barbiturates Screen Ur Phencyclidine Scrn Ur Amphetamines Screen U Benzodiazepines Scrn U Oth Cocaine Metabols U Cannabinoids Screen Alcohol, Quantitative
[2018-02-21 07:14] VITALS: RESP 20
--- NOTE | 2018-02-21 14:50 | PCM.PYCHPN ---
Psychiatric Progress Note - Psychiatric Progress Note Patient seen today, length of contact: 30 min Patient Chief Complaint: "I don't feel comfortable of being only one female patient here" Problems Identified/Issues Discussed: Suicide/ homicide prevention, past psychiatric h/o, current psychiatric symptoms , medical problems, risk/benefits and alternatives of medications, medications compliance, coping strategies, substance abuse h/o, relapse prevention, importance of follow up with psychiatrist and therapist, discharge plan. Medical Problems: see HPI Diagnostic Results: 02/18/18 00:10 02/18/18 00:10 Lab Results 02/18/18 07:30: Fasting Glucose 95, Triglycerides 106, Cholesterol 149, LDL Cholesterol Direct 32, HDL Cholesterol 53 02/18/18 07:30: RPR Nonreactive 02/18/18 07:30: TSH 3rd Generation 0.38 L 02/18/18 00:10: Alcohol, Quantitative < 10 02/18/18 00:10: Salicylates < 1 L, Acetaminophen < 10.0 L 02/18/18 00:10: Urine Opiates Screen Positive H, Urine Methadone Screen Negative , Ur Barbiturates Screen Negative, Ur Phencyclidine Scrn Negative, Ur Amphetamines Screen Negative, U Benzodiazepines Scrn Negative, U Oth Cocaine Metabols Positive H, U Cannabinoids Screen Positive H 02/18/18 00:10: Sodium 142, Potassium 3.6, Chloride 104, Carbon Dioxide 27, Anion Gap 15, BUN 12, Creatinine 0.7, Est GFR ( Amer) > 60, Est GFR (Non- Af Amer) > 60, Random Glucose 107, Calcium 9.6, Magnesium 2.2, Total Bilirubin 0.4, AST 52 H, ALT 39, Alkaline Phosphatase 109, Total Protein 7.8, Albumin 4.4 , Globulin 3.4, Albumin/Globulin Ratio 1.3 02/18/18 00:10: Urine Color Yellow, Urine Appearance Sl cloudy, Urine pH 6.0, Ur Specific [place] >= 1.030, Urine Protein Trace H, Urine Glucose (UA) Negative , Urine Ketones 15 H, Urine Blood Trace-lysed H, Urine Nitrate Negative, Urine Bilirubin Small H, Urine Urobilinogen 1.0 H, Ur Leukocyte Esterase Negative, Urine RBC 0 - 2, Urine WBC 0 - 2, Ur Epithelial Cells Many, Urine Bacteria Mod, Urine HCG, Qual Negative 02/18/18 00:10: WBC 8.3 D, RBC 4.36, Hgb 13.0, Hct 39.0, MCV 89.4, MCH 29.8, MCHC 33.3, RDW 15.2 H, Plt Count 229, MPV 10.8, Gran % 59.4, Lymph % (Auto) 31.7 , [place] % (Auto) 6.6 H, Eos % (Auto) 1.9, Baso % (Auto) 0.4, Gran # 4.95, Lymph # (Auto) 2.6, [place] # (Auto) 0.6, Eos # (Auto) 0.2, Baso # (Auto) 0.03 Vital Signs Temp Pulse Resp BP Pulse Ox 02/21/18 07:00 98.4 F 62 20 91/54 L 02/20/18 16:00 70 113/73 02/20/18 07:00 98.2 F 60 19 102/60 02/19/18 15:00 52 L 18 110/73 02/19/18 07:05 98.8 F 60 20 106/65 02/18/18 16:29 60 113/77 02/18/18 03:31 98.6 F 67 18 128/87 100 02/18/18 03:18 97.2 F L 86 16 122/71 97 02/18/18 01:15 72 16 132/71 98 02/17/18 22:46 98.2 F 68 17 142/86 99 DSM 5 Symptoms Update: shortly pt is a 47 yo AA female with a history of Schizoaffective Disorder, heroin dependency, multiple admissions and poor aftercare (hospitalized within the [facility] almost on a monthly basis in July, August, October, November, December and January 2018), who was admitted from the ER due to depression and suicidal thoughts to cut her arms. Stressors including chronic heroin dependency as well as a the recent of her mother on February 10. pt was seen and examined treatment team meeting, patient presented to be irritable, annoyed,acceptable personal hygiene but patient seems to be careless about her appearance. This sql report writer is fair familiar with this patient from the multiple admissions to the psychiatric inpatient unit here in [facility]. Patient reported that she feels not comfortable to be only female patient in the unit. Patient said that's why she is self isolating, not feeling comfortable to go to groups, as per stop therefore no incidents which could lead pt to feel this way. pt complaints of insomnia. pt reported at times she feels depressed with low energy and motivation. Patient denies having any wishes or suicidal thoughts. She denies having any thoughts of harming others. Her thought process is generally coherent and responses are relevant to questioning. During the first two days of patient's admission she reported seeing "shadows", it is unclear if these were true hallucinations. She denies any VH or AH today. He shouldn't tolerates medications well, no side effects observed or reported, aims 0, no EPS. Diagnostic Results: Schizoaffective disorder by history SIMD Opiate Use Disorder, Severe Cocaine abuse MJA abuse Medication Change: Yes (Ambien 5 mg as needed for insomnia) Medical Record Reviewed: Yes Consults ordered or reviewed: atient was seen by medical team in the emergency room, no acute medical issues. Mental Status Examination - Cognitive Function Orientation: Person, Place, Situation Memory: Intact Attention: Poor Concentration: Poor Association: WNL Fund of Knowledge: WNL - Mood Mood: Depressed, Anxious - Affect Affect: Constricted - Formal Thought Process Formal Thought Process: No Impairment - Suicidal Ideation Suicidal Ideation: No - Homicidal Ideation Homicidal Ideation: No Goal/Treatment Plan - Goal/Treatment Plan Need for Continued Stay: Remain at risks for inpatient hospitalization, Severe depression anxiety, Discharge may exacerbated symptoms, Severe functional impairment Progress Toward Problem(s) and Goals/Treatment Plan: group, milieu and supportive tx Neurontin 300 mg po TID for mood and anxiety control Seroquel 300 mg AMHS for mood control increased 02/20/18 Trazodone 100 mg po HS, off label for insomnia ambien as needed for insomnia Consider naltrexone to help with future abstinence, if patient appears motivated SW evaluation SW eval for discharge plan and social issues Fllow up on labs Will monitor closely Pt was educated about risk/benefits and alternatives of medications, coping strategies (safety plan, suicide prevention), relapse prevention, importance of follow up with psychiatrist and therapist, stay away from drugs/alcohol/smoking pt submitted 48hr notice, pt does not meet a criteria for screening Estimated Date of D/C: 02/22/18
[2018-02-22 07:21] VITALS: BP 95/58; PULSE 63; TEMP 98.7
== END 2018-02-22 13:08 | disposition home or self-care (01) | DRG 430 ==
LOC: ED 21:44 → ERH 02-18 02:12 → PSYC 02-18 03:23
PROVIDERS: ADMIT Psychologist; ATTEND Psychologist
PROC: GZ3ZZZZ Medication Management (ICD-10-PCS; principal; 2018-02-19)
DX: F25.9 Schizoaffective disorder, unspecified (principal); F11.24 Opioid dependence with opioid-induced mood disorder; F14.10 Cocaine abuse, uncomplicated; R45.851 Suicidal ideations; G47.00 Insomnia, unspecified; F12.10 Cannabis abuse, uncomplicated; F10.10 Alcohol abuse, uncomplicated; F17.210 Nicotine dependence, cigarettes, uncomplicated; Z91.5 Personal history of self-harm

== ENCOUNTER 2018-07-25 23:09 | Inpatient (IN) | payer MEDICAID ==
[2018-07-25 23:10] VITALS: BMI 25.0
[2018-07-26 00:15] VITALS: O2SAT 100
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
[2018-07-26 01:39] LABS: BASO # 0.02 K/mm3 (0.0-2.0); BASO % 0.3 % (0.0-3.0); EOS # 0.2 (0.0-0.7); EOS % 3.4 % (1.5-5.0); GRAN # 2.64 (1.4-6.5); LYMPH % 47.1 % (22.0-35.0); MEAN CELL VOLUME 91.1 fl (80.0-105.0); MEAN CORPUSCULAR HEMOGLOBIN 29.6 pg (25.0-35.0); MEAN CORPUSCULAR HGB CONC 32.4 g/dl (31.0-37.0); MEAN PLATELET VOLUME 10.4 fl (7.0-11.0); MONO # 0.5 (0.1-0.6); MONO % 8.2 % (1.0-6.0); RBC 4.06 10^6/uL (3.5-6.1); WHITE BLOOD COUNT 6.5 10^3/uL (4.5-11.0)
[2018-07-26 01:40] LABS: HCG,QUALITATIVE URINE NEGATIVE (NEGATIVE); URINE APPEARANCE SL CLOUDY (CLEAR); URINE COLOR YELLOW (YELLOW)
[2018-07-26 01:41] LABS: URINE BILIRUBIN NEGATIVE (NEGATIVE); URINE BLOOD NEGATIVE (NEGATIVE); URINE GLUCOSE (UA) NEGATIVE (NEGATIVE); URINE LEUKOCYTE ESTERASE NEGATIVE Leu/uL (NEGATIVE); URINE PROTEIN NEGATIVE mg/dL (<30 mg/dL); URINE UROBILINOGEN 0.2 E.U./dL (<1 E.U./dL)
[2018-07-26 01:46] LABS: ACETAMINOPHEN < 10.0 ug/ml (10.0-20.0); SALICYLATE < 1 mg/dL (2.0-20.0)
[2018-07-26 01:47] LABS: ALB/GLOB RATIO 1.3 (1.1-1.8); ALBUMIN 4.1 g/dL (3.0-4.8); ALT/SGPT 48 U/L (7-56); AST/SGOT 76 U/L (14-36); BLOOD UREA NITROGEN 11 mg/dL (7-21); CALCIUM 9.8 mg/dL (8.4-10.5); GFR NON-AFRICAN AMERICAN > 60
[2018-07-26 02:20] LABS: BARBITURATES, UR NEGATIVE (NEGATIVE); BENZODIAZEPINES, UR POSITIVE (NEGATIVE); OPIATES, UR POSITIVE (NEGATIVE); PHENCYCLIDINE, UR NEGATIVE (NEGATIVE)
[2018-07-26] MEDS ORDERED: Alum-Mag Hydrox-Simethicone Susp (30 mL) PO PRN (04:33)
[2018-07-26] MEDS ORDERED: Magnesium Hydroxide Susp 30 ml UD PO PRN (04:33)
--- NOTE | 2018-07-26 05:48 | PCM.BM ---
<Warren Rios - Last Filed: 07/26/18 05:46> Treatment Plan Problems - Problems identified on initial assessmt Hopelessness/Helplessness Date Initiated: 07/26/18 Time Initiated: 05:46 Assessment reference: NA Status: Active Ineffective Coping Date Initiated: 07/26/18 Time Initiated: 05:46 Assessment reference: NA Status: Active Social Isolation Date Initiated: 07/26/18 Time Initiated: 05:46 Assessment reference: NA Status: Active Altered Sleep Patterns Date Initiated: 07/26/18 Time Initiated: 05:46 Assessment reference: NA Status: Active Treatment assets and liabiliti Patient Assests: adapts well, cooperative, self-reliant, ADL independent, physically healthy, negotiates basic needs, cognitively intact Patient Liabilities: live alone, financial problems, poor support system, relationship conflicts, substance abuse - Milieu Protocol Maintain good personal hygiene: daily Encourage regular showers, daily Remind patient to perform daily oral care, daily Assist patient to perform ADL's Conduct patient checks and document Observation sheet: Q15 minutes Maintain personal safety: every shift Educate patient to report safety concerns to staff, every shift Monitor environment for contraband/sharps Medication safety: Monitor for expected outcome, potential side effects: every shift, Assess barriers to learning: every shift, Assess readiness for medication education: every shift Discharge/Continuing Care - Education Needs Education Needs: Patient Medication, Patient Diagnosis/Disease Process, Patient Coping Skills, Patient Anger Management skills, Patient Community resources, Patient Activities of Daily Living, Patient Nutrition, Patient Health Practices/Safety, Patient Personal Hygiene/Grooming, Patient Aftercare Safety Plan - Discharge Discharge Criteria: Tolerates medication w/o severe side effects, Free of Suicidal thoughts, Free of agitation, Normal sleep pattern, Ability to care for self, Reduction of target symptoms <Carly Gamboa - Last Filed: 07/27/18 12:49> - Diagnosis (1) Benzodiazepine abuse Status: Acute Interventions: 07/27/18 12:49 Monitoring withdrawal symptoms Medical detoxification Pharmacotherapy for alcohol/benzos/opioid dependence Maintaining sobriety Relapse prevention Possible rehabilitation Motivational interviewing 12-step programs: AA meetings (2) Schizoaffective disorder Status: Chronic Interventions: 07/26/18 09:19 Psychoeducation/psychotherapy Psychopharmacology/adjustment of medications as needed/ monitoring possible side effects Evaluate pt on daily basis Compliance with medications and follow up appointments Long acting medication if pt is noncompliant with pill form Suicide and homicide risk assessment and prevention, coping strategies, safety plan Relapse prevention Reduction of symptoms Improve functional status Possible assertive community treatment Cognitive behavioral therapy Family involvement Possible social skill training as outpatient (3) Opioid use disorder, moderate, dependence Status: Acute Interventions: 07/26/18 09:20 Monitoring withdrawal symptoms Medical detoxification Pharmacotherapy for alcohol/benzos/opioid dependence Maintaining sobriety Relapse prevention Possible rehabilitation Motivational interviewing 12-step programs: AA meetings (4) Benzodiazepine abuse Status: Acute Interventions: 07/26/18 09:20 Monitoring withdrawal symptoms Medical detoxification Pharmacotherapy for alcohol/benzos/opioid dependence Maintaining sobriety Relapse prevention Possible rehabilitation Motivational interviewing 12-step programs: AA meetings <Veronica Hernandez - Last Filed: 07/27/18 15:42> Family Contact Family involvement: Famliy/SO not involved <Millie Dawson - Last Filed: 07/28/18 11:15>
--- NOTE | 2018-07-26 07:29 | RAD ---
Date of service: 07/26/2018 PROCEDURE: CHEST RADIOGRAPH, 1 VIEW HISTORY: psych COMPARISON: 02/18/2018 FINDINGS: LUNGS: Clear. PLEURA: No pneumothorax or pleural fluid seen. CARDIOVASCULAR: No aortic atherosclerotic calcification present. Normal. OSSEOUS STRUCTURES: No significant abnormalities. VISUALIZED UPPER ABDOMEN: Normal. OTHER FINDINGS: None. IMPRESSION: No active disease.
[2018-07-26 08:10] LABS: GLUCOSE,FASTING 102 mg/dL (65-110); HDL CHOLESTEROL 51 mg/dL (29-60)
[2018-07-26 08:21] LABS: LDL CHOLESTEROL 47 mg/dL (0-129)
--- NOTE | 2018-07-26 14:00 | PCM.PSYCH ---
Initial Psychiatric Evaluation - Initial Psychiatric Evaluation Type of Admission: Voluntary Legal Status: Capacity (Patient has a capacity to sign consent for treatment) Chief Complaint (in patient's own words): "I was scared, I was not doing well, I heard my grandmother's voice, but it was not pleasant voice, that is why I came to the hospital" Patient's Reaction to Hospitalization: Patient was admitted to the psychiatric inpatient unit for evaluation and stabilization of depressive symptoms, psychotic symptoms, possible suicidal idea tion with a plan to cut herself. History of Present Illness and Precipitating Events: Shortly patient is 48 year old -Malagasy female, whose past psychiatric history is schizoaffective disorder, polysubstance abuse and dependence, multiple admissions to the psychiatric inpatient unit, chronic noncompliance with medications and follow-up appointments, patient brought herself to [facility] for evaluation and stabilization of depressive symptoms, during evaluation patient reported that she feels depressed, hopeless, helpless, reported that he does hear voices, was not able to contract for safety, patient required to be admitted to the psychiatric inpatient unit, observation/stabilization. Patient was seen today in her room with mental health worker, patient presented with poor personal hygiene, fair ADLs, looks much older than her chronological age, seems to be careless about her appearance, patient appears to be depressed, withdrawn, poverty of speech, poverty of thoughts, flat affect, disengaged. Patient reported that she was compliant with the medication which was prescribed to her at most recent hospitalization at [place] in June 2018: Gabapentin [Neurontin] 200 mg PO TID 30 Days #180 cap QUEtiapine [SEROquel] 300 mg PO HS 30 Days #30 tab traZODone [Desyrel] 300 mg PO HS 30 Days #90 tab but in ED pt reported taking meds which this provider prescribed her from the last admission, most likely pt was noncompliant with meds. Currently awaiting to start treatment at [facility] in [place] for OPD pt reported that she relapsed on drugs, benzodiazepines "klonopin, but I don't remember the dosage, I also was snorting heroin, once a day, but I didn't use it for three days". pt reported that for the past two weeks she was feeling "more depressed", pt also said "I also had couple of manic episodes in between", pt described that she would be in a gaines to do something, but was not able to stay focused and concentrate. at the same time pt was using drugs. pt reported that she had thoughts of harming self "I was thinking to cut my wrists, but I've got scared and came to the hospital". In ED pt wanted to "hurt her brother and sister", but denied any thoughts of harming others during the interview. pt reported taht she heard voice of "my grandmother, it was scary". pt reported that she smokes about five cigarettes a day, counseling provided, nicotine patch offered. Past psych h/o: Pt. is well known to the [facility] system, and has numerous ED and IPU contacts at all 3 facilities. Pt.'s latest admissions from all 3 facilities are: [facility] 06/29/18-07/04/18 5B 02/18/18-02/22/18 5E 12/13/17-12/21/17 in the past, h/o 2x suicidal attempts in 2015 pt tried to overdose and tried to jump in front of the car, 2008pt attempted to cut her wrist. Medical h/o: ? COPD or asthma, arthritis, Gout?, pt c/o knee pain, pt has h/o being seen by orthopedist, will call him back again. Social h/o: pt is on ssi, not working family h/o: denied pt denied h/o abuse 07/26/18 01:22 07/26/18 01:22 Lab Results 07/26/18 07:45: TSH 3rd Generation 0.62 07/26/18 07:45: Fasting Glucose 102, Triglycerides 104, Cholesterol 147, LDL Cholesterol Direct 47, HDL Cholesterol 51 07/26/18 01:22: Alcohol, Quantitative < 10 07/26/18 01:22: Salicylates < 1 L, Acetaminophen < 10.0 L 07/26/18 01:22: Urine Opiates Screen Positive H, Urine Methadone Screen Ne gative, Ur Barbiturates Screen Negative, Ur Phencyclidine Scrn Negative, Ur Amphetamines Screen Negative, U Benzodiazepines Scrn Positive H, U Oth Cocaine Metabols Negative, U Cannabinoids Screen Negative 07/26/18 01:22: Sodium 138, Potassium 3.9, Chloride 99, Carbon Dioxide 32, Anion Gap 11, BUN 11, Creatinine 0.9, Est GFR ( Amer) > 60, Est GFR (Non-Af Amer) > 60, Random Glucose 106, Calcium 9.8, Total Bilirubin 0.4, AST 76 H D, ALT 48, Alkaline Phosphatase 82, Total Protein 7.3, Albumin 4.1, Globulin 3.2, Albumin/Globulin Ratio 1.3 07/26/18 01:22: Urine Color Yellow, Urine Appearance Sl cloudy, Urine pH 8.0, Ur Specific [place] 1.015, Urine Protein Negative, Urine Glucose (UA) Negative, Urine Ketones Negative, Urine Blood Negative, Urine Nitrate Negative, Urine Bilirubin Negative, Urine Urobilinogen 0.2, Ur Leukocyte Esterase Negative, Urine HCG, Qual Negative 07/26/18 01:22: WBC 6.5, RBC 4.06, Hgb 12.0, Hct 37.0, MCV 91.1, MCH 29.6, MCHC 32.4, RDW 16.0 H, Plt Count 193, MPV 10.4, Gran % 41.0 L, Lymph % (Auto) 47.1 H, [place] % (Auto) 8.2 H, Eos % (Auto) 3.4, Baso % (Auto) 0.3, Gran # 2.64, Lymph # (Auto) 3.0, Walsh # (Auto) 0.5, Eos # (Auto) 0.2, Baso # (Auto) 0.02 Vital Signs Temp Pulse Resp BP Pulse Ox 07/26/18 07:30 98.6 F 64 20 103/62 07/26/18 04:05 97.9 F 68 16 125/75 100 07/26/18 03:04 98.1 F 72 18 110/60 100 07/26/18 00:14 98.8 F 77 18 118/60 100 The patient failed the outpatient lower level of care: Yes Current Medications: Active Medications Generic Name Dose Route Start Last Admin Trade Name Freq PRN Reason Stop Dose Admin Al Hydrox/Mg Hydrox/Simethicone 30 ml 07/26/18 04:33 Maalox Plus 30 Ml PO DAILY PRN Indigestion / Heartburn Gabapentin 300 mg 07/26/18 08:00 Neurontin PO TID ANTONIO Protocol Magnesium Hydroxide 30 ml 07/26/18 04:33 Milk Of Magnesia PO DAILY PRN Constipation Quetiapine Fumarate 100 mg 07/26/18 10:00 Seroquel PO AMHS ANTONIO Protocol Present on Admission - Present on Admission Any Indicators Present on Admission: No Review of Systems - Review of Systems Systems not reviewed;Unavailable: Acuity of Condition - Constitutional Constitutional: As Per HPI - EENT Eyes: As Per HPI Ears: As Per HPI Nose/Mouth/Throat: As Per HPI - Breasts Breasts: As Per HPI - Cardiovascular Cardiovascular: As Per HPI - Respiratory Respiratory: As Per HPI - Gastrointestinal Gastrointestinal: As Per HPI - Genitourinary Genitourinary: As Per HPI - Reproductive: Female Reproductive:Female: As Per HPI - Menstruation Menstruation: As Per HPI - Musculoskeletal Musculoskeletal: As Per HPI - Integumentary Integumentary: As Per HPI - Neurological Neurological: As Per HPI - Endocrine Endocrine: As Per HPI - Hematologic/Lymphatic Hematologic: As Per HPI Past Patient History - Past Psychiatric History Previous Treatment History: Inpatient Prior Professional Help: See HPI Prior Psychiatric Treatment: See HPI At what hospital: See HPI Duration: See HPI Nature of Treatment: See HPI Explanation of prior treatment: See HPI - PSYCHIATRIC Hx Anxiety: Yes Hx Bipolar Disorder: Yes Hx Depression: Yes Hx Schizophrenia: Yes Hx Substance Use: Yes - Infectious Disease Hx of Infectious Diseases: None - Tetanus Immunizations Tetanus Immunization: Unknown - CARDIAC Hx Cardiac Disorders: No - PULMONARY Hx Respiratory Disorders: Yes Hx Asthma: Yes - NEUROLOGICAL Hx Neurological Disorder: No Hx Seizures: No - HEENT Hx HEENT Problems: No - RENAL Hx Chronic Kidney Disease: No - ENDOCRINE/METABOLIC Hx Endocrine Disorders: No Hx Hyperthyroidism: No Hx Hypothyroidism: No - HEMATOLOGICAL/ONCOLOGICAL Hx Blood Disorders: Yes Hx Anemia: Yes - INTEGUMENTARY Hx Dermatological Problems: No - MUSCULOSKELETAL/RHEUMATOLOGICAL Hx Musculoskeletal Disorders: No Hx Arthritis: No Hx Fractures: No Hx Osteoporosis: No Hx Rheumatoid Arthritis: No - GASTROINTESTINAL Hx Gastrointestinal Disorders: No Hx Crohn's Disease: No Hx Diverticulitis: No Hx Gall Bladder Disease: No Hx Gastritis: No Hx Pancreatitis: No - GENITOURINARY/GYNECOLOGICAL Hx Genitourinary Disorders: No Hx Sexually Transmitted Disorders: No - SURGICAL HISTORY Other/Comment: ectopic - ANESTHESIA Hx Anesthesia: Yes Hx Anesthesia Reactions: No Hx Malignant Hyperthermia: No - Medical/Surgical History Reviewed & confirmed: by md Meds Allergies/Adverse Reactions: Allergies Allergy/AdvReac Type Severity Reaction Status Date / Time Penicillins Allergy unknown Verified 07/26/18 04:12 Mental Status Examination - Personal Presentation Personal Presentation: Looks older than stated age - Affect Affect: Flat - Motor Activity Motor Activity: Calm, Psychomotor Retardation - Reliability in Providing Information Reliability in Providing Information: Poor, due to alteration in thoughts, Poor, due to altered mood - Speech Speech: Organized (underproductive) - Mood Mood: Depressed, Anxious - Formal Thought Process Formal Thought Process: Hallucinations (reported auditory hallucinations) - Hallucinations/Delusions Hallucinations: Auditory Delusions: Persecution - Obsessions/Compulsions Obsessions: None Compulsions: None - Cognitive Functions Orientation: Person, Place, Situation Sensorium: Drowsy Attention/Concentration: Easily distracted Abstract Thinking: [place] Estimate of Intelligence: Below average Judgement: Intact, as evidence by: Insight regarding need for hospitalization - Risk Risk: Self-mutilation, Diminished functioning - Strength & Assets Inventory Strength & Assets Inventory: Cooperative, Other (Relatively good physical health, patient has some income) - Limitations Limitations: Living alone, Other (Substance abuse, chronic noncompliance with her medications and follow-up appointments) Psychiatric Physical Exam - Physical Exam Reviewed and confirmed: Emergency Department Physical Exam Results - Vital Signs Recent Vital Signs: Last Vital Signs Temp 98.6 F 07/26/18 07:30 Pulse 64 07/26/18 07:30 Resp 20 07/26/18 07:30 BP 103/62 07/26/18 07:30 Pulse Ox 100 07/26/18 04:05 - Labs Result Diagrams: 07/26/18 01:22 07/26/18 01:22 Labs: Laboratory Results - last 24 hr 07/26/18 07/26/18 07/26/18 01:22 01:22 01:22 WBC 6.5 RBC 4.06 Hgb 12.0 Hct 37.0 MCV 91.1 MCH 29.6 MCHC 32.4 RDW 16.0 H Plt Count 193 MPV 10.4 Gran % 41.0 L Lymph % (Auto) 47.1 H [place] % (Auto) 8.2 H Eos % (Auto) 3.4 Baso % (Auto) 0.3 Gran # 2.64 Lymph # (Auto) 3.0 Walsh # (Auto) 0.5 Eos # (Auto) 0.2 Baso # (Auto) 0.02 Sodium 138 Potassium 3.9 Chloride 99 Carbon Dioxide 32 Anion Gap 11 BUN 11 Creatinine 0.9 Est GFR ( Amer) > 60 Est GFR (Non-Af Amer) > 60 Random Glucose 106 Fasting Glucose Calcium 9.8 Total Bilirubin 0.4 AST 76 H D ALT 48 Alkaline Phosphatase 82 Total Protein 7.3 Albumin 4.1 Globulin 3.2 Albumin/Globulin Ratio 1.3 Triglycerides Cholesterol LDL Cholesterol Direct HDL Cholesterol TSH 3rd Generation Urine Color Yellow Urine Appearance Sl cloudy Urine pH 8.0 Ur Specific [place] 1.015 Urine Protein Negative Urine Glucose (UA) Negative Urine Ketones Negative Urine Blood Negative Urine Nitrate Negative Urine Bilirubin Negative Urine Urobilinogen 0.2 Ur Leukocyte Esterase Negative Urine HCG, Qual Negative Salicylates Urine Opiates Screen Urine Methadone Screen Acetaminophen Ur Barbiturates Screen Ur Phencyclidine Scrn Ur Amphetamines Screen U Benzodiazepines Scrn U Oth Cocaine Metabols U Cannabinoids Screen Alcohol, Quantitative 07/26/18 07/26/18 07/26/18 01:22 01:22 01:22 WBC RBC Hgb Hct MCV MCH MCHC RDW Plt Count MPV Gran % Lymph % (Auto) [place] % (Auto) Eos % (Auto) Baso % (Auto) Gran # Lymph # (Auto) [place] # (Auto) Eos # (Auto) Baso # (Auto) Sodium Potassium Chloride Carbon Dioxide Anion Gap BUN Creatinine Est GFR ( Amer) Est GFR (Non-Af Amer) Random Glucose Fasting Glucose Calcium Total Bilirubin AST ALT Alkaline Phosphatase Total Protein Albumin Globulin Albumin/Globulin Ratio Triglycerides Cholesterol LDL Cholesterol Direct HDL Cholesterol TSH 3rd Generation Urine Color Urine Appearance Urine pH Ur Specific [place] Urine Protein Urine Glucose (UA) Urine Ketones Urine Blood Urine Nitrate Urine Bilirubin Urine Urobilinogen Ur Leukocyte Esterase Urine HCG, Qual Salicylates < 1 L Urine Opiates Screen Positive H Urine Methadone Screen Negative Acetaminophen < 10.0 L Ur Barbiturates Screen Negative Ur Phencyclidine Scrn Negative Ur Amphetamines Screen Negative U Benzodiazepines Scrn Positive H U Oth Cocaine Metabols Negative U Cannabinoids Screen Negative Alcohol, Quantitative < 10 07/26/18 07/26/18 07:45 07:45 WBC RBC Hgb Hct MCV MCH MCHC RDW Plt Count MPV Gran % Lymph % (Auto) [place] % (Auto) Eos % (Auto) Baso % (Auto) Gran # Lymph # (Auto) [place] # (Auto) Eos # (Auto) Baso # (Auto) Sodium Potassium Chloride Carbon Dioxide Anion Gap BUN Creatinine Est GFR ( Amer) Est GFR (Non-Af Amer) Random Glucose Fasting Glucose 102 Calcium Total Bilirubin AST ALT Alkaline Phosphatase Total Protein Albumin Globulin Albumin/Globulin Ratio Triglycerides 104 Cholesterol 147 LDL Cholesterol Direct 47 HDL Cholesterol 51 TSH 3rd Generation 0.62 Urine Color Urine Appearance Urine pH Ur Specific [place] Urine Protein Urine Glucose (UA) Urine Ketones Urine Blood Urine Nitrate Urine Bilirubin Urine Urobilinogen Ur Leukocyte Esterase Urine HCG, Qual Salicylates Urine Opiates Screen Urine Methadone Screen Acetaminophen Ur Barbiturates Screen Ur Phencyclidine Scrn Ur Amphetamines Screen U Benzodiazepines Scrn U Oth Cocaine Metabols U Cannabinoids Screen Alcohol, Quantitative - EKG Data EKG Interpreted by: ER Physician DSM Plan - DSM 5 DSM 5 Diagnosis: schizoaffective disorder, bipolar type opioid abuse benzodiazepines abuse - Recommended/Plan of Treatment Treatment Recommendations and Plan of Treatment: Milieu/structure/supportive therapy SW consultation for discharge plan and social issues Med management: seroquel resumed trazodone resumed gabapentin resumed as needed meds Family involvement Follow up on labs Will monitor closely Pt was educated about risk/benefits and alternatives of medications, coping strategies (safety plan, suicide prevention), relapse prevention, importance of follow up with psychiatrist and therapist, stay away from drugs/alcohol/smoking Projected ELOS: 7days Prognosis: guarded Discharge Plan and Discharge Criteria: Pt will be not depressed or manic, will be more hopeful, will be not psychotic or anxious, will be tolerating medications well, will not have major side effects, will be able to function, will not pose threat to self or others. - Tobacco Cessation Tobacco Use Status for the last 30 days: Light User(<=4 cigs daily, cigar/pipes not daily,or smokeless tobacco) Tobacco Use Treatment Practical Counseling Provided: Yes Tobacco Use Treatment FDA-Approved Cessation Medication Provided: Yes Reason for not providing: Patient refused tobacco cessation medication - Alcohol or Substance Abuse Does the patient have an Alcohol or Substance Abuse Disorder: Yes Initial Psych Certification - Initial Certification I certify that the inpatient psychiatric facility admission was medically necessary for either: Treatment which could reasonbly be expected to improve pt's condition I estimate of hospitalization is necessary for proper treatment of the patient: 7 Unit of Time: Days My plans for post-hospital care for this patient are: dual diagnosis program possible inpatient rehab.
--- NOTE | 2018-07-26 23:36 | CARD ---
APPROVED REPORT Date of service: 07/26/2018 EKG Measurement Heart [id number] <Conclusion> Normal sinus rhythm Normal ECG
--- NOTE | 2018-07-27 13:58 | PCM.PYCHPN ---
Psychiatric Progress Note - Psychiatric Progress Note Patient seen today, length of contact: 30 minutes Patient Chief Complaint: "I had a rough night" Problems Identified/Issues Discussed: Risk/benefits and alternatives of medications discussed, suicide/ homicide prevention, past psychiatric h/o, current psychiatric symptoms, medical problems, risk/benefits and alternatives of medications, medications compliance, coping strategies, substance abuse h/o, relapse prevention, importance of follow up with psychiatrist and therapist, discharge plan. Medical Problems: Patient denied any physical symptoms, patient has history of osteoarthritis, urinary tract infection, we will consider to call medical consultation in case of any physical symptoms. Diagnostic Results: 07/26/18 01:22 07/26/18 01:22 Lab Results 07/26/18 07:45: RPR Nonreactive 07/26/18 07:45: TSH 3rd Generation 0.62 07/26/18 07:45: Fasting Glucose 102, Triglycerides 104, Cholesterol 147, LDL Ch olesterol Direct 47, HDL Cholesterol 51 07/26/18 01:22: Alcohol, Quantitative < 10 07/26/18 01:22: Salicylates < 1 L, Acetaminophen < 10.0 L 07/26/18 01:22: Urine Opiates Screen Positive H, Urine Methadone Screen Negative, Ur Barbiturates Screen Negative, Ur Phencyclidine Scrn Negative, Ur Amphetamines Screen Negative, U Benzodiazepines Scrn Positive H, U Oth Cocaine Metabols Negative, U Cannabinoids Screen Negative 07/26/18 01:22: Sodium 138, Potassium 3.9, Chloride 99, Carbon Dioxide 32, Anion Gap 11, BUN 11, Creatinine 0.9, Est GFR ( Amer) > 60, Est GFR (Non-Af Amer) > 60, Random Glucose 106, Calcium 9.8, Total Bilirubin 0.4, AST 76 H D, ALT 48, Alkaline Phosphatase 82, Total Protein 7.3, Albumin 4.1, Globulin 3.2, Albumin/Globulin Ratio 1.3 07/26/18 01:22: Urine Color Yellow, Urine Appearance Sl cloudy, Urine pH 8.0, Ur Specific [place] 1.015, Urine Protein Negative, Urine Glucose (UA) Negative, Urine Ketones Negative, Urine Blood Negative, Urine Nitrate Negative, Urine Bilirubin Negative, Urine Urobilinogen 0.2, Ur Leukocyte Esterase Negative, Urine HCG, Qual Negative 07/26/18 01:22: WBC 6.5, RBC 4.06, Hgb 12.0, Hct 37.0, MCV 91.1, MCH 29.6, MCHC 32.4, RDW 16.0 H, Plt Count 193, MPV 10.4, Gran % 41.0 L, Lymph % (Auto) 47.1 H, [place] % (Auto) 8.2 H, Eos % (Auto) 3.4, Baso % (Auto) 0.3, Gran # 2.64, Lymph # (Auto) 3.0, [place] # (Auto) 0.5, Eos # (Auto) 0.2, Baso # (Auto) 0.02 Vital Signs Temp Pulse Resp BP Pulse Ox 07/27/18 07:19 98.4 F 57 L 20 105/68 07/26/18 07:30 98.6 F 64 20 103/62 07/26/18 04:05 97.9 F 68 16 125/75 100 07/26/18 03:04 98.1 F 72 18 110/60 100 07/26/18 00:14 98.8 F 77 18 118/60 100 DSM 5 Symptoms Update: Shortly patient is 48 year old -Mongolian female, whose past psychiatric history is schizoaffective disorder, polysubstance abuse and dependence, multiple admissions to the psychiatric inpatient unit, chronic noncompliance with medications and follow-up appointments, patient brought herself to [facility] for evaluation and stabilization of depressive symptoms, during evaluation patient reported that she feels depressed, hopeless, helpless, reported that he does hear voices, was not able to contract for safety, patient required to be admitted to the psychiatric inpatient unit, observation/stabilization. Patient was seen today at the treatment team meeting, patient presented to be disengaged, flat affect, not interested to have interview, patient reported to help "rough night", patient reported that she still feels "the same" , reported that she feels hopeless and helpless, worthless and guilt. Patient adamantly denied thoughts of harming herself or others. Patient denied hearing voices or seeing things today but patient reported hearing her grandmother's voice prior to come to the hospital and she remembers being "scared". As per staff patient is isolating, not participating in unit activities, disenga ged. In the emergency room patient reported that she still takes meds what this sheet writer prescribed to her, at the same time it would be not possible because pt was discharged from this unit in February 2018 and, this sheet writer provided patient only reported one month supply of medications. Patient said "I do not know, I still took medications, compliance is questionable, at the same time patient was recently discharged from [facility]. So far patient tolerates medications well, no side effects observed or reported, aims 0, no EPS. Patient reported that she smokes about 4-5 cigarettes a day, refused to have any nicotine patch. DSM 5 Diagnosis: schizoaffective disorder, bipolar type opioid abuse benzodiazepines abuse Medication Change: Yes Medical Record Reviewed: Yes Consults ordered or reviewed: Patient was seen by medical team in the emergency room Mental Status Examination - Cognitive Function Orientation: Person, Place, Situation Memory: Intact Attention: Poor Concentration: Poor Association: Loose Fund of Knowledge: Poor - Mood Mood: Depressed, Anxious - Affect Affect: Flat - Formal Thought Process Formal Thought Process: Hallucinations (reported auditory hallucinations in the emergency room, denied today) - Suicidal Ideation Suicidal Ideation: No - Homicidal Ideation Homicidal Ideation: No Goal/Treatment Plan - Goal/Treatment Plan Need for Continued Stay: Remain at risks for inpatient hospitalization, Severe depression anxiety, Discharge may exacerbated symptoms, Severe functional impairment Progress Toward Problem(s) and Goals/Treatment Plan: Milieu/structure/supportive therapy SW consultation for discharge plan and social issues Med management: seroquel 100 mg twice a day for psychosis and mood stabilization trazodone 50 mg at the nighttime for depression and insomnia gabapentin 300 mg 3 times a day for mood stabilization as needed meds Family involvement Follow up on labs Will monitor closely Pt was educated about risk/benefits and alternatives of medications, coping stra tegies (safety plan, suicide prevention), relapse prevention, importance of follow up with psychiatrist and therapist, stay away from drugs/alcohol/smoking Estimated Date of D/C: 08/02/18 - Smoking Cessation Smoking Cessation Initiated: Yes
--- NOTE | 2018-07-28 14:22 | PCM.PYCHPN ---
Psychiatric Progress Note - Psychiatric Progress Note Patient seen today, length of contact: 30 minutes Patient Chief Complaint: "I didn't sleep last night, my legs were keep moving, I am not well, I am very depressed, it would be better without me..." Problems Identified/Issues Discussed: Risk/benefits and alternatives of medications discussed, suicide/ homicide prevention, past psychiatric h/o, current psychiatric symptoms, medical problems, risk/benefits and alternatives of medications, medications compliance, coping strategies, substance abuse h/o, relapse prevention, importance of follow up with psychiatrist and therapist, discharge plan. Medical Problems: Patient denied any physical symptoms, patient has history of osteoarthritis, urinary tract infection, we will consider to call medical consultation in case of any physical symptoms. Diagnostic Results: 07/26/18 01:22 07/26/18 01:22 Lab Results 07/26/18 07:45: RPR Nonreactive 07/26/18 07:45: TSH 3rd Generation 0.62 07/26/18 07:45: Fasting Glucose 102, Triglycerides 104, Cholesterol 147, LDL Cholesterol Direct 47, HDL Cholesterol 51 07/26/18 01:22: Alcohol, Quantitative < 10 07/26/18 01:22: Salicylates < 1 L, Acetaminophen < 10.0 L 07/26/18 01:22: Urine Opiates Screen Positive H, Urine Methadone Screen Negative, Ur Barbiturates Screen Negative, Ur Phencyclidine Scrn Negative, Ur Amphetamines Screen Negative, U Benzodiazepines Scrn Positive H, U Oth Cocaine Metabols Negative, U Cannabinoids Screen Negative 07/26/18 01:22: Sodium 138, Potassium 3.9, Chloride 99, Carbon Dioxide 32, Anion Gap 11, BUN 11, Creatinine 0.9, Est GFR ( Amer) > 60, Est GFR (Non-Af Amer) > 60, Random Glucose 106, Calcium 9.8, Total Bilirubin 0.4, AST 76 H D, ALT 48, Alkaline Phosphatase 82, Total Protein 7.3, Albumin 4.1, Globulin 3.2, Albumin/Globulin Ratio 1.3 07/26/18 01:22: Urine Color Yellow, Urine Appearance Sl cloudy, Urine pH 8.0, Ur Specific [place] 1.015, Urine Protein Negative, Urine Glucose (UA) Negative, Uri ne Ketones Negative, Urine Blood Negative, Urine Nitrate Negative, Urine Bilirubin Negative, Urine Urobilinogen 0.2, Ur Leukocyte Esterase Negative, Urine HCG, Qual Negative 07/26/18 01:22: WBC 6.5, RBC 4.06, Hgb 12.0, Hct 37.0, MCV 91.1, MCH 29.6, MCHC 32.4, RDW 16.0 H, Plt Count 193, MPV 10.4, Gran % 41.0 L, Lymph % (Auto) 47.1 H, [place] % (Auto) 8.2 H, Eos % (Auto) 3.4, Baso % (Auto) 0.3, Gran # 2.64, Lymph # (Auto) 3.0, [place] # (Auto) 0.5, Eos # (Auto) 0.2, Baso # (Auto) 0.02 Vital Signs Temp Pulse Resp BP Pulse Ox 07/27/18 07:19 98.4 F 57 L 20 105/68 07/26/18 07:30 98.6 F 64 20 103/62 07/26/18 04:05 97.9 F 68 16 125/75 100 07/26/18 03:04 98.1 F 72 18 110/60 100 07/26/18 00:14 98.8 F 77 18 118/60 100 DSM 5 Symptoms Update: Shortly patient is 48 year old -[place] female, whose past psychiatric history is schizoaffective disorder, polysubstance abuse and dependence, multiple admissions to the psychiatric inpatient unit, chronic noncompliance with medications and follow-up appointments, patient brought herself to [facility] for evaluation and stabilization of depressive symptoms, during evaluation patient reported that she feels depressed, hopeless, helpless, reported that he does hear voices, was not able to contract for safety, patient required to be admitted to the psychiatric inpatient unit, observation/stabilization. Patient was seen today at the hallway, patient presented to be disengaged, flat affect, not interested to have interview, patient reported to help "rough night, my legs were keep moving, why me? why do I need to suffer, it would be better without me...", patient reported that she still feels "the same" , reported that she feels hopeless and helpless, worthless and guilt. Patient adamantly denied thoughts of harming herself or others. Patient denied hearing voices or seeing things today but patient reported hearing her grandmother's voice prior to come to the hospital and she remembers being "scared". As per staff patient is isolating, not participating in unit activities, disengaged. So far patient tolerates medications well, but reported to feel restless at night, d/c trazodone, ambien will be started AIMS 0, no EPS. Patient reported that she smokes about 4-5 cigarettes a day, refused to have any nicotine patch. DSM 5 Diagnosis: schizoaffective disorder, bipolar type opioid abuse benzodiazepines abuse Medication Change: Yes (trazodone d/c) Medical Record Reviewed: Yes Consults ordered or reviewed: Patient was seen by medical team in the emergency room Mental Status Examination - Cognitive Function Orientation: Person, Place, Situation Memory: Intact Attention: Poor Concentration: Poor Association: Loose Fund of Knowledge: Poor - Mood Mood: Depressed, Anxious - Affect Affect: Flat - Formal Thought Process Formal Thought Process: Hallucinations (reported auditory hallucinations in the emergency room, denied today) - Suicidal Ideation Suicidal Ideation: No - Homicidal Ideation Homicidal Ideation: No Goal/Treatment Plan - Goal/Treatment Plan Need for Continued Stay: Remain at risks for inpatient hospitalization, Severe depression anxiety, Discharge may exacerbated symptoms, Severe functional impairment Progress Toward Problem(s) and Goals/Treatment Plan: Milieu/structure/supportive therapy SW consultation for discharge plan and social issues Med management: seroquel 100 mg twice a day for psychosis and mood stabilization trazodone d/c ambien 5mg for insomnia gabapentin 400 mg 3 times a day for mood stabilization as needed meds Family involvement Follow up on labs Will monitor closely Pt was educated about risk/benefits and alternatives of medications, coping strategies (safety plan, suicide prevention), relapse prevention, importance of follow up with psychiatrist and therapist, stay away from drugs/alcohol/smoking Estimated Date of D/C: 08/02/18
--- NOTE | 2018-07-29 14:18 | PCM.PYCHPN ---
Psychiatric Progress Note - Psychiatric Progress Note Patient seen today, length of contact: 30 minutes Patient Chief Complaint: "I didn't sleep last night, I feel miserable..." Problems Identified/Issues Discussed: Risk/benefits and alternatives of medications discussed, suicide/ homicide prevention, past psychiatric h/o, current psychiatric symptoms, medical problems, risk/benefits and alternatives of medications, medications compliance, coping strategies, substance abuse h/o, relapse prevention, importance of follow up with psychiatrist and therapist, discharge plan. Medical Problems: Patient denied any physical symptoms, patient has history of osteoarthritis, urinary tract infection, we will consider to call medical consultation in case of any physical symptoms. Diagnostic Results: 07/26/18 01:22 07/26/18 01:22 Lab Results 07/26/18 07:45: RPR Nonreactive 07/26/18 07:45: TSH 3rd Generation 0.62 07/26/18 07:45: Fasting Glucose 102, Triglycerides 104, Cholesterol 147, LDL Cholesterol Direct 47, HDL Cholesterol 51 07/26/18 01:22: Alcohol, Quantitative < 10 07/26/18 01:22: Salicylates < 1 L, Acetaminophen < 10.0 L 07/26/18 01:22: Urine Opiates Screen Positive H, Urine Methadone Screen Negative, Ur Barbiturates Screen Negative, Ur Phencyclidine Scrn Negative, Ur Amphetamines Screen Negative, U Benzodiazepines Scrn Positive H, U Oth Cocaine Metabols Negative, U Cannabinoids Screen Negative 07/26/18 01:22: Sodium 138, Potassium 3.9, Chloride 99, Carbon Dioxide 32, Anion Gap 11, BUN 11, Creatinine 0.9, Est GFR ( Amer) > 60, Est GFR (Non-Af Amer) > 60, Random Glucose 106, Calcium 9.8, Total Bilirubin 0.4, AST 76 H D, ALT 48, Alkaline Phosphatase 82, Total Protein 7.3, Albumin 4.1, Globulin 3.2, Albumin/Globulin Ratio 1.3 07/26/18 01:22: Urine Color Yellow, Urine Appearance Sl cloudy, Urine pH 8.0, Ur Specific [place] 1.015, Urine Protein Negative, Urine Glucose (UA) Negative, Urine Ketones Negative, Urine Blood Negative, Urine Nitrate Negative, Urine Bi lirubin Negative, Urine Urobilinogen 0.2, Ur Leukocyte Esterase Negative, Urine HCG, Qual Negative 07/26/18 01:22: WBC 6.5, RBC 4.06, Hgb 12.0, Hct 37.0, MCV 91.1, MCH 29.6, MCHC 32.4, RDW 16.0 H, Plt Count 193, MPV 10.4, Gran % 41.0 L, Lymph % (Auto) 47.1 H, [place] % (Auto) 8.2 H, Eos % (Auto) 3.4, Baso % (Auto) 0.3, Gran # 2.64, Lymph # (Auto) 3.0, [place] # (Auto) 0.5, Eos # (Auto) 0.2, Baso # (Auto) 0.02 Vital Signs Temp Pulse Resp BP Pulse Ox 07/27/18 07:19 98.4 F 57 L 20 105/68 07/26/18 07:30 98.6 F 64 20 103/62 07/26/18 04:05 97.9 F 68 16 125/75 100 07/26/18 03:04 98.1 F 72 18 110/60 100 07/26/18 00:14 98.8 F 77 18 118/60 100 DSM 5 Symptoms Update: Shortly patient is 48 year old -[place] female, whose past psychiatric history is schizoaffective disorder, polysubstance abuse and dependence, multiple admissions to the psychiatric inpatient unit, chronic noncompliance with medications and follow-up appointments, patient brought herself to [facility] for evaluation and stabilization of depressive symptoms, during evaluation patient reported that she feels depressed, hopeless, helpless, reported that he does hear voices, was not able to contract for safety, patient required to be admitted to the psychiatric inpatient unit, observation/st abilization. Patient was seen at the treatment team room today. pt is irritable, annoyed, dissatisfied, which is far from pt's baseline. pt said that she still has difficulties to fall and stay asleep, pt appeared to be agitated and angry, was storming out off the treatment team room, then coming back again. reported that she feels hopeless and helpless, worthless and guilt. Patient denied hearing voices or seeing things today but patient reported hearing her grandmother's voice prior to come to the hospital and she remembers being "scared". As per staff patient is isolating, not participating in unit activities, disengaged. So far patient tolerates medications well, but reported to feel restless at night, d/c trazodone, ambien will be started AIMS 0, no EPS. Patient reported that she smokes about 4-5 cigarettes a day, refused to have any nicotine patch. DSM 5 Diagnosis: schizoaffective disorder, bipolar type opioid abuse benzodiazepines abuse Medication Change: Yes (ambien increased, remeron started, seroquel increased) Medical Record Reviewed: Yes Consults ordered or reviewed: Patient was seen by medical team in the emergency room Mental Status Examination - Cognitive Function Orientation: Person, Place, Situation Memory: Intact Attention: Poor Concentration: Poor Association: Loose Fund of Knowledge: Poor - Mood Mood: Depressed, Anxious - Affect Affect: Flat - Formal Thought Process Formal Thought Process: Hallucinations (reported auditory hallucinations in the emergency room, denied today) - Suicidal Ideation Suicidal Ideation: No - Homicidal Ideation Homicidal Ideation: No Goal/Treatment Plan - Goal/Treatment Plan Need for Continued Stay: Remain at risks for inpatient hospitalization, Severe depression anxiety, Discharge may exacerbated symptoms, Severe functional impairment Progress Toward Problem(s) and Goals/Treatment Plan: Milieu/structure/supportive therapy SW consultation for discharge plan and social issues Med management: seroquel 100 mg at the morning and 200mg at night psychosis and mood stabilization trazodone d/c ambien 10mg for insomnia gabapentin 400 mg 3 times a day for mood stabilization remeron 15mg po hs depression as needed meds Family involvement Follow up on labs Will monitor closely Pt was educated about risk/benefits and alternatives of medications, coping strategies (safety plan, suicide prevention), relapse prevention, importance of follow up with psychiatrist and therapist, stay away from drugs/alcohol/smoking Estimated Date of D/C: 08/02/18
--- NOTE | 2018-07-30 14:47 | PCM.PYCHPN ---
Psychiatric Progress Note - Psychiatric Progress Note Patient seen today, length of contact: 30 minutes Patient Chief Complaint: "I am ready to go...." Problems Identified/Issues Discussed: Risk/benefits and alternatives of medications discussed, suicide/ homicide prevention, past psychiatric h/o, current psychiatric symptoms, medical problems, risk/benefits and alternatives of medications, medications compliance, coping strategies, substance abuse h/o, relapse prevention, importance of follow up with psychiatrist and therapist, discharge plan. Medical Problems: Patient denied any physical symptoms, patient has history of osteoarthritis, urinary tract infection, we will consider to call medical consultation in case of any physical symptoms. Diagnostic Results: 07/26/18 01:22 07/26/18 01:22 Lab Results 07/26/18 07:45: RPR Nonreactive 07/26/18 07:45: TSH 3rd Generation 0.62 07/26/18 07:45: Fasting Glucose 102, Triglycerides 104, Cholesterol 147, LDL C holesterol Direct 47, HDL Cholesterol 51 07/26/18 01:22: Alcohol, Quantitative < 10 07/26/18 01:22: Salicylates < 1 L, Acetaminophen < 10.0 L 07/26/18 01:22: Urine Opiates Screen Positive H, Urine Methadone Screen Negative, Ur Barbiturates Screen Negative, Ur Phencyclidine Scrn Negative, Ur Amphetamines Screen Negative, U Benzodiazepines Scrn Positive H, U Oth Cocaine Metabols Negative, U Cannabinoids Screen Negative 07/26/18 01:22: Sodium 138, Potassium 3.9, Chloride 99, Carbon Dioxide 32, Anion Gap 11, BUN 11, Creatinine 0.9, Est GFR ( Amer) > 60, Est GFR (Non-Af Amer) > 60, Random Glucose 106, Calcium 9.8, Total Bilirubin 0.4, AST 76 H D, ALT 48, Alkaline Phosphatase 82, Total Protein 7.3, Albumin 4.1, Globulin 3.2, Albumin/Globulin Ratio 1.3 07/26/18 01:22: Urine Color Yellow, Urine Appearance Sl cloudy, Urine pH 8.0, Ur Specific [place] 1.015, Urine Protein Negative, Urine Glucose (UA) Negative, Urine Ketones Negative, Urine Blood Negative, Urine Nitrate Negative, Urine Bilirubin Negative, Urine Urobilinogen 0.2, Ur Leukocyte Esterase Negative, Urine HCG, Qual Negative 07/26/18 01:22: WBC 6.5, RBC 4.06, Hgb 12.0, Hct 37.0, MCV 91.1, MCH 29.6, MCHC 32.4, RDW 16.0 H, Plt Count 193, MPV 10.4, Gran % 41.0 L, Lymph % (Auto) 47.1 H, [place] % (Auto) 8.2 H, Eos % (Auto) 3.4, Baso % (Auto) 0.3, Gran # 2.64, Lymph # (Auto) 3.0, [place] # (Auto) 0.5, Eos # (Auto) 0.2, Baso # (Auto) 0.02 Vital Signs Temp Pulse Resp BP Pulse Ox 07/27/18 07:19 98.4 F 57 L 20 105/68 07/26/18 07:30 98.6 F 64 20 103/62 07/26/18 04:05 97.9 F 68 16 125/75 100 07/26/18 03:04 98.1 F 72 18 110/60 100 07/26/18 00:14 98.8 F 77 18 118/60 100 DSM 5 Symptoms Update: Shortly patient is 48 year old -[place]ux[place] female, whose past psychiatric history is schizoaffective disorder, polysubstance abuse and dependence, multiple admissions to the psychiatric inpatient unit, chronic noncompliance with medications and follow-up appointments, patient brought herself to [facility] for evaluation and stabilization of depressive symptoms, during evaluation patient reported that she feels depressed, hopeless, helpless, reported that he does hear voices, was not able to contract for safety, patient required to be admitted to the psychiatric inpatient unit, observation/stabilization. Patient was seen at the treatment team room today patient is irritable, annoyed,, wanted to present better than she is, patient was making up stories that she wants to go home, most likely patient is craving for drugs, this screen writer suggested to submitted 48-hour notice but patient refused to do so. Patient reported that he slept better, patient still disheveled, does not participate in unit activities, not interested to take shower, wears 36 and baby clothing. pt is irritable, annoyed, dissatisfied, which is far from pt's baseline. As per staff patient is isolating, not participating in unit activities, disengaged. So far patient tolerates medications well, but reported to feel restless at night, d/c trazodone, ambien will be started AIMS 0, no EPS. Patient reported that she smokes about 4-5 cigarettes a day, refused to have any nicotine patch. DSM 5 Diagnosis: schizoaffective disorder, bipolar type opioid abuse benzodiazepines abuse Medication Change: Yes (Remeron increased) Medical Record Reviewed: Yes Mental Status Examination - Cognitive Function Orientation: Person, Place, Situation Memory: Intact Attention: Poor Concentration: Poor Association: Loose Fund of Knowledge: Poor - Mood Mood: Depressed, Anxious - Affect Affect: Flat - Formal Thought Process Formal Thought Process: Hallucinations (reported auditory hallucinations in the emergency room, denied today) - Suicidal Ideation Suicidal Ideation: No - Homicidal Ideation Homicidal Ideation: No Goal/Treatment Plan - Goal/Treatment Plan Need for Continued Stay: Remain at risks for inpatient hospitalization, Severe depression anxiety, Discharge may exacerbated symptoms, Severe functional impairment Progress Toward Problem(s) and Goals/Treatment Plan: Milieu/structure/supportive therapy SW consultation for discharge plan and social issues Med management: seroquel 100 mg at the morning and 200mg at night psychosis and mood stabilization trazodone d/c ambien 10mg for insomnia gabapentin 400 mg 3 times a day for mood stabilization remeron 30mg po hs depression as needed meds Family involvement Follow up on labs Will monitor closely Pt was educated about risk/benefits and alternatives of medications, coping strategies (safety plan, suicide prevention), relapse prevention, importance of follow up with psychiatrist and therapist, stay away from drugs/alcohol/smoking Estimated Date of D/C: 08/02/18
[2018-07-31 07:28] VITALS: TEMP 98.1
[2018-07-31] MEDS ORDERED: Vitamins A & D Oint UD Foilpak TOP PRN (08:32)
--- NOTE | 2018-07-31 12:27 | PCM.PYCHPN ---
Psychiatric Progress Note - Psychiatric Progress Note Patient seen today, length of contact: 30 minutes Patient Chief Complaint: "I am ready, I want to go home.." Problems Identified/Issues Discussed: Risk/benefits and alternatives of medications discussed, suicide/ homicide prevention, past psychiatric h/o, current psychiatric symptoms, medical problems, risk/benefits and alternatives of medications, medications compliance, coping strategies, substance abuse h/o, relapse prevention, importance of follow up with psychiatrist and therapist, discharge plan. Medical Problems: Patient denied any physical symptoms, patient has history of osteoarthritis, urinary tract infection, we will consider to call medical consultation in case of any physical symptoms. Diagnostic Results: 07/26/18 01:22 07/26/18 01:22 Lab Results 07/26/18 07:45: RPR Nonreactive 07/26/18 07:45: TSH 3rd Generation 0.62 07/26/18 07:45: Fasting Glucose 102, Triglycerides 104, Cholesterol 147, LDL Cholesterol Direct 47, HDL Cholesterol 51 07/26/18 01:22: Alcohol, Quantitative < 10 07/26/18 01:22: Salicylates < 1 L, Acetaminophen < 10.0 L 07/26/18 01:22: Urine Opiates Screen Positive H, Urine Methadone Screen Negative, Ur Barbiturates Screen Negative, Ur Phencyclidine Scrn Negative, Ur Amphetamines Screen Negative, U Benzodiazepines Scrn Positive H, U Oth Cocaine Metabols Negative, U Cannabinoids Screen Negative 07/26/18 01:22: Sodium 138, Potassium 3.9, Chloride 99, Carbon Dioxide 32, Anion Gap 11, BUN 11, Creatinine 0.9, Est GFR ( Amer) > 60, Est GFR (Non-Af Amer) > 60, Random Glucose 106, Calcium 9.8, Total Bilirubin 0.4, AST 76 H D, ALT 48, Alkaline Phosphatase 82, Total Protein 7.3, Albumin 4.1, Globulin 3.2, Albumin/Globulin Ratio 1.3 07/26/18 01:22: Urine Color Yellow, Urine Appearance Sl cloudy, Urine pH 8.0, Ur Specific [place] 1.015, Urine Protein Negative, Urine Glucose (UA) Negative, Urine Ketones Negative, Urine Blood Negative, Urine Nitrate Negative, Urine Bilirubin Negative, Urine Urobilinogen 0.2, Ur Leukocyte Esterase Negative, Urine HCG, Qual Negative 07/26/18 01:22: WBC 6.5, RBC 4.06, Hgb 12.0, Hct 37.0, MCV 91.1, MCH 29.6, MCHC 32.4, RDW 16.0 H, Plt Count 193, MPV 10.4, Gran % 41.0 L, Lymph % (Auto) 47.1 H, [place] % (Auto) 8.2 H, Eos % (Auto) 3.4, Baso % (Auto) 0.3, Gran # 2.64, Lymph # (Auto) 3.0, [place] # (Auto) 0.5, Eos # (Auto) 0.2, Baso # (Auto) 0.02 Vital Signs Temp Pulse Resp BP Pulse Ox 07/27/18 07:19 98.4 F 57 L 20 105/68 07/26/18 07:30 98.6 F 64 20 103/62 07/26/18 04:05 97.9 F 68 16 125/75 100 07/26/18 03:04 98.1 F 72 18 110/60 100 07/26/18 00:14 98.8 F 77 18 118/60 100 DSM 5 Symptoms Update: Shortly patient is 48 year old -[place] female, whose past psychiatric history is schizoaffective disorder, polysubstance abuse and dependence, multiple admissions to the psychiatric inpatient unit, chronic noncompliance w ith medications and follow-up appointments, patient brought herself to [facility] for evaluation and stabilization of depressive symptoms, during evaluation patient reported that she feels depressed, hopeless, helpless, reported that he does hear voices, was not able to contract for safety, patient required to be admitted to the psychiatric inpatient unit, observation/stabilization. Patient was seen today in her room, pt was resting comfortably, pt reported that she is feeling "fine, I want to go home..", at the same time as per RN report pt was restless and pacing in the unit, required to have PRN of geodon. most likely patient is craving for drugs that is why she wants to leave the hospital, this technical writer and editor suggested to submitted 48-hour notice but patient refused to do so. Patient reported that he slept better, patient still disheveled, does not participate in unit activities, not interested to take shower, wears dirty and baggy clothing. pt is irritable, but more pleasant today. As per staff patient is isolating, not participating in unit activities, disengaged. So far patient tolerates medications well, but reported to feel restless at night, d/c trazodone, ambien will be started AIMS 0, no EPS. Patient reported that she smokes about 4-5 cigarettes a day, refused to have any nicotine patch. DSM 5 Diagnosis: schizoaffective disorder, bipolar type opioid abuse benzodiazepines abuse Medication Change: No (Remeron increased) Medical Record Reviewed: Yes Consults ordered or reviewed: Patient was seen by medical team in the emergency room Mental Status Examination - Cognitive Function Orientation: Person, Place, Situation Memory: Intact Attention: Poor (some improvement) Concentration: Poor (some improvement) Association: WNL Fund of Knowledge: Poor (baseline) - Mood Mood: Depressed ("I am fine"), Anxious - Affect Affect: Constricted (but more reactive) - Formal Thought Process Formal Thought Process: Hallucinations (reported auditory hallucinations in the emergency room, denied today) - Suicidal Ideation Suicidal Ideation: No - Homicidal Ideation Homicidal Ideation: No Goal/Treatment Plan - Goal/Treatment Plan Need for Continued Stay: Remain at risks for inpatient hospitalization, Severe depression anxiety, Discharge may exacerbated symptoms, Severe functional impairment Progress Toward Problem(s) and Goals/Treatment Plan: Milieu/structure/supportive therapy SW consultation for discharge plan and social issues Med management: seroquel 100 mg at the morning and 200mg at night psychosis and mood stabilization trazodone d/c ambien 10mg for insomnia gabapentin 400 mg 3 times a day for mood stabilization remeron 30mg po hs depression as needed meds Family involvement Follow up on labs Will monitor closely Pt was educated about risk/benefits and alternatives of medications, coping strategies (safety plan, suicide prevention), relapse prevention, importance of follow up with psychiatrist and therapist, stay away from drugs/alcohol/smoking Estimated Date of D/C: 08/02/18
[2018-08-01 07:38] VITALS: BP 93/45; PULSE 85; RESP 18
--- NOTE | 2018-08-01 11:56 | PCM.PYCHDC ---
Mental Status Examination - Mental Status Examination Orientation: Person, Place, Situation, Time Memory: Intact Mood: Neutral Affect: Constricted Speech: Appropriate Attention: WNL Concentration: WNL Association: WNL Fund of Knowledge: WNL Formal Thought Process: No Impairment Description of patient's judgement and insight: Pt has improved insight into mental illness, addiction to substances, pt has good insight into medical issues, pt was compliant with medications and unit rules and regulations, pt was going to groups, was calm, cooperative, socially appropriate, no behavioral incidents, no agitation, no aggression. Psychotic Thoughts and Behaviors: Pt denied v/a/t hallucinations, denied paranoid ideations, pt does not appear to be psychotic, and thought process is goal directed. Suicidal Ideation: No Current Homicidal Ideation?: No Plan: pt adamantly denied thoughts of harming self or others denied intent or plan. Discharge Summary - Discharge Note Reason for Hospitalization: Patient was admitted to the psychiatric inpatient unit for evaluation and stabilization of depressive symptoms, psychotic symptoms, possible suicidal ideation with a plan to cut herself. Psychiatric History (includes Medical, Family, Personal Hx): See HPI Laboratory Data: 07/26/18 01:22 07/26/18 01:22 Lab Results 07/26/18 07:45: RPR Nonreactive 07/26/18 07:45: TSH 3rd Generation 0.62 07/26/18 07:45: Fasting Glucose 102, Triglycerides 104, Cholesterol 147, LDL Cholesterol Direct 47, HDL Cholesterol 51 07/26/18 01:22: Alcohol, Quantitative < 10 07/26/18 01:22: Salicylates < 1 L, Acetaminophen < 10.0 L 07/26/18 01:22: Urine Opiates Screen Positive H, Urine Methadone Screen Negative, Ur Barbiturates Screen Negative, Ur Phencyclidine Scrn Negative, Ur Amphetamines Screen Negative, U Benzodiazepines Scrn Positive H, U Oth Cocaine Metabols Negative, U Cannabinoids Screen Negative 07/26/18 01:22: Sodium 138, Potassium 3.9, Chloride 99, Carbon Dioxide 32, Anion Gap 11, BUN 11, Creatinine 0.9, Est GFR ( Amer) > 60, Est GFR (Non-Af Amer) > 60, Random Glucose 106, Calcium 9.8, Total Bilirubin 0.4, AST 76 H D, ALT 48, Alkaline Phosphatase 82, Total Protein 7.3, Albumin 4.1, Globulin 3.2, Albumin/Globulin Ratio 1.3 07/26/18 01:22: Urine Color Yellow, Urine Appearance Sl cloudy, Urine pH 8.0, Ur Specific Parrott 1.015, Urine Protein Negative, Urine Glucose (UA) Negative, Urine Ketones Negative, Urine Blood Negative, Urine Nitrate Negative, Urine Bilirubin Negative, Urine Urobilinogen 0.2, Ur Leukocyte Esterase Negative, Urine HCG, Qual Negative 07/26/18 01:22: WBC 6.5, RBC 4.06, Hgb 12.0, Hct 37.0, MCV 91.1, MCH 29.6, MCHC 32.4, RDW 16.0 H, Plt Count 193, MPV 10.4, Gran % 41.0 L, Lymph % (Auto) 47.1 H, Kemper % (Auto) 8.2 H, Eos % (Auto) 3.4, Baso % (Auto) 0.3, Gran # 2.64, Lymph # (Auto) 3.0, Kemper # (Auto) 0.5, Eos # (Auto) 0.2, Baso # (Auto) 0.02 Vital Signs Temp Pulse Resp BP Pulse Ox 08/01/18 07:37 98.1 F 85 18 93/45 L 07/31/18 07:27 98.1 F 72 20 97/52 L 07/30/18 15:00 97.0 F L 62 16 106/62 07/30/18 07:00 98.6 F 67 20 108/75 07/29/18 07:34 98.8 F 54 L 20 115/71 07/28/18 16:00 58 L 113/71 07/28/18 07:19 98.7 F 55 L 20 117/73 07/27/18 07:19 98.4 F 57 L 20 105/68 07/26/18 07:30 98.6 F 64 20 103/62 07/26/18 04:05 97.9 F 68 16 125/75 100 07/26/18 03:04 98.1 F 72 18 110/60 100 07/26/18 00:14 98.8 F 77 18 118/60 100 Consultations:: List each consultation separately and include: 1. Reason for request. 2. Findings. 3. Follow-up Consultations: Patient was seen by medical team in the emergency room Patient denied any physical complaints this admission, did not require to be seen by medical doctor. Summary of Hospital Course include:: 1. Description of specific treatment plan utilized for patients during their course of treatmen. 2. Summarize the time- course for resolution of acute symptoms and/or regressed behaviors. 3. Describe issues identified and worked on during hospitalization. 4. Describe medication utilized. 5. Describe medical problems identified and treated. 6. Reassessment of suicide risk Summary of Hospital Course: Shortly patient is 48 year old -[place] female, whose past psychiatric history is schizoaffective disorder, polysubstance abuse and dependence, multiple admissions to the psychiatric inpatient unit, chronic noncompliance with medications and follow-up appointments, patient brought herself to [facility] for evaluation and stabilization of depressive symptoms, during evaluation patient reported that she feels depressed, hopeless, helpless, reported that he does hear voices, was not able to contract for safety, patient required to be admitted to the psychiatric inpatient unit, observation/stabilization. Please see admission note for more detailed information. 07/26/18 01:22 07/26/18 01:22 Lab Results 07/26/18 07:45: TSH 3rd Generation 0.62 07/26/18 07:45: Fasting Glucose 102, Triglycerides 104, Cholesterol 147, LDL Cholesterol Direct 47, HDL Cholesterol 51 07/26/18 01:22: Alcohol, Quantitative < 10 07/26/18 01:22: Salicylates < 1 L, Acetaminophen < 10.0 L 07/26/18 01:22: Urine Opiates Screen Positive H, Urine Methadone Screen Negative, Ur Barbiturates Screen Negative, Ur Phencyclidine Scrn Negative, Ur Amphetamines Screen Negative, U Benzodiazepines Scrn Positive H, U Oth Cocaine Metabols Negative, U Cannabinoids Screen Negative 07/26/18 01:22: Sodium 138, Potassium 3.9, Chloride 99, Carbon Dioxide 32, Anion Gap 11, BUN 11, Creatinine 0.9, Est GFR ( Amer) > 60, Est GFR (Non-Af Am er) > 60, Random Glucose 106, Calcium 9.8, Total Bilirubin 0.4, AST 76 H D, ALT 48, Alkaline Phosphatase 82, Total Protein 7.3, Albumin 4.1, Globulin 3.2, Albumin/Globulin Ratio 1.3 07/26/18 01:22: Urine Color Yellow, Urine Appearance Sl cloudy, Urine pH 8.0, Ur Specific Parrott 1.015, Urine Protein Negative, Urine Glucose (UA) Negative, Urine Ketones Negative, Urine Blood Negative, Urine Nitrate Negative, Urine Bilirubin Negative, Urine Urobilinogen 0.2, Ur Leukocyte Esterase Negative, Urine HCG, Qual Negative 07/26/18 01:22: WBC 6.5, RBC 4.06, Hgb 12.0, Hct 37.0, MCV 91.1, MCH 29.6, MCHC 32.4, RDW 16.0 H, Plt Count 193, MPV 10.4, Gran % 41.0 L, Lymph % (Auto) 47.1 H, Kemper % (Auto) 8.2 H, Eos % (Auto) 3.4, Baso % (Auto) 0.3, Gran # 2.64, Lymph # (Auto) 3.0, Kemper # (Auto) 0.5, Eos # (Auto) 0.2, Baso # (Auto) 0.02 Vital Signs Temp Pulse Resp BP Pulse Ox 07/26/18 07:30 98.6 F 64 20 103/62 07/26/18 04:05 97.9 F 68 16 125/75 100 07/26/18 03:04 98.1 F 72 18 110/60 100 07/26/18 00:14 98.8 F 77 18 118/60 100 Patient was stabilized on the following medications: seroquel 100 mg at the morning and 200mg at night psychosis and mood stabilization ambien 10mg for insomnia gabapentin 400 mg 3 times a day for mood stabilization remeron 30mg po hs depression Patient tolerated medications well, no side effects observed or reported, aims 0, no EPS. For first couple of days of this admission patient presented to be irritable, annoyed, complaining of insomnia, but had no outbursts or agitation or aggression. over the weekend patient presented much better, patient requested to be discharged today, patient reported her sleep and appetite improved, patient was attending groups, patient denied any psychotic symptoms and none were obs erved or reported. Overall pt improved significantly, pt's affect became brighter, pt was less depressed, has realistic future oriented plans "I want to go back to my program, stay well, and do what I need to do"., pt also does not appear to be psychotic, or anxious, pt was socially appropriate, no behavioral issues, pts insight improved as well and soon pt deemed to be ready for discharge. At the time of the discharge patient pose no imminent danger to self or others, will be following up at dual diagnosis program, information about follow up appointment, time and address provided to the pt, (see note for more detailed information). It is a patient responsibility to follow up with outpatient clinic, PMD as well as specialists In case patient will need to obtain results of studies pending at discharge, patient was provided with contact information of Psychiatric Inpatient unit [phone] as well as Medical Record Department [phone], as well as [facility] team [phone]. Nicotine patch was provided Naltrexone treatment discussed with the pt, but not indicated this time because of high chance of relapse on opioids Counseling about smoking and alcohol cessation provided AA meetings as well as [facility] smoking cessation treatment program information was provided by the pt was provided with prescriptions for two weeks and one refill for psychotropic meds and one week for medical meds (see medication reconciliation form), no scripts for benzodiazepines or ambien given. Patient was successfully weaned off benzodiazepines, VS were WNL. Pt was educated about safety plan in case of worsening of symptoms or in case of suicidal or homicidal ideation call 911 or go to the nearest ER, also was educated to take meds as prescribed and stay away from drugs, pt verbalized understanding. - Diagnosis (1) Schizoaffective disorder Current Visit: No Status: Chronic Priority: Medium (2) Opioid use disorder, moderate, dependence Current Visit: Yes Status: Acute Priority: High (3) Benzodiazepine abuse Current Visit: Yes Status: Acute Priority: Medium - Final Diagnosis (DSM 5) Condition upon Discharge: IMPROVED Disposition: HOME/ ROUTINE Follow-up Treatment Plan: Overall pt improved significantly, pt's affect became brighter, pt was less depressed, has realistic future oriented plans "I want to go back to my program, stay well, and do what I need to do"., pt also does not appear to be psychotic, or anxious, pt was socially appropriate, no behavioral issues, pts insight improved as well and soon pt deemed to be ready for discharge. At the time of the discharge patient pose no imminent danger to self or others, will be following up at dual diagnosis program, information about follow up appointment, time and address provided to the pt, (see note for more detailed information). It is a patient responsibility to follow up with outpatient clin ic, PMD as well as specialists In case patient will need to obtain results of studies pending at discharge, patient was provided with contact information of Psychiatric Inpatient unit [phone] as well as Medical Record Department [phone], as well as [facility] team [phone]. Nicotine patch was provided Naltrexone treatment discussed with the pt, but not indicated this time because of high chance of relapse on opioids Counseling about smoking and alcohol cessation provided AA meetings as well as [facility] smoking cessation treatment program information was provided by the pt was provided with prescriptions for two weeks and one refill for psychotropic meds and one week for medical meds (see medication reconciliation form), no scripts for benzodiazepines or ambien given. Patient was successfully weaned off benzodiazepines, VS were WNL. Pt was educated about safety plan in case of worsening of symptoms or in case of suicidal or homicidal ideation call 911 or go to the nearest ER, also was educated to take meds as prescribed and stay away from drugs, pt verbalized understanding. Prescriptions/Medication Reconciliation: Gabapentin [Neurontin] 400 mg PO TID #45 cap Mirtazapine [Remeron] 30 mg PO HS #30 tab QUEtiapine [Seroquel] 100 mg PO DAILY #14 tab Quetiapine Fumarate [Seroquel] 200 mg PO HS #14 tablet - Smoking Cessation Smoking Cessation Medication prescribed: No Reason for not providing: Patient refused - Antipsychotic Medications Pt discharged on 2 or more routine antipsychotic medications: No
== END 2018-08-01 12:37 | disposition home or self-care (01) | DRG 430 ==
LOC: ED 23:09 → ERH 07-26 02:44 → PSYC 07-26 03:58
PROVIDERS: ADMIT Psychiatry & Neurology Psychiatry; ATTEND Psychiatry & Neurology Psychiatry
PROC: GZ3ZZZZ Medication Management (ICD-10-PCS; principal; 2018-07-26)
DX: F25.0 Schizoaffective disorder, bipolar type (principal); F11.20 Opioid dependence, uncomplicated; F13.10 Sedative, hypnotic or anxiolytic abuse, uncomplicated; R45.851 Suicidal ideations; G47.00 Insomnia, unspecified; F17.210 Nicotine dependence, cigarettes, uncomplicated; Z91.14 Patient's other noncompliance with medication regimen

== ENCOUNTER 2018-09-30 23:58 | Inpatient (IN) | payer MEDICAID ==
[2018-09-30 23:58] VITALS: BMI 25.0
--- NOTE | 2018-10-01 01:07 | ED PDOC ---
Arrival/HPI - General Chief Complaint: Psychiatric Evaluation Time Seen by Provider: 09/30/18 23:59 Historian: Patient - History of Present Illness Narrative History of Present Illness (Text): 10/01/18 01:06 Kamila Iraheta is a 48 year old female, with past medical history of depression, schizoaffective disorder, and polysubstance abuse/dependence, who presents to the emergency department complaining of depression. Patient states she has been feeling depressed for the past week and having thoughts of killing herself, no specific plan. Denies any physical complaints at this time. Time/Duration: 1 week Symptom Onset: Gradual Symptom Course: Unchanged Context: Home Past Medical History - Provider Review Nursing Documentation Reviewed: Yes - Infectious Disease Hx of Infectious Diseases: None - Tetanus Immunization Tetanus Immunization: Unknown - Reproductive Menopause: Yes - Cardiac Hx Hypertension: No - Pulmonary Hx Asthma: Yes - Neurological Hx Seizures: No - HEENT Hx HEENT Disorder: No - Renal Hx Renal Disorder: No Hx Kidney Stones: No - Endocrine/Metabolic Hx Hyperthyroidism: No Hx Hypothyroidism: No - Hematological/Oncological Hx Anemia: Yes - Integumentary Hx Dermatological Disorder: No - Musculoskeletal/Rheumatological Hx Arthritis: No Hx Fractures: No Hx Osteoporosis: No Hx Rheumatoid Arthritis: No - Gastrointestinal Hx Crohn's Disease: No Hx Diverticulitis: No Hx Gall Bladder Disease: No Hx Gastritis: No Hx Pancreatitis: No - Genitourinary/Gynecological Hx Sexually Transmitted Diseases: No - Psychiatric Hx Anxiety: Yes Hx Bipolar Disorder: Yes Hx Depression: Yes Hx Schizophrenia: Yes Hx Substance Use: Yes - Past Surgical History Past Surgical History: No Previous - Surgical History Hx Cholecystectomy: Yes - Anesthesia Hx Anesthesia: Yes Hx Anesthesia Reactions: No Hx Malignant Hyperthermia: No - Suicidal Assessment Feels Threatened In Home Enviroment: No Family/Social History - Physician Review Nursing Documentation Reviewed: Yes Family/Social History: Unknown Family HX Smoking Status: Light Smoker < 10 Cigarettes Daily Hx Alcohol Use: No Hx Substance Use: Yes Substance used: heroin, cocaine Hx Substance Use Treatment: Yes Allergies/Home Meds Allergies/Adverse Reactions: Allergies Penicillins Allergy (Verified 10/01/18 00:25) unknown Review of Systems - Physician Review All systems were reviewed & negative as marked: Yes - Review of Systems Constitutional: Other (chills). absent: Fevers Respiratory: absent: SOB, Cough, Wheezing Cardiovascular: absent: Chest Pain, Palpitations Gastrointestinal: absent: Nausea, Vomiting Skin: absent: Rash Psychiatric: Depression, Suicidal Ideation Physical Exam Vital Signs Reviewed: Yes Vital Signs Temp Pulse Resp BP Pulse Ox 10/01/18 00:39 98.5 F 80 18 124/50 L 98 Temperature: Afebrile Blood Pressure: Normal Pulse: Regular Respiratory Rate: Normal Appearance: Positive for: Well-Appearing Pain Distress: None Mental Status: Positive for: Alert and Oriented X 3 - Systems Exam Head: Present: Atraumatic, Normocephalic Pupils: Present: PERRL. No: Non-Reactive Extroacular Muscles: Present: EOMI Conjunctiva: Present: Normal Mouth: Present: Moist Mucous Membranes Neck: Present: Normal Range of Motion Respiratory/Chest: Present: Clear to Auscultation, Good Air Exchange. No: Respiratory Distress Cardiovascular: Present: Regular Rate and Rhythm. No: Murmurs Abdomen: No: Tenderness Upper Extremity: Present: Normal Inspection. No: Cyanosis, Edema Lower Extremity: Present: Normal Inspection. No: Edema Neurological: Present: GCS=15, Speech Normal Skin: Present: Warm, Dry, Normal Color. No: Rashes Psychiatric: Present: Alert, Oriented x 3. No: Normal Affect (Flat affect) Medical Decision Making ED Course and Treatment: 10/01/18 01:25 Impression: 48 year old female who presents to the emergency department for increased depression and suicidal ideation. Plan: -- EKG -- Labs -- Chest X-ray -- Reassess and disposition Prior Visits: Notes and results from previous visits were reviewed. Progress Notes: 10/01/18 02:36 CXR reviewed, shows no acute processes. 10/01/18 05:38 PES screener Maria Del Carmen attempted to evaluate the pt, however pt remains under the influence. PES will attempt to re-evaluate pt later this morning. 10/01/18 07:[address] Romero, pending PES evaluation and disposition. 10/01/18 05:52 Reviewed EKG [address]/T change. No intervals. - Lab Interpretations I have reviewed the lab results: Yes - RAD Interpretation Radiology Orders: 10/01/18 00:46 CHEST PORTABLE [RAD] Stat [employer] Worker: ED Physician - EKG Interpretation Interpreted by ED Physician: Yes Type: 12 lead EKG - Scribe Statement The provider has reviewed the documentation as recorded by the Scribe Rajani hernandez training under Kamila Ciacedo All medical record entries made by the Idalmis were at my direction and personally dictated by me. I have reviewed the chart and agree that the record accurately reflects my personal performance of the history, physical exam, medical decision making, and the department course for this patient. I have also personally directed, reviewed, and agree with the discharge instructions and disposition. Disposition/Present on Arrival - Present on Arrival Any Indicators Present on Arrival: No History of DVT/PE: No History of Uncontrolled Diabetes: No Urinary Catheter: No History of Decub. Ulcer: No History Surgical Site Infection Following: None - Disposition Have Diagnosis and Disposition been Completed?: No Diagnosis: Opiate abuse, continuous, Depression, Suicidal ideation Disposition Time: 07:00 Patient Problems: Current Active Problems Problem Status Onset Depression Acute Suicidal ideation Acute Opiate abuse, continuous Chronic Condition: STABLE Forms: [employer] (Cambodian)
[2018-10-01 04:06] LABS: MEAN CELL VOLUME 91.8 fl (80.0-105.0); MEAN CORPUSCULAR HGB CONC 32.7 g/dl (31.0-37.0); MEAN PLATELET VOLUME 10.3 fl (7.0-11.0); RED CELL DISTRIBUTION WIDTH 15.7 % (11.5-14.5); WHITE BLOOD COUNT 6.4 10^3/uL (4.5-11.0)
[2018-10-01 04:23] LABS: ALBUMIN 3.5 g/dL (3.0-4.8); ALT/SGPT 23 U/L (7-56); AST/SGOT 28 U/L (14-36); BLOOD UREA NITROGEN 12 mg/dL (7-21); CALCIUM 8.9 mg/dL (8.4-10.5); GFR NON-AFRICAN AMERICAN > 60
[2018-10-01 04:44] LABS: BARBITURATES, UR NEGATIVE (NEGATIVE); BENZODIAZEPINES, UR POSITIVE (NEGATIVE); OPIATES, UR POSITIVE (NEGATIVE); PHENCYCLIDINE, UR NEGATIVE (NEGATIVE)
--- NOTE | 2018-10-01 07:34 | ED PDOC ---
Physical Exam Vital Signs Temp Pulse Resp BP Pulse Ox 10/01/18 07:09 98.2 F 67 18 110/66 100 10/01/18 00:39 98.5 F 80 18 124/50 L 98 Medical Decision Making ED Course and Treatment: 10/01/18 07:[address] Leary. Follow up PES evaluation. Will reevaluate her condition. 10/01/18 08:03 Patient has been evaluated by SAGAR Paez, who discussed with Dr. Carly Gamboa. Patient will be admitted for r/o Bipolar. - Lab Interpretations Lab Results: Total Bilirubin 0.2 mg/dL (0.2-1.3) 10/01/18 03:30 AST 28 U/L (14-36) 10/01/18 03:30 ALT 23 U/L (7-56) 10/01/18 03:30 Alkaline Phosphatase 121 U/L (38-126) 10/01/18 03:30 Total Protein 6.9 g/dL (5.8-8.3) 10/01/18 03:30 Albumin 3.5 g/dL (3.0-4.8) 10/01/18 03:30 Globulin 3.4 gm/dL 10/01/18 03:30 Albumin/Globulin Ratio 1.0 (1.1-1.8) L 10/01/18 03:30 - RAD Interpretation Radiology Orders: 10/01/18 00:46 CHEST PORTABLE [RAD] Stat Disposition/Present on Arrival - Present on Arrival Any Indicators Present on Arrival: No History of DVT/PE: No History of Uncontrolled Diabetes: No Urinary Catheter: No History of Decub. Ulcer: No History Surgical Site Infection Following: None - Disposition Have Diagnosis and Disposition been Completed?: Yes Diagnosis: Opiate abuse, continuous, Depression, Suicidal ideation Disposition: HOSPITALIZED Disposition Time: 08:04 Patient Plan: Admission Patient Problems: Current Active Problems Problem Status Onset Suicidal ideation Acute Depression Acute Opiate abuse, continuous Chronic Condition: FAIR Forms: [employer] (Indonesian)
--- NOTE | 2018-10-01 08:30 | RAD ---
Date of service: 10/01/2018 HISTORY: med clearance COMPARISON: 07/26/2018 TECHNIQUE: 1 view obtained. FINDINGS: LUNGS: Patchy infiltrate at the left lung base. Minimal peribronchial thickening PLEURA: No significant pleural effusion identified, no pneumothorax apparent. CARDIOVASCULAR: No aortic atherosclerotic calcification present. Normal cardiac size. No pulmonary vascular congestion. OSSEOUS STRUCTURES: No significant abnormalities. VISUALIZED UPPER ABDOMEN: Normal. OTHER FINDINGS: None. IMPRESSION: Patchy infiltrate at the left lung base. Minimal peribronchial thickening
[2018-10-01 09:50] VITALS: O2SAT 99
[2018-10-01 10:43] LABS: PH,URINE 7.5 (4.7-8.0); URINE BILIRUBIN SMALL (NEGATIVE); URINE BLOOD NEGATIVE (NEGATIVE); URINE GLUCOSE (UA) NEGATIVE (NEGATIVE); URINE LEUKOCYTE ESTERASE NEGATIVE Leu/uL (NEGATIVE); URINE PROTEIN 30 mg/dL (<30 mg/dL)
[2018-10-01 10:46] LABS: URINE APPEARANCE CLEAR (CLEAR); URINE COLOR YELLOW (YELLOW)
--- NOTE | 2018-10-01 10:49 | PCM.BM ---
Treatment Plan Problems - Problems identified on initial assessmt Auditory Hallucinations Date Initiated: 10/01/18 Time Initiated: 10:30 Assessment reference: NA Status: Active Priority: 1 Treatment assets and liabiliti Patient Assests: adapts well, cooperative, self-reliant, ADL independent, physically healthy, negotiates basic needs, cognitively intact
[2018-10-01 10:51] LABS: URINE BACTERIA MOD /hpf; URINE RBC 0 - 2 /hpf (0-2)
--- NOTE | 2018-10-01 11:11 | PCM.BM ---
<Sukh Wiggins - Last Filed: 10/01/18 11:07> Treatment Plan Problems - Problems identified on initial assessmt Auditory Hallucinations Date Initiated: 10/01/18 Time Initiated: 10:30 Assessment reference: NA Status: Active Priority: 1 Hopelessness/Helplessness Date Initiated: 10/01/18 Time Initiated: 10:30 Assessment reference: NA Status: Active Priority: 2 Feelings of Worthlessness Date Initiated: 10/01/18 Time Initiated: 10:30 Assessment reference: NA Status: Active Priority: 3 Ineffective Coping Date Initiated: 10/01/18 Time Initiated: 10:30 Assessment reference: NA Status: Active Priority: 4 Treatment assets and liabiliti Patient Assests: adapts well, cooperative, self-reliant, ADL independent, physically healthy, negotiates basic needs, cognitively intact Patient Liabilities: poor support system, substance abuse - Milieu Protocol Maintain good personal hygiene: daily Encourage regular showers, daily Remind patient to perform daily oral care, every shift Assist patient to perform ADL's Conduct patient checks and document Observation sheet: Q15 minutes Maintain personal safety: every shift Educate patient to report safety concerns to staff, every shift Monitor environment for contraband/sharps Medication safety: Monitor for expected outcome, potential side effects: every shift, Assess barriers to learning: every shift, Assess readiness for medication education: every shift Family Contact Family involvement: Famliy/SO not involved Family contact: Patient declines to allow family contact at present - Goals for Treatment Patient goals for treatment: less depression Discharge/Continuing Care - Education Needs Education Needs: Patient Medication, Patient Diagnosis/Disease Process, Patient Coping Skills, Patient Anger Management skills, Patient Placement options, Patient Community resources, Patient Activities of Daily Living, Patient Pain, Patient Nutrition, Patient Uses of Medical Equipment, Patient Health Practices/Safety, Patient Personal Hygiene/Grooming, Patient Aftercare Safety Plan - Discharge Discharge Criteria: Tolerates medication w/o severe side effects <Fahad Del Cid - Last Filed: 10/02/18 09:59> - Diagnosis (1) Opioid use disorder, severe, dependence Status: Acute Interventions: 10/02/18 09:59 * group, milieu and supportive tx * Neurontin 300 mg po TID for mood and anxiety control * Seroquel 50 mg po bid and 100 mg AMHS for mood control, titrate to prior dose of 100/200 * Remeron 30 mg po HS for depression and off label for insomnia * Ativan 1 mg po q8 prn for anxiety and mood control * Patient may take her supply of suboxone twice daily * Consider naltrexone to help with future abstinence, if patient appears motivated (2) Schizoaffective disorder Status: Chronic Interventions: 10/02/18 09:59 * group, milieu and supportive tx * Neurontin 300 mg po TID for mood and anxiety control * Seroquel 50 mg po bid and 100 mg AMHS for mood control, titrate to prior dose of 100/200 * Remeron 30 mg po HS for depression and off label for insomnia * Ativan 1 mg po q8 prn for anxiety and mood control * Patient may take her supply of suboxone twice daily * Consider naltrexone to help with future abstinence, if patient appears motivated (3) Substance induced mood disorder Status: Chronic Interventions: 10/02/18 09:59 * group, milieu and supportive tx * Neurontin 300 mg po TID for mood and anxiety control * Seroquel 50 mg po bid and 100 mg AMHS for mood control, titrate to prior dose of 100/200 * Remeron 30 mg po HS for depression and off label for insomnia * Ativan 1 mg po q8 prn for anxiety and mood control * Patient may take her supply of suboxone twice daily * Consider naltrexone to help with future abstinence, if patient appears motivated (4) Substance-induced psychotic disorder Status: Chronic Interventions: 10/02/18 09:59 * group, milieu and supportive tx * Neurontin 300 mg po TID for mood and anxiety control * Seroquel 50 mg po bid and 100 mg AMHS for mood control, titrate to prior dose of 100/200 * Remeron 30 mg po HS for depression and off label for insomnia * Ativan 1 mg po q8 prn for anxiety and mood control * Patient may take her supply of suboxone twice daily * Consider naltrexone to help with future abstinence, if patient appears motivated <Veronica Hernandez - Last Filed: 10/03/18 16:54> Family Contact Family involvement: Famliy/SO not involved - Outside Agency [facility] Care involvment: Following patient during stay, Information-sharing Agency contact name: [facility]
[2018-10-01] MEDS ORDERED: SUBOXONE PO SCH ×2 (16:00)
[2018-10-01] MEDS ORDERED: Home Med 1 UNIT PO SCH (16:00)
[2018-10-01] MEDS: SUBOXONE PO SCH (16:33)
--- NOTE | 2018-10-01 18:36 | CARD ---
APPROVED REPORT Date of service: 10/01/2018 EKG Measurement Heart [id number] <Conclusion> Normal sinus rhythm Normal ECG
[2018-10-02 07:46] LABS: GLUCOSE,FASTING 92 mg/dL (65-110); HDL CHOLESTEROL 51 mg/dL (29-60)
[2018-10-02 07:56] LABS: LDL CHOLESTEROL 34 mg/dL (0-129)
--- NOTE | 2018-10-02 09:59 | PCM.PSYCH ---
Initial Psychiatric Evaluation - Initial Psychiatric Evaluation Type of Admission: Voluntary Legal Status: Capacity History of Present Illness and Precipitating Events: Patient is a 48 yo AA female with a history of Schizoaffective Disorder, opiate dependency, cocaine/alcohol/cannabis abuse, multiple admissions and poor aftercare (hospitalized within the [facility] system almost on a monthly basis in July, August, October, November, December, January & February 2018 and then again 07/2018), who was admitted from the ER due to depression and suicidal thoughts. Stressors including chronic opiate dependency as well as a the recent of her mother on February 10 2017 . I interviewed patient at bedside this morning. She is generally withdrawn and superficial during my visits. Patient reports continued depression with low mood, energy and initiative. She also endorses lability and poor sleep. Patient denies SI at this time. Patient does appear preoccupied however denies perceptual disturbance and does not appear to be responding to internal stimuli. She informed staff at admission on Wednesday that she was hearing voices in her head. Delusions were not elicited however patient is not overly communicative. Patient admits to using a bag of heroin in addition to the suboxone she is prescribed prior to coming to the ER. She denies any other drug or alcohol use. Her UDS was positive for opiates and benzos. PSYCHIATRIC HISTORY NUMEROUS PRIOR ADMISSIONS. 2018 & 2018 [facility] ADMISSIONS INCLUDE: Jul 2017 [place] Aug 2017 [facility] October 2017 [place] November 2017 [place] December 2017 [facility] January 2018 [place] February 2018 [facility] July 26-Aug 01 2018 [facility] Most recently discharged from [facility] with diagnosis of SIMD, SIPD, Cocaine abuse, Opiate abuse, Alcohol abuse. She was discharged on : Neurontin 400 TID Remeron 30 mg HS Seroquel 100/200 She feels that Seroquel has been especially beneficial. Patient has a reported history of suicide attempts however indicated during my interview 02/2018 these occurred many years ago (by alleged cutting, and jumping off the 3rd floor building) Patient denies any regular psychiatric f/u at this time. Indicates she has not complied with discharge medications from her recent admission to [facility]. SOCIAL HISTORY Patient indicates she is homeless. She is unemployed and gets SSI. Patient has a long history of opiate addiction and abuse of various substances including cocaine, cannabis, alcohol. Patient reports that she smokes tobacco but will not quantify use stating "you always ask me if I want a patch and I always say no". The patient failed the outpatient lower level of care: Yes Current Medications: Active Medications Generic Name Dose Route Start Last Admin Trade Name Yolie PRN Reason Stop Dose Admin Diphenhydramine HCl 50 mg 10/01/18 10:44 10/01/18 21:25 Benadryl PO 50 mg Q6H PRN Administration Agitation Haloperidol 5 mg 10/01/18 10:42 Haldol PO Q6H PRN Agitation Protocol Home Med 1 unit 10/01/18 16:00 10/01/18 16:33 Home Med PO 1 unit BID ANTONIO Administration Lorazepam 1 mg 10/01/18 11:01 10/01/18 21:25 Ativan PO 1 mg Q8H PRN Administration Anxiety Protocol Quetiapine Fumarate 100 mg 10/01/18 22:00 10/01/18 21:22 Seroquel PO 100 mg HS ANTONIO Administration Protocol Quetiapine Fumarate 25 mg 10/01/18 16:00 10/01/18 16:33 Seroquel PO 25 mg BID ANTONIO Administration Protocol Present on Admission - Present on Admission Any Indicators Present on Admission: No - Notes: Notes:: Please refer to ER documentation dated 10/01/18 for results of ROS and lab studies. Review of Systems - Review of Systems All systems: reviewed and no additional remarkable complaints except Review of Systems: Please refer to ER documentation dated 10/01/18 for results of ROS and lab studies. - Constitutional Constitutional: As Per HPI - EENT Eyes: As Per HPI Ears: As Per HPI Nose/Mouth/Throat: As Per HPI - Breasts Breasts: As Per HPI - Cardiovascular Cardiovascular: As Per HPI - Respiratory Respiratory: As Per HPI - Gastrointestinal Gastrointestinal: As Per HPI - Genitourinary Genitourinary: As Per HPI - Reproductive: Female Reproductive:Female: As Per HPI - Menstruation Menstruation: As Per HPI - Musculoskeletal Musculoskeletal: As Per HPI - Integumentary Integumentary: As Per HPI - Neurological Neurological: As Per HPI - Psychiatric Psychiatric: As Per HPI - Endocrine Endocrine: As Per HPI - Hematologic/Lymphatic Hematologic: As Per HPI Past Patient History - Past Psychiatric History Previous Treatment History: Inpatient Prior Professional Help: See HPI - PSYCHIATRIC Hx Bipolar Disorder: Yes Hx Schizophrenia: Yes Hx Substance Use: Yes - Infectious Disease Hx of Infectious Diseases: None - Tetanus Immunizations Tetanus Immunization: Unknown - CARDIAC Hx Cardiac Disorders: No Hx Hypertension: No - PULMONARY Hx Tuberculosis: No - NEUROLOGICAL HX Cerebrovascular Accident: No Hx Seizures: No - HEENT Hx HEENT Problems: No - RENAL Hx Chronic Kidney Disease: No Hx Kidney Stones: No - ENDOCRINE/METABOLIC Hx Hyperthyroidism: No Hx Hypothyroidism: No - HEMATOLOGICAL/ONCOLOGICAL Hx Cancer: No Hx Human Immunodeficiency Virus (HIV): No - INTEGUMENTARY Hx Dermatological Problems: No - MUSCULOSKELETAL/RHEUMATOLOGICAL Hx Arthritis: No Hx Fractures: No Hx Osteoporosis: No Hx Rheumatoid Arthritis: No - GASTROINTESTINAL Hx Crohn's Disease: No Hx Diverticulitis: No Hx Gall Bladder Disease: No Hx Gastritis: No Hx Pancreatitis: No - GENITOURINARY/GYNECOLOGICAL Hx Sexually Transmitted Disorders: No - SURGICAL HISTORY Hx Cholecystectomy: Yes - ANESTHESIA Hx Anesthesia: Yes Hx Anesthesia Reactions: No Hx Malignant Hyperthermia: No - Medical/Surgical History Reviewed & confirmed: by [place] Meds Allergies/Adverse Reactions: Allergies Allergy/AdvReac Type Severity Reaction Status Date / Time Penicillins Allergy unknown Verified 10/01/18 00:25 Mental Status Examination - Personal Presentation Personal Presentation: Looks stated age - Affect Affect: Constricted - Motor Activity Motor Activity: Calm - Reliability in Providing Information Reliability in Providing Information: Poor, due to alteration in thoughts - Speech Speech: Organized - Mood Mood: Depressed, Anxious - Formal Thought Process Formal Thought Process: No Impairment - Obsessions/Compulsions Obsessions: No Compulsions: No - Cognitive Functions Orientation: Person, Place, Situation Sensorium: Drowsy Attention/Concentration: Easily distracted Abstract Thinking: [place] Estimate of Intelligence: Below average Judgement: Imparied, as evidence by: Poor judgement, Imparied, as evidence by: Micki moreno of insight into illness Memory: Recent impaired, as evidence by: Inability to recall events of the day - Risk Risk: Suicidal, Diminished functioning Psychiatric Physical Exam - Physical Exam Reviewed and confirmed: Emergency Department Physical Exam - Additional Findings Additional findings: Please refer to ER documentation dated 10/01/18 for results of ROS and lab studies. Results - Vital Signs Recent Vital Signs: Last Vital Signs Temp 97.6 F 10/01/18 10:11 Pulse 75 10/01/18 16:00 Resp 18 10/01/18 09:40 BP 102/65 10/01/18 16:00 Pulse Ox 99 10/01/18 09:40 - Labs Result Diagrams: 10/01/18 03:30 10/01/18 03:30 Labs: Laboratory Results - last 24 hr 10/01/18 09:36 Urine Color Yellow Urine Appearance Clear Urine pH 7.5 Ur Specific [place] 1.015 Urine Protein 30 H Urine Glucose (UA) Negative Urine Ketones Trace H Urine Blood Negative Urine Nitrate Negative Urine Bilirubin Small H Urine Urobilinogen 2.0 H Ur Leukocyte Esterase Negative Urine RBC 0 - 2 Urine WBC 1 - 3 Ur Epithelial Cells 4 - 5 Urine Bacteria Mod - Impressions Impression: Please refer to ER documentation dated 10/01/18 for results of ROS and lab studies. DSM Plan - DSM 5 DSM 5 Diagnosis: Schizoaffective disorder by history SIMD Opiate Use Disorder, Severe Cocaine abuse MJA abuse - Recommended/Plan of Treatment Treatment Recommendations and Plan of Treatment: * group, milieu and supportive tx * Neurontin 300 mg po TID for mood and anxiety control * Seroquel 50 mg po bid and 100 mg AMHS for mood control, titrate to prior dose of 100/200 * Remeron 30 mg po HS for depression and off label for insomnia * Ativan 1 mg po q8 prn for anxiety and mood control * Patient may take her supply of suboxone twice daily * Consider naltrexone to help with future abstinence, if patient appears motivated * Awaiting medical consult * Vitals reviewed and noted below: 10/01/18 10/01/18 10/01/18 09:40 10:11 16:00 Temperature 98.2 F 97.6 F Pulse Rate 76 65 75 Respiratory 18 Rate Blood Pressure 112/71 91/64 L 102/65 Please refer to ER documentation dated 10/01/18 for results of ROS and lab studies. 10/01/18 02:36 CXR reviewed, shows no acute processes. 10/01/18 05:52 Reviewed EKG [address]/T change. No intervals. ADMISSION LABS Laboratory Tests 10/01/18 10/01/18 10/01/18 03:21 03:30 03:30 WBC RBC Hgb Hct MCV MCH MCHC RDW Plt Count MPV Sodium 138 Potassium 3.9 Chloride 105 Carbon Dioxide 27 Anion Gap 10 BUN 12 Creatinine 0.5 L Est GFR ( Amer) > 60 Est GFR (Non-Af Amer) > 60 Random Glucose 99 Fasting Glucose Calcium 8.9 Total Bilirubin 0.2 AST 28 ALT 23 Alkaline Phosphatase 121 Total Protein 6.9 Albumin 3.5 Globulin 3.4 Albumin/Globulin Ratio 1.0 L Triglycerides Cholesterol LDL Cholesterol Direct HDL Cholesterol TSH 3rd Generation Urine Color Urine Appearance Urine pH Ur Specific [place] Urine Protein Urine Glucose (UA) Urine Ketones Urine Blood Urine Nitrate Urine Bilirubin Urine Urobilinogen Ur Leukocyte Esterase Urine RBC Urine WBC Ur Epithelial Cells Urine Bacteria Urine Opiates Screen Positive H Urine Methadone Screen Negative Ur Barbiturates Screen Negative Ur Phencyclidine Scrn Negative Ur Amphetamines Screen Negative U Benzodiazepines Scrn Positive H U Oth Cocaine Metabols Negative U Cannabinoids Screen Negative Alcohol, Quantitative < 10 10/01/18 10/01/18 10/02/18 03:30 09:36 07:15 WBC 6.4 RBC 4.00 Hgb 12.0 Hct 36.7 MCV 91.8 MCH 30.0 MCHC 32.7 RDW 15.7 H Plt Count 198 MPV 10.3 Sodium Potassium Chloride Carbon Dioxide Anion Gap BUN Creatinine Est GFR ( Amer) Est GFR (Non-Af Amer) Random Glucose Fasting Glucose 92 Calcium Total Bilirubin AST ALT Alkaline Phosphatase Total Protein Albumin Globulin Albumin/Globulin Ratio Triglycerides 176 H Cholesterol 151 LDL Cholesterol Direct 34 HDL Cholesterol 51 TSH 3rd Generation Urine Color Yellow Urine Appearance Clear Urine pH 7.5 Ur Specific [place] 1.015 Urine Protein 30 H Urine Glucose (UA) Negative Urine Ketones Trace H Urine Blood Negative Urine Nitrate Negative Urine Bilirubin Small H Urine Urobilinogen 2.0 H Ur Leukocyte Esterase Negative Urine RBC 0 - 2 Urine WBC 1 - 3 Ur Epithelial Cells 4 - 5 Urine Bacteria Mod Urine Opiates Screen Urine Methadone Screen Ur Barbiturates Screen Ur Phencyclidine Scrn Ur Amphetamines Screen U Benzodiazepines Scrn U Oth Cocaine Metabols U Cannabinoids Screen Alcohol, Quantitative 10/02/18 07:15 WBC RBC Hgb Hct MCV MCH MCHC RDW Plt Count MPV Sodium Potassium Chloride Carbon Dioxide Anion Gap BUN Creatinine Est GFR ( Amer) Est GFR (Non-Af Amer) Random Glucose Fasting Glucose Calcium Total Bilirubin AST ALT Alkaline Phosphatase Total Protein Albumin Globulin Albumin/Globulin Ratio Triglycerides Cholesterol LDL Cholesterol Direct HDL Cholesterol TSH 3rd Generation 0.19 L Urine Color Urine Appearance Urine pH Ur Specific [place] Urine Protein Urine Glucose (UA) Urine Ketones Urine Blood Urine Nitrate Urine Bilirubin Urine Urobilinogen Ur Leukocyte Esterase Urine RBC Urine WBC Ur Epithelial Cells Urine Bacteria Urine Opiates Screen Urine Methadone Screen Ur Barbiturates Screen Ur Phencyclidine Scrn Ur Amphetamines Screen U Benzodiazepines Scrn U Oth Cocaine Metabols U Cannabinoids Screen Alcohol, Quantitative Projected ELOS: 7 days Prognosis: guarded Discharge Plan and Discharge Criteria: Dual treatment program vs. rehab - Tobacco Cessation Tobacco Use Status for the last 30 days: Non User Tobacco Use Treatment Practical Counseling Provided: No Tobacco Use Treatment FDA-Approved Cessation Medication Provided: No Initial Psych Certification - Initial Certification I certify that the inpatient psychiatric facility admission was medically necessary for either: Treatment which could reasonbly be expected to improve pt's condition, Diagnostic study I estimate of hospitalization is necessary for proper treatment of the patient: 7 Unit of Time: Days
[2018-10-02] MEDS: SUBOXONE PO SCH ×2 (10:12→15:14)
--- NOTE | 2018-10-02 10:26 | CP.PCM.CON ---
<Dm Tolbert - Last Filed: 10/02/18 14:47> History of Present Illness - History of Present Illness History of Present Illness: Dm Tolbert PGY2 Medicine Consult Note for Dr. Johnston 48 year old female with a past medical history significant for schizoaffective disorder, heroin abuse, insomnia, and depression who presented to psychiatry for depression and suicide ideation. Medicine is being consulted for chronic right knee pain. She states she has chronic left knee pain in both knees and sometimes both tend to swell up. Currently she is complaining about the right knee. She says it is swollen and that her range of motion is limited. She denies any recent falls or trauma to the knee. She denies fever, chills, headache, chest pain, palpitations, SOB, cough, abdominal pain, N/V/D/C, urinary symptoms, skin changes, or any numbness/tingling of any extremity. PMD: Dr. San PMH: Schizoaffective disorder, heroin abuse, insomnia, and depression PSH: Gall Bladder Removal Family History: Denies Social History: light cigarette use daily, heroin abuse on methadone, and denies alcohol abuse Allergies: Penicillin Home Medications: As per MAR Review of Systems - Constitutional Constitutional: absent: Chills, Fatigue, Fever - Cardiovascular Cardiovascular: absent: Chest Pain - Respiratory Respiratory: absent: Cough, Dyspnea, Hemoptysis - Gastrointestinal Gastrointestinal: absent: Change in Bowel Habits, Hematemesis, Hematochezia, Nausea, Vomiting - Genitourinary Genitourinary: absent: Change in Urinary Stream, Difficulty Urinating - Musculoskeletal Musculoskeletal: Joint Swelling, Limited Range of Motion. absent: Muscle W eakness, Numbness, Radiating Pain into Limb, Stiffness, Tingling - Integumentary Integumentary: absent: Wounds - Neurological Neurological: absent: Disequilibrium, Dizziness, Numbness, Focal Weakness, Headaches, Syncope, Tingling, Weakness Past Patient History - Infectious Disease Hx of Infectious Diseases: None - Tetanus Immunizations Tetanus Immunization: Unknown - Past Social History Smoking Status: Light Smoker < 10 Cigarettes Daily - CARDIAC Hx Cardiac Disorders: No Hx Hypertension: No - PULMONARY Hx Tuberculosis: No - NEUROLOGICAL HX Cerebrovascular Accident: No Hx Seizures: No - HEENT Hx HEENT Problems: No - RENAL Hx Chronic Kidney Disease: No Hx Kidney Stones: No - ENDOCRINE/METABOLIC Hx Hyperthyroidism: No Hx Hypothyroidism: No - HEMATOLOGICAL/ONCOLOGICAL Hx Cancer: No Hx Human Immunodeficiency Virus (HIV): No - INTEGUMENTARY Hx Dermatological Problems: No - MUSCULOSKELETAL/RHEUMATOLOGICAL Hx Arthritis: No Hx Fractures: No Hx Osteoporosis: No Hx Rheumatoid Arthritis: No - GASTROINTESTINAL Hx Crohn's Disease: No Hx Diverticulitis: No Hx Gall Bladder Disease: No Hx Gastritis: No Hx Pancreatitis: No - GENITOURINARY/GYNECOLOGICAL Hx Sexually Transmitted Disorders: No - PSYCHIATRIC Hx Bipolar Disorder: Yes Hx Schizophrenia: Yes Hx Substance Use: Yes - SURGICAL HISTORY Hx Cholecystectomy: Yes - ANESTHESIA Hx Anesthesia: Yes Hx Anesthesia Reactions: No Hx Malignant Hyperthermia: No Meds Allergies/Adverse Reactions: Allergies Allergy/AdvReac Type Severity Reaction Status Date / Time Penicillins Allergy unknown Verified 10/01/18 00:25 - Medications Medications: Current Medications Diphenhydramine HCl (Benadryl) 50 mg PO Q6H PRN PRN Reason: Agitation Last Admin: 10/01/18 21:25 Dose: 50 mg Gabapentin (Neurontin) 300 mg PO TID ANOTNIO; Protocol Haloperidol (Haldol) 5 mg PO Q6H PRN; Protocol PRN Reason: Agitation Home Med (Home Med) 1 unit PO BID ANTONIO Last Admin: 10/02/18 10:12 Dose: 1 unit Lorazepam (Ativan) 1 mg PO Q8H PRN; Protocol PRN Reason: Anxiety Last Admin: 10/01/18 21:25 Dose: 1 mg Mirtazapine (Remeron) 30 mg PO HS ANTONIO Quetiapine Fumarate (Seroquel) 100 mg PO HS ANTONIO; Protocol Last Admin: 10/01/18 21:22 Dose: 100 mg Quetiapine Fumarate (Seroquel) 50 mg PO BID ANTONIO; Protocol Physical Exam - Constitutional Appears: Well, Non-toxic, No Acute Distress - Head Exam Head Exam: ATRAUMATIC, NORMAL INSPECTION, NORMOCEPHALIC - Eye Exam Eye Exam: EOMI, Normal appearance - ENT Exam ENT Exam: Mucous Membranes Moist - Respiratory Exam Respiratory Exam: Clear to Auscultation Bilateral, NORMAL BREATHING PATTERN - Cardiovascular Exam Cardiovascular Exam: REGULAR RHYTHM, +S1, +S2 - GI/Abdominal Exam GI & Abdominal Exam: Soft. absent: Tenderness - Extremities Exam Extremities exam: Positive for: normal inspection, pedal pulses present. Negative for: pedal edema Additional comments: Decrease ROM in right now on active motion, when extending - Neurological Exam Neurological exam: Alert, CN II-XII Intact, Oriented x3 Results - Vital Signs Recent Vital Signs: Last Vital Signs Temp 98 F 10/02/18 07:00 Pulse 62 10/02/18 07:00 Resp 18 10/02/18 07:00 BP 111/76 10/02/18 07:00 Pulse Ox 99 10/01/18 09:40 - Labs Result Diagrams: 10/01/18 03:30 10/01/18 03:30 Labs: Laboratory Results - last 24 hr 10/01/18 10/02/18 10/02/18 09:36 07:15 07:15 Fasting Glucose 92 Triglycerides 176 H Cholesterol 151 LDL Cholesterol Direct 34 HDL Cholesterol 51 TSH 3rd Generation 0.19 L Urine Color Yellow Urine Appearance Clear Urine pH 7.5 Ur Specific [place] 1.015 Urine Protein 30 H Urine Glucose (UA) Negative Urine Ketones Trace H Urine Blood Negative Urine Nitrate Negative Urine Bilirubin Small H Urine Urobilinogen 2.0 H Ur Leukocyte Esterase Negative Urine RBC 0 - 2 Urine WBC 1 - 3 Ur Epithelial Cells 4 - 5 Urine Bacteria Mod Assessment & Plan - Assessment and Plan (Free Text) Assessment: 48 year old female with a past medical history significant for schizoaffective disorder, heroin abuse, insomnia, and depression who presented to psychiatry for depression and suicide ideation. Medicine is being consulted for chronic right knee pain. Plan: 1. Right Knee Pain -likely chronic -Right Knee Xray is negative -ibuprofen 400mg Q6H PRN 2. Low TSH -Free T4 .79 -patient should follow up thyroid levels as outpatient 3. Depression -management as per psychiatry <Conner Johnston - Last Filed: 10/02/18 15:15> Meds - Medications Medications: Current Medications Diphenhydramine HCl (Benadryl) 50 mg PO Q6H PRN PRN Reason: Agitation Last Admin: 10/02/18 14:06 Dose: 50 mg Gabapentin (Neurontin) 300 mg PO TID ANTONIO; Protocol Last Admin: 10/02/18 12:08 Dose: 300 mg Haloperidol (Haldol) 5 mg PO Q6H PRN; Protocol PRN Reason: Agitation Last Admin: 10/02/18 14:05 Dose: 5 mg Home Med (Home Med) 1 unit PO BID ANTONIO Last Admin: 10/02/18 10:12 Dose: 1 unit Ibuprofen (Motrin Tab) 400 mg PO Q6H PRN PRN Reason: Pain, Mild (1-3) Lorazepam (Ativan) 1 mg PO Q8H PRN; Protocol PRN Reason: Anxiety Last Admin: 10/02/18 14:06 Dose: 1 mg Mirtazapine (Remeron) 30 mg PO HS ANTONIO Quetiapine Fumarate (Seroquel) 100 mg PO HS ANTONIO; Protocol Last Admin: 10/01/18 21:22 Dose: 100 mg Quetiapine Fumarate (Seroquel) 50 mg PO BID ANTONIO; Protocol Results - Vital Signs Recent Vital Signs: Last Vital Signs Temp 98 F 10/02/18 07:00 Pulse 62 10/02/18 07:00 Resp 18 10/02/18 07:00 BP 111/76 10/02/18 07:00 Pulse Ox 99 10/01/18 09:40 - Labs Result Diagrams: 10/01/18 03:30 10/01/18 03:30 Labs: Laboratory Results - last 24 hr 10/02/18 10/02/18 10/02/18 07:00 07:15 07:15 Fasting Glucose 92 Triglycerides 176 H Cholesterol 151 LDL Cholesterol Direct 34 HDL Cholesterol 51 Free T4 0.79 TSH 3rd Generation 0.19 L Attending/Attestation - Attestation I have personally seen and examined this patient.: Yes I have fully participated in the care of the patient.: Yes I have reviewed all pertinent clinical information: Yes Notes (Text): 10/02/18 15:11 48 year old female with past medical history of schizoaffective disorder, substance (heroin) abuse, and depression who presented with depressed mood and suicidal ideation. Medical consultation was requested for right knee pain. Continue with motrin prn for pain. Xray of right knee is negative. TSH is low with low normal FT4. Likely subclinical thyroid disease. Recommended to repeat TFTs in 4-6 weeks. Patient was counselled on risks of continued substance abuse. Further management as per psychiatrist. Thank you Dr. Del Cid for this consult. Please re-consult as needed. Conner Johnston MD Hospitalist.
--- NOTE | 2018-10-02 14:38 | RAD ---
Date of service: 10/02/2018 PROCEDURE: Right Knee Radiographs. HISTORY: right knee pain COMPARISON: None. TECHNIQUE: Three views obtained. FINDINGS: BONES: Normal. No fracture. JOINTS: Normal. No osteoarthritis. JOINT EFFUSION: None. OTHER FINDINGS: None. IMPRESSION: Normal radiographs of the right knee.
[2018-10-03] MEDS: SUBOXONE PO SCH ×2 (09:21→16:46)
--- NOTE | 2018-10-03 14:57 | PCM.PYCHPN ---
Psychiatric Progress Note - Psychiatric Progress Note Patient seen today, length of contact: 30min Patient Chief Complaint: "what is the purpose of you to call to my program?, they will know my business, you could do whatever..." Problems Identified/Issues Discussed: medications, treatment plan, suicidal thoughts, coping strategies. Medical Problems: see HPI Diagnostic Results: 10/01/18 03:30 10/01/18 03:30 Lab Results 10/02/18 07:15: RPR Nonreactive 10/02/18 07:15: TSH 3rd Generation 0.19 L 10/02/18 07:15: Fasting Glucose 92, Triglycerides 176 H, Cholesterol 151, LDL Cholesterol Direct 34, HDL Cholesterol 51 10/02/18 07:00: Free T4 0.79 10/01/18 09:36: Urine Color Yellow, Urine Appearance Clear, Urine pH 7.5, Ur Specific [place] 1.015, Urine Protein 30 H, Urine Glucose (UA) Negative, Urine Ketones Trace H, Urine Blood Negative, Urine Nitrate Negative, Urine Bilirubin Small H, Urine Urobilinogen 2.0 H, Ur Leukocyte Esterase Negative, Urine RBC 0 - 2, Urine WBC 1 - 3, Ur Epithelial Cells 4 - 5, Urine Bacteria Mod 10/01/18 03:30: WBC 6.4, RBC 4.00, Hgb 12.0, Hct 36.7, MCV 91.8, MCH 30.0, MCHC 32.7, RDW 15.7 H, Plt Count 198, MPV 10.3 10/01/18 03:30: Alcohol, Quantitative < 10 10/01/18 03:30: Sodium 138, Potassium 3.9, Chloride 105, Carbon Dioxide 27, Anion Gap 10, BUN 12, Creatinine 0.5 L, Est GFR ( Amer) > 60, Est GFR (Non-Af Amer) > 60, Random Glucose 99, Calcium 8.9, Total Bilirubin 0.2, AST 28, ALT 23, Alkaline Phosphatase 121, Total Protein 6.9, Albumin 3.5, Globulin 3.4, Albumin/Globulin Ratio 1.0 L 10/01/18 03:21: Urine Opiates Screen Positive H, Urine Methadone Screen Negative, Ur Barbiturates Screen Negative, Ur Phencyclidine Scrn Negative, Ur Amphetamines Screen Negative, U Benzodiazepines Scrn Positive H, U Oth Cocaine Metabols Negative, U Cannabinoids Screen Negative Vital Signs Temp Pulse Resp BP Pulse Ox 10/03/18 07:00 98 F 56 L 18 98/62 L 10/02/18 07:00 98 F 62 18 111/76 10/01/18 16:00 75 102/65 10/01/18 10:11 97.6 F 65 91/64 L 10/01/18 09:40 98.2 F 76 18 112/71 99 10/01/18 08:00 62 18 107/67 100 10/01/18 07:09 98.2 F 67 18 110/66 100 10/01/18 00:39 98.5 F 80 18 124/50 L 98 DSM 5 Symptoms Update: As per Dr. Del Cid's assessment: Patient is a 48 yo AA female with a history of Schizoaffective Disorder, opiate dependency, cocaine/alcohol/cannabis abuse, multiple admissions and poor aftercare (hospitalized within the [facility] almost on a monthly basis in July, August, October, November, December, January & February 2018 and then again 07/2018), who was admitted from the ER due to depression and suicidal thoughts. Stressors including chronic opiate dependency as well as a the recent of her mother on February 10 [address] Del Cid's documentation patient presented to be "withdrawn and superficial, reported continued depression with low mood, energy and initiative. She also endorses lability and poor sleep." Patient was seen today at the treatment team meeting, patient presented with acceptable personal hygiene, has nice hair brook, overall patient was emotionally labile, irritable, and satisfied. Patient started with her st atement "I do not remember how I ended up in the hospital", patient reported that she did not feel depressed or suicidal. Patient denied visual, auditory, tactile hallucinations, denied paranoid ideations but patient presented to be guarded, mildly paranoid. Patient wants to be discharged immediately, this automobile service writer advised to give permission to speak to her dual diagnosis program, patient signed consent for collateral's. As per collateral information patient was participating in dual diagnosis program, patient was on the following medications: trazodone 100 mg at the nighttime Seroquel 200 mg at the nighttime Ambien 10 mg at the nighttime Paxil 20 mg daily Suboxone 8/2 sublingual twice daily Prescriber is Dr. Palacio. Patient is welcome back to the program Patient admits to using a bag of heroin in addition to the suboxone she is prescribed prior to coming to the ER. She denies any other drug or alcohol use. Her UDS was positive for opiates and benzos. So far patient tolerates medications well, no side effects observed or reported, aims 0, no EPS. Medication Change: Yes (Meds resumed) Medical Record Reviewed: Yes Consults ordered or reviewed: medical consult Mental Status Examination - Cognitive Function Orientation: Person, Place, Situation Memory: Intact Attention: Poor Concentration: Poor Association: Loose Fund of Knowledge: Poor - Mood Mood: Depressed, Anxious - Affect Affect: Constricted - Formal Thought Process Formal Thought Process: No Impairment - Suicidal Ideation Suicidal Ideation: No - Homicidal Ideation Homicidal Ideation: No Goal/Treatment Plan - Goal/Treatment Plan Need for Continued Stay: Remain at risks for inpatient hospitalization, Severe depression anxiety, Discharge may exacerbated symptoms, Severe functional impairment Progress Toward Problem(s) and Goals/Treatment Plan: Milieu/structure/supportive therapy SW consultation for discharge plan and social issues Med management: trazodone 100 mg at the nighttime, resumed Seroquel 200 mg at the nighttime, resumed Ambien 10 mg at the nighttime, resumed Paxil 20 mg daily, resumed Suboxone 8/2 sublingual twice daily, resumed Neurontin 3 times a day for anxiety and mood stabilization Patient is welcome back to the program Family involvement Follow up on labs Will monitor closely Pt was educated about risk/benefits and alternatives of medications, coping strategies (safety plan, suicide prevention), relapse prevention, importance of follow up with psychiatrist and therapist, stay away from drugs/alcohol/smoking Estimated Date of D/C: 10/05/18
[2018-10-04 07:20] VITALS: RESP 20
[2018-10-04] MEDS: SUBOXONE PO SCH ×2 (10:02→16:58)
--- NOTE | 2018-10-04 13:26 | PCM.PYCHPN ---
Psychiatric Progress Note - Psychiatric Progress Note Patient seen today, length of contact: 30min Patient Chief Complaint: "what is the purpose of you to call to my program?, they will know my business, you could do whatever..." Problems Identified/Issues Discussed: medications, treatment plan, suicidal thoughts, coping strategies. Medical Problems: see HPI Diagnostic Results: 10/01/18 03:30 10/01/18 03:30 Lab Results 10/02/18 07:15: RPR Nonreactive 10/02/18 07:15: TSH 3rd Generation 0.19 L 10/02/18 07:15: Fasting Glucose 92, Triglycerides 176 H, Cholesterol 151, LDL Cholesterol Direct 34, HDL Cholesterol 51 10/02/18 07:00: Free T4 0.79 10/01/18 09:36: Urine Color Yellow, Urine Appearance Clear, Urine pH 7.5, Ur Specific [place] 1.015, Urine Protein 30 H, Urine Glucose (UA) Negative, Urine Ketones Trace H, Urine Blood Negative, Urine Nitrate Negative, Urine Bilirubin Small H, Urine Urobilinogen 2.0 H, Ur Leukocyte Esterase Negative, Urine RBC 0 - 2, Urine WBC 1 - 3, Ur Epithelial Cells 4 - 5, Urine Bacteria Mod 10/01/18 03:30: WBC 6.4, RBC 4.00, Hgb 12.0, Hct 36.7, MCV 91.8, MCH 30.0, MCHC 32.7, RDW 15.7 H, Plt Count 198, MPV 10.3 10/01/18 03:30: Alcohol, Quantitative < 10 10/01/18 03:30: Sodium 138, Potassium 3.9, Chloride 105, Carbon Dioxide 27, Anion Gap 10, BUN 12, Creatinine 0.5 L, Est GFR ( Amer) > 60, Est GFR (Non-Af Amer) > 60, Random Glucose 99, Calcium 8.9, Total Bilirubin 0.2, AST 28, ALT 23, Alkaline Phosphatase 121, Total Protein 6.9, Albumin 3.5, Globulin 3.4, Albumin/Globulin Ratio 1.0 L 10/01/18 03:21: Urine Opiates Screen Positive H, Urine Methadone Screen Negative, Ur Barbiturates Screen Negative, Ur Phencyclidine Scrn Negative, Ur Amphetamines Screen Negative, U Benzodiazepines Scrn Positive H, U Oth Cocaine Metabols Negative, U Cannabinoids Screen Negative Vital Signs Temp Pulse Resp BP Pulse Ox 10/03/18 07:00 98 F 56 L 18 98/62 L 10/02/18 07:00 98 F 62 18 111/76 10/01/18 16:00 75 102/65 10/01/18 10:11 97.6 F 65 91/64 L 10/01/18 09:40 98.2 F 76 18 112/71 99 10/01/18 08:00 62 18 107/67 100 10/01/18 07:09 98.2 F 67 18 110/66 100 10/01/18 00:39 98.5 F 80 18 124/50 L 98 DSM 5 Symptoms Update: Patient is a 48 yo AA female with a history of Schizoaffective Disorder, opiate dependency, cocaine/alcohol/cannabis abuse, multiple admissions and poor aftercare (hospitalized within the [facility] almost on a monthly basis in July, August, October, November, December, January & February 2018 and then again 07/2018), who was admitted from the ER due to depression and suicidal thoughts. Stressors including chronic opiate dependency as well as a the recent of her mother on February 10 [address] Del Cid's documentation patient presented to be "withdrawn and superficial, reported continued depression with low mood, energy and initiative. She also endorses lability and poor sleep." Patient was seen today at the treatment team meeting room, patient presented more pleasant to compare with yesterday, hygiene is improving, patient was asking reasonable questions about her discharge plan. Patient reported that she feels fine, patient denied any side effects from the medications, patient complaining of insomnia and this caption writer offered increased dose of trazodone but patient refused to do so patient complaining of her mood being "up and down" patient asked to increase his Seroquel this caption writer suggested 100 mg of Seroquel at the morning time and 200 at the nighttime. Patient agreed. Patient denied feeling hopeless or helpless, patient harming herself or others, denied psychotic symptoms, but patient presented to be de anda. So far patient tolerates medications well, no side effects observed or reported, aims 0, no EPS. DSM 5 Diagnosis: Schizoaffective disorder by history SIMD Opiate Use Disorder, Severe Cocaine abuse MJA abuse Medication Change: Yes (Seroquel 100 mg in the morning time 200 mg at the nighttime) Medical Record Reviewed: Yes Consults ordered or reviewed: medical consult Mental Status Examination - Cognitive Function Orientation: Person, Place, Situation Memory: Intact Attention: Poor (Some improvement) Concentration: Poor (some improvement) Association: WNL Fund of Knowledge: WNL - Mood Mood: Depressed ("I am fine"), Anxious (Denied) - Affect Affect: Constricted (But more reactive and mood congruent) - Formal Thought Process Formal Thought Process: No Impairment - Suicidal Ideation Suicidal Ideation: No - Homicidal Ideation Homicidal Ideation: No Goal/Treatment Plan - Goal/Treatment Plan Need for Continued Stay: Remain at risks for inpatient hospitalization, Severe depression anxiety, Discharge may exacerbated symptoms, Severe functional impairment Progress Toward Problem(s) and Goals/Treatment Plan: Milieu/structure/supportive therapy SW consultation for discharge plan and social issues Med management: trazodone 100 mg at the nighttime, for depression and insomnia Seroquel 100 mg at the morning time and 200 mg at the nighttime, for mood stabilization Ambien 10 mg at the nighttime, for insomnia Paxil 20 mg daily, for depression and anxiety Suboxone 8/2 sublingual twice daily, resumed Neurontin 3 times a day for anxiety and mood stabilization Patient is welcome back to the program Family involvement Follow up on labs Will monitor closely Pt was educated about risk/benefits and alternatives of medications, coping strategies (safety plan, suicide prevention), relapse prevention, importance of follow up with psychiatrist and therapist, stay away from drugs/alcohol/smoking Estimated Date of D/C: 10/05/18
[2018-10-05 07:16] VITALS: BP 78/48; PULSE 54; TEMP 98.2
[2018-10-05] MEDS: SUBOXONE PO SCH (08:43)
--- NOTE | 2018-10-06 14:46 | PCM.PYCHDC ---
Mental Status Examination - Mental Status Examination Orientation: Person, Place, Situation, Time Memory: Intact Mood: Neutral Affect: Constricted (Reactive, congruent) Speech: Appropriate Attention: WNL Concentration: WNL Association: WNL Fund of Knowledge: Poor (Baseline) Formal Thought Process: No Impairment Description of patient's judgement and insight: Insight into her mental illness is fair, insight into her addiction problems limited, but patient was willing to follow-up with her dual diagnosis program, fair judgment. Psychotic Thoughts and Behaviors: Patient denied hearing voices, denied seeing things, denied paranoid ideations, patient does not appear to be psychotic. Suicidal Ideation: No Current Homicidal Ideation?: No Plan: Patient adamantly denies thoughts of harming herself or others, denies intent or plan. Discharge Summary - Discharge Note Reason for Hospitalization: Depression, possible suicidal ideation which was ruled out. Psychiatric History (includes Medical, Family, Personal Hx): Patient has history of schizoaffective disorder, polysubstance abuse. Laboratory Data: 10/01/18 03:30 10/01/18 03:30 Lab Results 10/02/18 07:15: RPR Nonreactive 10/02/18 07:15: TSH 3rd Generation 0.19 L 10/02/18 07:15: Fasting Glucose 92, Triglycerides 176 H, Cholesterol 151, LDL Cholesterol Direct 34, HDL Cholesterol 51 10/02/18 07:00: Free T4 0.79 10/01/18 09:36: Urine Color Yellow, Urine Appearance Clear, Urine pH 7.5, Ur Specific [place] 1.015, Urine Protein 30 H, Urine Glucose (UA) Negative, Urine Ketones Trace H, Urine Blood Negative, Urine Nitrate Negative, Urine Bilirubin Small H, Urine Urobilinogen 2.0 H, Ur Leukocyte Esterase Negative, Urine RBC 0 - 2, Urine WBC 1 - 3, Ur Epithelial Cells 4 - 5, Urine Bacteria Mod 10/01/18 03:30: WBC 6.4, RBC 4.00, Hgb 12.0, Hct 36.7, MCV 91.8, MCH 30.0, MCHC 32.7, RDW 15.7 H, Plt Count 198, MPV 10.3 10/01/18 03:30: Alcohol, Quantitative < 10 10/01/18 03:30: Sodium 138, Potassium 3.9, Chloride 105, Carbon Dioxide 27, Anion Gap 10, BUN 12, Creatinine 0.5 L, Est GFR ( Amer) > 60, Est GFR (Non-Af Amer) > 60, Random Glucose 99, Calcium 8.9, Total Bilirubin 0.2, AST 28, ALT 23, Alkaline Phosphatase 121, Total Protein 6.9, Albumin 3.5, Globulin 3.4, Albumin/Globulin Ratio 1.0 L 10/01/18 03:21: Urine Opiates Screen Positive H, Urine Methadone Screen Negative, Ur Barbiturates Screen Negative, Ur Phencyclidine Scrn Negative, Ur Amphetamines Screen Negative, U Benzodiazepines Scrn Positive H, U Oth Cocaine Metabols Negative, U Cannabinoids Screen Negative Vital Signs Temp Pulse Resp BP Pulse Ox 10/05/18 07:15 98.2 F 54 L 20 78/48 L 10/04/18 16:00 59 L 108/68 10/04/18 07:21 98.4 F 57 L 20 92/51 L 10/04/18 07:19 97.9 F 65 20 117/75 10/03/18 15:53 56 L 100/60 10/03/18 07:00 98 F 56 L 18 98/62 L 10/02/18 07:00 98 F 62 18 111/76 10/01/18 16:00 75 102/65 10/01/18 10:11 97.6 F 65 91/64 L 10/01/18 09:40 98.2 F 76 18 112/71 99 10/01/18 08:00 62 18 107/67 100 10/01/18 07:09 98.2 F 67 18 110/66 100 10/01/18 00:39 98.5 F 80 18 124/50 L 98 Consultations:: List each consultation separately and include: 1. Reason for request. 2. Findings. 3. Follow-up Consultations: medical consult appreciated, please see notes for more detailed information. Summary of Hospital Course include:: 1. Description of specific treatment plan utilized for patients during their course of treatmen. 2. Summarize the time- course for resolution of acute symptoms and/or regressed behaviors. 3. Describe issues identified and worked on during hospitalization. 4. Describe medication utilized. 5. Describe medical problems identified and treated. 6. Reassessment of suicide risk Summary of Hospital Course: As per Dr. Del Cid's assessment: Patient is a 48 yo AA female with a history of Schizoaffective Disorder, opiate dependency, cocaine/alcohol/cannabis abuse, multiple admissions and poor aftercare (hospitalized within the [facility] almost on a monthly basis in July, August, October, November, December, January & February 2018 and then again 07/2018), who was admitted from the ER due to depression and suicidal thoughts. Stressors including chronic opiate dependency as well as a the recent of her mother on February 10 [address] Del Cid's documentation patient presented to be "withdrawn and superficial, reported continued depression with low mood, energy and initiative. She also endorses lability and poor sleep." Please see admission note for more detailed information. Patient stayed in the hospital for 3 days, was compliant with her medications which were confirmed and continued: Suboxone 02/03 Gabapentin 300 mg 3 times a day for mood stabilization Paxil 20 mg daily for depression and anxiety Seroquel 100 mg daily and 200 mg of the nighttime for mood stabilization and psychotic symptoms Trazodone 100 mg at the nighttime for depression and insomnia Ambien 5 mg at nighttime as needed for insomnia Patient tolerated medications well, no side effects observed or reported, Angie 0, no EPS. Collateral information was obtained from patient's dual diagnosis program, please see social sciences research scientist notes for more detailed information. Patient requested to be discharged, patient did not present to be psychotic nor depressed nor anxious. Patient has follow-up appointment with her treatment program [facility]. Over the course of this hospitalization pt was attending groups, pt also had medication management, had therapeutic milieu. Overall pt improved, pt's affect became brighter, pt was less depressed, has realistic future oriented plans, deemed to be ready for discharge. At the time of the discharge patient pose no imminent danger to self or others, will be following up at [facility], a dual diagnosis program, information about follow up appointment, time and address provided to the pt, (see SW note for more detailed information). It is a patient responsibility to follow up with outpatient clinic, PMD as well as specialists In case patient will need to obtain results of studies pending at discharge, eden hardin was provided with contact information of Psychiatric Inpatient unit [phone] as well as Medical Record Department [phone], as well as [facility] team [phone]. Nicotine patch was offered, but patient declined Counseling about smoking and drugs cessation provided AA meetings as well as [facility] [place] cessation treatment program information was provided by the pt was provided with prescriptions (see medication reconciliation form) Pt was educated about safety plan in case of worsening of symptoms or in case of suicidal or homicidal ideation call 911 or go to the nearest ER, also was educated to take meds as prescribed and stay away from drugs, pt verbalized understanding. - Diagnosis (1) Polysubstance abuse Status: Chronic Priority: Medium (2) Schizoaffective disorder Status: Chronic Priority: Medium - Final Diagnosis (DSM 5) Condition upon Discharge: GOOD Disposition: HOME/ ROUTINE Follow-up Treatment Plan: Overall pt improved, pt's affect became brighter, pt was less depressed, has realistic future oriented plans, deemed to be ready for discharge. At the time of the discharge patient pose no imminent danger to self or others, will be following up at [facility], a dual diagnosis program, information about follow up appointment, time and address provided to the pt, (see note for more detailed information). It is a patient responsibility to follow up with outpatient clinic, PMD as well as specialists In case patient will need to obtain results of studies pending at discharge, patient was provided with contact information of Psychiatric Inpatient unit [phone] as well as Medical Record Department [phone], as well as [facility] team [phone]. Nicotine patch was offered, but patient declined Counseling about smoking and drugs cessation provided AA meetings as well as [facility] smoking cessation treatment program information was provided by the pt was provided with prescriptions (see medication reconciliation form) Pt was educated about safety plan in case of worsening of symptoms or in case of suicidal or homicidal ideation call 911 or go to the nearest ER, also was e ducated to take meds as prescribed and stay away from drugs, pt verbalized understanding. Prescriptions/Medication Reconciliation: Gabapentin [Neurontin] 300 mg PO TID #45 cap PARoxetine [Paxil] 20 mg PO DAILY #14 tab QUEtiapine [Seroquel] 100 mg PO DAILY #14 tab Quetiapine Fumarate [Seroquel] 200 mg PO HS #14 tab traZODone [Desyrel] 100 mg PO HS #14 tab Zolpidem [Ambien] 5 mg PO HS PRN #14 tab PRN Reason: Insomnia - Smoking Cessation Smoking Cessation Medication prescribed: No Reason for not providing: Patient refused - Antipsychotic Medications Pt discharged on 2 or more routine antipsychotic medications: No
== END 2018-10-05 12:00 | disposition home or self-care (01) | DRG 430 ==
LOC: ED 23:58 → ERH 10-01 08:02 → PSYC 10-01 09:55
PROVIDERS: ADMIT Psychiatry & Neurology Psychiatry; ATTEND Psychiatry & Neurology Psychiatry
PROC: GZ3ZZZZ Medication Management (ICD-10-PCS; principal; 2018-10-01)
DX: F25.9 Schizoaffective disorder, unspecified (principal); F14.159 Cocaine abuse with cocaine-induced psychotic disorder, unspecified; F11.259 Opioid dependence with opioid-induced psychotic disorder, unspecified; F12.159 Cannabis abuse with psychotic disorder, unspecified; R45.851 Suicidal ideations; G89.29 Other chronic pain; E07.9 Disorder of thyroid, unspecified; F41.9 Anxiety disorder, unspecified; G47.00 Insomnia, unspecified; F17.210 Nicotine dependence, cigarettes, uncomplicated; Z59.0 Homelessness; Z91.5 Personal history of self-harm